=== PATIENT | female | born 1960 | race American Indian/Alaskan Native ===

== ENCOUNTER 2016-06-30 11:48 | Inpatient (IN) | payer SELFPAY ==
[2016-06-30] MEDS ORDERED: NORCO 5/325 PO ONE (14:37)
[2016-06-30] MEDS ORDERED: NACL 0.9% 1000 ML 1,000 ML IV ONE (14:37)
--- NOTE | 2016-06-30 15:00 | Emergency Department Report ---
ED Extremity Problem HPI - General Chief complaint: Extremity Injury, Lower Stated complaint: FOOT INJURY Time Seen by Provider: 06/30/16 14:34 Source: patient Mode of arrival: Wheelchair Limitations: Physical Limitation - History of Present Illness Initial comments: 56-year-old female past medical history hypertension diabetes presents with 3-5 days of left foot pain and swelling. Patient showing me her left foot has visible redness overlying the distal half of left foot. Patient states that walking is difficult and foot has become swollen. Denies any fever or chills but states that skin is very sensitive and hot and distal foot. Location: left History of Same: No Severity scale (0 -10): 6 Quality: aching Consistency: constant Improves with: immobilization Worsens with: weight bearing - Related Data Previous Rx's Medication Instructions Recorded Last Taken Type ALBUTEROL Inhaler [ProAir HFA 2 puff IH QID PRN #1 unit 03/26/16 Unknown Rx Inhaler] ALBUTEROL NEB's [Proventil 0.083% 2.5 mg IH Q4HRT PRN #30 nebu 03/26/16 Unknown Rx NEBS] Amoxicillin/K Clav Tab [Augmentin 1 tab PO Q12HR #8 tab 03/26/16 Unknown Rx 875 mg] HYDROcodone/APAP 5-325 [[place] 1 each PO Q6HR PRN #30 tablet 03/26/16 Unknown Rx 5-325 mg TAB] Lisinopril [Zestril TAB] 40 mg PO QDAY #30 tablet 03/26/16 Unknown Rx metFORMIN [Glucophage] 500 mg PO BID #60 tablet 03/26/16 Unknown Rx Albuterol Sulfate [Albuterol 0.63% 0.63 mg IH TID PRN #1 box 04/22/16 Unknown Rx NEBS] Azithromycin [Zithromax Z-SUGAR] 250 mg PO DAILY #6 tablet 04/22/16 Unknown Rx Budesonide [Pulmicort] 0.25 mg IH Q12HR #1 box 04/22/16 Unknown Rx Compressor, For Nebulizer [Ebase 1 each MC DAILY #1 each 04/22/16 Unknown Rx Controller] Ipratropium [Atrovent NEB] 0.5 mg IH Q8HRT #1 box 04/22/16 Unknown Rx Prednisone [predniSONE 10 mg 10 mg PO .TAPER #1 tab.ds.pk 04/22/16 Unknown Rx (6-Day Pack, 21 Tabs)] Allergies Allergy/AdvReac Type Severity Reaction Status Date / Time No Known Allergies Allergy Verified 06/30/16 12:46 ED Review of Systems ROS: Stated complaint: FOOT INJURY Other details as noted in HPI ED Past Medical Hx - Past Medical History Hx Hypertension: Yes Hx Congestive Heart Failure: No Hx Diabetes: Yes Hx Seizures: No Hx Asthma: Yes Hx Tuberculosis: No Hx Dementia: No Hx HIV: No Additional medical history: ANEMIA - Surgical History Hx Cholecystectomy: Yes - Social History Smoking Status: Never Smoker - Medications Home Medications: Home Medications Medication Instructions Recorded Confirmed Last Taken Type ALBUTEROL Inhaler [ProAir HFA 2 puff IH QID PRN #1 unit 03/26/16 04/21/16 Unknown Rx Inhaler] ALBUTEROL NEB's [Proventil 0.083% 2.5 mg IH Q4HRT PRN #30 nebu 03/26/16 Unknown Rx NEBS] Amoxicillin/K Clav Tab [Augmentin 1 tab PO Q12HR #8 tab 03/26/16 04/21/16 Unknown Rx 875 mg] HYDROcodone/APAP 5-325 [[place] 1 each PO Q6HR PRN #30 tablet 03/26/16 04/21/16 Unknown Rx 5-325 mg TAB] Lisinopril [Zestril TAB] 40 mg PO QDAY #30 tablet 03/26/16 04/21/16 Unknown Rx metFORMIN [Glucophage] 500 mg PO BID #60 tablet 03/26/16 04/21/16 Unknown Rx Albuterol Sulfate [Albuterol 0.63% 0.63 mg IH TID PRN #1 box 04/22/16 Unknown Rx NEBS] Azithromycin [Zithromax Z-SUGAR] 250 mg PO DAILY #6 tablet 04/22/16 Unknown Rx Budesonide [Pulmicort] 0.25 mg IH Q12HR #1 box 04/22/16 Unknown Rx Compressor, For Nebulizer [Ebase 1 each MC DAILY #1 each 04/22/16 Unknown Rx Controller] Ipratropium [Atrovent NEB] 0.5 mg IH Q8HRT #1 box 04/22/16 Unknown Rx Prednisone [predniSONE 10 mg 10 mg PO .TAPER #1 tab.ds.pk 04/22/16 Unknown Rx (6-Day Pack, 21 Tabs)] ED Physical Exam - General Limitations: Physical Limitation General appearance: alert, in no apparent distress - Head Head exam: Present: atraumatic, normocephalic - Eye Eye exam: Present: normal appearance, PERRL, EOMI - ENT ENT exam: Present: mucous membranes moist - Neck Neck exam: Present: normal inspection - Respiratory Respiratory exam: Present: normal lung sounds bilaterally. Absent: respiratory distress - Cardiovascular Cardiovascular Exam: Present: regular rate, normal rhythm. Absent: systolic murmur, diastolic murmur, rubs, gallop - GI/Abdominal GI/Abdominal exam: Present: soft, normal bowel sounds - Extremities Exam Extremities exam: Present: normal inspection - Expanded Lower Extremity Exam Left Hip exam: Present: normal inspection, full ROM Upper Leg exam: Present: normal inspection, full ROM Knee exam: Present: normal inspection, full ROM Lower Leg exam: Present: normal inspection Foot/Toe exam: Present: tenderness, swelling (redness tenderness and swelling from toes to midfoot region left foot, erythema on palpation, distal pulses intact) - Back Exam Back exam: Present: normal inspection - Neurological Exam Neurological exam: Present: alert, oriented X3, CN II-XII intact, normal gait - Psychiatric Psychiatric exam: Present: normal affect, normal mood - Skin Skin exam: Present: warm, dry, intact, normal color. Absent: rash ED Course Vital Signs 06/30/16 06/30/16 12:32 15:14 Temperature 99.9 F H Pulse Rate 82 Respiratory 18 18 Rate Blood Pressure 159/95 O2 Sat by Pulse 96 Oximetry ED Medical Decision Making - Lab Data Result diagrams: 06/30/16 15:10 06/30/16 15:10 - Medical Decision Making A/P: possible cellulitis vs gout left foot 1- Case d/w w/ Dr. Abdul , I offered pt outpt regimen of ABX to cover for cellulitis vs inpt admission for IV ABX and more aggressive coverage. As pt states she has difficult walking due to pain in her foot will admit for IV ABX. 2- pain control PRN 3- Case d/w Hospitalist Dr. Singh, saw pt in ED, will admit to medical floor 4- pt recived 1g of IV vancomycin in ED Critical care attestation.: If time is entered above; I have spent that time in minutes in the direct care of this critically ill patient, excluding procedure time. ED Disposition Clinical Impression: Cellulitis Qualifiers: Site of cellulitis: other site Qualified Code(s): L03.818 - Cellulitis of other sites Disposition: OP ADMITTED IP TO THIS HOSP Is pt being admited?: Yes Does the pt Need Aspirin: No Condition: Stable Referrals: PRIMARY CARE, [Primary Care Provider] - 3-5 Days Time of Disposition: 18:36
--- NOTE | 2016-06-30 15:07 | XRay Report ---
LEFT FOOT RADIOGRAPHS INDICATION: Left foot swelling. COMPARISON: None similar. FINDINGS: AP and lateral left foot radiographs demonstrate dorsal soft tissue swelling overlying the metatarsals. An approximately 3 mm ossific density at the fifth PIP joint medially nonspecific, though presumed degenerative and less likely avulsion. Bony demineralization with intact remainder bony articulation. Small plantar calcaneal spur. CONCLUSION: Left foot dorsal soft tissue swelling noted with nonspecific plain radiographic appearance about the fifth PIP joint, as described. Directed clinical correlation recommended. Thank you for the opportunity to participate in this patient's care.
[2016-06-30 15:36] LABS: Basophils % (Auto) 0.8 % (0.0-1.8); Eosinophils % (Auto) 1.4 % (0.0-4.3); Hemoglobin 14.1 gm/dl (10.1-14.3); Mean Corpuscular HGB Conc 34 % (30-34); Mean Corpuscular Hemoglobin 35 pg (28-32); Mean Corpuscular Volume 103 fl (79-97); Platelet Count 169 K/mm3 (140-440); Red Blood Count 4.07 M/mm3 (3.65-5.03); Red Cell Distribution Width 14.7 % (13.2-15.2); White Blood Count 7.5 K/mm3 (4.5-11.0)
[2016-06-30] MEDS ORDERED: VANCOMYCIN/NS 1 GM/250 ML 1 GM/250 ML BAG IV ONE (15:37)
[2016-06-30 15:49] LABS: Anion Gap 20 mmol/L; Blood Urea Nitrogen 5 mg/dL (7-17); Calcium 8.7 mg/dL (8.4-10.2); Carbon Dioxide 24 mmol/L (22-30); Chloride 102.1 mmol/L (98-107); Glucose 97 mg/dL (65-100); Sodium 142 mmol/L (137-145)
[2016-06-30 16:23] LABS: Erythrocyte Sedimentation Rate 29 mm/Hr (0-20)
[2016-06-30] MEDS ORDERED: TYLENOL PO PRN (18:35)
[2016-06-30] MEDS ORDERED: MILK OF MAGNESIA PO PRN (18:35)
[2016-06-30] MEDS ORDERED: ZOFRAN IV PRN (18:35)
[2016-06-30] MEDS ORDERED: DULCOLAX PR PRN (18:35)
[2016-06-30] MEDS ORDERED: D50W (25GM) IV PRN (18:35)
[2016-06-30] MEDS ORDERED: PROAIR IH PRN (18:42)
--- NOTE | 2016-06-30 18:49 | History and Physical Report ---
History of Present Illness Date of examination: 06/30/16 Date of admission: 06-30-16 Chief complaint: painful swollen foot History of present illness: She had 56-year-old female with a history of diabetes mellitus, hypertension presents with a 3 day history of painful swollen joint. Patient states the joint became so painful she cannot put carvedilol on it or cannot walk. Patient had difficulty ambulating because of painful left foot. Patient decided to come to the ER because of pain upon presentation to the ER was found to have warm erythematous swollen forefoot. Patient is called for admitted for cellulitis. Patient states pain began in the left big toe. And his progress throughout the forefoot. He denied stepping on any sharp objects. Deny walker while barefoot. She also denies neuropathy at this point. His blood sugars been fairly well controlled. at bedside. All questions and concerns answered to patient and 's satisfaction. Past History Past Medical History: COPD, diabetes, hypertension. denies: acute UT, atrial fib, arrhythmia, arthritis, CAD, cancer, DVT, ESRD, heart failure, hepatitis, HIV/AIDS, hyperthyroidism, hypothyroidism, liver disease, pulmonary embolism, renal failure, seizures, stroke, sarcoidosis Past Surgical History: appendectomy. denies: No surgical history, abd. aortic aneurysm repair, valve replacement, cholecystectomy, cataract removal, thyroidectomy, hysterectomy, hernia repair, mastectomy, total knee replacement, tonsillectomy, TURP, PTCA Social history: , lives with family Family history: diabetes Medications and Allergies Allergies Allergy/AdvReac Type Severity Reaction Status Date / Time No Known Allergies Allergy Verified 06/30/16 12:46 Home Medications Medication Instructions Recorded Confirmed Last Taken Type ALBUTEROL Inhaler [ProAir HFA 2 puff IH QID PRN #1 unit 03/26/16 04/21/16 Unknown Rx Inhaler] ALBUTEROL NEB's [Proventil 0.083% 2.5 mg IH Q4HRT PRN #30 nebu 03/26/16 Unknown Rx NEBS] Amoxicillin/K Clav Tab [Augmentin 1 tab PO Q12HR #8 tab 03/26/16 04/21/16 Unknown Rx 875 mg] HYDROcodone/APAP 5-325 [[place] 1 each PO Q6HR PRN #30 tablet 03/26/16 04/21/16 Unknown Rx 5-325 mg TAB] Lisinopril [Zestril TAB] 40 mg PO QDAY #30 tablet 03/26/16 04/21/16 Unknown Rx metFORMIN [Glucophage] 500 mg PO BID #60 tablet 03/26/16 04/21/16 Unknown Rx Albuterol Sulfate [Albuterol 0.63% 0.63 mg IH TID PRN #1 box 04/22/16 Unknown Rx NEBS] Azithromycin [Zithromax Z-SUGAR] 250 mg PO DAILY #6 tablet 04/22/16 Unknown Rx Budesonide [Pulmicort] 0.25 mg IH Q12HR #1 box 04/22/16 Unknown Rx Compressor, For Nebulizer [Ebase 1 each MC DAILY #1 each 04/22/16 Unknown Rx Controller] Ipratropium [Atrovent NEB] 0.5 mg IH Q8HRT #1 box 04/22/16 Unknown Rx Prednisone [predniSONE 10 mg 10 mg PO .TAPER #1 tab.ds.pk 04/22/16 Unknown Rx (6-Day Pack, 21 Tabs)] Active Meds: Active Medications Acetaminophen (Tylenol) 650 mg PO Q4H PRN PRN Reason: Pain MILD(1-3)/Fever >100.5/GOLD Acetaminophen/Hydrocodone Bitart ([place] 5/325) 1 each PO Q6HR PRN PRN Reason: Pain , Severe (7-10) Albuterol (Proair) 2 puff IH QID PRN PRN Reason: Shortness Of Breath Albuterol/Ipratropium (Duoneb 0.5 Mg-3 Mg/3 Ml Soln) 1 ampul IH Q6HRT ARNALDO Bisacodyl (Dulcolax) 10 mg IN QDAY PRN PRN Reason: Constipation unrelieved by MOM Dextrose (D50w (25gm)) 50 ml IV PRN PRN PRN Reason: Hypoglycemia Sodium Chloride (Nacl 0.9% 1000 Ml) 1,000 mls @ 100 mls/hr IV DIRECT ARNALDO Vancomycin HCl (Vancomycin/Ns 1 Gm/250 Ml) 250 mls @ 167 mls/hr IV ONCE ONE PRN Reason: Protocol Stop: 07/01/16 20:08 Insulin Human Regular (Novolin R) 0 units SUB-Q AC ARNALDO PRN Reason: Protocol Ipratropium [place] (Atrovent) 0.5 mg IH Q8HRT ARNALDO Lisinopril (Zestril) 40 mg PO QDAY ARNALDO Magnesium Hydroxide (Milk Of Magnesia) 30 ml PO Q4H PRN PRN Reason: Constipation Morphine Sulfate (Morphine) 2 mg IV Q4H PRN PRN Reason: Pain, Moderate (4-6) Ondansetron HCl (Zofran) 4 mg IV Q8H PRN PRN Reason: N/V unrelieved by Reglan Review of Systems Constitutional: no weight loss, no weight gain, no chills, no sweats, no fatigue , no weakness, no lethargy, no poor appetite, no daytime sleepiness Ears, nose, mouth and throat: no deferred, no ear discharge, no tinnitis, no decreased hearing, no nasal discharge, no sinus pressure, no epistaxis, no bleeding gums, no dental pain, no mouth pain, no hoarseness, no sore throat, no swelling in mouth, no headache, no pain front of neck Breasts: no deferred, no change in shape, no mass Cardiovascular: no palpitations, no rapid/irregular heart beat, no edema, no syncope, no shortness of breath, no dyspnea on exertion, no paroxysmal nocturnal dyspnea, no claudication, no phlebitis, no high blood pressure Respiratory: no cough, no cough with sputum, no excessive sputum, no hemoptysis , no shortness of breath, no dyspnea on exertion, no home oxygen Gastrointestinal: no abdominal pain, no nausea, no vomiting, no constipation, no change in bowel habits, no hematemesis, no coffee ground emesis, no melena, no hematochezia, no loss of appetite, no heartburn, no early satiety, no lactose intolerance Genitourinary Female: no menorrhagia, no dysuria, no stress incontinence, no incomplete emptying, no urge incontinence, no mixed incontinence Menstruation: no ammenorrhea, no ammenorrhea on BC Rectal: no pain, no incontinence Musculoskeletal: hot joints, arthritis, no neck stiffness, no neck pain, no shooting arm pain, no arm numbness/tingling, no low back pain, no shooting leg pain, no leg numbness/tingling, no redness of joints, no morning stiffness, no muscle weakness, no muscle cramps, no myalgias, no atrophy, no limitation of motion, no fractures Integumentary: redness, sores, wounds, no rash, no jaundice, no growths, no bullae, no lesions, no color changes Neurological: no head injury, no weakness, no numbness, no tingling, no seizures , no vertigo, no headaches, no convulsions, no change in speech, no change in mentation, no memory loss, no changes in smell/taste, no gait dysfunction, no motor disturbance, no sensory deficit, no double vision, no loss of vision, no hearing difficulties, no burning pain, no spasticity Exam - Constitutional Vitals: Temp Pulse Resp BP Pulse Ox 99.9 F H 82 18 159/95 96 06/30/16 12:32 06/30/16 12:32 06/30/16 15:14 06/30/16 12:32 06/30/16 12:32 General appearance: Present: no acute distress, well-nourished - EENT Eyes: Present: PERRL ENT: hearing intact, clear oral mucosa - Neck Neck: Present: supple, normal ROM - Respiratory Respiratory effort: normal Respiratory: bilateral: CTA - Cardiovascular Heart Sounds: Present: S1 & S2. Absent: rub, click - Extremities Extremities: pulses symmetrical, No edema Extremity abnormal: edema, erythema, other (cellulitis of forefoot. localazed on 1st met) - Abdominal General gastrointestinal: Present: soft, non-tender, non-distended, normal bowel sounds - Integumentary Integumentary: Present: clear, warm, dry - Musculoskeletal Musculoskeletal: gait normal, strength equal bilaterally - Psychiatric Psychiatric: appropriate mood/affect, intact judgment & insight - Neurologic Neurologic: CNII-XII intact, moves all extremities Results - Labs CBC & Chem 7: 06/30/16 15:10 06/30/16 15:10 Labs: Laboratory Last Values WBC 7.5 K/mm3 (4.5-11.0) 06/30/16 15:10 RBC 4.07 M/mm3 (3.65-5.03) 06/30/16 15:10 Hgb 14.1 gm/dl (10.1-14.3) 06/30/16 15:10 Hct 42.0 % (30.3-42.9) 06/30/16 15:10 MCV 103 fl (79-97) H 06/30/16 15:10 MCH 35 pg (28-32) H 06/30/16 15:10 MCHC 34 % (30-34) 06/30/16 15:10 RDW 14.7 % (13.2-15.2) 06/30/16 15:10 Plt Count 169 K/mm3 (140-440) 06/30/16 15:10 Lymph % (Auto) 18.9 % (13.4-35.0) 06/30/16 15:10 [place] % (Auto) 12.8 % (0.0-7.3) H 06/30/16 15:10 Eos % (Auto) 1.4 % (0.0-4.3) 06/30/16 15:10 Baso % (Auto) 0.8 % (0.0-1.8) 06/30/16 15:10 Lymph # 1.4 K/mm3 (1.2-5.4) 06/30/16 15:10 [place] # 1.0 K/mm3 (0.0-0.8) H 06/30/16 15:10 Eos # 0.1 K/mm3 (0.0-0.4) 06/30/16 15:10 Baso # 0.1 K/mm3 (0.0-0.1) 06/30/16 15:10 Seg Neutrophils % 66.1 % (40.0-70.0) 06/30/16 15:10 Seg Neutrophils # 4.9 K/mm3 (1.8-7.7) 06/30/16 15:10 ESR 29 mm/Hr (0-20) 06/30/16 15:10 Sodium 142 mmol/L (137-145) 06/30/16 15:10 Potassium 4.0 mmol/L (3.6-5.0) 06/30/16 15:10 Chloride 102.1 mmol/L (98-107) 06/30/16 15:10 Carbon Dioxide 24 mmol/L (22-30) 06/30/16 15:10 Anion Gap 20 mmol/L 06/30/16 15:10 BUN 5 mg/dL (7-17) L 06/30/16 15:10 Creatinine 0.4 mg/dL (0.7-1.2) L 06/30/16 15:10 Estimated GFR > 60 ml/min 06/30/16 15:10 BUN/Creatinine Ratio 12.50 % 06/30/16 15:10 Glucose 97 mg/dL (65-100) 06/30/16 15:10 Lactic Acid 2.0 mmol/L (0.7-2.0) 06/30/16 15:10 Calcium 8.7 mg/dL (8.4-10.2) 06/30/16 15:10 - Imaging and Cardiology Abdominal x-ray: other (foot x ray) Assessment and Plan Advance Directives: Yes VTE prophylaxis?: Chemical Plan of care discussed with patient/family: Yes - Patient Problems (1) HTN (hypertension) Current Visit: Yes Status: Acute Qualifiers: Hypertension type: H Plan to address problem: Patient has essential hypertension fairly well controlled with current MICHAEL inhibitor. We'll continue lisinopril. (2) Cellulitis Current Visit: Yes Status: Acute Qualifiers: Site of cellulitis: other site Site of cellulitis of extremity: S Site of cellulitis of trunk: S Laterality: L Qualified Code(s): L03.818 - Cellulitis of other sites Plan to address problem: Cellulitis of left forefoot. We'll treat patient with vancomycin for now. His already received a gram. We'll have pharmacy follow peak and troughs. May be able to change to by mouth anabiotic surly. We'll follow blood culture data. There is a chance that this may be gout. Patient has an extensive swelling and first MPJ. And then some swelling of forefoot. Will add uric acid level. (3) Asthma exacerbation Current Visit: No Status: Acute Qualifiers: Asthma severity: moderate persistent Qualified Code(s): J45.41 - Moderate persistent asthma with (acute) exacerbation Plan to address problem: We'll treat with albuterol nebulizers. Patient does not have an acute exacerbation at this particular time. (4) Diabetes 1.5, managed as type 2 Current Visit: No Status: Acute Plan to address problem: Patient's diabetes been fairly well controlled we'll place patient on concentrated carbohydrate diet sliding-scale insulin coverage.
[2016-06-30] MEDS ORDERED: PROVENTIL IH PRN (18:54)
--- NOTE | 2016-06-30 19:07 | Admit Criteria Form ---
Admission Criteria Documentation: CELLULITIS Clinical Indications for Admission to Inpatient Care (Place 'X' for any and all applicable criteria): Admission is indicated for ANY ONE of the following(1)(2)(3)(4)(5): [X]I. Limb-threatening infection []II. High-risk comorbid condition as indicated by ANY ONE of the following: []a) Uncontrolled diabetes (eg, HbA1c greater than 10% (0.1)) [ ]b) Cirrhosis [ ]c) Neutropenia [ ]d) Asplenia [ ]e) Immunosuppression [ ]f) Symptomatic heart failure [ ]III. Failure of outpatient therapy as indicated by ALL of the following: [ ]a) Progression or no improvement after adequate trial (minimum of 48 hours, with longer period for stable lower extremity infection) [ ]b) Adequate antibiotic regimen as indicated by use of ANY ONE of the following: [ ]i) First-generation cephalosporin (e.g., cephalexin) [ ]ii) Antistaphylococcal penicillin (e.g., dicloxacillin) [ ]iii) Penicillin-allergic patient regimen (clindamycin, extended-spectrum fluoroquinolone, or doxycycline) [ ]iv) Resistant organism (eg, methicillin-resistant Staphylococcus aureus) regimen (6) [ ]c) Outpatient intravenous therapy regimen is not appropriate due to ANY ONE of the following. (7)(8)(9)(10): [ ]i) It was tried and was not successful (eg, progression of infection). [ ]ii) It is not available or cannot be arranged in a clinically appropriate time frame (e.g., the next day). [ ]iii) Clinical presentation (eg, acuity of infection, rapidity of progression, confirmed or suspected bacteremia) is judged to require ALL of the following: [ ]1) Immediate initiation of intravenous therapy ( eg, cannot wait for next day) [ ]2) Intensity of patient monitoring and observation (eg, vital sign measurement, checks for infection progression) that cannot be provided at other than inpatient level of care [ ]IV. Mental status changes [ ]V. Bacteremia [ ]. Hemodynamic instability [ ]VII. Suspected necrotizing soft tissue infection (e.g., gas in tissue)(11)( 12) [ ]VIII. Orbital infection (13)(14) [ ]IX. Associated surgical procedure (e.g., abscess drainage, debridement) not amenable to outpatient, emergency department, or observation care [ ]X. Cutaneous gangrene [ ]XI. High fever (temperature greater than 39.5 degrees C (103.1 degrees F) (oral)) not responsive to outpatient, emergency department, or observation care therapy [ ]XIII. Inpatient admission required rather than observation care (Also use Cellulitis: Observation Care as appropriate) because of ANY ONE of the following : [ ]a) Periorbital or perineal infection that is severe or worsening [ ]b) Severe pain requiring acute inpatient management [ ]c) IV fluid to replace significant ongoing (e.g., for over 24 hours) losses (greater than 3L/m2 per day) [ ]d) Compartment syndrome monitoring (17) [ ]e) Strict or protective (eg, laminar flow) isolation [ ]f) Urgent debridement or skin grafting [ ]g) Bone or joint debridement [ ]h) Immediate inpatient surgery [ ]i) Other condition, treatment or monitoring requiring inpatient admission Extended stay beyond goal length of stay may be needed for (1)(18): [ ]a) Necrotizing soft tissue infection or fasciitis [ ]b) Gram-negative infection [ ]c) Methicillin-resistant Staphylococcal aureus (MRSA) infection [ ]d) Peripheral venous insufficiency with cellulitis [ ]e) Extensive edema [ ]f) Sepsis or continued Hemodynamic instability [ ]g) Continued high fever or mental status change [ ]h) Bacteremia [ ]i) Active serious comorbid conditions ( eg, heart failure, renal insufficiency) The original [employer] content created by [employer] has been revised. The portions of the content which have been revised are identified through the use of italic text or in bold, and [facility] has neither reviewed nor approved the modified material. All other unmodified content is copyright [facility] Please see references footnoted in the original [facility] edition 2016 Admission Criteria Met: Yes
[2016-06-30] MEDS: MORPHINE IV PRN ×2 (19:29→23:40)
[2016-06-30] MEDS: DUONEB 0.5 MG-3 MG/3 ML SOLN IH SCH (21:00)
[2016-06-30] MEDS: NACL 0.9% 1000 ML 1,000 ML IV SCH (23:42)
[2016-07-01] MEDS: MORPHINE IV PRN (03:56)
[2016-07-01] MEDS: ATROVENT IH SCH ×3 (04:10→22:30)
[2016-07-01] MEDS: DUONEB 0.5 MG-3 MG/3 ML SOLN IH SCH ×4 (04:38→19:55)
[2016-07-01] MEDS: ZESTRIL PO SCH (10:23)
[2016-07-01] MEDS: NORCO 5/325 PO PRN (10:24)
--- NOTE | 2016-07-01 12:45 | Progress Note ---
Assessment and Plan Assessment and plan: 1. Likely gouty flare involving the LT great toe; forefoot and ankle / cellulitis- will d/c vancomycin; trial of indomethacin;mildly elevated uric acid 2. DM 2- cont current sliding scale; monitor accucheck 3. Benign HTN- controlled; cont meds 4. DVT prophylaxis-lovenox History Interval history: c/o pain in the LT foot which started in the LT great toe Hospitalist Physical - Constitutional Vitals: Temp Pulse Resp BP Pulse Ox 98.7 F 71 20 124/65 94 07/01/16 08:00 07/01/16 10:23 07/01/16 09:05 07/01/16 10:23 07/01/16 08:00 General appearance: Present: no acute distress, well-nourished - EENT Eyes: Present: PERRL, EOM intact. Absent: scleral icterus, conjunctival injection ENT: hearing intact, clear oral mucosa, no oropharyngeal erythema, no poor dentition - Neck Neck: Present: supple. Absent: enlarged thyroid, masses or JVD - Respiratory Respiratory effort: normal Respiratory: negative: diminished, rales, rhonchi, wheezing - Cardiovascular Rhythm: regular Heart Sounds: Present: S1 & S2. Absent: gallop - Extremities Extremities: no ischemia, pulses intact, pulses symmetrical, No edema Extremity abnormal: other (lt forefoot swollen and tender including great toe ) Peripheral Pulses: within normal limits - Abdominal General gastrointestinal: soft, non-tender, non-distended, normal bowel sounds - Psychiatric Psychiatric: appropriate mood/affect, cooperative - Neurologic Neurologic: CNII-XII intact, moves all extremities Results - Labs CBC & Chem 7: 06/30/16 15:10 06/30/16 15:10 Labs: Laboratory Last Values WBC 7.5 K/mm3 (4.5-11.0) 06/30/16 15:10 RBC 4.07 M/mm3 (3.65-5.03) 06/30/16 15:10 Hgb 14.1 gm/dl (10.1-14.3) 06/30/16 15:10 Hct 42.0 % (30.3-42.9) 06/30/16 15:10 MCV 103 fl (79-97) H 06/30/16 15:10 MCH 35 pg (28-32) H 06/30/16 15:10 MCHC 34 % (30-34) 06/30/16 15:10 RDW 14.7 % (13.2-15.2) 06/30/16 15:10 Plt Count 169 K/mm3 (140-440) 06/30/16 15:10 Lymph % (Auto) 18.9 % (13.4-35.0) 06/30/16 15:10 [place] % (Auto) 12.8 % (0.0-7.3) H 06/30/16 15:10 Eos % (Auto) 1.4 % (0.0-4.3) 06/30/16 15:10 Baso % (Auto) 0.8 % (0.0-1.8) 06/30/16 15:10 Lymph # 1.4 K/mm3 (1.2-5.4) 06/30/16 15:10 [place] # 1.0 K/mm3 (0.0-0.8) H 06/30/16 15:10 Eos # 0.1 K/mm3 (0.0-0.4) 06/30/16 15:10 Baso # 0.1 K/mm3 (0.0-0.1) 06/30/16 15:10 Seg Neutrophils % 66.1 % (40.0-70.0) 06/30/16 15:10 Seg Neutrophils # 4.9 K/mm3 (1.8-7.7) 06/30/16 15:10 ESR 29 mm/Hr (0-20) 06/30/16 15:10 Sodium 142 mmol/L (137-145) 06/30/16 15:10 Potassium 4.0 mmol/L (3.6-5.0) 06/30/16 15:10 Chloride 102.1 mmol/L (98-107) 06/30/16 15:10 Carbon Dioxide 24 mmol/L (22-30) 06/30/16 15:10 Anion Gap 20 mmol/L 06/30/16 15:10 BUN 5 mg/dL (7-17) L 06/30/16 15:10 Creatinine 0.4 mg/dL (0.7-1.2) L 06/30/16 15:10 Estimated GFR > 60 ml/min 06/30/16 15:10 BUN/Creatinine Ratio 12.50 % 06/30/16 15:10 Glucose 97 mg/dL (65-100) 06/30/16 15:10 POC Glucose 102 (70-105) 07/01/16 06:35 Lactic Acid 2.0 mmol/L (0.7-2.0) 06/30/16 15:10 Uric Acid 7.8 mg/dL (3.5-7.6) H 06/30/16 15:10 Calcium 8.7 mg/dL (8.4-10.2) 06/30/16 15:10 C-Reactive Protein 1.60 mg/dL (0.00-1.30) H 06/30/16 15:10 xray LT foot- dorsal soft tissue swelling
[2016-07-01] MEDS: INDOCIN PO SCH ×2 (14:45→22:45)
[2016-07-01] MEDS: PEPCID PO SCH (14:46)
[2016-07-01] MEDS: NACL 0.9% 1000 ML 1,000 ML IV SCH (14:48)
[2016-07-01] MEDS ORDERED: VANCOMYCIN/NS 1 GM/250 ML 1 GM/250 ML BAG IV ONE (18:39)
[2016-07-02] MEDS: NACL 0.9% 1000 ML 1,000 ML IV SCH ×2 (00:21→16:44)
[2016-07-02] MEDS: DUONEB 0.5 MG-3 MG/3 ML SOLN IH SCH ×4 (02:25→20:10)
[2016-07-02] MEDS: ATROVENT IH SCH ×3 (02:30→15:00)
[2016-07-02] MEDS: INDOCIN PO SCH ×2 (09:33→22:59)
[2016-07-02] MEDS: PEPCID PO SCH (09:34)
[2016-07-02] MEDS: ZESTRIL PO SCH (09:34)
[2016-07-02] MEDS: NORCO 5/325 PO PRN ×3 (09:41→22:58)
--- NOTE | 2016-07-02 14:30 | Progress Note ---
Assessment and Plan Assessment and plan: 1. Likely gouty flare involving the LT great toe; forefoot and ankle / cellulitis- improving; cotn indomethacin;mildly elevated uric acid 2. DM 2- cont current sliding scale; monitor accucheck 3. Benign HTN- controlled; cont meds 4. DVT prophylaxis-lovenox fro d/c in the morning History Interval history: f/u possible gout; swelling and pain to LT foot Patient seen at the bedside; redness and swelling continue to improve but continues to have pain; unable to walk or put pressure on foot Hospitalist Physical - Constitutional Vitals: Temp Pulse Resp BP Pulse Ox 98.0 F 66 18 129/70 96 07/02/16 08:06 07/02/16 09:34 07/02/16 08:41 07/02/16 09:34 07/02/16 08:06 General appearance: Present: no acute distress, well-nourished - EENT Eyes: Present: PERRL, EOM intact. Absent: scleral icterus, conjunctival injection ENT: hearing intact, clear oral mucosa, no oropharyngeal erythema, no poor dentition - Neck Neck: Present: supple, normal ROM. Absent: enlarged thyroid, masses or JVD - Respiratory Respiratory effort: normal Respiratory: negative: diminished, rales, rhonchi, wheezing - Cardiovascular Rhythm: regular Heart Sounds: Present: S1 & S2. Absent: gallop - Extremities Extremities: no ischemia, pulses intact, pulses symmetrical, abnormal (swelling to lT foot; minimal redness ) Peripheral Pulses: within normal limits - Abdominal General gastrointestinal: soft, non-tender, non-distended, normal bowel sounds - Integumentary Integumentary: Present: clear - Psychiatric Psychiatric: appropriate mood/affect, intact judgment & insight, cooperative - Neurologic Neurologic: CNII-XII intact, moves all extremities Results - Labs CBC & Chem 7: 06/30/16 15:10 06/30/16 15:10 Labs: Laboratory Last Values WBC 7.5 K/mm3 (4.5-11.0) 06/30/16 15:10 RBC 4.07 M/mm3 (3.65-5.03) 06/30/16 15:10 Hgb 14.1 gm/dl (10.1-14.3) 06/30/16 15:10 Hct 42.0 % (30.3-42.9) 06/30/16 15:10 MCV 103 fl (79-97) H 06/30/16 15:10 MCH 35 pg (28-32) H 06/30/16 15:10 MCHC 34 % (30-34) 06/30/16 15:10 RDW 14.7 % (13.2-15.2) 06/30/16 15:10 Plt Count 169 K/mm3 (140-440) 06/30/16 15:10 Lymph % (Auto) 18.9 % (13.4-35.0) 06/30/16 15:10 [place] % (Auto) 12.8 % (0.0-7.3) H 06/30/16 15:10 Eos % (Auto) 1.4 % (0.0-4.3) 06/30/16 15:10 Baso % (Auto) 0.8 % (0.0-1.8) 06/30/16 15:10 Lymph # 1.4 K/mm3 (1.2-5.4) 06/30/16 15:10 [place] # 1.0 K/mm3 (0.0-0.8) H 06/30/16 15:10 Eos # 0.1 K/mm3 (0.0-0.4) 06/30/16 15:10 Baso # 0.1 K/mm3 (0.0-0.1) 06/30/16 15:10 Seg Neutrophils % 66.1 % (40.0-70.0) 06/30/16 15:10 Seg Neutrophils # 4.9 K/mm3 (1.8-7.7) 06/30/16 15:10 ESR 29 mm/Hr (0-20) 06/30/16 15:10 Sodium 142 mmol/L (137-145) 06/30/16 15:10 Potassium 4.0 mmol/L (3.6-5.0) 06/30/16 15:10 Chloride 102.1 mmol/L (98-107) 06/30/16 15:10 Carbon Dioxide 24 mmol/L (22-30) 06/30/16 15:10 Anion Gap 20 mmol/L 06/30/16 15:10 BUN 5 mg/dL (7-17) L 06/30/16 15:10 Creatinine 0.4 mg/dL (0.7-1.2) L 06/30/16 15:10 Estimated GFR > 60 ml/min 06/30/16 15:10 BUN/Creatinine Ratio 12.50 % 06/30/16 15:10 Glucose 97 mg/dL (65-100) 06/30/16 15:10 POC Glucose 114 (70-105) H 07/02/16 11:16 Lactic Acid 2.0 mmol/L (0.7-2.0) 06/30/16 15:10 Uric Acid 7.8 mg/dL (3.5-7.6) H 06/30/16 15:10 Calcium 8.7 mg/dL (8.4-10.2) 06/30/16 15:10 C-Reactive Protein 1.60 mg/dL (0.00-1.30) H 06/30/16 15:10
[2016-07-03] MEDS: ATROVENT IH SCH ×2 (00:15→08:27)
[2016-07-03] MEDS: DUONEB 0.5 MG-3 MG/3 ML SOLN IH SCH ×4 (02:15→19:55)
[2016-07-03] MEDS ORDERED: PROVENTIL IH PRN (08:32)
[2016-07-03] MEDS: MORPHINE IV PRN ×2 (08:57→19:07)
[2016-07-03] MEDS: PEPCID PO SCH (11:30)
[2016-07-03] MEDS: INDOCIN PO SCH ×2 (11:36→21:20)
[2016-07-03] MEDS: ZESTRIL PO SCH (11:37)
--- NOTE | 2016-07-03 13:28 | Consultation ---
History of Present Illness - HPI Consult date: 07/03/16 Consult reason: other (56-year-old, recently diagnosed diabetic with swelling redness and on the left foot, no history of injury. Since onset and with antibiotic therapy pain and swelling has improved.) Past History Past Medical History: COPD, diabetes, hypertension. denies: acute [place], atrial fib, arrhythmia, arthritis, CAD, cancer, DVT, ESRD, heart failure, hepatitis, HIV/AIDS, hyperthyroidism, hypothyroidism, liver disease, pulmonary embolism, renal failure, seizures, stroke, sarcoidosis Past Surgical History: appendectomy. denies: No surgical history, abd. aortic aneurysm repair, valve replacement, cholecystectomy, cataract removal, thyroidectomy, hysterectomy, hernia repair, mastectomy, total knee replacement, tonsillectomy, TURP, PTCA Social history: , lives with family Family history: diabetes Medications and Allergies Allergies Allergy/AdvReac Type Severity Reaction Status Date / Time No Known Allergies Allergy Verified 06/30/16 12:46 Home Medications Medication Instructions Recorded Confirmed Last Taken Type ALBUTEROL Inhaler [ProAir HFA 2 puff IH QID PRN #1 unit 03/26/16 07/01/16 Unknown Rx Inhaler] ALBUTEROL NEB's [Proventil 0.083% 2.5 mg IH Q4HRT PRN #30 nebu 03/26/16 Unknown Rx NEBS] Amoxicillin/K Clav Tab [Augmentin 1 tab PO Q12HR #8 tab 03/26/16 07/01/16 Unknown Rx 875 mg] HYDROcodone/APAP 5-325 [[place] 1 each PO Q6HR PRN #30 tablet 03/26/16 07/01/16 Unknown Rx 5-325 mg TAB] Lisinopril [Zestril TAB] 40 mg PO QDAY #30 tablet 03/26/16 07/01/16 Unknown Rx metFORMIN [Glucophage] 500 mg PO BID #60 tablet 03/26/16 07/01/16 Unknown Rx Albuterol Sulfate [Albuterol 0.63% 0.63 mg IH TID PRN #1 box 04/22/16 07/01/16 Unknown Rx NEBS] Azithromycin [Zithromax Z-SUGAR] 250 mg PO DAILY #6 tablet 04/22/16 07/01/16 Unknown Rx Budesonide [Pulmicort] 0.25 mg IH Q12HR #1 box 04/22/16 07/01/16 Unknown Rx Compressor, For Nebulizer [Ebase 1 each MC DAILY #1 each 04/22/16 07/01/16 Unknown Rx Controller] Ipratropium [Atrovent NEB] 0.5 mg IH Q8HRT #1 box 04/22/16 07/01/16 Unknown Rx Prednisone [predniSONE 10 mg 10 mg PO .TAPER #1 tab.ds.pk 04/22/16 07/01/16 Unknown Rx (6-Day Pack, 21 Tabs)] Indomethacin 50 mg PO Q8H PRN #21 capsule 07/03/16 Unknown Rx Active Meds: Active Medications Acetaminophen (Tylenol) 650 mg PO Q4H PRN PRN Reason: Pain MILD(1-3)/Fever >100.5/GOLD Acetaminophen/Hydrocodone Bitart ([place] 5/325) 1 each PO Q6HR PRN PRN Reason: Pain , Severe (7-10) Last Admin: 07/02/16 22:58 Dose: 1 each Albuterol (Proventil) 2.5 mg IH Q4HRT PRN PRN Reason: Shortness Of Breath Albuterol/Ipratropium (Duoneb 0.5 Mg-3 Mg/3 Ml Soln) 1 ampul IH TIDRT ARNALDO Bisacodyl (Dulcolax) 10 mg AK QDAY PRN PRN Reason: Constipation unrelieved by MOM Dextrose (D50w (25gm)) 50 ml IV PRN PRN PRN Reason: Hypoglycemia Famotidine (Pepcid) 40 mg PO QDAY [facility] Last Admin: 07/03/16 11:30 Dose: 40 mg Sodium Chloride (Nacl 0.9% 1000 Ml) 1,000 mls @ 100 mls/hr IV DIRECT ARNALDO Last Admin: 07/02/16 16:44 Dose: 100 mls/hr Indomethacin (Indocin) 50 mg PO Q12HR ARNALDO Last Admin: 07/03/16 11:36 Dose: 50 mg Insulin Human Regular (Novolin R) 0 units SUB-Q AC ARNALDO PRN Reason: Protocol Last Admin: 07/03/16 13:28 Dose: Not Given Lisinopril (Zestril) 40 mg PO QDAY [facility] Last Admin: 07/03/16 11:37 Dose: 40 mg Magnesium Hydroxide (Milk Of Magnesia) 30 ml PO Q4H PRN PRN Reason: Constipation Morphine Sulfate (Morphine) 2 mg IV Q4H PRN PRN Reason: Pain, Moderate (4-6) Last Admin: 07/03/16 08:57 Dose: 2 mg Ondansetron HCl (Zofran) 4 mg IV Q8H PRN PRN Reason: N/V unrelieved by Reglan Last Admin: 06/30/16 19:29 Dose: 4 mg Review of Systems All systems: negative Physical Examination - Ankle & Foot left Ankle appearance: other (Left foot and ankle shows mild swelling to the dorsal aspect, skin crinkling has reappeared, mild discoloration. No definite neurovascular deficit or point tenderness.) Assessment and Plan - Patient Problems (1) Cellulitis Current Visit: Yes Status: Acute Qualifiers: Site of cellulitis: extremity Site of cellulitis of extremity: S Site of cellulitis of trunk: S Laterality: left Qualified Code(s): L03.818 - Cellulitis of other sites Plan to address problem: With the symptoms are clinically improved since anybody's, elevation. No indications for surgical management. Advised continue with antibiotics and elevation, protected weightbearing. The patient may be discharged when medically stable, will follow her in of his. She will need podiatric care for long-term management of toenails, also need orthotics with a soft sole insert(diabetic neuropathy), will evaluate for this on of his followup.
--- NOTE | 2016-07-03 13:53 | Progress Note ---
Assessment and Plan Assessment and plan: 1. Likely gouty flare involving the LT great toe; forefoot and ankle / cellulitis- improving; cotn indomethacin;mildly elevated uric acid; will consult ortho for further evaluation in view of ongoing pain 2. DM 2- cont current sliding scale; monitor accucheck 3. Benign HTN- controlled; cont meds 4. DVT prophylaxis-lovenox for d/c home on indomethacin if cleared by ortho History Interval history: f/u possible gout; swelling and pain to LT foot Patient seen at the bedside; still complains of pain and being unable to bear weight and reports that pain is not improving; redness and swelling are better Hospitalist Physical - Constitutional Vitals: Temp Pulse Resp BP Pulse Ox 98.0 F 65 16 172/81 99 07/03/16 08:35 07/03/16 13:46 07/03/16 13:46 07/03/16 11:37 07/03/16 08:35 General appearance: Present: no acute distress, well-nourished - EENT Eyes: Present: PERRL, EOM intact. Absent: scleral icterus, conjunctival injection ENT: hearing intact, clear oral mucosa, no oropharyngeal erythema, no poor dentition - Neck Neck: Present: supple, normal ROM. Absent: enlarged thyroid, masses or JVD - Respiratory Respiratory effort: normal Respiratory: negative: diminished, rales, rhonchi, wheezing - Cardiovascular Rhythm: regular Heart Sounds: Present: S1 & S2. Absent: gallop - Extremities Extremities: no ischemia, pulses intact, pulses symmetrical, No edema, normal temperature Extremity abnormal: other (Lt ankle- swelling improving; now patient able to tolerate moving the toes and movement at the ankle joint which was limited before due to the pain ) Peripheral Pulses: within normal limits - Abdominal General gastrointestinal: soft, non-tender, non-distended, normal bowel sounds - Integumentary Integumentary: Present: clear - Psychiatric Psychiatric: appropriate mood/affect, cooperative - Neurologic Neurologic: CNII-XII intact Results - Labs CBC & Chem 7: 06/30/16 15:10 06/30/16 15:10 Labs: Laboratory Last Values WBC 7.5 K/mm3 (4.5-11.0) 06/30/16 15:10 RBC 4.07 M/mm3 (3.65-5.03) 06/30/16 15:10 Hgb 14.1 gm/dl (10.1-14.3) 06/30/16 15:10 Hct 42.0 % (30.3-42.9) 06/30/16 15:10 MCV 103 fl (79-97) H 06/30/16 15:10 MCH 35 pg (28-32) H 06/30/16 15:10 MCHC 34 % (30-34) 06/30/16 15:10 RDW 14.7 % (13.2-15.2) 06/30/16 15:10 Plt Count 169 K/mm3 (140-440) 06/30/16 15:10 Lymph % (Auto) 18.9 % (13.4-35.0) 06/30/16 15:10 [place] % (Auto) 12.8 % (0.0-7.3) H 06/30/16 15:10 Eos % (Auto) 1.4 % (0.0-4.3) 06/30/16 15:10 Baso % (Auto) 0.8 % (0.0-1.8) 06/30/16 15:10 Lymph # 1.4 K/mm3 (1.2-5.4) 06/30/16 15:10 [place] # 1.0 K/mm3 (0.0-0.8) H 06/30/16 15:10 Eos # 0.1 K/mm3 (0.0-0.4) 06/30/16 15:10 Baso # 0.1 K/mm3 (0.0-0.1) 06/30/16 15:10 Seg Neutrophils % 66.1 % (40.0-70.0) 06/30/16 15:10 Seg Neutrophils # 4.9 K/mm3 (1.8-7.7) 06/30/16 15:10 ESR 29 mm/Hr (0-20) 06/30/16 15:10 Sodium 142 mmol/L (137-145) 06/30/16 15:10 Potassium 4.0 mmol/L (3.6-5.0) 06/30/16 15:10 Chloride 102.1 mmol/L (98-107) 06/30/16 15:10 Carbon Dioxide 24 mmol/L (22-30) 06/30/16 15:10 Anion Gap 20 mmol/L 06/30/16 15:10 BUN 5 mg/dL (7-17) L 06/30/16 15:10 Creatinine 0.4 mg/dL (0.7-1.2) L 06/30/16 15:10 Estimated GFR > 60 ml/min 06/30/16 15:10 BUN/Creatinine Ratio 12.50 % 06/30/16 15:10 Glucose 97 mg/dL (65-100) 06/30/16 15:10 POC Glucose 85 (70-105) 07/03/16 12:09 Lactic Acid 2.0 mmol/L (0.7-2.0) 06/30/16 15:10 Uric Acid 7.8 mg/dL (3.5-7.6) H 06/30/16 15:10 Calcium 8.7 mg/dL (8.4-10.2) 06/30/16 15:10 C-Reactive Protein 1.60 mg/dL (0.00-1.30) H 06/30/16 15:10 Microbiology 06/30/16 15:15 Peripheral/Venous Blood Culture - Preliminary NO GROWTH AFTER 48 HOURS 06/30/16 15:15 Peripheral/Venous Blood Culture - Preliminary NO GROWTH AFTER 48 HOURS
[2016-07-03] MEDS: CLEOCIN 300 MG/50 mL 300 MG/50 ML BAG IV SCH (19:02)
[2016-07-03] MEDS: NACL 0.9% 1000 ML 1,000 ML IV SCH (21:25)
[2016-07-04] MEDS: CLEOCIN 300 MG/50 mL 300 MG/50 ML BAG IV SCH ×2 (02:11→05:24)
[2016-07-04 08:22] VITALS: BP 158/72
[2016-07-04] MEDS: DUONEB 0.5 MG-3 MG/3 ML SOLN IH SCH (08:27)
--- NOTE | 2016-07-04 10:19 | Discharge Summary ---
Providers - Providers Date of Admission: 06/30/16 18:35 Date of discharge: 07/04/16 Attending physician: LIBRA CRONIN 07/03/16 10:29 Consult to Physician [CONS] Routine Consulting Provider: RICK HONEYCUTT V Reason For Exam: pain and swelling LT ankle Place consult to:: dr. honeycutt Notified:: office Phone number called:: Was contact made?: Yes If yes, spoke with:: brad Time called:: 11:26 Primary care physician: [facility] Hospitalization Reason for admission: cellulitis Condition: Stable Hospital course: 56-year-old, recently diagnosed diabetic presented to the emergency department with swelling redness and on the left foot, no history of injury. Patient was diagnosed with cellulitis and treated with antibiotics. Since onset and with antibiotic therapy, pain and swelling has improved. Patient was also noted to have potentially acute gouty arthritis with slightly elevated uric acid. Patient was seen by orthopedics in consultation. Orthopedics recommended outpatient podiatry care for long-term management of toenails and orthotics with a soft sole insert. Patient is to weight-bear as tolerated and will be discharged with crutches. Dedicated discharge time 35 minutes. Disposition: DISCHARGED TO HOME OR SELFCARE - Discharge Diagnoses (1) Cellulitis Status: Acute Qualifiers: Site of cellulitis: extremity Site of cellulitis of extremity: S Site of cellulitis of trunk: S Laterality: left Qualified Code(s): L03.818 - Cellulitis of other sites (2) HTN (hypertension) Status: Acute Qualifiers: Hypertension type: H (3) Diabetes 1.5, managed as type 2 Status: Acute Comment: Patient new onset diabetes. We needed to give patient insulin because she was on such high doses of Solu-Medrol. Therefore placed on Lantus 30 units daily at bedtime this controlled blood sugars some point but remains suboptimal. Would not increase her long-acting insulin at this time secondary to the steroids will be tapered in a little over 2 weeks. She will need to follow with her primary care physician in 5-7 days. Patient has been informed that she can follow with me if she has a problem with her blood sugars as well. Patient is had diabetic education has been placed on an arm. Did not tolerate Perez well. Patient discharged in stable condition thank you Core Measure Documentation - Palliative Care Palliative Care/ Comfort Measures: Not Applicable - Core Measures Any of the following diagnoses?: none Exam - Constitutional Vitals: Temp Pulse Resp BP Pulse Ox 98.0 F 59 L 20 158/72 96 07/04/16 07:40 07/04/16 07:40 07/04/16 07:40 07/04/16 07:40 07/04/16 07:40 General appearance: Present: no acute distress, well-nourished - EENT Eyes: Present: PERRL ENT: hearing intact, clear oral mucosa - Neck Neck: Present: supple, normal ROM - Respiratory Respiratory effort: normal Respiratory: bilateral: CTA - Cardiovascular Heart Sounds: Present: S1 & S2. Absent: rub, click - Extremities Extremities: pulses symmetrical, No edema Peripheral Pulses: within normal limits - Abdominal General gastrointestinal: Present: soft, non-tender, non-distended, normal bowel sounds Female genitourinary: Present: normal - Integumentary Integumentary: Present: clear, warm, dry - Musculoskeletal Musculoskeletal: gait normal, strength equal bilaterally - Psychiatric Psychiatric: appropriate mood/affect, intact judgment & insight - Neurologic Neurologic: CNII-XII intact, moves all extremities Plan Activity: advance as tolerated Weight Bearing Status: Weight Bear as Tolerated Diet: diabetic Wound: per your surgeon's advice Special Instructions: other (work excuse) Durable Medical Equipment Needed Upon Discharge: Crutches Follow up with: PRIMARY CARE, [Primary Care Provider] - 3-5 Days RICK HONEYCUTT MD [Staff Physician] - 7 Days Prescriptions: Amoxicillin/K Clav Tab [Augmentin 875MG TAB] 1 tab PO Q12HR #8 tab HYDROcodone/APAP 5-325 [[place] 5-325 mg TAB] 1 each PO Q6HR PRN #30 tablet PRN Reason: Pain , Severe (7-10) Indomethacin 50 mg PO Q8H PRN #21 capsule PRN Reason: gout flare Indomethacin [Indocin] 50 mg PO Q12HR #20 capsule Lisinopril [Zestril TAB] 40 mg PO QDAY #30 tablet
[2016-07-04] MEDS: ZESTRIL PO SCH (10:27)
[2016-07-04] MEDS: INDOCIN PO SCH (10:28)
[2016-07-04] MEDS: PEPCID PO SCH (10:28)
== END 2016-07-04 14:00 | disposition home or self-care (01) | DRG 603 ==
LOC: ED 11:48 → 3A 18:35
PROVIDERS: ADMIT Internal Medicine; ATTEND Hospitalist
DX: L03.818 Cellulitis of other sites (principal); J45.41 Moderate persistent asthma with (acute) exacerbation; L03.116 Cellulitis of left lower limb; I10 Essential (primary) hypertension; E11.9 Type 2 diabetes mellitus without complications; Z86.2 Personal history of diseases of the blood and blood-forming organs and certain disorders involving the immune mechanism; Z90.49 Acquired absence of other specified parts of digestive tract; J44.9 Chronic obstructive pulmonary disease, unspecified; Z90.89 Acquired absence of other organs; Z83.3 Family history of diabetes mellitus; M10.00 Idiopathic gout, unspecified site
CPT/HCPCS: 36415; 80048; 82140; 82962; 84550; 85025; 85652; 86140; 87040; 94640; 96365; 96366; 96375; J2270; J2405; J3370; J7030

== ENCOUNTER 2017-03-29 16:58 | Inpatient (IN) | payer OTHER ==
[2017-03-29] MEDS ORDERED: ATROVENT IH ONE ×2 (17:26→17:29)
[2017-03-29] MEDS ORDERED: PROVENTIL IH ONE ×4 (17:26→20:34)
[2017-03-29 17:40] LABS: Basophils % (Auto) 0.6 % (0.0-1.8); Eosinophils % (Auto) 0.8 % (0.0-4.3); Hematocrit 44.1 % (30.3-42.9); Hemoglobin 15.2 gm/dl (10.1-14.3); Mean Corpuscular HGB Conc 34 % (30-34); Mean Corpuscular Hemoglobin 35 pg (28-32); Mean Corpuscular Volume 102 fl (79-97); Platelet Count 155 K/mm3 (140-440); Red Blood Count 4.34 M/mm3 (3.65-5.03); Red Cell Distribution Width 13.8 % (13.2-15.2); White Blood Count 7.6 K/mm3 (4.5-11.0)
[2017-03-29 17:51] LABS: Anion Gap 23 mmol/L; BUN/Creatinine Ratio 17; Blood Urea Nitrogen 5 mg/dL (7-17); Calcium 9.1 mg/dL (8.4-10.2); Carbon Dioxide 22 mmol/L (22-30); Chloride 101.9 mmol/L (98-107); Glucose 91 mg/dL (65-100); Potassium 4.1 mmol/L (3.6-5.0); Sodium 143 mmol/L (137-145)
[2017-03-29] MEDS ORDERED: MAGNESIUM SULFATE IV ONE (20:33)
--- NOTE | 2017-03-29 20:38 | XRay Report ---
FINAL REPORT EXAM: XR CHEST ROUTINE 2V HISTORY: Shortness of breath TECHNIQUE: Two view chest PA and lateral PRIORS: None. FINDINGS: Cardiac and mediastinal contours are unremarkable. No focal pulmonary infiltrate is identified. No pleural fluid collection seen. Pulmonary vasculature is unremarkable. IMPRESSION: Negative two-view chest
--- NOTE | 2017-03-29 20:43 | Emergency Department Report ---
ED Shortness of Breath HPI - General Chief Complaint: Adult Asthma Stated Complaint: RYAN Time Seen by Provider: 03/29/17 20:28 Source: patient Mode of arrival: Ambulatory Limitations: No Limitations - History of Present Illness Initial Comments: 56 yo female with h/oasthma here with difficulty breathing. Pt has been sob since Sunday at work where EMS as called and gave her a breathing treatment. She did not improve all the way but has continued to fell sob. She has a h/o asthma and is a non smoker. MD Complaint: shortness of breath -: Gradual, days(s) (2) Severity: severe Pain Scale: 0 - Related Data Previous Rx's Medication Instructions Recorded Last Taken Type metFORMIN [Glucophage] 500 mg PO BID #60 tablet 03/26/16 Unknown Rx Budesonide [Pulmicort Respules] 0.25 mg IH Q12HR #1 box 04/22/16 Unknown Rx Compressor, For Nebulizer [Ebase 1 each MC DAILY #1 each 04/22/16 Unknown Rx Controller] Ipratropium [Atrovent NEB] 0.5 mg IH Q8HRT #1 box 04/22/16 Unknown Rx Prednisone [predniSONE 10 mg 10 mg PO .TAPER #1 tab.ds.pk 04/22/16 Unknown Rx (6-Day Pack, 21 Tabs)] Indomethacin 50 mg PO Q8H PRN #21 capsule 07/03/16 Unknown Rx Amoxicillin/K Clav Tab [Augmentin 1 tab PO Q12HR #8 tab 07/04/16 Unknown Rx 875MG TAB] HYDROcodone/APAP 5-325 [[place] 1 each PO Q6HR PRN #30 tablet 07/04/16 Unknown Rx 5-325 mg TAB] Indomethacin [Indocin] 50 mg PO Q12HR #20 capsule 07/04/16 Unknown Rx Lisinopril [Zestril TAB] 40 mg PO QDAY #30 tablet 07/04/16 Unknown Rx Allergies Allergy/AdvReac Type Severity Reaction Status Date / Time No Known Allergies Allergy Verified 06/30/16 12:46 ED Review of Systems ROS: Stated complaint: RYAN Other details as noted in HPI Constitutional: denies: chills, fever Eyes: denies: eye pain, eye discharge, vision change ENT: denies: ear pain, throat pain Respiratory: denies: cough, shortness of breath, wheezing Cardiovascular: denies: chest pain, palpitations Endocrine: no symptoms reported Gastrointestinal: denies: abdominal pain, nausea, diarrhea Genitourinary: denies: urgency, dysuria, discharge Musculoskeletal: denies: back pain, joint swelling, arthralgia Skin: denies: rash, lesions Neurological: denies: headache, weakness, paresthesias Psychiatric: denies: anxiety, depression Hematological/Lymphatic: denies: easy bleeding, easy bruising ED Past Medical Hx - Past Medical History Previous Medical History?: Yes Hx Hypertension: Yes (2016) Hx Congestive Heart Failure: No Hx Diabetes: Yes Hx Seizures: No Hx Asthma: Yes Hx Tuberculosis: No Hx Dementia: No Hx HIV: No Additional medical history: ANEMIA - Surgical History Past Surgical History?: Yes Hx Cholecystectomy: Yes - Social History Smoking Status: Never Smoker Substance Use Type: Prescribed - Medications Home Medications: Home Medications Medication Instructions Recorded Confirmed Last Taken Type metFORMIN [Glucophage] 500 mg PO BID #60 tablet 03/26/16 07/01/16 Unknown Rx Budesonide [Pulmicort Respules] 0.25 mg IH Q12HR #1 box 04/22/16 07/01/16 Unknown Rx Compressor, For Nebulizer [Ebase 1 each MC DAILY #1 each 04/22/16 07/01/16 Unknown Rx Controller] Ipratropium [Atrovent NEB] 0.5 mg IH Q8HRT #1 box 04/22/16 07/01/16 Unknown Rx Prednisone [predniSONE 10 mg 10 mg PO .TAPER #1 tab.ds.pk 04/22/16 07/01/16 Unknown Rx (6-Day Pack, 21 Tabs)] Indomethacin 50 mg PO Q8H PRN #21 capsule 07/03/16 Unknown Rx Amoxicillin/K Clav Tab [Augmentin 1 tab PO Q12HR #8 tab 07/04/16 Unknown Rx 875MG TAB] HYDROcodone/APAP 5-325 [[place] 1 each PO Q6HR PRN #30 tablet 07/04/16 Unknown Rx 5-325 mg TAB] Indomethacin [Indocin] 50 mg PO Q12HR #20 capsule 07/04/16 Unknown Rx Lisinopril [Zestril TAB] 40 mg PO QDAY #30 tablet 07/04/16 Unknown Rx ED Physical Exam - General Limitations: No Limitations General appearance: alert, in no apparent distress - Head Head exam: Present: atraumatic, normocephalic - Eye Eye exam: Present: normal appearance - ENT ENT exam: Present: mucous membranes moist - Neck Neck exam: Present: normal inspection - Respiratory Respiratory exam: Present: normal lung sounds bilaterally, respiratory distress , wheezes, decreased breath sounds, prolonged expiratory - Cardiovascular Cardiovascular Exam: Present: regular rate, normal rhythm. Absent: systolic murmur, diastolic murmur, rubs, gallop - GI/Abdominal GI/Abdominal exam: Present: soft, normal bowel sounds - Rectal Rectal exam: Present: deferred - Extremities Exam Extremities exam: Present: normal inspection, full ROM - Back Exam Back exam: Present: normal inspection, full ROM - Neurological Exam Neurological exam: Present: alert, oriented X3, CN II-XII intact - Psychiatric Psychiatric exam: Present: normal affect, normal mood - Skin Skin exam: Present: warm, dry, intact, normal color. Absent: rash ED Course Vital Signs 03/29/17 03/29/17 03/29/17 17:01 17:04 19:54 Temperature 98.8 F Pulse Rate 117 H Pulse Rate [ Anterior Bilateral Throughout] Respiratory 30 H Rate Respiratory Rate [Anterior Bilateral Throughout] Blood Pressure 122/71 122/71 O2 Sat by Pulse 97 92 Oximetry 03/29/17 03/29/17 03/29/17 20:00 20:15 20:31 Temperature Pulse Rate Pulse Rate [ Anterior Bilateral Throughout] Respiratory Rate Respiratory Rate [Anterior Bilateral Throughout] Blood Pressure 139/70 144/78 O2 Sat by Pulse 94 89 93 Oximetry 03/29/17 03/29/17 03/29/17 20:45 21:00 21:05 Temperature Pulse Rate 91 H 101 H Pulse Rate [ Anterior Bilateral Throughout] Respiratory 18 22 24 Rate Respiratory Rate [Anterior Bilateral Throughout] Blood Pressure 155/77 154/75 O2 Sat by Pulse 92 87 93 Oximetry 03/29/17 03/29/17 21:42 22:16 Temperature Pulse Rate Pulse Rate [ 97 H 96 H Anterior Bilateral Throughout] Respiratory Rate Respiratory 25 H 25 H Rate [Anterior Bilateral Throughout] Blood Pressure O2 Sat by Pulse Oximetry - Reevaluation(s) Reevaluation #1: 03/30/17 00:14 PT HAS RECEIVED 15MG OF ALBUTEROL AND ATROVENT AND STILL SATURATING 92% ED Medical Decision Making - Lab Data Result diagrams: 03/29/17 17:22 03/29/17 17:22 - EKG Data EKG shows normal: sinus rhythm, axis, intervals - EKG Data When compared to previous EKG there are: no significant change, other (onlu lvh) Interpretation: LVH - Radiology Data Radiology results: report reviewed (cxr: negative) Critical care attestation.: If time is entered above; I have spent that time in minutes in the direct care of this critically ill patient, excluding procedure time. ED Disposition Clinical Impression: Asthma exacerbation Qualifiers: Asthma severity: severe Asthma persistence: persistent Qualified Code(s): J45.51 - Severe persistent asthma with (acute) exacerbation Is pt being admited?: Yes Does the pt Need Aspirin: No Condition: Serious Referrals: PRIMARY CARE, [Primary Care Provider] - 3-5 Days Time of Disposition: 00:16 (CASE REVIEWED WITH DR SIMS AND HE WILL ADMIT HER TO HIS SERVICE)
[2017-03-29] MEDS ORDERED: MAGNESIUM SULFATE 2GM/50ML 2 GM/50 ML BAG IV SCH (21:00)
[2017-03-30 00:19] LABS: ISTAT Base Excess 1; ISTAT DEVICE 0; ISTAT HCO3 25.2; ISTAT PCO2 35.6 (35-45); ISTAT PH 7.457 (7.35-7.45); ISTAT PO2 63 (80-105); ISTAT SO2 93; ISTAT TCO2 26
--- NOTE | 2017-03-30 00:31 | History and Physical Report ---
History of Present Illness Date of examination: 03/30/17 Chief complaint: Shortness of breath History of present illness: 56-year-old -[place] female with past medical history significant for asthma, hypertension, diabetes mellitus type 2 presented to the emergency department complaining of shortness of breath that started yesterday. Paramedics was called and was given breathing treatment and patient sent to the emergency department. In the emergency department she has episodes of desaturation. Patient claimed she had fever and cough which is productive of yellowish sputum. Patient admitted pleuritic pain when she coughs. Patient denied nausea, vomiting, palpitation. REVIEW OF SYSTEMS: GENERAL: no weight change, no fatigue, no fever HEAD: no head ache EYES: no blurry vision, no acute visual loss EARS: no hearing loss, no discharge, no earache NOSE: no stuffiness, no sneezing, no discharge MOUTH, THROAT AND NECK: no bleeding gums, no sore throat, no swollen neck CARDIAC: no palpitations, no dyspnea on exertion, no orthopnea, no PND, no edema , no chest pain RESPIRATORY: As stated in the HPI. GI: no decreased appetite, no nausea, no vomiting, no dysphagia, no diarrhea, no constipation, no abdominal pain URINARY: no change in frequency, no urgency, no polyuria, no hematuria, no incontinence MUSCULOSKELETAL: no muscle weakness, no pain, no joint stiffness NEUROLOGIC: no loss of sensation/numbness, no tingling, no tremors, no weakness/ paralysis HEMATOLOGIC: no anemia, no easy bruising SKIN: no rashes ENDOCRINE: no heat/cold intolerance, no polyuria, no polydipsia, no thyroid problems, + diabetes PSYCHIATRIC: no anxiety, no depression, no suicidal ideations Past History Past Medical History: diabetes, hypertension Past Surgical History: cholecystectomy Social history: full code. denies: smoking, alcohol abuse, prescription drug abuse, IV drug use Family history: CAD (grandmother) Medications and Allergies Allergies Allergy/AdvReac Type Severity Reaction Status Date / Time No Known Allergies Allergy Verified 06/30/16 12:46 Home Medications Medication Instructions Recorded Confirmed Last Taken Type metFORMIN [Glucophage] 500 mg PO BID #60 tablet 03/26/16 07/01/16 Unknown Rx Budesonide [Pulmicort Respules] 0.25 mg IH Q12HR #1 box 12/10/16 02/18/17 Unknown Rx Compressor, For Nebulizer [Ebase 1 each MC DAILY #1 each 04/22/16 07/01/16 Unknown Rx Controller] Ipratropium [Atrovent NEB] 0.5 mg IH Q8HRT #1 box 04/22/16 07/01/16 Unknown Rx Prednisone [predniSONE 10 mg 10 mg PO .TAPER #1 tab.ds.pk 04/22/16 07/01/16 Unknown Rx (6-Day Pack, 21 Tabs)] Indomethacin 50 mg PO Q8H PRN #21 capsule 07/03/16 Unknown Rx Amoxicillin/K Clav Tab [Augmentin 1 tab PO Q12HR #8 tab 07/04/16 Unknown Rx 875MG TAB] HYDROcodone/APAP 5-325 [[place] 1 each PO Q6HR PRN #30 tablet 07/04/16 Unknown Rx 5-325 mg TAB] Indomethacin [Indocin] 50 mg PO Q12HR #20 capsule 07/04/16 Unknown Rx Lisinopril [Zestril TAB] 40 mg PO QDAY #30 tablet 07/04/16 Unknown Rx Active Meds: Active Medications Magnesium Sulfate (Magnesium Sulfate 2gm/50ml) 2 gm in 50 mls @ 25 mls/hr IV ONCE.ED ARNALDO Exam - Physical Exam Narrative exam: Not in cardiopulmonary distress. The patient is obese. Vital signs as documented. Head exam is unremarkable. No scleral icterus . Neck is without jugular venous distension, thyromegaly, or carotid bruits. Lungs are clear to auscultation. Cardiac exam reveals regular rate and Rhythm. First and second heart sounds normal. No murmurs, rubs or gallops. Abdominal exam reveals normal bowel sounds, no masses, no organomegaly and no aortic enlargement. Extremities are nonedematous and both femoral and pedal pulses are normal. BRASS WIND INSTRUMENTS TUBE BENDER: Alert and oriented 3. No focal weakness. - Constitutional Vitals: Temp Pulse Resp BP Pulse Ox 98.8 F 96 H 25 H 154/75 93 03/29/17 17:04 03/29/17 22:16 03/29/17 22:16 03/29/17 21:00 03/29/17 21:05 Results - Labs CBC & Chem 7: 03/29/17 17:22 03/29/17 17:22 Labs: Laboratory Last Values WBC 7.6 K/mm3 (4.5-11.0) 03/29/17 17:22 RBC 4.34 M/mm3 (3.65-5.03) 03/29/17 17:22 Hgb 15.2 gm/dl (10.1-14.3) H 03/29/17 17:22 Hct 44.1 % (30.3-42.9) H 03/29/17 17:22 MCV 102 fl (79-97) H 03/29/17 17:22 MCH 35 pg (28-32) H 03/29/17 17:22 MCHC 34 % (30-34) 03/29/17 17:22 RDW 13.8 % (13.2-15.2) 03/29/17 17:22 Plt Count 155 K/mm3 (140-440) 03/29/17 17:22 Lymph % (Auto) 26.0 % (13.4-35.0) 03/29/17 17:22 [place] % (Auto) 12.8 % (0.0-7.3) H 03/29/17 17:22 Eos % (Auto) 0.8 % (0.0-4.3) 03/29/17 17:22 Baso % (Auto) 0.6 % (0.0-1.8) 03/29/17 17:22 Lymph # 2.0 K/mm3 (1.2-5.4) 03/29/17 17:22 [place] # 1.0 K/mm3 (0.0-0.8) H 03/29/17 17:22 Eos # 0.1 K/mm3 (0.0-0.4) 03/29/17 17:22 Baso # 0.0 K/mm3 (0.0-0.1) 03/29/17 17:22 Seg Neutrophils % 59.8 % (40.0-70.0) 03/29/17 17:22 Seg Neutrophils # 4.6 K/mm3 (1.8-7.7) 03/29/17 17:22 POC ABG pH 7.457 (7.35-7.45) H 03/30/17 00:16 POC ABG pCO2 35.6 (35-45) 03/30/17 00:16 POC ABG pO2 63 (80-105) L 03/30/17 00:16 POC ABG HCO3 25.2 03/30/17 00:16 POC ABG Total CO2 26 03/30/17 00:16 POC ABG O2 Sat 93 03/30/17 00:16 POC ABG Base Excess 1 03/30/17 00:16 FiO2 21 % 03/30/17 00:16 Sodium 143 mmol/L (137-145) 03/29/17 17:22 Potassium 4.1 mmol/L (3.6-5.0) 03/29/17 17:22 Chloride 101.9 mmol/L (98-107) 03/29/17 17:22 Carbon Dioxide 22 mmol/L (22-30) 03/29/17 17:22 Anion Gap 23 mmol/L 03/29/17 17:22 BUN 5 mg/dL (7-17) L 03/29/17 17:22 Creatinine 0.3 mg/dL (0.7-1.2) L 03/29/17 17:22 Estimated GFR > 60 ml/min 03/29/17 17:22 BUN/Creatinine Ratio 17 % 03/29/17 17:22 Glucose 91 mg/dL (65-100) 03/29/17 17:22 Calcium 9.1 mg/dL (8.4-10.2) 03/29/17 17:22 Troponin T < 0.010 ng/mL (0.00-0.029) 03/29/17 17:22 - Imaging and Cardiology Chest x-ray: image reviewed (no acute cardiothoracic abnormalities identified) Assessment and Plan Assessment and plan: Acute hypoxic respiratory failure Acute asthma exacerbation Hypertension Diabetes mellitus, well controlled Obesity - Solu-Medrol, IV antibiotics, breathing treatments - Continue appropriate home medications - Consulted about weight loss DVT prophylaxis -Lovenox Disposition -Admit to medical floor. Advance Directives: Yes VTE prophylaxis?: Chemical Plan of care discussed with patient/family: Yes
[2017-03-30] MEDS ORDERED: D50W (25GM) Vial IV PRN (00:35)
[2017-03-30] MEDS ORDERED: PROVENTIL IH PRN (03:56)
[2017-03-30] MEDS: DUONEB *Not for PRN Use IH SCH ×4 (07:49→19:35)
[2017-03-30] MEDS: PULMICORT IH SCH ×2 (07:49→19:35)
[2017-03-30 08:19] LABS: Basophils % (Auto) 0.3 % (0.0-1.8); Hemoglobin 15.1 gm/dl (10.1-14.3); Mean Corpuscular HGB Conc 34 % (30-34); Mean Corpuscular Hemoglobin 35 pg (28-32); Mean Corpuscular Volume 101 fl (79-97); Platelet Count 136 K/mm3 (140-440); Red Blood Count 4.36 M/mm3 (3.65-5.03); Red Cell Distribution Width 14.2 % (13.2-15.2); White Blood Count 5.8 K/mm3 (4.5-11.0)
[2017-03-30 08:40] LABS: Anion Gap 21 mmol/L; BUN/Creatinine Ratio 13; Blood Urea Nitrogen 5 mg/dL (7-17); Calcium 8.9 mg/dL (8.4-10.2); Carbon Dioxide 28 mmol/L (22-30); Chloride 100.7 mmol/L (98-107); Glucose 188 mg/dL (65-100); Potassium 4.6 mmol/L (3.6-5.0); Sodium 145 mmol/L (137-145)
[2017-03-30] MEDS: NORCO 5/325 PO PRN ×2 (09:12→20:30)
[2017-03-30] MEDS: LEVAQUIN 750MG/150ML 750 MG/150 ML BAG IV SCH (10:44)
[2017-03-30] MEDS: ZESTRIL PO SCH (10:45)
[2017-03-30] MEDS: LOVENOX SUB-Q SCH (10:45)
[2017-03-30] MEDS ORDERED: Fluarix Quad 2017-2018(36 MOS+ IM ONE (12:00)
[2017-03-30] MEDS: NOVOLOG SUB-Q SCH ×3 (12:19→21:59)
[2017-03-30] MEDS ORDERED: TYLENOL PO PRN (12:48)
--- NOTE | 2017-03-30 16:47 | Event Note ---
Date: 03/30/17 56-year-old -[place]iss female with past medical history significant for asthma, hypertension, diabetes mellitus type 2 presented to the emergency department complaining of shortness of breath that started yesterday. We will continue current management and plan as dictated in H&P.
[2017-03-30] MEDS: PROTONIX PO SCH (17:07)
[2017-03-30] MEDS ORDERED: NOVOLOG SUB-Q SCH (22:00)
[2017-03-31] MEDS: NOVOLOG SUB-Q SCH ×4 (08:40→22:28)
[2017-03-31] MEDS: PULMICORT IH SCH ×2 (08:42→19:27)
[2017-03-31] MEDS: DUONEB *Not for PRN Use IH SCH ×4 (08:42→19:27)
[2017-03-31] MEDS: PROTONIX PO SCH (09:20)
[2017-03-31] MEDS: ZESTRIL PO SCH (09:20)
[2017-03-31] MEDS: LEVAQUIN 750MG/150ML 750 MG/150 ML BAG IV SCH (09:21)
[2017-03-31] MEDS: LOVENOX SUB-Q SCH (09:21)
[2017-03-31] MEDS: NORCO 5/325 PO PRN (12:38)
--- NOTE | 2017-03-31 16:27 | Progress Note ---
Assessment and Plan Acute hypoxic respiratory failure - due to acute asthama exacerbation, cont to treat asthma Acute asthma exacerbation - Solu-Medrol, IV antibiotics, breathing treatments Hypertension - Continue appropriate home medications Diabetes mellitus, well controlled - ADA diet, SSI coverage Obesity - Consulted about weight loss DVT prophylaxis -Lovenox Subjective Date of service: 03/31/17 Interval history: Patient seen and examined. Medical records and medication list reviewed. No acute event overnight noted by the RN. Patient denies any chest pain but complains of difficulty breathing on exertion. Patient is tolerating diet. Discussed plan of care at bedside with patient. Objective - Exam Narrative Exam: GENERAL: well-developed and well-nourished -[place] female lying on bed appeared to be in no discomfort. HEENT: Normocephalic. Atraumatic. No conjunctival congestion or icterus. Patient has moist mucous membranes. NECK: Supple. Trachea midline. CHEST/LUNGS: breathing nonlabored. + wheezes, no crackles or rhonchi. HEART/CARDIOVASCULAR: Regular in rate and rhythm. S1 and S2 positive. ABDOMEN: Abdomen is soft, nontender. Patient has normal bowel sounds. SKIN: There is no rash. Warm and dry. NEURO: No focal motor deficit. Follows command. MUSCULOSKELETAL: No joint effusion or tenderness. EXTRIMITY: No edema, no cyanosis or clubbing. PSYCH: Cooperative. - Constitutional Vitals: Vital Signs - 12hr 03/31/17 03/31/17 03/31/17 07:58 08:43 08:46 Temperature 98.2 F Pulse Rate 54 L Pulse Rate [ 59 L Anterior Bilateral Throughout] Respiratory 20 Rate Respiratory 18 Rate [Anterior Bilateral Throughout] Blood Pressure 131/58 O2 Sat by Pulse 94 98 Oximetry 03/31/17 03/31/17 03/31/17 08:58 09:20 13:36 Temperature Pulse Rate 56 L Pulse Rate [ 51 L 64 Anterior Bilateral Throughout] Respiratory Rate Respiratory 18 18 Rate [Anterior Bilateral Throughout] Blood Pressure 130/78 O2 Sat by Pulse Oximetry 03/31/17 03/31/17 13:46 16:01 Temperature 98.4 F Pulse Rate 61 Pulse Rate [ 56 L Anterior Bilateral Throughout] Respiratory 22 Rate Respiratory 18 Rate [Anterior Bilateral Throughout] Blood Pressure 122/62 O2 Sat by Pulse 96 Oximetry - Labs CBC & Chem 7: 04/01/17 04:49 04/01/17 04:49 Labs: Abnormal lab results 03/30/17 03/30/17 03/31/17 Range/Units 16:55 21:54 05:26 POC Glucose 121 H 201 H 150 H (70-105) 03/31/17 Range/Units 11:49 POC Glucose 165 H (70-105)
[2017-04-01 05:11] LABS: Basophils % (Auto) 0.1 % (0.0-1.8); Hematocrit 43.7 % (30.3-42.9); Hemoglobin 14.6 gm/dl (10.1-14.3); Mean Corpuscular HGB Conc 34 % (30-34); Mean Corpuscular Hemoglobin 34 pg (28-32); Mean Corpuscular Volume 102 fl (79-97); Platelet Count 151 K/mm3 (140-440); Red Blood Count 4.28 M/mm3 (3.65-5.03); Red Cell Distribution Width 14.3 % (13.2-15.2)
[2017-04-01 05:27] LABS: Anion Gap 14 mmol/L; BUN/Creatinine Ratio 17; Blood Urea Nitrogen 10 mg/dL (7-17); Calcium 8.9 mg/dL (8.4-10.2); Carbon Dioxide 29 mmol/L (22-30); Chloride 102.2 mmol/L (98-107); Glucose 175 mg/dL (65-100); Potassium 4.3 mmol/L (3.6-5.0); Sodium 141 mmol/L (137-145)
[2017-04-01] MEDS: NOVOLOG SUB-Q SCH ×2 (08:27→12:38)
[2017-04-01] MEDS: LEVAQUIN 750MG/150ML 750 MG/150 ML BAG IV SCH (09:06)
[2017-04-01] MEDS: LOVENOX SUB-Q SCH (09:06)
[2017-04-01] MEDS: ZESTRIL PO SCH (09:06)
[2017-04-01] MEDS: PROTONIX PO SCH (09:06)
[2017-04-01] MEDS: DUONEB *Not for PRN Use IH SCH ×2 (09:37→14:50)
[2017-04-01] MEDS: PULMICORT IH SCH (09:37)
--- NOTE | 2017-04-01 11:10 | Discharge Summary ---
Providers - Providers Date of Admission: 03/30/17 00:31 Date of discharge: 04/01/17 Attending physician: MAUREEN GRIMALDO Primary care physician: OVEN ATTENDANT Hospitalization Condition: Serious Hospital course: 56-year-old -[place] female with past medical history significant for asthma, hypertension, diabetes mellitus type 2 presented to the emergency department complaining of shortness of breath for two days. Paramedics was called and was given breathing treatment and patient sent to the emergency department. In the emergency department she had episodes of desaturation. Patient claimed that she had fever and cough which was productive of yellowish sputum. Patient admitted pleuritic pain when she coughs. CXR in the ER did not show any infiltrates. She was admitted for further evaluation and management. Discharge diagnosis and management: Acute hypoxic respiratory failure - due to acute asthama exacerbation, treated for asthma and symptom resolved Acute asthma exacerbation - Managed with tapering dose of iv Solu-Medrol along with IV antibiotics and periodic breathing treatments Hypertension - Continued appropriate home medications Diabetes mellitus, well controlled - Placed on ADA diet, SSI coverage Obesity - Consulted about weight loss DVT prophylaxis -Lovenox Disposition: DC-01 TO HOME OR SELFCARE Time spent for discharge: 32 minutes Core Measure Documentation - Palliative Care Palliative Care/ Comfort Measures: Not Applicable - Core Measures Any of the following diagnoses?: none Exam - Physical Exam Narrative exam: GENERAL: well-developed and well-nourished -[place] female lying on bed appeared to be in no discomfort. HEENT: Normocephalic. Atraumatic. No conjunctival congestion or icterus. Patient has moist mucous membranes. NECK: Supple. Trachea midline. CHEST/LUNGS: breathing nonlabored. no wheezes, no crackles or rhonchi. HEART/CARDIOVASCULAR: Regular in rate and rhythm. S1 and S2 positive. ABDOMEN: Abdomen is soft, nontender. Patient has normal bowel sounds. SKIN: There is no rash. Warm and dry. NEURO: No focal motor deficit. Follows command. MUSCULOSKELETAL: No joint effusion or tenderness. EXTRIMITY: No edema, no cyanosis or clubbing. PSYCH: Cooperative. - Constitutional Vitals: Temp Pulse Resp BP Pulse Ox 98.3 F 62 22 120/80 95 04/01/17 07:56 04/01/17 09:06 04/01/17 07:56 04/01/17 09:06 04/01/17 07:56 Plan Activity: advance as tolerated Weight Bearing Status: Weight Bear as Tolerated Diet: low fat, diabetic Follow up with: PRIMARY CARE,MD [Primary Care Provider] - 3-5 Days Forms: Work/School Excuse Out Patient Prescriptions: Budesonide [Pulmicort Respules] 0.25 mg IH Q12HR #1 box HYDROcodone/APAP 5-325 [[place] 5-325 mg TAB] 1 each PO Q6HR PRN #30 tablet PRN Reason: Pain , Severe (7-10) Ipratropium [Atrovent NEB] 0.5 mg IH Q8HRT PRN #1 box PRN Reason: Shortness Of Breath Levofloxacin [Levaquin] 750 mg PO QDAY #3 tablet Lisinopril [Zestril TAB] 40 mg PO QDAY #30 tablet metFORMIN [Glucophage] 500 mg PO BID #60 tablet predniSONE [Deltasone] 50 mg PO QDAY #5 tab
[2017-04-01] MEDS: NORCO 5/325 PO PRN (12:28)
[2017-04-01 12:41] VITALS: BP 135/63
== END 2017-04-01 14:30 | disposition home or self-care (01) | DRG 189 ==
LOC: ED 16:58 → 3A 03-30 00:31
PROVIDERS: ADMIT Internal Medicine; ATTEND Internal Medicine
PROC: 3E0234Z Introduction of Serum, Toxoid and Vaccine into Muscle, Percutaneous Approach (ICD-10-PCS; principal; 2017-03-30)
PROC: 4A033R1 Measurement of Arterial Saturation, Peripheral, Percutaneous Approach (ICD-10-PCS; 2017-03-31)
DX: J96.01 Acute respiratory failure with hypoxia (principal); J45.901 Unspecified asthma with (acute) exacerbation; I10 Essential (primary) hypertension; E11.9 Type 2 diabetes mellitus without complications; E66.9 Obesity, unspecified; Z90.49 Acquired absence of other specified parts of digestive tract; Z82.49 Family history of ischemic heart disease and other diseases of the circulatory system; Z79.84 Long term (current) use of oral hypoglycemic drugs; Z79.2 Long term (current) use of antibiotics; Z79.1 Long term (current) use of non-steroidal anti-inflammatories (NSAID); Z79.899 Other long term (current) drug therapy; Z68.28 Body mass index [BMI] 28.0-28.9, adult; Z23 Encounter for immunization
CPT/HCPCS: 36415; 71020; 80048; 82803; 82962; 84484; 85025; 90686; 93005; 93010; 94640; 94760; J1650; J1815; J1956; J2920; J2930; J3475

== ENCOUNTER 2018-06-06 10:53 | Emergency (ER) | payer SELFPAY ==
[2018-06-06 11:15] VITALS: BP 100/83
--- NOTE | 2018-06-06 11:45 | Emergency Department Report ---
ED Chest Pain HPI - General Chief Complaint: Chest Pain Stated Complaint: ABD PAIN Time Seen by Provider: 06/06/18 11:44 Source: patient, family, EMS Mode of arrival: Wheelchair Limitations: No Limitations - History of Present Illness MD Complaint: chest pain -: This morning Onset: during rest Pain Location: left chest Pain Radiation: other (left midaxillary line) Severity scale (0 -10): 4 Quality: sharp Consistency: constant Improves With: nothing Worsens With: palpation, movement Context: other (unknown) re: denies: nausea, vomting, diaphoresis, dyspnea, sense of impending doom Other Symptoms: denies: cough, fever, syncope, rash, acid taste in mouth, leg swelling, palpitations, burping Treatments Prior to Arrival: none Aspirin use within the Past 7 Days: (0) No - Related Data On Oral Contraceptives: No Previous Rx's Medication Instructions Recorded Last Taken Type ALBUTEROL Inhaler(NF) [VENTOLIN 2 puff IH QID PRN #1 inha 04/26/18 Unknown Rx Inhaler(NF)] Doxycycline [Vibramycin CAP] 100 mg PO BID #20 capsule 04/26/18 Unknown Rx Loratadine [Claritin RAPDIS] 10 mg PO QDAY #10 tab.rapdis 04/26/18 Unknown Rx Prednisone [predniSONE 10 mg 10 mg PO .TAPER #1 tab.ds.pk 04/26/18 Unknown Rx (6-Day Pack, 21 Tabs)] guaiFENesin/DEXTROMETHORPHAN 1 each PO TID PRN #15 capsule 04/26/18 Unknown Rx [Robitussin Umyhg-Eeubt-Lafk Dm] Ibuprofen [Motrin] 800 mg PO Q8HR PRN #12 tablet 06/06/18 Unknown Rx Multivitamin [One Daily 1 each PO QDAY 30 Days #30 tablet 06/06/18 Unknown Rx Multivitamin] Allergies Allergy/AdvReac Type Severity Reaction Status Date / Time No Known Allergies Allergy Verified 06/06/18 11:15 Heart Score - HEART Score History: Slightly suspicious EKG: Normal Age: 45-65 (EKG as she is a diabetes) Risk factors: 1-2 risk factors Troponin: < normal limit HEART Score: 2 ED Review of Systems ROS: Stated complaint: ABD PAIN Other details as noted in HPI Constitutional: denies: chills, fever ENT: denies: throat pain, congestion Respiratory: denies: cough, shortness of breath, SOB with exertion, SOB at rest, stridor, wheezing Cardiovascular: chest pain. denies: palpitations, dyspnea on exertion, edema, syncope Musculoskeletal: denies: back pain, joint swelling, arthralgia, myalgia Skin: denies: rash Neurological: denies: headache, weakness, numbness, paresthesias, confusion, abnormal gait, vertigo ED Past Medical Hx - Past Medical History Previous Medical History?: Yes Hx Hypertension: Yes (2016) Hx Congestive Heart Failure: No Hx Diabetes: Yes Hx Seizures: No Hx Asthma: Yes Hx Tuberculosis: No Hx Dementia: No Hx HIV: No Additional medical history: ANEMIA - Surgical History Past Surgical History?: Yes Hx Cholecystectomy: Yes - Family History Family history: hypertension - Social History Smoking Status: Never Smoker Substance Use Type: None - Medications Home Medications: Home Medications Medication Instructions Recorded Confirmed Last Taken Type ALBUTEROL Inhaler(NF) [VENTOLIN 2 puff IH QID PRN #1 inha 04/26/18 Unknown Rx Inhaler(NF)] Doxycycline [Vibramycin CAP] 100 mg PO BID #20 capsule 04/26/18 Unknown Rx Loratadine [Claritin RAPDIS] 10 mg PO QDAY #10 tab.rapdis 04/26/18 Unknown Rx Prednisone [predniSONE 10 mg 10 mg PO .TAPER #1 tab.ds.pk 04/26/18 Unknown Rx (6-Day Pack, 21 Tabs)] guaiFENesin/DEXTROMETHORPHAN 1 each PO TID PRN #15 capsule 04/26/18 Unknown Rx [Robitussin Razyf-Gtpxj-Fdid Dm] Ibuprofen [Motrin] 800 mg PO Q8HR PRN #12 tablet 06/06/18 Unknown Rx Multivitamin [One Daily 1 each PO QDAY 30 Days #30 tablet 06/06/18 Unknown Rx Multivitamin] ED Physical Exam - General Limitations: No Limitations General appearance: alert, in no apparent distress - Head Head exam: Present: atraumatic, normocephalic, normal inspection - Eye Eye exam: Present: normal appearance, PERRL, EOMI Pupils: Present: normal accommodation - ENT ENT exam: Present: normal exam, normal orophraynx, mucous membranes moist, TM's normal bilaterally, normal external ear exam - Neck Neck exam: Present: normal inspection, full ROM. Absent: tenderness - Respiratory Respiratory exam: Present: normal lung sounds bilaterally, chest wall tenderness (left chest side outer quadrant left breast extending into left midaxillary line). Absent: respiratory distress, wheezes, rales, rhonchi, stridor, accessory muscle use, decreased breath sounds, prolonged expiratory, other - Cardiovascular Cardiovascular Exam: Present: regular rate, normal rhythm, normal heart sounds. Absent: systolic murmur, diastolic murmur - GI/Abdominal GI/Abdominal exam: Present: soft, normal bowel sounds. Absent: distended, tenderness, rigid, organomegaly, mass, bruit - Extremities Exam Extremities exam: Present: normal inspection, full ROM, other (No cce. + 2 p ulses in all extremities, no neurovascular compromise). Absent: tenderness, normal capillary refill, pedal edema, joint swelling, calf tenderness - Back Exam Back exam: Present: normal inspection, full ROM, other (ambulates without any difficulties). Absent: tenderness - Neurological Exam Neurological exam: Present: alert, oriented X3, normal gait - Psychiatric Psychiatric exam: Present: normal affect, normal mood - Skin Skin exam: Present: warm, dry, intact, normal color. Absent: rash ED Course Vital Signs 06/06/18 11:05 Temperature 98.7 F Pulse Rate 63 Respiratory 16 Rate Blood Pressure 100/83 O2 Sat by Pulse 99 Oximetry - Reevaluation(s) Reevaluation #1: 06/06/18 18:06 Patient stable throughout ED stay. No distress. RED score - Red Score Age > 65: (0) No Aspirin use within the Past 7 Days: (0) No 3 or more CAD Risk Factors: (0) No 2 or more Angina events in past 24 hrs: (0) No Known CAD with more than 50% Stenosis: (0) No Elevated Cardiac Markers: (0) No ST Deviation Greater than 0.5mm: (0) No RED Score: 0 ED Medical Decision Making - Lab Data Result diagrams: 06/06/18 12:15 06/06/18 12:15 Lab Results 06/06/18 06/06/18 06/06/18 Range/Units 12:15 12:15 12:15 WBC 4.8 (4.5-11.0) K/mm3 RBC 4.39 (3.65-5.03) M/mm3 Hgb 15.2 H (10.1-14.3) gm/dl Hct 44.1 H (30.3-42.9) % MCV 101 H (79-97) fl MCH 35 H (28-32) pg MCHC 35 H (30-34) % RDW 15.5 H (13.2-15.2) % Plt Count 127 L (140-440) K/mm3 Lymph % (Auto) 40.4 H (13.4-35.0) % [place] % (Auto) 11.0 H (0.0-7.3) % Eos % (Auto) 2.1 (0.0-4.3) % Baso % (Auto) 1.0 (0.0-1.8) % Lymph # 1.9 (1.2-5.4) K/mm3 [place] # 0.5 (0.0-0.8) K/mm3 Eos # 0.1 (0.0-0.4) K/mm3 Baso # 0.0 (0.0-0.1) K/mm3 Seg Neutrophils % 45.5 (40.0-70.0) % Seg Neutrophils # 2.2 (1.8-7.7) K/mm3 D-Dimer 248.45 H (0-234) ng/mlDDU Sodium 149 H (137-145) mmol/L Potassium 3.5 L (3.6-5.0) mmol/L Chloride 106.9 (98-107) mmol/L Carbon Dioxide 29 (22-30) mmol/L Anion Gap 17 mmol/L BUN 5 L (7-17) mg/dL Creatinine 0.4 L (0.7-1.2) mg/dL Estimated GFR > 60 ml/min BUN/Creatinine Ratio 13 % Glucose 78 (65-100) mg/dL Calcium 9.0 (8.4-10.2) mg/dL Total Bilirubin (0.1-1.2) mg/dL Direct Bilirubin (0-0.2) mg/dL Indirect Bilirubin mg/dL AST (5-40) units/L ALT (7-56) units/L Alkaline Phosphatase (35-129) units/L Troponin T < 0.010 (0.00-0.029) ng/mL Total Protein (6.3-8.2) g/dL Albumin (3.9-5) g/dL Albumin/Globulin Ratio % 06/06/18 Range/Units 12:15 WBC (4.5-11.0) K/mm3 RBC (3.65-5.03) M/mm3 Hgb (10.1-14.3) gm/dl Hct (30.3-42.9) % MCV (79-97) fl MCH (28-32) pg MCHC (30-34) % RDW (13.2-15.2) % Plt Count (140-440) K/mm3 Lymph % (Auto) (13.4-35.0) % [place] % (Auto) (0.0-7.3) % Eos % (Auto) (0.0-4.3) % Baso % (Auto) (0.0-1.8) % Lymph # (1.2-5.4) K/mm3 [place] # (0.0-0.8) K/mm3 Eos # (0.0-0.4) K/mm3 Baso # (0.0-0.1) K/mm3 Seg Neutrophils % (40.0-70.0) % Seg Neutrophils # (1.8-7.7) K/mm3 D-Dimer (0-234) ng/mlDDU Sodium (137-145) mmol/L Potassium (3.6-5.0) mmol/L Chloride (98-107) mmol/L Carbon Dioxide (22-30) mmol/L Anion Gap mmol/L BUN (7-17) mg/dL Creatinine (0.7-1.2) mg/dL Estimated GFR ml/min BUN/Creatinine Ratio % Glucose (65-100) mg/dL Calcium (8.4-10.2) mg/dL Total Bilirubin 1.70 H (0.1-1.2) mg/dL Direct Bilirubin 0.3 H (0-0.2) mg/dL Indirect Bilirubin 1.4 mg/dL AST 144 H (5-40) units/L ALT 47 (7-56) units/L Alkaline Phosphatase 109 (35-129) units/L Troponin T (0.00-0.029) ng/mL Total Protein 7.1 (6.3-8.2) g/dL Albumin 4.4 (3.9-5) g/dL Albumin/Globulin Ratio 1.6 % - EKG Data -: EKG Interpreted by Me (attending physician) EKG shows normal: sinus rhythm - EKG Data Interpretation: no acute changes - Radiology Data Radiology results: report reviewed CTA chest and two-view chest x-ray dictated by radiologist and report reviewed by myself. No acute findings noted. Please see report below Findings [address] [address] Cat Scan Report Signed Patient: KAMLA BOLAÑOS MR#: [id number] : 1960 Acct:[id number] Age/Sex: 58 / F ADM Date: 06/06/18 Loc: ED Attending Dr: Ordering Physician: JUANJOSE FAJARDO Date of Service: 06/06/18 Procedure(s): CT angio chest Accession Number(s): [id number] cc: JUANJOSE FAJARDO CTA CHEST: HISTORY: Chest pain, shortness of breath, elevated d-dimer. COMPARISON: none. TECHNIQUE: Helical CT in 1.25mm intervals following IV contrast. Pulmonary embolus protocol. Sagittal and coronal reformatted images. Rotational MIP images. FINDINGS: Contrast bolus is satisfactory. No pulmonary embolus is identified. Thyroid gland: Normal. Tracheobronchial tree: Normal. Esophagus: Normal. Heart: Normal. Pericardium: Normal. Mediastinum: Normal. Lung Hayes: Normal. Pleural Spaces: Normal. Musculoskeletal: Moderate multilevel degenerative disc disease is identified throughout the thoracic spine. IMPRESSION: No evidence for pulmonary embolus. Unremarkable CT chest with contrast. Thoracic spondylosis. Transcribed By: TTR Dictated By: PINEDA RASCON JR, MD Electronically Authenticated By: PINEDA RASCON JR, MD Signed Date/Time: 06/06/18 [address] [address] XRay Report Signed Patient: KAMLA BOLAÑOS MR#: [id number] : 1960 Acct:[id number] Age/Sex: 58 / F ADM Date: 06/06/18 Loc: ED Attending Dr: Ordering Physician: JUANJOSE FAJARDO Date of Service: 06/06/18 Procedure(s): XR chest 1V ap Accession Number(s): [id number] cc: JUANJOSE FAJARDO Fluoro Time In Minutes: AP CHEST: HISTORY: Short of breath, chest pain AP view of the chest demonstrates a normal mediastinal and cardiac contour with clear lungs and normal bony and soft tissue structures. IMPRESSION: Unremarkable AP chest. Transcribed By: TTR Dictated By: PINEDA RASCON JR, MD Electronically Authenticated By: PINEDA RASCON JR, MD Signed Date/Time: 06/06/181311 DD/ 11 TD/TT: 06/06/181311 - Medical Decision Making This is a 58-year-old female here report that she does have an left chest pain outer lateral left breast radiating distally. Patient has CTA chest and ALL two-view chest x-ray which shows no acute findings. CBC with findings for hemoconcentration, platelets slightly low at 127, CMP with mild decrease in potassium at 3.5, AST elevated at 144. Bilirubin and and right bilirubin elevated and d-dimer with some elevation. Troponin within normal limits. Patient says she drinks beer but not all the time and based on labs it appears that patient is a drinker but she says she does not drink a lot. I discussed with her that she should stop drinking beer taken any Tylenol products as this can cause her liver failure. I discussed the patient that she needs to follow- up with a enterprise solutions architect regarding abnormal liver enzymes and she says she will fact this still healthcare 1 week. She says she will be getting her health insurance at that time. I discuss chest x-ray and CT scan results patient along with lab results that she was understanding. Patient is stable. Vital signs s table she is afebrile and discharged home in stable condition. - Differential Diagnosis PE, PNA, ACS, atypical chest pain, pleurisy, costochondritis Critical care attestation.: If time is entered above; I have spent that time in minutes in the direct care of this critically ill patient, excluding procedure time. ED Disposition Clinical Impression: Atypical chest pain, Acute costochondritis, Abnormal liver enzymes Disposition: - TO HOME OR SELFCARE Is pt being admited?: No Does the pt Need Aspirin: No Condition: Stable Instructions: Chest Pain (ED), Costochondritis (ED), Abuse of Alcohol (ED) Additional Instructions: Please follow with enterprise solutions architect regarding abnormal liver function tests. Avoid alcohol and Tylenol Take Motrin for inflammation of the chest wall If he condition worsens, please return to the emergency room Prescriptions: Ibuprofen [Motrin] 800 mg PO Q8HR PRN #12 tablet PRN Reason: chest pain Multivitamin [One Daily Multivitamin] 1 each PO QDAY 30 Days #30 tablet Referrals: [facility] [Outside] - 06/10/18 [facility] [Provider Group] - 06/10/18 JOSELO TRIPLETT MD [Staff Physician] - 06/10/18 Forms: Work/School Release Form(ED)
[2018-06-06] MEDS ORDERED: MORPHINE IV ONE ×2 (11:54→14:20)
[2018-06-06] MEDS ORDERED: ZOFRAN IV ONE ×2 (11:54→14:20)
[2018-06-06] MEDS ORDERED: ASPIRIN PO ONE (11:55)
[2018-06-06 12:33] LABS: Eosinophils # (Auto) 0.1 K/mm3 (0.0-0.4); Eosinophils % (Auto) 2.1 % (0.0-4.3); Hematocrit 44.1 % (30.3-42.9); Hemoglobin 15.2 gm/dl (10.1-14.3); Lymphocytes # (Auto) 1.9 K/mm3 (1.2-5.4); Lymphocytes % (Auto) 40.4 % (13.4-35.0); Mean Corpuscular HGB Conc 35 % (30-34); Mean Corpuscular Volume 101 fl (79-97); Monocytes # (Auto) 0.5 K/mm3 (0.0-0.8); Platelet Count 127 K/mm3 (140-440); Red Blood Count 4.39 M/mm3 (3.65-5.03); Red Cell Distribution Width 15.5 % (13.2-15.2)
[2018-06-06 12:52] LABS: BUN/Creatinine Ratio 13; Blood Urea Nitrogen 5 mg/dL (7-17); Hemolysis Index 9
[2018-06-06 12:55] LABS: Albumin 4.4 g/dL (3.9-5); Bilirubin,Direct 0.3 mg/dL (0-0.2)
--- NOTE | 2018-06-06 13:15 | XRay Report ---
AP CHEST: HISTORY: Short of breath, chest pain AP view of the chest demonstrates a normal mediastinal and cardiac contour with clear lungs and normal bony and soft tissue structures. IMPRESSION: Unremarkable AP chest.
--- NOTE | 2018-06-06 15:10 | Cat Scan Report ---
CTA CHEST: HISTORY: Chest pain, shortness of breath, elevated d-dimer. COMPARISON: none. TECHNIQUE: Helical CT in 1.25mm intervals following IV contrast. Pulmonary embolus protocol. Sagittal and coronal reformatted images. Rotational MIP images. FINDINGS: Contrast bolus is satisfactory. No pulmonary embolus is identified. Thyroid gland: Normal. Tracheobronchial tree: Normal. Esophagus: Normal. Heart: Normal. Pericardium: Normal. Mediastinum: Normal. Lung Hayes: Normal. Pleural Spaces: Normal. Musculoskeletal: Moderate multilevel degenerative disc disease is identified throughout the thoracic spine. IMPRESSION: No evidence for pulmonary embolus. Unremarkable CT chest with contrast. Thoracic spondylosis.
[2018-06-06] MEDS ORDERED: K-DUR PO ONE ×2 (16:09→18:26)
== END 2018-06-06 18:36 | disposition home or self-care (01) ==
LOC: ED 10:53
DX: M94.0 Chondrocostal junction syndrome [Tietze] (principal); R94.5 Abnormal results of liver function studies; I10 Essential (primary) hypertension; J45.909 Unspecified asthma, uncomplicated; Z90.49 Acquired absence of other specified parts of digestive tract
CPT/HCPCS: 36415; 71045; 71275; 80048; 80076; 84484; 85025; 85379; 93005; 93010; 96374; 96375; 96376; 99285; J2270; J2405; Q9967

== ENCOUNTER 2018-08-13 18:04 | Emergency (ER) | payer OTHER ==
[2018-08-13] MEDS ORDERED: PROVENTIL IH ONE (18:47)
[2018-08-13] MEDS ORDERED: ATROVENT IH ONE (18:47)
[2018-08-13] MEDS ORDERED: MAGNESIUM SULFATE 2GM/50ML 2 GM/50 ML BAG IV ONE (18:48)
[2018-08-13 19:11] LABS: Basophils % (Auto) 0.5 % (0.0-1.8); Eosinophils % (Auto) 0.7 % (0.0-4.3); Hematocrit 43.2 % (30.3-42.9); Hemoglobin 14.9 gm/dl (10.1-14.3); Lymphocytes # (Auto) 1.2 K/mm3 (1.2-5.4); Mean Corpuscular HGB Conc 34 % (30-34); Mean Corpuscular Volume 106 fl (79-97); Monocytes # (Auto) 0.3 K/mm3 (0.0-0.8); Monocytes % (Auto) 5.5 % (0.0-7.3); Platelet Count 168 K/mm3 (140-440); Red Blood Count 4.08 M/mm3 (3.65-5.03); Red Cell Distribution Width 14.7 % (13.2-15.2)
--- NOTE | 2018-08-13 19:11 | Emergency Department Report ---
HPI - General Chief Complaint: Dyspnea/Respdistress Time Seen by Provider: 08/13/18 18:24 - HPI HPI: 58-year-old demented female presents to the emergency department with complaint of a two-day history of present worsening wheezing, shortness of breath, dry cough, that she feels is her asthma. She's been using her albuterol inhaler without relief and does not have a nebulizer at home. She does not have a primary care physician.Travel or sick contacts at home. She denies any fever, chest pain, nausea, vomiting or diaphoresis. ED Past Medical Hx - Past Medical History Previous Medical History?: Yes Hx Hypertension: Yes (2016) Hx Congestive Heart Failure: No Hx Diabetes: Yes Hx Seizures: No Hx Asthma: Yes Hx Tuberculosis: No Hx Dementia: No Hx HIV: No Additional medical history: ANEMIA - Surgical History Past Surgical History?: Yes Hx Cholecystectomy: Yes - Social History Smoking Status: Never Smoker Substance Use Type: None - Medications Home Medications: Home Medications Medication Instructions Recorded Confirmed Last Taken Type Doxycycline [Vibramycin CAP] 100 mg PO BID #20 capsule 04/26/18 Unknown Rx Loratadine [Claritin RAPDIS] 10 mg PO QDAY #10 tab.rapdis 04/26/18 Unknown Rx guaiFENesin/DEXTROMETHORPHAN 1 each PO TID PRN #15 capsule 04/26/18 Unknown Rx [Robitussin Grajt-Vmrah-Frzj Dm] Ibuprofen [Motrin] 800 mg PO Q8HR PRN #12 tablet 06/06/18 Unknown Rx Multivitamin [One Daily 1 each PO QDAY 30 Days #30 tablet 06/06/18 Unknown Rx Multivitamin] ALBUTEROL Inhaler(NF) [VENTOLIN 2 puff IH QID PRN #1 inha 08/13/18 Unknown Rx Inhaler(NF)] Prednisone [predniSONE 10 mg 10 mg PO .TAPER #1 tab.ds.pk 08/13/18 Unknown Rx (6-Day Pack, 21 Tabs)] ED Review of Systems ROS: Stated complaint: SOB Other details as noted in HPI Comment: All other systems reviewed and negative Constitutional: denies: chills, fever Eyes: denies: eye pain, vision change ENT: denies: ear pain, throat pain Respiratory: cough, shortness of breath, wheezing Cardiovascular: denies: chest pain, palpitations Gastrointestinal: denies: abdominal pain, vomiting Genitourinary: denies: dysuria, discharge Musculoskeletal: denies: back pain, arthralgia Skin: denies: rash, lesions Neurological: denies: headache, weakness Physical Exam - Physical Exam Vital Signs: Vital Signs 08/13/18 18:16 Temperature 97.9 F Pulse Rate 80 Respiratory 26 H Rate Blood Pressure 118/68 [Left] O2 Sat by Pulse 99 Oximetry Physical Exam: GENERAL: The patient is well-developed well-nourished. HEENT: Normocephalic. Atraumatic. Patient has moist mucous membranes. EYES: Extraocular motions are intact. Pupils are equal and reactive to light bilaterally. NECK: Supple. Trachea is midline. CHEST/LUNGS: Mild to moderate wheezing throughout the chest. There is some tachypnea and some mild accessory muscle use. There is respiratory distress noted. HEART/CARDIOVASCULAR: Regular. There is mild tachycardia. There is no obvious murmur. ABDOMEN: Abdomen is soft, nontender. Patient has normal bowel sounds. There is no abdominal distention. SKIN: Skin is warm and dry. NEURO: The patient is awake, alert, and oriented. The patient is cooperative. The patient has no focal neurologic deficits. The patient has normal speech. MUSCULOSKELETAL: There is no tenderness or deformity. There is no evidence of acute injury. ED Course Vital Signs 08/13/18 18:16 Temperature 97.9 F Pulse Rate 80 Respiratory 26 H Rate Blood Pressure 118/68 [Left] O2 Sat by Pulse 99 Oximetry ED Medical Decision Making - Lab Data Result diagrams: 08/13/18 18:59 08/13/18 18:59 - EKG Data -: EKG Interpreted by Me EKG shows normal: sinus rhythm, axis, intervals, QRS complexes (LVH), ST-T waves Rate: normal - EKG Data When compared to previous EKG there are: previous EKG unavailable Interpretation: LVH - Radiology Data Radiology results: image reviewed interpreted by me: Chest x-ray does not show any pneumothorax, pleural effusion, pneumonia or obvious focal consolidation. - Medical Decision Making This patient presents to the emergency department with a 2 day history of progressively worsening shortness of breath, wheezing and dry cough that she feels is an asthma exacerbation. On presentation, the patient does have some mild respiratory distress with tachypnea, bronchospasm and some accessory muscle use. However she was immediately placed on a continuous nebulized breathing treatment with Atrovent and albuterol. Upon reevaluation after the breathing treatment, the patient's breathing has greatly improved and no longer she appeared in any type of respiratory distress. Chest x-ray does not show any pneumonia, pleural effusions, focal consolidation, pneumothorax, or any other acute process. Labs have been unremarkable including a negative troponin and a negative d-dimer. The patient was given some potassium for some mild hypokalemia and magnesium for some hypomagnesemia. She says that she is feeling improved and asking for discharge home. She will be given a refill of her albuterol inhaler and a Medrol Dosepak. She has been given some referrals for primary care physicians and/or clinics in the area. She will return to the ER with any worsening of her symptoms or any acute distress. - Differential Diagnosis asthma, COPD, PE, bronchitis, CHF, pneumonia Critical Care Time: No Critical care attestation.: If time is entered above; I have spent that time in minutes in the direct care of this critically ill patient, excluding procedure time. ED Disposition Clinical Impression: Hypokalemia, Hypomagnesemia Asthma exacerbation Qualifiers: Asthma severity: unspecified severity Asthma persistence: unspecified Qualified Code(s): J45.901 - Unspecified asthma with (acute) exacerbation Disposition: TO HOME OR SELFCARE Is pt being admited?: No Condition: Stable Instructions: Asthma (ED) Additional Instructions: Please follow up with a primary care physician in the next few days. Return to the emergency Department with any worsening of your symptoms or any acute distress. Prescriptions: Prednisone [predniSONE 10 mg (6-Day Pack, 21 Tabs)] 10 mg PO .TAPER #1 tab.ds.pk ALBUTEROL Inhaler(NF) [VENTOLIN Inhaler(NF)] 2 puff IH QID PRN #1 inha PRN Reason: Shortness Of Breath Referrals: EWELINA JACOBSON MD [Staff Physician] - 2-3 Days DIANE HERNANDEZ MD [Staff Physician] - 2-3 Days [facility] [Outside] - 2-3 Days Forms: Work/School Release Form(ED) Time of Disposition: 21:25
[2018-08-13 19:26] LABS: BUN/Creatinine Ratio 23; Blood Urea Nitrogen 9 mg/dL (7-17); Calcium 8.8 mg/dL (8.4-10.2); Hemolysis Index 11
[2018-08-13] MEDS ORDERED: K-DUR PO ONE (19:29)
--- NOTE | 2018-08-13 19:29 | XRay Report ---
PROCEDURE: XR CHEST 1V AP TECHNIQUE: Chest single AP HISTORY: Dyspnea COMPARISONS: Comparison is April 24, 2019 FINDINGS: The cardiac silhouette is prominent size. No focal pulmonary infiltrate identified. No pleural fluid collection seen. Pulmonary vasculature is unremarkable. IMPRESSION: Mild cardiomegaly. This document is electronically signed by Zachariah Levine MD., August 13 2018 07:27:05 PM ET
[2018-08-13 22:11] VITALS: BP 147/72
== END 2018-08-13 22:11 | disposition home or self-care (01) ==
LOC: ED 18:04
DX: J45.901 Unspecified asthma with (acute) exacerbation (principal); E87.6 Hypokalemia; E83.42 Hypomagnesemia; I10 Essential (primary) hypertension; E11.9 Type 2 diabetes mellitus without complications; Z86.2 Personal history of diseases of the blood and blood-forming organs and certain disorders involving the immune mechanism; Z90.49 Acquired absence of other specified parts of digestive tract; Z79.899 Other long term (current) drug therapy
CPT/HCPCS: 36415; 71045; 80048; 83735; 84484; 85025; 85379; 93005; 93010; 94640; 96365; 99284; J3475

== ENCOUNTER 2018-11-01 16:02 | Inpatient (IN) | payer SELFPAY ==
[2018-11-01] MEDS ORDERED: ATROVENT IH ONE ×2 (16:45→20:52)
[2018-11-01] MEDS ORDERED: PROVENTIL IH ONE (16:45)
[2018-11-01] MEDS ORDERED: MAGNESIUM SULFATE 2GM/50ML 2 GM/50 ML BAG IV ONE (16:47)
--- NOTE | 2018-11-01 16:50 | Emergency Department Report ---
HPI - General Chief Complaint: Adult Asthma Time Seen by Provider: 11/01/18 16:45 - HPI HPI: Room 9 The patient is a 58-year-old female presenting with chief complaint of shortness of breath. Patient states this morning prior to going to work she developed shortness of breath that feels consistent with her asthma. Patient denies cough or fever. EMS was called and the patient was administered albuterol and Solu- Medrol. The patient was reportedly hypoxic to 80% on room air Location: Lungs Duration: One day Quality: Like asthma Severity: [See above] Modifying factors: [see above] Context: [see above] Mode of transportation: [not driving] ED Past Medical Hx - Past Medical History Previous Medical History?: Yes Hx Hypertension: Yes (2015) Hx Diabetes: Yes Hx Asthma: Yes Additional medical history: ANEMIA - Surgical History Past Surgical History?: Yes Hx Cholecystectomy: Yes - Family History Family history: no significant - Social History Smoking Status: Current Every Day Smoker Substance Use Type: None (denies illicit drug use), Alcohol (occasional) - Medications Home Medications: Home Medications Medication Instructions Recorded Confirmed Last Taken Type DOXYCYCLINE Hyclate [Vibramycin 100 mg PO BID #20 capsule 04/26/18 11/01/18 Unknown Rx CAP] ALPRAZolam [Xanax TAB] 0.25 mg PO BID PRN 11/01/18 11/01/18 Unknown History AtorvaSTATin [Lipitor] 20 mg PO DAILY 11/01/18 11/01/18 Unknown History Dofetilide 500 mcg PO BID 11/01/18 11/01/18 Unknown History Fluticasone/Vilanterol [Breo 1 each IH QAM 11/01/18 11/01/18 Unknown History Ellipta 200-25 Mcg INH] Lisinopril [Zestril TAB] 40 mg PO DAILY 11/01/18 11/01/18 Unknown History Mirtazapine [Remeron 15mg TAB] 15 mg PO QHS 11/01/18 11/01/18 Unknown History Potassium Chloride [K-Dur] 10 meq PO DAILY 11/01/18 11/01/18 Unknown History Promethazine Dm (Nf) [Phenergan Dm 5 ml PO Q6H PRN 11/01/18 11/01/18 Unknown History 6.25/15 mg 5 ml] Rivaroxaban [Xarelto] 20 mg PO DAILY 11/01/18 11/01/18 Unknown History Suvorexant [Belsomra] 20 mg PO QPM 11/01/18 11/01/18 Unknown History Venlafaxine HCl [Venlafaxin ER] 75 mg PO DAILY 11/01/18 11/01/18 Unknown History metFORMIN [Glucophage] 500 mg PO BID 11/01/18 11/01/18 Unknown History ED Review of Systems ROS: Stated complaint: RYAN Other details as noted in HPI Constitutional: denies: fever Eyes: denies: eye pain ENT: denies: throat pain Respiratory: shortness of breath, wheezing. denies: cough Cardiovascular: denies: chest pain Endocrine: no symptoms reported Gastrointestinal: denies: abdominal pain Genitourinary: denies: dysuria Musculoskeletal: denies: back pain Neurological: denies: headache Physical Exam - Physical Exam Vital Signs: Vital Signs 11/01/18 16:29 Temperature 97.9 F Pulse Rate 91 H Respiratory 22 Rate Blood Pressure 131/67 [Left] O2 Sat by Pulse 96 Oximetry Physical Exam: GENERAL: The patient is well-developed well-nourished female lying on stretcher not appearing to be in acute distress. [] HEENT: Normocephalic. Atraumatic. Extraocular motions are intact. Patient has moist mucous membranes. NECK: Supple. Coarse breath sounds auscultated CHEST/LUNGS: Faint wheezing. There is no respiratory distress noted. HEART/CARDIOVASCULAR: Regular. There is no tachycardia. There is no gallop rub or murmur. ABDOMEN: Abdomen is soft, nontender. Patient has normal bowel sounds. There is no abdominal distention. SKIN: There is no rash. There is no edema. There is no diaphoresis. NEURO: The patient is awake, alert, and oriented. The patient is cooperative. The patient has normal speech MUSCULOSKELETAL:There is no evidence of acute injury. ED Course Vital Signs 11/01/18 16:29 Temperature 97.9 F Pulse Rate 91 H Respiratory 22 Rate Blood Pressure 131/67 [Left] O2 Sat by Pulse 96 Oximetry ED Medical Decision Making - Lab Data Result diagrams: 11/01/18 19:38 11/01/18 19:38 Laboratory Tests 11/01/18 11/01/18 11/01/18 19:25 19:38 19:38 WBC 4.3 L RBC 3.82 Hgb 13.8 Hct 40.3 MCV 105 H MCH 36 H MCHC 34 RDW 14.1 Plt Count 103 L Lymph % (Auto) 9.9 L [place] % (Auto) 1.7 Eos % (Auto) 0.1 Baso % (Auto) 0.3 Lymph # 0.4 L [place] # 0.1 Eos # 0.0 Baso # 0.0 Seg Neutrophils % 88.0 H Seg Neutrophils # 3.8 POC ABG pH 7.317 L POC ABG pCO2 37.9 POC ABG pO2 72 L POC ABG HCO3 19.4 POC ABG Total CO2 21 POC ABG O2 Sat 93 POC ABG Base Excess -7 FiO2 21 Sodium 143 Potassium 2.5 L* Chloride 101.9 Carbon Dioxide 19 L Anion Gap 25 BUN 7 Creatinine 0.5 L Estimated GFR > 60 BUN/Creatinine Ratio 14 Glucose 195 H Calcium 8.8 NT-Pro-B Natriuret Pep 28.00 - Radiology Data Radiology results: report reviewed (chest x-ray), image reviewed (chest x-ray) interpreted by me: Chest x-ray-no focal infiltrates, no pneumothorax Findings [facility] [address] [place] [address] XRay Report Signed Patient: KAMLA BOLAÑOS MR#: [id number] : 1960 Acct:[id number] Age/Sex: 58 / F ADM Date: 11/01/18 Loc: ED Attending Dr: Ordering Physician: DIEGO DONIS Date of Service: 11/01/18 Procedure(s): XR chest 1V ap Accession Number(s): [id number] cc: DIEGO DONIS Fluoro Time In Minutes: PROCEDURE: XR CHEST 1V AP TECHNIQUE: Chest radiograph single view. HISTORY: SOB COMPARISONS: CXR 08/13/2018 . FINDINGS: Heart: Enlarged with left ventricular configuration, stable. Mediastinum/Vessels: Normal. Lungs/Pleural space: Linear atelectasis in left base medially is noted.. Bony thorax: No acute osseous abnormality. Life support devices: None. IMPRESSION: Linear atelectasis in the left base medially. Early infiltrate is not excluded This document is electronically signed by Cata Moore MD., November 01 2018 0 5:19:56 PM ET Transcribed By: [facility] Dictated By: CATA MOORE MD Electronically Authenticated By: CATA MOORE MD Signed Date/Time: 11/01/18 1721 DD/ 1642 TD/TT: 11/01/18 1651 - Differential Diagnosis acute asthma exacerbation Critical care attestation.: If time is entered above; I have spent that time in minutes in the direct care of this critically ill patient, excluding procedure time. ED Disposition Clinical Impression: Acute asthma exacerbation, SOB (shortness of breath), Hypokalemia Disposition: OP ADMIT IP TO THIS HOSP Is pt being admited?: Yes Does the pt Need Aspirin: Yes Condition: Fair Time of Disposition: 21:11 (Hospitalist notified)
--- NOTE | 2018-11-01 17:21 | XRay Report ---
PROCEDURE: XR CHEST 1V AP TECHNIQUE: Chest radiograph single view. HISTORY: SOB COMPARISONS: CXR 08/13/2018 . FINDINGS: Heart: Enlarged with left ventricular configuration, stable. Mediastinum/Vessels: Normal. Lungs/Pleural space: Linear atelectasis in left base medially is noted.. Bony thorax: No acute osseous abnormality. Life support devices: None. IMPRESSION: Linear atelectasis in the left base medially. Early infiltrate is not excluded This document is electronically signed by Cata Moore MD., November 01 2018 05:19:56 PM ET
[2018-11-01] MEDS ORDERED: XOPENEX IH ONE (20:52)
[2018-11-01 20:58] LABS: Basophils % (Auto) 0.3 % (0.0-1.8); Eosinophils % (Auto) 0.1 % (0.0-4.3); Hematocrit 40.3 % (30.3-42.9); Hemoglobin 13.8 gm/dl (10.1-14.3); Lymphocytes # (Auto) 0.4 K/mm3 (1.2-5.4); Lymphocytes % (Auto) 9.9 % (13.4-35.0); Mean Corpuscular HGB Conc 34 % (30-34); Mean Corpuscular Volume 105 fl (79-97); Monocytes # (Auto) 0.1 K/mm3 (0.0-0.8); Monocytes % (Auto) 1.7 % (0.0-7.3); Platelet Count 103 K/mm3 (140-440); Red Blood Count 3.82 M/mm3 (3.65-5.03); Red Cell Distribution Width 14.1 % (13.2-15.2)
[2018-11-01 21:05] LABS: BUN/Creatinine Ratio 14; Blood Urea Nitrogen 7 mg/dL (7-17); Calcium 8.8 mg/dL (8.4-10.2); Hemolysis Index 24
[2018-11-01] MEDS ORDERED: K-DUR PO ONE (21:10)
[2018-11-01] MEDS ORDERED: ASPIRIN PO ONE (21:12)
[2018-11-01] MEDS ORDERED: ZOFRAN IV PRN (21:15)
[2018-11-01] MEDS ORDERED: SODIUM CHLORIDE FLUSH SYRINGE 10 ML IV PRN (21:15)
[2018-11-01] MEDS ORDERED: PROVENTIL IH PRN (21:15)
[2018-11-01] MEDS ORDERED: D50W (25GM) Syringe IV PRN (21:20)
[2018-11-01] MEDS ORDERED: XANAX PO PRN (21:21)
[2018-11-01] MEDS: KCL 10MEQ/100ML 10 MEQ/100 ML BAG IV SCH ×2 (21:44→23:00)
[2018-11-01] MEDS ORDERED: DOFETILIDE 500 MCG PO SCH (22:00)
[2018-11-01] MEDS ORDERED: REMERON PO SCH (22:00)
--- NOTE | 2018-11-01 22:26 | History and Physical Report ---
<MIKALA ERAZO - Last Filed: 11/01/18 22:26> History of Present Illness Date of examination: 11/01/18 Date of admission: 11/01/2018 Chief complaint: Difficulty in breathing History of present illness: 58 year old -[place] who is an ongoing smoker female with history of asthma, hypertension, diabetes who presents to [facility] ED via EMS with complaints of difficulty in breathing. Patient states that her symptoms began earlier toda y while at work. She started experiencing chest tightness, difficulty in breathing, and wheezing. She attempted to use her rescue inhaler with no relief. EMS was called and she was transported to our facility. Patient was given albuterol 5 mg, IV steroids by EMS. Upon arrival to our facility patient has saturation of 88% on room air. Denies: Sputum production, chest pain, fever, nausea, vomiting, diarrhea, hemoptysis, headache, or recent sick contacts Past History Past Medical History: diabetes, hypertension, other Past Surgical History: cholecystectomy Social history: smoking (current feeding smoker) Family history: no significant family history Medications and Allergies Allergies Allergy/AdvReac Type Severity Reaction Status Date / Time No Known Allergies Allergy Verified 11/01/18 16:33 Home Medications Medication Instructions Recorded Confirmed Last Taken Type DOXYCYCLINE Hyclate [Vibramycin 100 mg PO BID #20 capsule 04/26/18 11/01/18 Unknown Rx CAP] ALPRAZolam [Xanax TAB] 0.25 mg PO BID PRN 11/01/18 11/01/18 Unknown History AtorvaSTATin [Lipitor] 20 mg PO DAILY 11/01/18 11/01/18 Unknown History Dofetilide 500 mcg PO BID 11/01/18 11/01/18 Unknown History Fluticasone/Vilanterol [Breo 1 each IH QAM 11/01/18 11/01/18 Unknown History Ellipta 200-25 Mcg INH] Lisinopril [Zestril TAB] 40 mg PO DAILY 11/01/18 11/01/18 Unknown History Mirtazapine [Remeron 15mg TAB] 15 mg PO QHS 11/01/18 11/01/18 Unknown History Potassium Chloride [K-Dur] 10 meq PO DAILY 11/01/18 11/01/18 Unknown History Promethazine Dm (Nf) [Phenergan Dm 5 ml PO Q6H PRN 11/01/18 11/01/18 Unknown History 6.25/15 mg 5 ml] Rivaroxaban [Xarelto] 20 mg PO DAILY 11/01/18 11/01/18 Unknown History Suvorexant [Belsomra] 20 mg PO QPM 11/01/18 11/01/18 Unknown History Venlafaxine HCl [Venlafaxin ER] 75 mg PO DAILY 11/01/18 11/01/18 Unknown History metFORMIN [Glucophage] 500 mg PO BID 11/01/18 11/01/18 Unknown History Active Meds: Active Medications Acetaminophen (Tylenol) 650 mg PO Q4H PRN PRN Reason: Pain MILD(1-3)/Fever >100.5/GOLD Albuterol (Proventil) 2.5 mg IH Q3HRT PRN PRN Reason: Shortness Of Breath Albuterol/Ipratropium (Duoneb *Not For Prn Use*) 1 ampul IH Q6HRT [facility] Alprazolam (Xanax) 0.25 mg PO BID PRN PRN Reason: Anxiety Atorvastatin Calcium (Lipitor) 20 mg PO DAILY [facility] Budesonide (Pulmicort) 0.5 mg IH Q12HRT [facility] Dextrose (D50w (25gm) Syringe) 50 ml IV PRN PRN PRN Reason: Hypoglycemia Docusate Sodium (Colace) 100 mg PO BID [facility] Enoxaparin Sodium (Lovenox) 40 mg SUB-Q QDAY [facility] Potassium Chloride (Kcl 10meq/100ml) 10 meq in 100 mls @ 100 mls/hr IV Q1H [facility] Stop: 11/02/18 01:59 Last Admin: 11/01/18 21:44 Dose: 100 mls/hr Documented by: Insulin Human Lispro (Humalog) 0 unit SUB-Q ACHS [facility]; Protocol Lisinopril (Zestril) 40 mg PO DAILY [facility] Metformin HCl (Glucophage) 500 mg PO BID [facility] Methylprednisolone Sodium Succinate (Solu-Medrol) 80 mg IV Q8HR [facility] Mirtazapine (Remeron) 15 mg PO QHS [facility] Miscellaneous Medication (Suvorexant [Belsomra]) 20 mg PO QPM [facility] Miscellaneous Medication (Dofetilide [Dofetilide]) 500 mcg PO BID [facility] Ondansetron HCl (Zofran) 4 mg IV Q8H PRN PRN Reason: Nausea And Vomiting Oxycodone/Acetaminophen (Percocet 5/325) 1 tab PO Q6H PRN PRN Reason: Pain, Moderate (4-6) Potassium Chloride (K-Dur) 10 meq PO DAILY [facility] Sodium Chloride (Sodium Chloride Flush Syringe 10 Ml) 10 ml IV BID [facility] Sodium Chloride (Sodium Chloride Flush Syringe 10 Ml) 10 ml IV PRN PRN PRN Reason: LINE FLUSH Venlafaxine HCl (Effexor Xr) 75 mg PO DAILY [facility] Review of Systems All systems: negative (reviewed an additional remarkable except as noted below) Respiratory: cough, shortness of breath, dyspnea on exertion, wheezing Exam - Physical Exam Narrative exam: Physical exam General appearance: Present: Mild distress, alert and oriented 3, -A merican female - EENT Eyes: Present: PERRL, EOM intact ENT: hearing intact, poor dentition - Neck Neck: Present: supple, normal ROM - Respiratory Respiratory effort: Non-labored Respiratory: bilateral: Scattered wheezing throughout with prolonged expiratory phase - Cardiovascular Heart rate: 94 (bpm) Rhythm: Sinus rhythm Heart Sounds: Present: S1 & S2. Absent: rub, click - Extremities Extremities: no ischemia, pulses intact, - Peripheral Assessment Peripheral Pulses: within normal limits - Abdominal General gastrointestinal: soft, non-tender, normal bowel sounds - Integumentary Integumentary: Present: warm, dry - Musculoskeletal Musculoskeletal: Able to move all extremities -Neurological Neurological: CNII-XII intact - Psychiatric Psychiatric: Anxious, cooperative - Constitutional Vitals: Temp Pulse Resp BP Pulse Ox 98.1 F 96 H 17 114/63 94 11/01/18 19:00 11/01/18 21:31 11/01/18 21:31 11/01/18 19:00 11/01/18 19:00 Results - Labs CBC & Chem 7: 11/01/18 19:38 11/01/18 19:38 Labs: Laboratory Last Values WBC 4.3 K/mm3 (4.5-11.0) L 11/01/18 19:38 RBC 3.82 M/mm3 (3.65-5.03) 11/01/18 19:38 Hgb 13.8 gm/dl (10.1-14.3) 11/01/18 19:38 Hct 40.3 % (30.3-42.9) 11/01/18 19: MCV 105 fl (79-97) H 11/01/18 19: MCH 36 pg (28-32) H 11/01/18 19:38 MCHC 34 % (30-34) 11/01/18 19:38 RDW 14.1 % (13.2-15.2) 11/01/18 19:38 Plt Count 103 K/mm3 (140-440) L 11/01/18 19:38 Lymph % (Auto) 9.9 % (13.4-35.0) L 11/01/18 19:38 [place] % (Auto) 1.7 % (0.0-7.3) 11/01/18 19: Eos % (Auto) 0.1 % (0.0-4.3) 11/01/18 19: Baso % (Auto) 0.3 % (0.0-1.8) 11/01/18 19: Lymph # 0.4 K/mm3 (1.2-5.4) L 11/01/18 19:38 [place] # 0.1 K/mm3 (0.0-0.8) 11/01/18 19: Eos # 0.0 K/mm3 (0.0-0.4) 11/01/18 19: Baso # 0.0 K/mm3 (0.0-0.1) 11/01/18 19: Seg Neutrophils % 88.0 % (40.0-70.0) H 11/01/18 19: Seg Neutrophils # 3.8 K/mm3 (1.8-7.7) 11/01/18 19:38 POC ABG pH 7.317 (7.35-7.45) L 11/01/18 19:25 POC ABG pCO2 37.9 (35-45) 11/01/18 19:25 POC ABG pO2 72 (80-105) L 11/01/18 19:25 POC ABG HCO3 19.4 (22-26 mml/L) 11/01/18 19:25 POC ABG Total CO2 21 (23-27mmol/L) 11/01/18 19:25 POC ABG O2 Sat 93 11/01/18 19:25 POC ABG Base Excess -7 ((-2) - (+3)mmol/L) 11/01/18 19:25 21 % 11/01/18 19:25 Sodium 143 mmol/L (137-145) 11/01/18 19:38 Potassium 2.5 mmol/L (3.6-5.0) L* 11/01/18 19:38 Chloride 101.9 mmol/L (98-107) 11/01/18 19:38 Carbon Dioxide 19 mmol/L (22-30) L 11/01/18 19:38 25 mmol/L 11/01/18 19:38 BUN 7 mg/dL (7-17) 11/01/18 19:38 0.5 mg/dL (0.7-1.2) L 11/01/18 19:38 Estimated GFR > 60 ml/min 11/01/18 19:38 14 % 11/01/18 19:38 Glucose 195 mg/dL (65-100) H 11/01/18 19:38 Calcium 8.8 mg/dL (8.4-10.2) 11/01/18 19:38 NT-Pro-B Natriuret Pep 28.00 pg/mL (0-900) 11/01/18 19:38 - Imaging and Cardiology Chest x-ray: report reviewed ( Linear atelectasis in the left base medially. Early infiltrate is not excluded ), image reviewed Assessment and Plan Assessment and plan: 58 year old -[place] who is an ongoing smoker female with history of asthma, hypertension, diabetes who presents to [facility] ED via EMS with complaints of difficulty in breathing. Upon arrival to our facility patient has saturation of 88% on room air. Patient was placed on supplemental oxygen. She was given nebulizer treatment and IV magnesium 2 g with some improvement. Initial ABG 7.37/37.9/72/19.4. Patient was found to be hyperkalemic with potassium of 2.5. Will admit to Medical floor with remote telemetry monitoring. Acute exacerbation of asthma Acute hypoxic respiratory failure-likely secondary to asthma exacerbation Hypokalemia Hypertension Diabetes Tobacco abuse Plan: Continue supportive care Continuous telemetry monitoring Continue supplemental oxygen, wean as tolerated Scheduled DuoNeb nebs and Pulmicort, albuterol when necessary IV Solu-Medrol 80 mg every 8 hours Monitor electrolytes, replete as needed IV Potassium ordered Monitor BP Continue home antihypertensive med: Lisinopril 40 mg daily POC BG monitoring Continue metformin 500 mg twice a day, sliding scale coverage Counseled for smoking cessation, refuses nicotine patch DVT PPX on Lovenox Advance Directives: No VTE prophylaxis?: Chemical Plan of care discussed with patient/family: Yes <EDUIN METCALF - Last Filed: 11/02/18 00:54> History of Present Illness Date of admission: 11/01/18 21:15 Medications and Allergies Active Meds: Active Medications Acetaminophen (Tylenol) 650 mg PO Q4H PRN PRN Reason: Pain MILD(1-3)/Fever >100.5/GOLD Albuterol (Proventil) 2.5 mg IH Q3HRT PRN PRN Reason: Shortness Of Breath Albuterol/Ipratropium (Duoneb *Not For Prn Use*) 1 ampul IH Q6HRT [facility] Alprazolam (Xanax) 0.25 mg PO BID PRN PRN Reason: Anxiety Atorvastatin Calcium (Lipitor) 20 mg PO DAILY [facility] Budesonide (Pulmicort) 0.5 mg IH Q12HRT [facility] Dextrose (D50w (25gm) Syringe) 50 ml IV PRN PRN PRN Reason: Hypoglycemia Docusate Sodium (Colace) 100 mg PO BID [facility] Last Admin: 11/01/18 22:43 Dose: Not Given Documented by: Enoxaparin Sodium (Lovenox) 40 mg SUB-Q QDAY [facility] Potassium Chloride (Kcl 10meq/100ml) 10 meq in 100 mls @ 100 mls/hr IV Q1H [facility] Stop: 11/02/18 01:59 Last Admin: 11/01/18 23:00 Dose: 100 mls/hr Documented by: Insulin Human Lispro (Humalog) 0 unit SUB-Q ACHS [facility]; Protocol Last Admin: 11/01/18 22:53 Dose: Not Given Documented by: Lisinopril (Zestril) 40 mg PO DAILY [facility] Metformin HCl (Glucophage) 500 mg PO BID [facility] Last Admin: 11/01/18 22:30 Dose: 500 mg Documented by: Methylprednisolone Sodium Succinate (Solu-Medrol) 80 mg IV Q8HR [facility] Last Admin: 11/01/18 22:32 Dose: 80 mg Documented by: Mirtazapine (Remeron) 15 mg PO QHS [facility] Last Admin: 11/01/18 22:39 Dose: Not Given Documented by: Miscellaneous Medication (Suvorexant [Belsomra]) 20 mg PO QPM [facility] Miscellaneous Medication (Dofetilide [Dofetilide]) 500 mcg PO BID [facility] Ondansetron HCl (Zofran) 4 mg IV Q8H PRN PRN Reason: Nausea And Vomiting Oxycodone/Acetaminophen (Percocet 5/325) 1 tab PO Q6H PRN PRN Reason: Pain, Moderate (4-6) Potassium Chloride (K-Dur) 10 meq PO DAILY [facility] Sodium Chloride (Sodium Chloride Flush Syringe 10 Ml) 10 ml IV BID [facility] Sodium Chloride (Sodium Chloride Flush Syringe 10 Ml) 10 ml IV PRN PRN PRN Reason: LINE FLUSH Venlafaxine HCl (Effexor Xr) 75 mg PO DAILY [facility] Exam - Constitutional Vitals: Temp Pulse Resp BP Pulse Ox 98 F 85 16 145/66 100 11/01/18 22:30 11/01/18 22:30 11/01/18 22:30 11/01/18 22:30 11/01/18 22:30 Results - Labs CBC & Chem 7: 11/01/18 19:38 11/01/18 19:38 Labs: Laboratory Last Values WBC 4.3 K/mm3 (4.5-11.0) L 11/01/18 19:38 RBC 3.82 M/mm3 (3.65-5.03) 11/01/18 19:38 Hgb 13.8 gm/dl (10.1-14.3) 11/01/18 19:38 Hct 40.3 % (30.3-42.9) 11/01/18 19:38 MCV 105 fl (79-97) H 11/01/18 19:38 MCH 36 pg (28-32) H 11/01/18 19:38 MCHC 34 % (30-34) 11/01/18 19:38 RDW 14.1 % (13.2-15.2) 11/01/18 19:38 Plt Count 103 K/mm3 (140-440) L 11/01/18 19:38 Lymph % (Auto) 9.9 % (13.4-35.0) L 11/01/18 19:38 [place] % (Auto) 1.7 % (0.0-7.3) 11/01/18 19:38 Eos % (Auto) 0.1 % (0.0-4.3) 11/01/18 19:38 Baso % (Auto) 0.3 % (0.0-1.8) 11/01/18 19:38 Lymph # 0.4 K/mm3 (1.2-5.4) L 11/01/18 19:38 [place] # 0.1 K/mm3 (0.0-0.8) 11/01/18 19:38 Eos # 0.0 K/mm3 (0.0-0.4) 11/01/18 19:38 Baso # 0.0 K/mm3 (0.0-0.1) 11/01/18 19:38 Seg Neutrophils % 88.0 % (40.0-70.0) H 11/01/18 19:38 Seg Neutrophils # 3.8 K/mm3 (1.8-7.7) 11/01/18 19:38 POC ABG pH 7.317 (7.35-7.45) L 11/01/18 19:25 POC ABG pCO2 37.9 (35-45) 11/01/18 19:25 POC ABG pO2 72 (80-105) L 11/01/18 19:25 POC ABG HCO3 19.4 (22-26 mml/L) 11/01/18 19:25 POC ABG Total CO2 21 (23-27mmol/L) 11/01/18 19:25 POC ABG O2 Sat 93 11/01/18 19:25 POC ABG Base Excess -7 ((-2) - (+3)mmol/L) 11/01/18 19:25 21 % 11/01/18 19:25 Sodium 143 mmol/L (137-145) 11/01/18 19:38 Potassium 2.5 mmol/L (3.6-5.0) L* 11/01/18 19:38 Chloride 101.9 mmol/L (98-107) 11/01/18 19:38 Carbon Dioxide 19 mmol/L (22-30) L 11/01/18 19:38 25 mmol/L 11/01/18 19:38 BUN 7 mg/dL (7-17) 11/01/18 19:38 0.5 mg/dL (0.7-1.2) L 11/01/18 19:38 Estimated GFR > 60 ml/min 11/01/18 19:38 14 % 11/01/18 19:38 Glucose 195 mg/dL (65-100) H 11/01/18 19:38 POC Glucose 135 (70-105) H 11/01/18 22:52 Calcium 8.8 mg/dL (8.4-10.2) 11/01/18 19:38 NT-Pro-B Natriuret Pep 28.00 pg/mL (0-900) 11/01/18 19:38 Assessment and Plan Assessment and plan: I personally discussed the patient with the ACCESS MANAGER-C. I agree with the above assessment and plan
[2018-11-01] MEDS: GLUCOPHAGE PO SCH (22:30)
[2018-11-01] MEDS: SOLU-Medrol IV SCH (22:32)
[2018-11-01] MEDS: REMERON PO SCH (22:39)
[2018-11-01] MEDS: COLACE PO SCH (22:43)
[2018-11-01] MEDS ORDERED: GLUCOPHAGE ONE (22:45)
[2018-11-01] MEDS ORDERED: SOLU-Medrol ONE (22:45)
[2018-11-01] MEDS: HumaLOG SUB-Q SCH (22:53)
[2018-11-01] MEDS ORDERED: KCL 10MEQ/100ML 10 MEQ/100 ML BAG IV ONE (23:00)
[2018-11-01] MEDS ORDERED: NACL 0.9% 1000 ML 0 ML ONE (23:46)
[2018-11-02] MEDS: KCL 10MEQ/100ML 10 MEQ/100 ML BAG IV SCH ×2 (00:56→02:36)
[2018-11-02] MEDS: SODIUM CHLORIDE FLUSH SYRINGE 10 ML IV SCH ×3 (00:56→22:12)
[2018-11-02] MEDS: PERCOCET 5/325 PO PRN ×2 (02:51→22:10)
[2018-11-02] MEDS: DUONEB *Not for PRN Use IH SCH ×4 (03:02→19:17)
[2018-11-02] MEDS: SOLU-Medrol IV SCH ×3 (05:12→22:11)
[2018-11-02] MEDS ORDERED: HumaLOG SUB-Q SCH (07:30)
[2018-11-02 08:05] LABS: BUN/Creatinine Ratio 10; Blood Urea Nitrogen 5 mg/dL (7-17); Calcium 8.6 mg/dL (8.4-10.2); Hemolysis Index 3
[2018-11-02 08:19] LABS: Basophils % (Auto) 0.1 % (0.0-1.8); Hematocrit 39.6 % (30.3-42.9); Hemoglobin 13.7 gm/dl (10.1-14.3); Lymphocytes # (Auto) 0.4 K/mm3 (1.2-5.4); Lymphocytes % (Auto) 6.2 % (13.4-35.0); Mean Corpuscular HGB Conc 35 % (30-34); Mean Corpuscular Volume 105 fl (79-97); Monocytes # (Auto) 0.3 K/mm3 (0.0-0.8); Monocytes % (Auto) 4.3 % (0.0-7.3); Platelet Count 108 K/mm3 (140-440); Red Blood Count 3.78 M/mm3 (3.65-5.03); Red Cell Distribution Width 14.4 % (13.2-15.2)
[2018-11-02] MEDS: PULMICORT IH SCH ×2 (08:20→19:17)
[2018-11-02] MEDS: HumaLOG SUB-Q SCH ×4 (09:07→22:12)
--- NOTE | 2018-11-02 09:26 | Progress Note ---
Assessment and Plan Assessment and plan: 58 year old -[place] who is an ongoing smoker with history of asthma, hypertension, diabetes who presents to [facility] ED via EMS with complaints of difficulty in breathing. Upon arrival to our facility patient has saturation of 88% on room air. Patient was placed on supplemental oxygen. She was given nebulizer treatment and IV magnesium 2 g with some improvement. Initial ABG 7.37/37.9/72/19.4. Patient was found to be hypokalemic with potassium of 2.5. Acute exacerbation of asthma Acute hypoxic respiratory failure- secondary to asthma exacerbation Hypokalemia Hypertension Diabetes Tobacco abuse Plan: Continue supportive care Continuous telemetry monitoring Continue supplemental oxygen, wean as tolerated Scheduled DuoNeb nebs and Pulmicort, albuterol when necessary IV Solu-Medrol 80 mg every 8 hours Monitor electrolytes, replete as needed Hypokalemia resolved after replacement Monitor BP Continue home antihypertensive med: Lisinopril 40 mg daily POC BG monitoring Continue metformin 500 mg twice a day, sliding scale coverage Counseled for smoking cessation, refuses nicotine patch DVT PPX on Lovenox poss dc home tomorrow History Interval history: Shortness of breath Hospitalist Physical - Physical exam Narrative exam: Gen: Not in acute distress, lying in bed,obese HEENT: Normocephalic, atraumatic Neck: supple, no JVD Heart: S1 and S2 reg, no murmurs, rubs or gallop Lungs: Bilateral rhonchi, wheezing Abd: soft, mild tender lower abdomen, normal BS Ext: No edema, no clubbing, no cyanosis, Neuro: Awake,alert, oriented x 3, moves all ext, non focal Psych:Normal mood - Constitutional Vitals: Temp Pulse Resp BP Pulse Ox 97.5 F L 77 16 130/67 97 11/02/18 00:28 11/02/18 03:20 11/02/18 03:20 11/02/18 00:28 11/02/18 01:05 Results - Labs CBC & Chem 7: 11/02/18 06:25 11/02/18 06:25 Labs: Laboratory Last Values WBC 6.8 K/mm3 (4.5-11.0) 11/02/18 06:25 RBC 3.78 M/mm3 (3.65-5.03) 11/02/18 06:25 Hgb 13.7 gm/dl (10.1-14.3) 11/02/18 06:25 Hct 39.6 % (30.3-42.9) 11/02/18 06:25 MCV 105 fl (79-97) H 11/02/18 06:25 MCH 36 pg (28-32) H 11/02/18 06:25 MCHC 35 % (30-34) H 11/02/18 06:25 RDW 14.4 % (13.2-15.2) 11/02/18 06:25 Plt Count 108 K/mm3 (140-440) L 11/02/18 06:25 Lymph % (Auto) 6.2 % (13.4-35.0) L 11/02/18 06:25 Power % (Auto) 4.3 % (0.0-7.3) 11/02/18 06:25 Eos % (Auto) 0.0 % (0.0-4.3) 11/02/18 06:25 Baso % (Auto) 0.1 % (0.0-1.8) 11/02/18 06:25 Lymph # 0.4 K/mm3 (1.2-5.4) L 11/02/18 06:25 Power # 0.3 K/mm3 (0.0-0.8) 11/02/18 06:25 Eos # 0.0 K/mm3 (0.0-0.4) 11/02/18 06:25 Baso # 0.0 K/mm3 (0.0-0.1) 11/02/18 06:25 Seg Neutrophils % [employer] 11/02/18 06:25 Seg Neutrophils # 6.1 K/mm3 (1.8-7.7) 11/02/18 06:25 POC ABG pH 7.317 (7.35-7.45) L 11/01/18 19:25 POC ABG pCO2 37.9 (35-45) 11/01/18 19:25 POC ABG pO2 72 (80-105) L 11/01/18 19:25 POC ABG HCO3 19.4 (22-26 mml/L) 11/01/18 19:25 POC ABG Total CO2 21 (23-27mmol/L) 11/01/18 19:25 POC ABG O2 Sat 93 11/01/18 19:25 POC ABG Base Excess -7 ((-2) - (+3)mmol/L) 11/01/18 19:25 21 % 11/01/18 19:25 Sodium 144 mmol/L (137-145) 11/02/18 06:25 Potassium 4.2 mmol/L (3.6-5.0) D 11/02/18 06:25 Chloride 105.5 mmol/L (98-107) 11/02/18 06:25 Carbon Dioxide 20 mmol/L (22-30) L 11/02/18 06:25 23 mmol/L 11/02/18 06:25 BUN 5 mg/dL (7-17) L 11/02/18 06:25 0.5 mg/dL (0.7-1.2) L 11/02/18 06:25 Estimated GFR > 60 ml/min 11/02/18 06:25 10 % 11/02/18 06:25 Glucose 175 mg/dL (65-100) H 11/02/18 06:25 POC Glucose 135 (70-105) H 11/01/18 22:52 5.2 % (4-6) 11/02/18 06:25 Calcium 8.6 mg/dL (8.4-10.2) 11/02/18 06:25 NT-Pro-B Natriuret Pep 28.00 pg/mL (0-900) 11/01/18 19:38 Active Medications - Current Medications Current Medications: Generic Name Dose Route Start Last Admin Trade Name Freq PRN Reason Stop Dose Admin Acetaminophen 650 mg 11/01/18 21:15 Tylenol PO Q4H PRN Pain MILD(1-3)/Fever >100.5/GOLD Albuterol 2.5 mg 11/01/18 21:15 Proventil IH Q3HRT PRN Shortness Of Breath Albuterol/Ipratropium 1 ampul 11/02/18 02:00 11/02/18 08:20 Duoneb *Not For Prn Use* IH 1 ampul Q6HRT [facility] Administration Alprazolam 0.25 mg 11/01/18 21:21 Xanax PO BID PRN Anxiety Atorvastatin Calcium 20 mg 11/02/18 10:00 Lipitor PO DAILY [facility] Budesonide 0.5 mg 11/02/18 08:00 11/02/18 08:20 Pulmicort IH 0.5 mg Q12HRT [facility] Administration Dextrose 50 ml 11/01/18 21:20 D50w (25gm) Syringe IV PRN PRN Hypoglycemia Docusate Sodium 100 mg 11/01/18 22:00 11/01/18 22:43 Colace PO Not Given BID [facility] Enoxaparin Sodium 40 mg 11/02/18 10:00 Lovenox SUB-Q QDAY [facility] Insulin Human Lispro 0 unit 11/01/18 22:00 11/02/18 09:07 Humalog SUB-Q 2 unit ACHS [facility] Administration Protocol Lisinopril 40 mg 11/02/18 10:00 Zestril PO DAILY [facility] Metformin HCl 500 mg 11/01/18 22:00 11/01/18 22:30 Glucophage PO 500 mg BID [facility] Administration Methylprednisolone Sodium Succinate 80 mg 11/01/18 22:00 11/02/18 05:12 Solu-Medrol IV 80 mg Q8HR [facility] Administration Mirtazapine 15 mg 11/01/18 22:00 11/01/18 22:39 Remeron PO Not Given QHS [facility] Miscellaneous Medication 20 mg 11/02/18 18:00 Suvorexant [Belsomra] PO QPM [facility] Miscellaneous Medication 500 mcg 11/01/18 22:00 Dofetilide [Dofetilide] PO BID [facility] Ondansetron HCl 4 mg 11/01/18 21:15 Zofran IV Q8H PRN Nausea And Vomiting Oxycodone/Acetaminophen 1 tab 11/01/18 21:15 11/02/18 02:51 Percocet 5/325 PO 1 tab Q6H PRN Administration Pain, Moderate (4-6) Potassium Chloride 10 meq 11/02/18 10:00 K-Dur PO DAILY [facility] Sodium Chloride 10 ml 11/01/18 22:00 11/02/18 00:56 Sodium Chloride Flush Syringe 10 Ml IV 10 ml BID [facility] Administration Sodium Chloride 10 ml 11/01/18 21:15 Sodium Chloride Flush Syringe 10 Ml IV PRN PRN LINE FLUSH Venlafaxine HCl 75 mg 11/02/18 10:00 Effexor Xr PO DAILY [facility]
[2018-11-02] MEDS ORDERED: VENLAFAXINE HCL 75 MG PO SCH (10:00)
[2018-11-02] MEDS: ZESTRIL PO SCH (10:15)
[2018-11-02] MEDS: GLUCOPHAGE PO SCH ×2 (10:16→22:11)
[2018-11-02] MEDS: K-DUR PO SCH (10:16)
[2018-11-02] MEDS: COLACE PO SCH ×2 (10:16→22:11)
[2018-11-02] MEDS: EFFEXOR XR PO SCH (10:17)
[2018-11-02] MEDS: LOVENOX SUB-Q SCH (10:18)
[2018-11-02] MEDS ORDERED: SUVOREXANT 20 MG PO SCH (18:00)
[2018-11-02] MEDS: REMERON PO SCH (22:11)
[2018-11-03] MEDS: DUONEB *Not for PRN Use IH SCH ×4 (01:30→19:37)
[2018-11-03] MEDS: SOLU-Medrol IV SCH ×2 (05:16→18:48)
[2018-11-03] MEDS: PULMICORT IH SCH ×2 (08:28→19:37)
[2018-11-03] MEDS: HumaLOG SUB-Q SCH ×4 (09:03→22:27)
[2018-11-03] MEDS: COLACE PO SCH ×2 (10:31→22:27)
[2018-11-03] MEDS: PROTONIX PO SCH (10:32)
[2018-11-03] MEDS: ZESTRIL PO SCH (10:32)
[2018-11-03] MEDS: GLUCOPHAGE PO SCH ×2 (10:32→22:27)
[2018-11-03] MEDS: K-DUR PO SCH (10:32)
[2018-11-03] MEDS: TYLENOL PO PRN (10:33)
[2018-11-03] MEDS: LOVENOX SUB-Q SCH (10:34)
[2018-11-03] MEDS: SODIUM CHLORIDE FLUSH SYRINGE 10 ML IV SCH ×2 (10:38→22:28)
--- NOTE | 2018-11-03 11:53 | Progress Note ---
Assessment and Plan Assessment and plan: Acute exacerbation of asthma Acute hypoxic respiratory failure- secondary to asthma exacerbation Hypokalemia Hypertension Diabetes Tobacco abuse Coughed up small amount of blood - monitor Epigastric pain- start Protonix Plan: Continue supportive care Continuous telemetry monitoring Continue supplemental oxygen, wean as tolerated Scheduled DuoNeb nebs and Pulmicort, albuterol when necessary Decrease dose of solumedrol to 40 mg every 12 hours add Protonix for epigastric pain Monitor electrolytes, replete as needed Hypokalemia resolved after replacement Monitor BP Continue home antihypertensive med: Lisinopril 40 mg daily POC BG monitoring Continue metformin 500 mg twice a day, sliding scale coverage Counseled for smoking cessation, refuses nicotine patch DVT PPX on Lovenox Hopefully dc home in 1-2 days History Interval history: Shortness of breath improved coughed small amount blood feels weak today epigastric pain Hospitalist Physical - Physical exam Narrative exam: Gen: Not in acute distress, lying in bed,obese HEENT: Normocephalic, atraumatic Neck: supple, no JVD Heart: S1 and S2 reg, no murmurs, rubs or gallop Lungs: Bilateral rhonchi, wheezing Abd: soft, non tender, normal bowel sounds Ext: No edema, no clubbing, no cyanosis, Neuro: Awake,alert, oriented x 3, moves all ext, non focal Psych:Normal mood - Constitutional Vitals: Temp Pulse Resp BP Pulse Ox 98.5 F 89 18 142/58 97 11/03/18 06:08 11/03/18 08:41 11/03/18 08:41 11/03/18 10:32 11/03/18 06:08 Results - Labs CBC & Chem 7: 11/02/18 06:25 11/02/18 06:25 Labs: Laboratory Last Values WBC 6.8 K/mm3 (4.5-11.0) 11/02/18 06:25 RBC 3.78 M/mm3 (3.65-5.03) 11/02/18 06:25 Hgb 13.7 gm/dl (10.1-14.3) 11/02/18 06:25 Hct 39.6 % (30.3-42.9) 11/02/18 06:25 MCV 105 fl (79-97) H 11/02/18 06:25 MCH 36 pg (28-32) H 11/02/18 06:25 MCHC 35 % (30-34) H 11/02/18 06:25 RDW 14.4 % (13.2-15.2) 11/02/18 06:25 Plt Count 108 K/mm3 (140-440) L 11/02/18 06:25 Lymph % (Auto) 6.2 % (13.4-35.0) L 11/02/18 06:25 [place] % (Auto) 4.3 % (0.0-7.3) 11/02/18 06:25 Eos % (Auto) 0.0 % (0.0-4.3) 11/02/18 06:25 Baso % (Auto) 0.1 % (0.0-1.8) 11/02/18 06:25 Lymph # 0.4 K/mm3 (1.2-5.4) L 11/02/18 06:25 [place] # 0.3 K/mm3 (0.0-0.8) 11/02/18 06:25 Eos # 0.0 K/mm3 (0.0-0.4) 11/02/18 06:25 Baso # 0.0 K/mm3 (0.0-0.1) 11/02/18 06:25 Seg Neutrophils % Second Floor Operator 11/02/18 06:25 Seg Neutrophils # 6.1 K/mm3 (1.8-7.7) 11/02/18 06:25 POC ABG pH 7.317 (7.35-7.45) L 11/01/18 19:25 POC ABG pCO2 37.9 (35-45) 11/01/18 19:25 POC ABG pO2 72 (80-105) L 11/01/18 19:25 POC ABG HCO3 19.4 (22-26 mml/L) 11/01/18 19:25 POC ABG Total CO2 21 (23-27mmol/L) 11/01/18 19:25 POC ABG O2 Sat 93 11/01/18 19:25 POC ABG Base Excess -7 ((-2) - (+3)mmol/L) 11/01/18 19:25 21 % 11/01/18 19:25 Sodium 144 mmol/L (137-145) 11/02/18 06:25 Potassium 4.2 mmol/L (3.6-5.0) D 11/02/18 06:25 Chloride 105.5 mmol/L (98-107) 11/02/18 06:25 Carbon Dioxide 20 mmol/L (22-30) L 11/02/18 06:25 23 mmol/L 11/02/18 06:25 BUN 5 mg/dL (7-17) L 11/02/18 06:25 0.5 mg/dL (0.7-1.2) L 11/02/18 06:25 Estimated GFR > 60 ml/min 11/02/18 06:25 10 % 11/02/18 06:25 Glucose 175 mg/dL (65-100) H 11/02/18 06:25 POC Glucose 204 (70-105) H 11/03/18 11:37 5.2 % (4-6) 11/02/18 06:25 Calcium 8.6 mg/dL (8.4-10.2) 11/02/18 06:25 NT-Pro-B Natriuret Pep 28.00 pg/mL (0-900) 11/01/18 19:38 Active Medications - Current Medications Current Medications: Generic Name Dose Route Start Last Admin Trade Name Freq PRN Reason Stop Dose Admin Acetaminophen 650 mg 11/01/18 21:15 11/03/18 10:33 Tylenol PO 650 mg Q4H PRN Administration Pain MILD(1-3)/Fever >100.5/GOLD Albuterol 2.5 mg 11/01/18 21:15 Proventil IH Q3HRT PRN Shortness Of Breath Albuterol/Ipratropium 1 ampul 11/02/18 02:00 11/03/18 08:28 Duoneb *Not For Prn Use* IH 1 ampul Q6HRT [facility] Administration Alprazolam 0.25 mg 11/01/18 21:21 Xanax PO BID PRN Anxiety Atorvastatin Calcium 20 mg 11/02/18 10:00 11/03/18 10:32 Lipitor PO 20 mg DAILY [facility] Administration Budesonide 0.5 mg 11/02/18 08:00 11/03/18 08:28 Pulmicort IH 0.5 mg Q12HRT [facility] Administration Dextrose 50 ml 11/01/18 21:20 D50w (25gm) Syringe IV PRN PRN Hypoglycemia Docusate Sodium 100 mg 11/01/18 22:00 11/03/18 10:31 Colace PO 100 mg BID [facility] Administration Enoxaparin Sodium 40 mg 11/02/18 10:00 11/03/18 10:34 Lovenox SUB-Q 40 mg QDAY [facility] Administration Insulin Human Lispro 0 unit 11/01/18 22:00 11/03/18 09:03 Humalog SUB-Q 2 unit ACHS [facility] Administration Protocol Lisinopril 40 mg 11/02/18 10:00 11/03/18 10:32 Zestril PO 40 mg DAILY [facility] Administration Metformin HCl 500 mg 11/01/18 22:00 11/03/18 10:32 Glucophage PO 500 mg BID [facility] Administration Methylprednisolone Sodium Succinate 40 mg 11/03/18 18:00 Solu-Medrol IV Q12H [facility] Mirtazapine 15 mg 11/01/18 22:00 11/02/18 22:11 Remeron PO 15 mg QHS [facility] Administration Miscellaneous Medication 20 mg 11/02/18 18:00 Suvorexant [Belsomra] PO QPM [facility] Miscellaneous Medication 500 mcg 11/01/18 22:00 Dofetilide [Dofetilide] PO BID [facility] Ondansetron HCl 4 mg 11/01/18 21:15 Zofran IV Q8H PRN Nausea And Vomiting Oxycodone/Acetaminophen 1 tab 11/01/18 21:15 11/02/18 22:10 Percocet 5/325 PO 1 tab Q6H PRN Administration Pain, Moderate (4-6) Pantoprazole Sodium 40 mg 11/03/18 11:00 11/03/18 10:32 Protonix PO 40 mg QDAY [facility] Administration Potassium Chloride 10 meq 11/02/18 10:00 11/03/18 10:32 K-Dur PO 10 meq DAILY [facility] Administration Sodium Chloride 10 ml 11/01/18 22:00 11/03/18 10:38 Sodium Chloride Flush Syringe 10 Ml IV 10 ml BID [facility] Administration Sodium Chloride 10 ml 11/01/18 21:15 Sodium Chloride Flush Syringe 10 Ml IV PRN PRN LINE FLUSH Venlafaxine HCl 75 mg 11/02/18 10:00 11/02/18 10:17 Effexor Xr PO Not Given DAILY [facility]
[2018-11-03] MEDS: EFFEXOR XR PO SCH (19:50)
[2018-11-03] MEDS: REMERON PO SCH (22:27)
[2018-11-04] MEDS: DUONEB *Not for PRN Use IH SCH ×4 (02:25→21:02)
[2018-11-04] MEDS: PERCOCET 5/325 PO PRN ×2 (03:08→16:49)
[2018-11-04] MEDS: SOLU-Medrol IV SCH ×2 (05:21→19:32)
[2018-11-04 07:23] LABS: Hematocrit 39.3 % (30.3-42.9); Hemoglobin 13.6 gm/dl (10.1-14.3); Mean Corpuscular HGB Conc 35 % (30-34); Mean Corpuscular Volume 106 fl (79-97); Platelet Count 113 K/mm3 (140-440); Red Blood Count 3.72 M/mm3 (3.65-5.03); Red Cell Distribution Width 14.5 % (13.2-15.2)
[2018-11-04 07:50] LABS: BUN/Creatinine Ratio 18; Blood Urea Nitrogen 11 mg/dL (7-17); Hemolysis Index 11
[2018-11-04] MEDS: PULMICORT IH SCH ×2 (08:16→21:02)
[2018-11-04] MEDS: HumaLOG SUB-Q SCH ×4 (09:44→21:43)
[2018-11-04] MEDS: GLUCOPHAGE PO SCH ×2 (10:59→21:43)
[2018-11-04] MEDS: COLACE PO SCH ×2 (11:00→21:43)
[2018-11-04] MEDS: EFFEXOR XR PO SCH (11:00)
[2018-11-04] MEDS: K-DUR PO SCH (11:00)
[2018-11-04] MEDS: LOVENOX SUB-Q SCH (11:02)
[2018-11-04] MEDS: PROTONIX PO SCH (11:03)
[2018-11-04] MEDS: ZESTRIL PO SCH (11:04)
[2018-11-04] MEDS: SODIUM CHLORIDE FLUSH SYRINGE 10 ML IV SCH ×2 (11:05→21:47)
[2018-11-04] MEDS: TYLENOL PO PRN (12:44)
--- NOTE | 2018-11-04 13:39 | Progress Note ---
Assessment and Plan - Patient Problems (1) Ventral hernia Current Visit: Yes Status: Acute Plan to address problem: Patient now with painful ventral hernia. At present states she wants it evaluated. We'll have surgical evaluation consult. (2) Asthma exacerbation Current Visit: Yes Status: Acute Plan to address problem: Asthma exacerbation is improved somewhat. We'll continue prednisone continue empiric get ABT coverage and aggressive nebulizer treatment. (3) Anxiety Current Visit: No Status: Chronic (4) HTN (hypertension) Current Visit: No Status: Acute Qualifiers: Hypertension type: essential hypertension Qualified Code(s): I10 - Essential (primary) hypertension Plan to address problem: At present well controlled with lisinopril 20 mg. Titrate accordingly. (5) Tobacco use disorder, continuous Current Visit: Yes Status: Acute Plan to address problem: Long discussion about smoking cessation including secondhand smoke. Likely etiology of this exacerbation. (6) Gastroesophageal reflux disease Current Visit: Yes Status: Acute Plan to address problem: Initiate proton pump inhibitor. (7) Diabetes 1.5, managed as type 2 Current Visit: No Status: Acute Plan to address problem: Restart metformin Accu-Cheks to be stable at this particular time. Need to follow with sliding scale insulin especially with increased Solu-Medrol. T itrate accordingly. Patient has sliding-scale insulin coverage. History Interval history: Patient today complains of abdominal pain in the mid aspect gastrectomy. Especially with cough. No fever or chills. Patient states shortness of breath is somewhat improved. Hospital course complicated by upper abdominal pain. Hospitalist Physical - Constitutional Vitals: Temp Pulse Resp BP Pulse Ox 98.4 F 66 18 151/60 94 11/04/18 12:17 11/04/18 12:17 11/04/18 12:17 11/04/18 12:17 11/04/18 12:17 General appearance: Present: mild distress - EENT Eyes: Present: PERRL, EOM intact ENT: hearing intact, clear oral mucosa, dentition normal, no hearing decreased, no oropharyngeal erythema, no poor dentition, no thrush, no ulcerations, no edentulous - Neck Neck: Present: supple, normal ROM. Absent: enlarged thyroid, masses or JVD - Respiratory Respiratory: bilateral: diminished, wheezing, negative: other (few rhonchi.) - Cardiovascular Rhythm: regular Heart Sounds: Present: S1 & S2 - Extremities Extremities: no ischemia, pulses intact, pulses symmetrical, No edema, normal temperature, normal color Peripheral Pulses: within normal limits - Abdominal General gastrointestinal: soft, tender, non-distended, normal bowel sounds, hy poactive bowel sounds, other (a avila what appears to be hernia along the line of the linea alba. Exacerbated by coughing. Ventral hernia.), no distended, no rigid - Integumentary Integumentary: Present: clear, warm, dry - Psychiatric Psychiatric: appropriate mood/affect, intact judgment & insight, memory intact - Neurologic Neurologic: CNII-XII intact, focal deficits, moves all extremities Results - Labs CBC & Chem 7: 11/04/18 06:08 11/04/18 06:08 Labs: Laboratory Last Values WBC 7.7 K/mm3 (4.5-11.0) 11/04/18 06:08 RBC 3.72 M/mm3 (3.65-5.03) 11/04/18 06:08 Hgb 13.6 gm/dl (10.1-14.3) 11/04/18 06:08 Hct 39.3 % (30.3-42.9) 11/04/18 06:08 MCV 106 fl (79-97) H 11/04/18 06:08 MCH 37 pg (28-32) H 11/04/18 06:08 MCHC 35 % (30-34) H 11/04/18 06:08 RDW 14.5 % (13.2-15.2) 11/04/18 06:08 Plt Count 113 K/mm3 (140-440) L 11/04/18 06:08 Lymph % (Auto) 6.2 % (13.4-35.0) L 11/02/18 06:25 [place] % (Auto) 4.3 % (0.0-7.3) 11/02/18 06:25 Eos % (Auto) 0.0 % (0.0-4.3) 11/02/18 06:25 Baso % (Auto) 0.1 % (0.0-1.8) 11/02/18 06:25 Lymph # 0.4 K/mm3 (1.2-5.4) L 11/02/18 06:25 [place] # 0.3 K/mm3 (0.0-0.8) 11/02/18 06:25 Eos # 0.0 K/mm3 (0.0-0.4) 11/02/18 06:25 Baso # 0.0 K/mm3 (0.0-0.1) 11/02/18 06:25 Seg Neutrophils % [employer] 11/02/18 06:25 Seg Neutrophils # 6.1 K/mm3 (1.8-7.7) 11/02/18 06:25 POC ABG pH 7.317 (7.35-7.45) L 11/01/18 19:25 POC ABG pCO2 37.9 (35-45) 11/01/18 19:25 POC ABG pO2 72 (80-105) L 11/01/18 19:25 POC ABG HCO3 19.4 (22-26 mml/L) 11/01/18 19:25 POC ABG Total CO2 21 (23-27mmol/L) 11/01/18 19:25 POC ABG O2 Sat 93 11/01/18 19:25 POC ABG Base Excess -7 ((-2) - (+3)mmol/L) 11/01/18 19:25 21 % 11/01/18 19:25 Sodium 146 mmol/L (137-145) H 11/04/18 06:08 Potassium 3.8 mmol/L (3.6-5.0) 11/04/18 06:08 Chloride 106.0 mmol/L (98-107) 11/04/18 06:08 Carbon Dioxide 24 mmol/L (22-30) 11/04/18 06:08 20 mmol/L 11/04/18 06:08 BUN 11 mg/dL (7-17) 11/04/18 06:08 0.6 mg/dL (0.7-1.2) L 11/04/18 06:08 Estimated GFR > 60 ml/min 11/04/18 06:08 18 % 11/04/18 06:08 Glucose 175 mg/dL (65-100) H 11/04/18 06:08 POC Glucose 205 (70-105) H 11/04/18 11:14 5.2 % (4-6) 11/02/18 06:25 Calcium 9.0 mg/dL (8.4-10.2) 11/04/18 06:08 NT-Pro-B Natriuret Pep 28.00 pg/mL (0-900) 11/01/18 19:38 Active Medications - Current Medications Current Medications: Generic Name Dose Route Start Last Admin Trade Name Freq PRN Reason Stop Dose Admin Acetaminophen 650 mg 11/01/18 21:15 11/04/18 12:44 Tylenol PO 650 mg Q4H PRN Administration Pain MILD(1-3)/Fever >100.5/GOLD Albuterol 2.5 mg 11/01/18 21:15 Proventil IH Q3HRT PRN Shortness Of Breath Albuterol/Ipratropium 1 ampul 11/02/18 02:00 11/04/18 08:16 Duoneb *Not For Prn Use* IH 1 ampul Q6HRT [facility] Administration Alprazolam 0.25 mg 11/01/18 21:21 Xanax PO BID PRN Anxiety Atorvastatin Calcium 20 mg 11/02/18 10:00 11/04/18 11:03 Lipitor PO 20 mg DAILY [facility] Administration Budesonide 0.5 mg 11/02/18 08:00 11/04/18 08:16 Pulmicort IH 0.5 mg Q12HRT [facility] Administration Dextrose 50 ml 11/01/18 21:20 D50w (25gm) Syringe IV PRN PRN Hypoglycemia Docusate Sodium 100 mg 11/01/18 22:00 11/04/18 11:00 Colace PO 100 mg BID [facility] Administration Enoxaparin Sodium 40 mg 11/02/18 10:00 11/04/18 11:02 Lovenox SUB-Q 40 mg QDAY [facility] Administration Insulin Human Lispro 0 unit 11/01/18 22:00 11/04/18 12:45 Humalog SUB-Q 3 unit ACHS [facility] Administration Protocol Lisinopril 40 mg 11/02/18 10:00 11/04/18 11:04 Zestril PO 40 mg DAILY [facility] Administration Metformin HCl 500 mg 11/01/18 22:00 11/04/18 10:59 Glucophage PO 500 mg BID [facility] Administration Methylprednisolone Sodium Succinate 40 mg 11/03/18 18:00 11/04/18 05:21 Solu-Medrol IV 40 mg Q12H [facility] Administration Mirtazapine 15 mg 11/01/18 22:00 11/03/18 22:27 Remeron PO 15 mg QHS [facility] Administration Miscellaneous Medication 20 mg 11/02/18 18:00 Suvorexant [Belsomra] PO QPM [facility] Miscellaneous Medication 500 mcg 11/01/18 22:00 Dofetilide [Dofetilide] PO BID [facility] Ondansetron HCl 4 mg 11/01/18 21:15 Zofran IV Q8H PRN Nausea And Vomiting Oxycodone/Acetaminophen 1 tab 11/01/18 21:15 11/04/18 03:08 Percocet 5/325 PO 1 tab Q6H PRN Administration Pain, Moderate (4-6) Pantoprazole Sodium 40 mg 11/03/18 11:00 11/04/18 11:03 Protonix PO 40 mg QDAY [facility] Administration Potassium Chloride 10 meq 11/02/18 10:00 11/04/18 11:00 K-Dur PO 10 meq DAILY [facility] Administration Sodium Chloride 10 ml 11/01/18 22:00 11/04/18 11:05 Sodium Chloride Flush Syringe 10 Ml IV 10 ml BID [facility] Administration Sodium Chloride 10 ml 11/01/18 21:15 Sodium Chloride Flush Syringe 10 Ml IV PRN PRN LINE FLUSH Venlafaxine HCl 75 mg 11/02/18 10:00 11/04/18 11:00 Effexor Xr PO 75 mg DAILY [facility] Administration
[2018-11-04] MEDS: REMERON PO SCH (21:43)
[2018-11-05] MEDS: SOLU-Medrol IV SCH ×2 (05:54→19:09)
[2018-11-05] MEDS: HumaLOG SUB-Q SCH ×4 (08:48→22:53)
[2018-11-05] MEDS: DUONEB *Not for PRN Use IH SCH ×3 (09:49→20:59)
[2018-11-05] MEDS: PULMICORT IH SCH ×2 (09:49→20:59)
--- NOTE | 2018-11-05 11:35 | Progress Note ---
Assessment and Plan Assessment and plan: Ventral hernia/abdominal pain. Await surgery consultation. Acute exacerbation of asthma. Continue supplemental oxygen, wean as tolerated Scheduled DuoNeb nebs and Pulmicort, albuterol when necessary Acute hypoxic respiratory failure- secondary to asthma exacerbation. Continue systemic steroids. Hypokalemia. Replete as needed. Hypertension. Continue antihypertensive medications. Diabetes mellitus type 2. Continue Accu-Cheks and sliding scale insulin. Continue metformin 500 mg twice a day Tobacco abuse. Smoking cessation counseling History Interval history: No new issues overnight. Hospitalist Physical - Constitutional Vitals: Temp Pulse Resp BP Pulse Ox 98.6 F 55 L 18 165/70 99 11/05/18 05:36 11/05/18 09:50 11/05/18 09:50 11/05/18 05:36 11/05/18 09:52 General appearance: Present: mild distress - EENT Eyes: Present: PERRL, EOM intact ENT: hearing intact, clear oral mucosa, dentition normal - Neck Neck: Present: supple, normal ROM - Respiratory Respiratory effort: normal Respiratory: bilateral: CTA - Cardiovascular Rhythm: regular Heart Sounds: Present: S1 & S2. Absent: gallop, rub - Extremities Extremities: no ischemia, No edema, Full ROM - Abdominal General gastrointestinal: soft, non-tender, non-distended, normal bowel sounds - Integumentary Integumentary: Present: clear, warm, dry - Neurologic Neurologic: CNII-XII intact, moves all extremities Results - Labs CBC & Chem 7: 11/04/18 06:08 11/04/18 06:08 Labs: Laboratory Last Values WBC 7.7 K/mm3 (4.5-11.0) 11/04/18 06:08 RBC 3.72 M/mm3 (3.65-5.03) 11/04/18 06:08 Hgb 13.6 gm/dl (10.1-14.3) 11/04/18 06:08 Hct 39.3 % (30.3-42.9) 11/04/18 06:08 MCV 106 fl (79-97) H 11/04/18 06:08 MCH 37 pg (28-32) H 11/04/18 06:08 MCHC 35 % (30-34) H 11/04/18 06:08 RDW 14.5 % (13.2-15.2) 11/04/18 06:08 Plt Count 113 K/mm3 (140-440) L 11/04/18 06:08 Lymph % (Auto) 6.2 % (13.4-35.0) L 11/02/18 06:25 Edmunds % (Auto) 4.3 % (0.0-7.3) 11/02/18 06:25 Eos % (Auto) 0.0 % (0.0-4.3) 11/02/18 06:25 Baso % (Auto) 0.1 % (0.0-1.8) 11/02/18 06:25 Lymph # 0.4 K/mm3 (1.2-5.4) L 11/02/18 06:25 Edmunds # 0.3 K/mm3 (0.0-0.8) 11/02/18 06:25 Eos # 0.0 K/mm3 (0.0-0.4) 11/02/18 06:25 Baso # 0.0 K/mm3 (0.0-0.1) 11/02/18 06:25 Seg Neutrophils % Desk Operator 11/02/18 06:25 Seg Neutrophils # 6.1 K/mm3 (1.8-7.7) 11/02/18 06:25 POC ABG pH 7.317 (7.35-7.45) L 11/01/18 19:25 POC ABG pCO2 37.9 (35-45) 11/01/18 19:25 POC ABG pO2 72 (80-105) L 11/01/18 19:25 POC ABG HCO3 19.4 (22-26 mml/L) 11/01/18 19:25 POC ABG Total CO2 21 (23-27mmol/L) 11/01/18 19:25 POC ABG O2 Sat 93 11/01/18 19:25 POC ABG Base Excess -7 ((-2) - (+3)mmol/L) 11/01/18 19:25 21 % 11/01/18 19:25 Sodium 146 mmol/L (137-145) H 11/04/18 06:08 Potassium 3.8 mmol/L (3.6-5.0) 11/04/18 06:08 Chloride 106.0 mmol/L (98-107) 11/04/18 06:08 Carbon Dioxide 24 mmol/L (22-30) 11/04/18 06:08 20 mmol/L 11/04/18 06:08 BUN 11 mg/dL (7-17) 11/04/18 06:08 0.6 mg/dL (0.7-1.2) L 11/04/18 06:08 Estimated GFR > 60 ml/min 11/04/18 06:08 18 % 11/04/18 06:08 Glucose 175 mg/dL (65-100) H 11/04/18 06:08 POC Glucose 85 (70-105) 11/05/18 08:04 5.2 % (4-6) 11/02/18 06:25 Calcium 9.0 mg/dL (8.4-10.2) 11/04/18 06:08 NT-Pro-B Natriuret Pep 28.00 pg/mL (0-900) 11/01/18 19:38 Active Medications - Current Medications Current Medications: Generic Name Dose Route Start Last Admin Trade Name Freq PRN Reason Stop Dose Admin Acetaminophen 650 mg 11/01/18 21:15 11/04/18 12:44 Tylenol PO 650 mg Q4H PRN Administration Pain MILD(1-3)/Fever >100.5/GOLD Albuterol 2.5 mg 11/01/18 21:15 Proventil IH Q3HRT PRN Shortness Of Breath Albuterol/Ipratropium 1 ampul 11/04/18 20:00 11/05/18 09:49 Duoneb *Not For Prn Use* IH 1 ampul TIDRT ARNALDO Administration Alprazolam 0.25 mg 11/01/18 21:21 Xanax PO BID PRN Anxiety Atorvastatin Calcium 20 mg 11/02/18 10:00 11/04/18 11:03 Lipitor PO 20 mg DAILY ARNALDO Administration Budesonide 0.5 mg 11/02/18 08:00 11/05/18 09:49 Pulmicort IH 0.5 mg Q12HRT ARNALDO Administration Dextrose 50 ml 11/01/18 21:20 D50w (25gm) Syringe IV PRN PRN Hypoglycemia Docusate Sodium 100 mg 11/01/18 22:00 11/04/18 21:43 Colace PO 100 mg BID ARNALDO Administration Enoxaparin Sodium 40 mg 11/02/18 10:00 11/04/18 11:02 Lovenox SUB-Q 40 mg QDAY ARNALDO Administration Insulin Human Lispro 0 unit 11/01/18 22:00 11/05/18 08:48 Humalog SUB-Q Not Given ACHS [facility] Protocol Lisinopril 40 mg 11/02/18 10:00 11/04/18 11:04 Zestril PO 40 mg DAILY ARNALDO Administration Metformin HCl 500 mg 11/01/18 22:00 11/04/18 21:43 Glucophage PO 500 mg BID ARNALDO Administration Methylprednisolone Sodium Succinate 40 mg 11/03/18 18:00 11/05/18 05:54 Solu-Medrol IV 40 mg Q12H ARNALDO Administration Mirtazapine 15 mg 11/01/18 22:00 11/04/18 21:43 Remeron PO 15 mg QHS ARNALDO Administration Miscellaneous Medication 20 mg 11/02/18 18:00 Suvorexant [Belsomra] PO QPM ARNALDO Miscellaneous Medication 500 mcg 11/01/18 22:00 Dofetilide [Dofetilide] PO BID ARNALDO Ondansetron HCl 4 mg 11/01/18 21:15 Zofran IV Q8H PRN Nausea And Vomiting Oxycodone/Acetaminophen 1 tab 11/01/18 21:15 11/04/18 16:49 Percocet 5/325 PO 1 tab Q6H PRN Administration Pain, Moderate (4-6) Pantoprazole Sodium 40 mg 11/03/18 11:00 11/04/18 11:03 Protonix PO 40 mg QDAY ARNALDO Administration Potassium Chloride 10 meq 11/02/18 10:00 11/04/18 11:00 K-Dur PO 10 meq DAILY ARNALDO Administration Sodium Chloride 10 ml 11/01/18 22:00 11/04/18 21:47 Sodium Chloride Flush Syringe 10 Ml IV 10 ml BID ARNALDO Administration Sodium Chloride 10 ml 11/01/18 21:15 Sodium Chloride Flush Syringe 10 Ml IV PRN PRN LINE FLUSH Venlafaxine HCl 75 mg 11/02/18 10:00 11/04/18 11:00 Effexor Xr PO 75 mg DAILY ARNALDO Administration
[2018-11-05] MEDS: GLUCOPHAGE PO SCH ×2 (11:37→22:53)
[2018-11-05] MEDS: LOVENOX SUB-Q SCH (11:37)
[2018-11-05] MEDS: COLACE PO SCH ×2 (11:37→22:53)
[2018-11-05] MEDS: K-DUR PO SCH (11:38)
[2018-11-05] MEDS: PROTONIX PO SCH (11:39)
[2018-11-05] MEDS: EFFEXOR XR PO SCH (11:39)
[2018-11-05] MEDS: SODIUM CHLORIDE FLUSH SYRINGE 10 ML IV SCH ×2 (11:50→22:53)
[2018-11-05] MEDS: ZESTRIL PO SCH (11:50)
--- NOTE | 2018-11-05 13:45 | Consultation ---
History of Present Illness Consult date: 11/05/18 Reason for consult: abdominal pain Chief complaint: abdominal pain - History of present illness History of present illness: 58 yo F with hx of asthma presented to ER for asthma exacerbation. She does not have a PCP and comes to the ER for this problem frequently. She has been c/o upper abdominal pain and states she has had this pain for the last one year. The pain is intermittent, sharp, and associated with a bulge in the epigastric region. She feels the bulge has gotten bigger since she first noticed it. She does not remember any event that may have caused this to happen. She has intermittent nausea. No f/c, cp, sob. She has never noticed the bulge get hard and stay out. It goes away when she lays flat. She is having BMs and is tolerating a diet. Past History Past Medical History: diabetes, hypertension, other Past Surgical History: cholecystectomy Social history: smoking (current feeding smoker) Family history: no significant family history Medications and Allergies Allergies Allergy/AdvReac Type Severity Reaction Status Date / Time No Known Allergies Allergy Verified 11/01/18 16:33 Home Medications Medication Instructions Recorded Confirmed Last Taken Type DOXYCYCLINE Hyclate [Vibramycin 100 mg PO BID #20 capsule 04/26/18 11/01/18 Unknown Rx CAP] ALPRAZolam [Xanax TAB] 0.25 mg PO BID PRN 11/01/18 11/01/18 Unknown History AtorvaSTATin [Lipitor] 20 mg PO DAILY 11/01/18 11/01/18 Unknown History Dofetilide 500 mcg PO BID 11/01/18 11/01/18 Unknown History Fluticasone/Vilanterol [Breo 1 each IH QAM 11/01/18 11/01/18 Unknown History Ellipta 200-25 Mcg INH] Lisinopril [Zestril TAB] 40 mg PO DAILY 11/01/18 11/01/18 Unknown History Mirtazapine [Remeron 15mg TAB] 15 mg PO QHS 11/01/18 11/01/18 Unknown History Potassium Chloride [K-Dur] 10 meq PO DAILY 11/01/18 11/01/18 Unknown History Promethazine Dm (Nf) [Phenergan Dm 5 ml PO Q6H PRN 11/01/18 11/01/18 Unknown History 6.25/15 mg 5 ml] Rivaroxaban [Xarelto] 20 mg PO DAILY 11/01/18 11/01/18 Unknown History Suvorexant [Belsomra] 20 mg PO QPM 11/01/18 11/01/18 Unknown History Venlafaxine HCl [Venlafaxin ER] 75 mg PO DAILY 11/01/18 11/01/18 Unknown History metFORMIN [Glucophage] 500 mg PO BID 11/01/18 11/01/18 Unknown History Active Meds: Active Medications Acetaminophen (Tylenol) 650 mg PO Q4H PRN PRN Reason: Pain MILD(1-3)/Fever >100.5/GOLD Last Admin: 11/04/18 12:44 Dose: 650 mg Documented by: Albuterol (Proventil) 2.5 mg IH Q3HRT PRN PRN Reason: Shortness Of Breath Albuterol/Ipratropium (Duoneb *Not For Prn Use*) 1 ampul IH TIDRT [facility] Last Admin: 11/05/18 09:49 Dose: 1 ampul Documented by: Alprazolam (Xanax) 0.25 mg PO BID PRN PRN Reason: Anxiety Atorvastatin Calcium (Lipitor) 20 mg PO DAILY [facility] Last Admin: 11/05/18 11:38 Dose: 20 mg Documented by: Budesonide (Pulmicort) 0.5 mg IH Q12HRT [facility] Last Admin: 11/05/18 09:49 Dose: 0.5 mg Documented by: Dextrose (D50w (25gm) Syringe) 50 ml IV PRN PRN PRN Reason: Hypoglycemia Docusate Sodium (Colace) 100 mg PO BID [facility] Last Admin: 11/05/18 11:37 Dose: 100 mg Documented by: Enoxaparin Sodium (Lovenox) 40 mg SUB-Q QDAY [facility] Last Admin: 11/05/18 11:37 Dose: 40 mg Documented by: Insulin Human Lispro (Humalog) 0 unit SUB-Q [facility]; Protocol Last Admin: 11/05/18 12:31 Dose: Not Given Documented by: Lisinopril (Zestril) 40 mg PO DAILY [facility] Last Admin: 11/05/18 11:50 Dose: 40 mg Documented by: Metformin HCl (Glucophage) 500 mg PO BID [facility] Last Admin: 11/05/18 11:37 Dose: 500 mg Documented by: Methylprednisolone Sodium Succinate (Solu-Medrol) 40 mg IV Q12H [facility] Last Admin: 11/05/18 05:54 Dose: 40 mg Documented by: Mirtazapine (Remeron) 15 mg PO QHS [facility] Last Admin: 11/04/18 21:43 Dose: 15 mg Documented by: Miscellaneous Medication (Suvorexant [Belsomra]) 20 mg PO QPM [facility] Miscellaneous Medication (Dofetilide [Dofetilide]) 500 mcg PO BID [facility] Ondansetron HCl (Zofran) 4 mg IV Q8H PRN PRN Reason: Nausea And Vomiting Oxycodone/Acetaminophen (Percocet 5/325) 1 tab PO Q6H PRN PRN Reason: Pain, Moderate (4-6) Last Admin: 11/04/18 16:49 Dose: 1 tab Documented by: Pantoprazole Sodium (Protonix) 40 mg PO QDAY [facility] Last Admin: 11/05/18 11:39 Dose: 40 mg Documented by: Potassium Chloride (K-Dur) 10 meq PO DAILY [facility] Last Admin: 11/05/18 11:38 Dose: 10 meq Documented by: Sodium Chloride (Sodium Chloride Flush Syringe 10 Ml) 10 ml IV BID [facility] Last Admin: 11/05/18 11:50 Dose: 10 ml Documented by: Sodium Chloride (Sodium Chloride Flush Syringe 10 Ml) 10 ml IV PRN PRN PRN Reason: LINE FLUSH Venlafaxine HCl (Effexor Xr) 75 mg PO DAILY [facility] Last Admin: 11/05/18 11:39 Dose: 75 mg Documented by: Review of Systems All systems: negative (10 pt ROS performed and negative except for that listed iN HPI) Exam Vital Signs Temp Pulse Resp BP Pulse Ox 97.9 F 91 H 22 131/67 96 11/01/18 16:29 11/01/18 16:29 11/01/18 16:29 11/01/18 16:29 11/01/18 16:29 Narrative exam: Gen: AAOx3. NAD ENT: no scleral icterus or conjunctival pallor CV: s1, S2+ Resp: even and unlabored Abd: soft, ND, mild epigastric TTP . There is a small hernia at a prior incision site in the epigastric area which is easily reducible, no skin changes. Well healed surgical scars Ext; no c/c/e Results - Labs 11/04/18 06:08 11/04/18 06:08 Abnormal lab results 11/04/18 Range/Units 16:33 POC Glucose 195 H (70-105) Assessment and Plan 58 yo F with incisional hernia, reducible Plan: 1. Hernia is reducible. Will obtain CT A/P to get better look at anatomy 2. Explained to the patient that hernia surgery will be elective and that she may follow up in surgery clinic as outpatient once her primary medical issue is stabilized. 3. Spoke with case management to start financial counseling process as patient is self pay D/W Dr. Wong. Thank you, please call with questions.
--- NOTE | 2018-11-05 17:49 | Cat Scan Report ---
PROCEDURE: CT ABDOMEN PELVIS W CON TECHNIQUE: Computerized axial tomography of the abdomen and pelvis was performed after the administr ation of IV iodinated nonionic contrast. CT DOSE LENGTH PRODUCT: 3018 mGycm HISTORY: epigastric pain, hernia COMPARISONS: 09/30/2015 . FINDINGS: Visualized lower thorax: Mild right lung base atelectasis. Liver: Seen on the arterial phase images, there is a dilated vascular structure at the hepatic dome w ith demonstrates connection with the portal veins. This lesion is not fully imaged, however based on the prior exam, there is also connection to hepatic veins. Vascular structure is mildly increased in caliber compared to the prior study. 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 Spleen: Normal size and attenuation. Gallbladder and biliary system: Normal. Pancreas: Normal. Adrenals: Normal. Kidneys: 2.8 cm left renal cyst. GI tract: No appendiceal inflammation. There is diffuse wall thickening of the descending colon and sigmoid colon, which can be seen with a nonspecific colitis. No bowel obstruction. There is persisten t luminal narrowing of the transverse colon over a length of 6 cm, without masslike wall thickening n oted, which could be related to focal colitis or possibly peristalsis Lymph nodes and mesentery: Normal. Vasculature: Normal.. Bladder: Normal. Reproductive organs: Probable uterine fibroids. Peritoneum: No free fluid. Musculoskeletal structures: Minimal degenerative disc changes of the thoracolumbar spine. Other: Fat-containing anterior abdominal wall hernia, superior to the umbilicus. Hernia neck measure s 2 cm transverse. IMPRESSION: Mild diffuse wall thickening and mucosal enhancement of the left colon and sigmoid colon, which can b e related to nonspecific colitis. There is also luminal narrowing and wall thickening of the transver se colon over a length of 6 cm, which could be related to colitis. Recommend follow-up after treatmen t to exclude underlying neoplastic process. There is a dilated vascular structure at the hepatic dome, which is mildly increased in caliber rossy red to the prior study. This is compatible with an intrahepatic portosystemic shunt/vascular malforma tion. Stable appearing fat-containing anterior abdominal wall hernia, superior to the level of the umbilicu s Probable uterine fibroids This document is electronically signed by Ana Maria Crum MD., November 05 2018 05:47:05 PM ET
[2018-11-05] MEDS: REMERON PO SCH (22:53)
[2018-11-06] MEDS: SOLU-Medrol IV SCH (07:01)
[2018-11-06] MEDS: HumaLOG SUB-Q SCH ×2 (07:30→12:40)
[2018-11-06] MEDS: PULMICORT IH SCH (07:50)
[2018-11-06] MEDS: DUONEB *Not for PRN Use IH SCH ×2 (07:50→13:31)
--- NOTE | 2018-11-06 09:01 | Discharge Summary ---
Providers - Providers Date of Admission: 11/01/18 21:15 Date of discharge: 11/06/18 Attending physician: LIBRA CRONIN 11/04/18 13:43 Consult to Physician [CONS] Routine Comment: Consulting Provider: LIGIA FAITH Physician Instructions: Reason For Exam: carrie Primary care physician: [facility], Hospitalization Reason for admission: resp failure, asthma exac Condition: Fair Hospital course: 58 year old -[place] who is an ongoing smoker female with history of asthma, hypertension, diabetes who presented to [facility] via EMS with complaints of difficulty in breathing. The patient was admitted with diagnosis of acute hypoxic respiratory failure secondary to asthma exacerbation. Upon arrival to our facility patient had saturation of 88% on room air. The patient was treated with supplemental oxygen, systemic steroids (IV) and bronchodilators/nebulizer treatments. Patient's respiratory status improved significantly back to her baseline. Other complications on hospital stay included complaints of abdominal pain. She has been c/o upper abdominal pain and states she has had this pain for the last one year. The pain is intermittent, sharp, and associated with a bulge in the epigastric region. Surgery was consult and recommended CT of abdomen and pelvis. CT revealed mild diffuse wall thickening and mucosal enhancement of the left colon and sigmoid colon which could be related to nonspecific colitis. There is also luminal narrowing and wall thickening of the transverse colon over a length of 6 cm which could be related to colitis. Recommended follow-up after treatment to exclude underlying neoplastic process. The abdominal wall hernia containing some fat with a stable appearance. Patient will be discharged home with antibiotics and is to follow with repeat CT scan as an outpatient with surgery. Dedicated discharge time 32 minutes. Disposition: DC-01 TO HOME OR SELFCARE Time spent for discharge: 32 - Discharge Diagnoses (1) Acute respiratory failure with hypoxia Status: Acute (2) Colitis Status: Acute (3) Asthma exacerbation Status: Acute Comment: Patient with acute exact asthma exacerbation. Trigger unknown at this particular time. Hospital course was complicated by a prolonged therapy course will patient did not respond very well to bronchodilators. She eventually responded to steroids we will keep on a long steroid taper including 60 mg of prednisone for 3 days 40 mg of prednisone for 3 days 20 mg of prednisone for 3 days and 10 mg of prednisone for 5 days. Patient is received a nebulizer machine and will receive nebulizes to give when necessary. Along with Symbicort 160/40. Patient to follow-up with Dr. Tip Crum in less than 7 days. Follow-up primary care physician several at a clinic in 7-10 days. (4) Gastroesophageal reflux disease Status: Acute (5) Hypokalemia Status: Acute (6) SOB (shortness of breath) Status: Acute (7) Diabetes 1.5, managed as type 2 Status: Acute Comment: Patient new onset diabetes. We needed to give patient insulin because she was on such high doses of Solu-Medrol. Therefore placed on Lantus 30 units daily at bedtime this controlled blood sugars some point but remains suboptimal. Would not increase her long-acting insulin at this time secondary to the steroids will be tapered in a little over 2 weeks. She will need to follow with her primary care physician in 5-7 days. Patient has been informed that she can follow with me if she has a problem with her blood sugars as well. Patient is had diabetic education has been placed on an arm. Did not tolerate Perez well. Patient discharged in stable condition thank you (8) HTN (hypertension) Status: Acute Qualifiers: Hypertension type: essential hypertension Qualified Code(s): I10 - Essential (primary) hypertension Core Measure Documentation - Palliative Care Palliative Care/ Comfort Measures: Not Applicable - Core Measures Any of the following diagnoses?: none Exam - Constitutional Vitals: Temp Pulse Resp BP Pulse Ox 98.2 F 69 19 159/65 96 11/06/18 05:25 11/06/18 07:50 11/06/18 07:50 11/06/18 05:25 11/06/18 08:48 General appearance: Present: no acute distress, well-nourished - EENT Eyes: Present: PERRL ENT: hearing intact, clear oral mucosa - Neck Neck: Present: supple, normal ROM - Respiratory Respiratory effort: normal Respiratory: bilateral: CTA - Cardiovascular Heart Sounds: Present: S1 & S2. Absent: rub, click - Extremities Extremities: pulses symmetrical, No edema Peripheral Pulses: within normal limits - Abdominal General gastrointestinal: Present: soft, non-tender, non-distended, normal bowel sounds Female genitourinary: Present: normal - Integumentary Integumentary: Present: clear, warm, dry - Musculoskeletal Musculoskeletal: gait normal, strength equal bilaterally - Psychiatric Psychiatric: appropriate mood/affect, intact judgment & insight - Neurologic Neurologic: CNII-XII intact, moves all extremities Plan Activity: advance as tolerated Weight Bearing Status: Weight Bear as Tolerated Diet: diabetic Follow up with: LIGIA FAITH DO [Staff Physician] - 14 Days CHILLICOTHE KELSY MEHTA MD [Primary Care Provider] - 3-5 Days Prescriptions: Suvorexant [Belsomra] 20 mg PO QPM #30 tablet Fluticasone/Vilanterol [Breo Ellipta 200-25 Mcg INH] 1 each IH QAM 30 Days [facility] Dofetilide 500 mcg PO BID #30 capsule metroNIDAZOLE [Flagyl] 500 mg PO Q8HR #42 tablet metFORMIN [Glucophage] 500 mg PO BID #60 tablet Potassium Chloride [K-Dur] 10 meq PO DAILY #15 tablet levoFLOXacin [Levaquin TAB] 500 mg PO QDAY #14 tablet AtorvaSTATin [Lipitor] 20 mg PO DAILY #30 tablet oxyCODONE /ACETAMINOPHEN [Percocet 5/325 mg] 1 tab PO Q6H PRN #8 tablet PRN Reason: Pain, Moderate (4-6) Pantoprazole [Protonix TAB] 40 mg PO QDAY #30 tablet Mirtazapine [Remeron 15mg TAB] 15 mg PO QHS #30 tablet Venlafaxine HCl [Venlafaxin ER] 75 mg PO DAILY #10 tab.er.24 ALPRAZolam [Xanax TAB] 0.25 mg PO BID PRN #30 tablet PRN Reason: Anxiety Rivaroxaban [Xarelto] 20 mg PO DAILY #30 tablet Lisinopril [Zestril TAB] 40 mg PO DAILY #30 tablet
[2018-11-06 12:25] VITALS: BP 158/82
[2018-11-06] MEDS: ZESTRIL PO SCH (12:33)
[2018-11-06] MEDS: LOVENOX SUB-Q SCH (12:34)
[2018-11-06] MEDS: COLACE PO SCH (12:35)
[2018-11-06] MEDS: PROTONIX PO SCH (12:35)
[2018-11-06] MEDS: GLUCOPHAGE PO SCH (12:36)
[2018-11-06] MEDS: SODIUM CHLORIDE FLUSH SYRINGE 10 ML IV SCH (12:36)
[2018-11-06] MEDS: EFFEXOR XR PO SCH (12:37)
[2018-11-06] MEDS: K-DUR PO SCH (12:41)
== END 2018-11-06 14:31 | disposition home or self-care (01) | DRG 189 ==
LOC: ED 16:02 → 3A 21:15
PROVIDERS: ADMIT Internal Medicine; ATTEND Hospitalist
PROC: 4A033R1 Measurement of Arterial Saturation, Peripheral, Percutaneous Approach (ICD-10-PCS; principal; 2018-11-01)
DX: J96.01 Acute respiratory failure with hypoxia (principal); J45.901 Unspecified asthma with (acute) exacerbation; I10 Essential (primary) hypertension; E11.9 Type 2 diabetes mellitus without complications; E87.5 Hyperkalemia; F41.9 Anxiety disorder, unspecified; K43.2 Incisional hernia without obstruction or gangrene; E87.6 Hypokalemia; K21.9 Gastro-esophageal reflux disease without esophagitis; Z79.4 Long term (current) use of insulin; Z90.49 Acquired absence of other specified parts of digestive tract
CPT/HCPCS: 36415; 71045; 74177; 80048; 82803; 82962; 83036; 83880; 85025; 85027; 87116; 94640; 94760; 96365; 96375; G0378; A9270-GY; J1650; J1815; J2920; J2930; J3475; J3480; J7030; Q9967

== ENCOUNTER 2018-12-29 22:52 | Inpatient (IN) | payer OTHER ==
--- NOTE | 2018-12-29 23:07 | Emergency Department Report ---
ED Shortness of Breath HPI - General Chief Complaint: Dyspnea/Respdistress Stated Complaint: DIFFICULTY IN BREATHING Time Seen by Provider: 12/29/18 23:06 Source: patient, EMS Mode of arrival: Stretcher Limitations: No Limitations - History of Present Illness Initial Comments: Patient is a 58-year-old female that presents emergency room with difficulty breathing and shortness of breath. Patient states she has asthma. Patient was given albuterol neb treatment, Solu-Medrol and magnesium by EMS. Patient states she improved minimally. Patient states she is not compliant with her inhalers. Patient states she has a history of bronchitis. Patient states her symptoms started 1 hour ago MD Complaint: shortness of breath, cough, "asthma attack" -: Sudden Consistency: constant Improves With: oxygen, rest, bronchodilators, upright position Worsens With: lying flat, exertion, coughing, inspiration Known History Of: asthma Context: medication noncompliance Associated Symptoms: cough Treatments Prior to Arrival: oxygen, bronchodilator, other - Related Data Home Medications Medication Instructions Recorded Confirmed Last Taken Promethazine Dm (Nf) [Phenergan DM 5 ml PO Q6H PRN 11/01/18 11/01/18 Unknown 6.25-15 mg/5 ml] Previous Rx's Medication Instructions Recorded Last Taken Type ALPRAZolam [Xanax TAB] 0.25 mg PO BID PRN #30 tablet 11/06/18 Unknown Rx AtorvaSTATin [Lipitor] 20 mg PO DAILY #30 tablet 11/06/18 Unknown Rx Dofetilide 500 mcg PO BID #30 capsule 11/06/18 Unknown Rx Enoxaparin [Lovenox] 40 mg SUB-Q QDAY syringe 11/06/18 Unknown Rx Fluticasone/Vilanterol [Breo 1 each IH QAM 30 Days blst.w.dev 11/06/18 Unknown Rx Ellipta 200-25 Mcg INH] Ipratropium/Albuterol Sulfate 1 ampul IH TIDRT ampul.neb 11/06/18 Unknown Rx [DUONEB *Not for PRN Use*] Lisinopril [Zestril TAB] 40 mg PO DAILY #30 tablet 11/06/18 Unknown Rx Lispro Insulin [HumaLOG] 0 unit SUB-Q ACHS units 11/06/18 Unknown Rx Mirtazapine [Remeron 15mg TAB] 15 mg PO QHS tablet 11/06/18 Unknown Rx Mirtazapine [Remeron 15mg TAB] 15 mg PO QHS #30 tablet 11/06/18 Unknown Rx Pantoprazole [Protonix TAB] 40 mg PO QDAY #30 tablet 11/06/18 Unknown Rx Potassium Chloride [K-Dur] 10 meq PO DAILY #15 tablet 11/06/18 Unknown Rx Rivaroxaban [Xarelto] 20 mg PO DAILY #30 tablet 11/06/18 Unknown Rx Suvorexant [Belsomra] 20 mg PO QPM #30 tablet 11/06/18 Unknown Rx Venlafaxine HCl [Venlafaxin ER] 75 mg PO DAILY #10 tab.er.24 11/06/18 Unknown Rx levoFLOXacin [Levaquin TAB] 500 mg PO QDAY #14 tablet 11/06/18 Unknown Rx metFORMIN [Glucophage] 500 mg PO BID #60 tablet 11/06/18 Unknown Rx methylPREDNISolone [Medrol 4MG 4 mg PO QAM #1 tab.ds.pk 11/06/18 Unknown Rx DOSEPAK (21 tabs)] metroNIDAZOLE [Flagyl] 500 mg PO Q8HR #42 tablet 11/06/18 Unknown Rx oxyCODONE /ACETAMINOPHEN [Percocet 1 tab PO Q6H PRN #8 tablet 11/06/18 Unknown Rx 5/325 mg] Allergies Allergy/AdvReac Type Severity Reaction Status Date / Time No Known Allergies Allergy Verified 11/01/18 16:33 ED Review of Systems ROS: Stated complaint: DIFFICULTY IN BREATHING Other details as noted in HPI Constitutional: denies: chills, fever Eyes: denies: eye pain, eye discharge, vision change ENT: denies: ear pain, throat pain Respiratory: cough, shortness of breath, SOB with exertion, SOB at rest, wheezing Cardiovascular: denies: chest pain, palpitations Endocrine: no symptoms reported Gastrointestinal: denies: abdominal pain, nausea, diarrhea Genitourinary: denies: urgency, dysuria, discharge Musculoskeletal: denies: back pain, joint swelling, arthralgia Skin: denies: rash, lesions Neurological: denies: headache, weakness, paresthesias Psychiatric: denies: anxiety, depression Hematological/Lymphatic: denies: easy bleeding, easy bruising ED Past Medical Hx - Past Medical History Previous Medical History?: Yes Hx Hypertension: Yes Hx Congestive Heart Failure: No Hx Diabetes: Yes Hx Seizures: No Hx Asthma: Yes Hx COPD: No Hx Tuberculosis: No Hx Dementia: No Hx HIV: No Additional medical history: ANEMIA - Surgical History Past Surgical History?: Yes Hx Cholecystectomy: Yes - Family History Family history: no significant - Social History Smoking Status: Never Smoker Substance Use Type: None - Medications Home Medications: Home Medications Medication Instructions Recorded Confirmed Last Taken Type Promethazine Dm (Nf) [Phenergan DM 5 ml PO Q6H PRN 11/01/18 11/01/18 Unknown History 6.25-15 mg/5 ml] ALPRAZolam [Xanax TAB] 0.25 mg PO BID PRN #30 tablet 11/06/18 Unknown Rx AtorvaSTATin [Lipitor] 20 mg PO DAILY #30 tablet 11/06/18 Unknown Rx Dofetilide 500 mcg PO BID #30 capsule 11/06/18 Unknown Rx Enoxaparin [Lovenox] 40 mg SUB-Q QDAY syringe 11/06/18 Unknown Rx Fluticasone/Vilanterol [Breo 1 each IH QAM 30 Days blst.w.dev 11/06/18 Unknown Rx Ellipta 200-25 Mcg INH] Ipratropium/Albuterol Sulfate 1 ampul IH TIDRT ampul.neb 11/06/18 Unknown Rx [DUONEB *Not for PRN Use*] Lisinopril [Zestril TAB] 40 mg PO DAILY #30 tablet 11/06/18 Unknown Rx Lispro Insulin [HumaLOG] 0 unit SUB-Q ACHS units 11/06/18 Unknown Rx Mirtazapine [Remeron 15mg TAB] 15 mg PO QHS tablet 11/06/18 Unknown Rx Mirtazapine [Remeron 15mg TAB] 15 mg PO QHS #30 tablet 11/06/18 Unknown Rx Pantoprazole [Protonix TAB] 40 mg PO QDAY #30 tablet 11/06/18 Unknown Rx Potassium Chloride [K-Dur] 10 meq PO DAILY #15 tablet 11/06/18 Unknown Rx Rivaroxaban [Xarelto] 20 mg PO DAILY #30 tablet 11/06/18 Unknown Rx Suvorexant [Belsomra] 20 mg PO QPM #30 tablet 11/06/18 Unknown Rx Venlafaxine HCl [Venlafaxin ER] 75 mg PO DAILY #10 tab.er.24 11/06/18 Unknown Rx levoFLOXacin [Levaquin TAB] 500 mg PO QDAY #14 tablet 11/06/18 Unknown Rx metFORMIN [Glucophage] 500 mg PO BID #60 tablet 11/06/18 Unknown Rx methylPREDNISolone [Medrol 4MG 4 mg PO QAM #1 tab.ds.pk 11/06/18 Unknown Rx DOSEPAK (21 tabs)] metroNIDAZOLE [Flagyl] 500 mg PO Q8HR #42 tablet 11/06/18 Unknown Rx oxyCODONE /ACETAMINOPHEN [Percocet 1 tab PO Q6H PRN #8 tablet 11/06/18 Unknown Rx 5/325 mg] ED Physical Exam - General Limitations: No Limitations General appearance: alert, in distress - Head Head exam: Present: atraumatic, normocephalic - Eye Eye exam: Present: normal appearance - ENT ENT exam: Present: mucous membranes moist - Neck Neck exam: Present: normal inspection - Respiratory Respiratory exam: Present: respiratory distress, wheezes, accessory muscle use, decreased breath sounds - Cardiovascular Cardiovascular Exam: Present: regular rate, normal rhythm. Absent: systolic murmur, diastolic murmur, rubs, gallop - GI/Abdominal GI/Abdominal exam: Present: soft, normal bowel sounds - Extremities Exam Extremities exam: Present: normal inspection - Back Exam Back exam: Present: normal inspection - Neurological Exam Neurological exam: Present: alert, oriented X3 - Psychiatric Psychiatric exam: Present: normal affect, normal mood - Skin Skin exam: Present: warm, dry, intact, normal color. Absent: rash ED Course Vital Signs 12/29/18 12/29/18 12/29/18 22:56 23:00 23:04 Temperature 98.4 F Pulse Rate 84 99 H 98 H Pulse Rate [ Anterior] Respiratory 18 25 H 22 Rate Respiratory Rate [Anterior] Blood Pressure 138/76 O2 Sat by Pulse 96 90 Oximetry 12/29/18 12/29/18 12/29/18 23:15 23:30 23:35 Temperature Pulse Rate 87 76 Pulse Rate [ 84 Anterior] Respiratory 18 21 Rate Respiratory 18 Rate [Anterior] Blood Pressure 138/76 O2 Sat by Pulse 98 98 Oximetry 12/29/18 12/30/18 12/30/18 23:45 00:01 00:15 Temperature Pulse Rate 81 97 H 82 Pulse Rate [ Anterior] Respiratory 20 27 H 20 Rate Respiratory Rate [Anterior] Blood Pressure 138/76 123/62 138/76 O2 Sat by Pulse 97 96 98 Oximetry 12/30/18 12/30/18 12/30/18 00:31 00:45 00:59 Temperature Pulse Rate 85 99 H 85 Pulse Rate [ Anterior] Respiratory 20 20 15 Rate Respiratory Rate [Anterior] Blood Pressure 138/76 123/62 O2 Sat by Pulse 97 98 99 Oximetry 12/30/18 01:00 Temperature Pulse Rate 89 Pulse Rate [ Anterior] Respiratory 13 Rate Respiratory Rate [Anterior] Blood Pressure 131/56 O2 Sat by Pulse 96 Oximetry - Reevaluation(s) Reevaluation #1: Patient will be given a DuoNeb treatment. 12/29/18 23:18 Reevaluation #2: Patient still having wheezing and increased work of breathing or retractions. Patient will be placed on BiPAP. 12/30/18 00:09 Reevaluation #3: Patient improving on BiPAP. Patient's wheezing had resolved. Patient's work of breathing is improved. I discussed all results with patient. Discussed plan of care with patient. Patient will be admitted to the hospitalist service. Patient agrees with plan of care 12/30/18 00:58 - Consultations Consultation #1: Hospitalist consultation for admission. Hospitalist to admit patient. 12/30/18 00:52 ED Medical Decision Making - Lab Data Result diagrams: 12/29/18 23:33 12/29/18 23:33 - Radiology Data Radiology results: report reviewed, image reviewed CHEST 1 VIEW 11:19 PM INDICATION / CLINICAL INFORMATION: Dyspnea. Shortness of breath with audible wheezing. History of bronchitis. COMPARISON: 11/01/2018. FINDINGS: SUPPORT DEVICES: None. HEART / MEDIASTINUM: There is mild cardiomegaly with a left ventricular configuration. Pulmonary vasculature is normal. LUNGS / PLEURA: No significant pulmonary or pleural abnormality. Mild bibasilar subsegmental atelectasis has cleared since the prior exam. No pneumothorax. ADDITIONAL FINDINGS: No significant additional findings. IMPRESSION: No acute abnormality. - Medical Decision Making Patient is a 58-year-old female that presents emergency room with complaints of asthma exacerbation and asthma attack. Patient is noncompliant with inhalers. Patient given multiple medications prior to arrival by EMS, patient was given Solu-Medrol, magnesium and albuterol. Patient given DuoNeb and patient continued to have increased work of breathing and wheezing. Patient was then placed on BiPAP and symptoms improved. Patient will be admitted to the hospita list service. Patient's findings consistent with status asthmaticus and asthma exacerbation. Patient's labs unremarkable. Patient's chest x-ray negative. - Differential Diagnosis stATUS asthmaticus. Asthma attack. COPD exacerbation. Critical Care Time: Yes Critical care attestation.: If time is entered above; I have spent that time in minutes in the direct care of this critically ill patient, excluding procedure time. Critical Care Time: 35 minutes ED Disposition Clinical Impression: Difficulty breathing, SOB (shortness of breath), Hypokalemia, Respiratory distress Asthma exacerbation Qualifiers: Asthma severity: severe Asthma persistence: persistent Qualified Code(s): J45.51 - Severe persistent asthma with (acute) exacerbation Status asthmaticus Qualifiers: Asthma severity: severe Asthma persistence: persistent Qualified Code(s): J 45.52 - Severe persistent asthma with status asthmaticus Disposition: OP ADMIT IP TO THIS HOSP Is pt being admited?: Yes Does the pt Need Aspirin: No Condition: Critical Referrals: KELSY MALDONADO MD [Primary Care Provider] - 3-5 Days Time of Disposition: 00:52
[2018-12-29] MEDS ORDERED: PROVENTIL IH ONE ×3 (23:11→23:18)
[2018-12-29] MEDS ORDERED: ATROVENT IH ONE ×2 (23:17→23:19)
[2018-12-29] MEDS ORDERED: MAXIPIME/NS 1 GM/100 ML 1 GM/100 ML BAG IV ONE (23:18)
--- NOTE | 2018-12-29 23:42 | XRay Report ---
CHEST 1 VIEW 11:19 PM INDICATION / CLINICAL INFORMATION: Dyspnea. Shortness of breath with audible wheezing. History of bronchitis. COMPARISON: 11/01/2018. FINDINGS: SUPPORT DEVICES: None. HEART / MEDIASTINUM: There is mild cardiomegaly with a left ventricular configuration. Pulmonary vasc ulature is normal. LUNGS / PLEURA: No significant pulmonary or pleural abnormality. Mild bibasilar subsegmental atelecta sis has cleared since the prior exam. No pneumothorax. ADDITIONAL FINDINGS: No significant additional findings. IMPRESSION: No acute abnormality. Signer Name: Álvaro Tai MD Signed: 12/29/2018 11:37 PM Workstation Name: [id number]
[2018-12-29 23:53] LABS: Basophils % (Auto) 0.7 % (0.0-1.8); Eosinophils % (Auto) 0.8 % (0.0-4.3); Hematocrit 42.9 % (30.3-42.9); Hemoglobin 14.9 gm/dl (10.1-14.3); Lymphocytes # (Auto) 2.4 K/mm3 (1.2-5.4); Lymphocytes % (Auto) 39.7 % (13.4-35.0); Mean Corpuscular HGB Conc 35 % (30-34); Mean Corpuscular Volume 103 fl (79-97); Monocytes # (Auto) 0.3 K/mm3 (0.0-0.8); Monocytes % (Auto) 5.6 % (0.0-7.3); Platelet Count 135 K/mm3 (140-440); Red Blood Count 4.18 M/mm3 (3.65-5.03); Red Cell Distribution Width 15.1 % (13.2-15.2)
[2018-12-30 00:16] LABS: Alanine Aminotransferase 25 units/L (7-56); Albumin 4.1 g/dL (3.9-5); BUN/Creatinine Ratio 23; Blood Urea Nitrogen 9 mg/dL (7-17); Calcium 9.4 mg/dL (8.4-10.2); Hemolysis Index 40
[2018-12-30] MEDS ORDERED: ZOFRAN IV PRN (01:57)
[2018-12-30] MEDS ORDERED: SODIUM CHLORIDE FLUSH SYRINGE 10 ML IV PRN (01:57)
[2018-12-30] MEDS ORDERED: TYLENOL PO PRN (01:57)
[2018-12-30] MEDS ORDERED: PERCOCET 5/325 PO PRN ×2 (01:57→19:22)
[2018-12-30] MEDS ORDERED: MORPHINE IV PRN (02:09)
[2018-12-30] MEDS ORDERED: K-DUR PO SCH (03:00)
--- NOTE | 2018-12-30 03:00 | History and Physical Report ---
History of Present Illness Date of examination: 12/30/18 Chief complaint: Shortness of breath History of present illness: Patient is a 58-year-old -[place] female with history of asthma and DM2 who presented to the ED on account of 1 day history of worsening shortness of breath. He has associated dry cough and lightheadedness. She denies chest pain, fever, chills, leg swelling, orthopnea or PND. No headaches, nausea, vomiting, syncope or loss of consciousness. In the ED, patient was placed on BiPAP. Of note, patient continues to chew tobacco daily and her sometimes smokes cigarettes in the house. Past History Past Medical History: diabetes, hypertension, other (asthma) Past Surgical History: cholecystectomy Social history: other (patient has been chewing tobacco for 15 years. She admits to occasional alcohol use but denies illicit drug use) Family history: other (father had asthma and grandmom had hypertension) Medications and Allergies Allergies Allergy/AdvReac Type Severity Reaction Status Date / Time No Known Allergies Allergy Verified 11/01/18 16:33 Home Medications Medication Instructions Recorded Confirmed Last Taken Type Promethazine Dm (Nf) [Phenergan DM 5 ml PO Q6H PRN 11/01/18 11/01/18 Unknown History 6.25-15 mg/5 ml] ALPRAZolam [Xanax TAB] 0.25 mg PO BID PRN #30 tablet 11/06/18 Unknown Rx AtorvaSTATin [Lipitor] 20 mg PO DAILY #30 tablet 11/06/18 Unknown Rx Dofetilide 500 mcg PO BID #30 capsule 11/06/18 Unknown Rx Enoxaparin [Lovenox] 40 mg SUB-Q QDAY syringe 11/06/18 Unknown Rx Fluticasone/Vilanterol [Breo 1 each IH QAM 30 Days blst.w.dev 11/06/18 Unknown Rx Ellipta 200-25 Mcg INH] Ipratropium/Albuterol Sulfate 1 ampul IH TIDRT ampul.neb 11/06/18 Unknown Rx [DUONEB *Not for PRN Use*] Lisinopril [Zestril TAB] 40 mg PO DAILY #30 tablet 11/06/18 Unknown Rx Lispro Insulin [HumaLOG] 0 unit SUB-Q ACHS units 11/06/18 Unknown Rx Mirtazapine [Remeron 15mg TAB] 15 mg PO QHS tablet 11/06/18 Unknown Rx Mirtazapine [Remeron 15mg TAB] 15 mg PO QHS #30 tablet 11/06/18 Unknown Rx Pantoprazole [Protonix TAB] 40 mg PO QDAY #30 tablet 11/06/18 Unknown Rx Potassium Chloride [K-Dur] 10 meq PO DAILY #15 tablet 11/06/18 Unknown Rx Rivaroxaban [Xarelto] 20 mg PO DAILY #30 tablet 11/06/18 Unknown Rx Suvorexant [Belsomra] 20 mg PO QPM #30 tablet 11/06/18 Unknown Rx Venlafaxine HCl [Venlafaxin ER] 75 mg PO DAILY #10 tab.er.24 11/06/18 Unknown Rx levoFLOXacin [Levaquin TAB] 500 mg PO QDAY #14 tablet 11/06/18 Unknown Rx metFORMIN [Glucophage] 500 mg PO BID #60 tablet 11/06/18 Unknown Rx methylPREDNISolone [Medrol 4MG 4 mg PO QAM #1 tab.ds.pk 11/06/18 Unknown Rx DOSEPAK (21 tabs)] metroNIDAZOLE [Flagyl] 500 mg PO Q8HR #42 tablet 11/06/18 Unknown Rx oxyCODONE /ACETAMINOPHEN [Percocet 1 tab PO Q6H PRN #8 tablet 11/06/18 Unknown Rx 5/325 mg] Active Meds: Active Medications Acetaminophen (Tylenol) 650 mg PO Q4H PRN PRN Reason: Pain MILD(1-3)/Fever >100.5/GOLD Albuterol/Ipratropium (Duoneb *Not For Prn Use*) 1 ampul IH Q4HRT [facility] Famotidine (Pepcid) 20 mg PO BID [facility] Methylprednisolone Sodium Succinate (Solu-Medrol) 60 mg IV Q8H [facility] Morphine Sulfate (Morphine) 2 mg IV Q4H PRN PRN Reason: Pain , Severe (7-10) Ondansetron HCl (Zofran) 4 mg IV Q8H PRN PRN Reason: Nausea And Vomiting Oxycodone/Acetaminophen (Percocet 5/325) 1 tab PO Q6H PRN PRN Reason: Pain, Moderate (4-6) Potassium Chloride (K-Dur) 40 meq PO BID [facility] Stop: 12/30/18 10:01 Sodium Chloride (Sodium Chloride Flush Syringe 10 Ml) 10 ml IV BID ARNALDO Sodium Chloride (Sodium Chloride Flush Syringe 10 Ml) 10 ml IV PRN PRN PRN Reason: LINE FLUSH Review of Systems All systems: negative (all other systems reviewed with the patient and are negative unless otherwise stated) Exam - Constitutional Vitals: Temp Pulse Resp BP Pulse Ox 98.4 F 88 18 129/61 97 12/29/18 23:04 12/30/18 02:31 12/30/18 02:31 12/30/18 02:31 12/30/18 02:31 General appearance: Present: no acute distress, well-nourished, other (on BiPAP) - EENT Eyes: Present: PERRL, EOM intact ENT: hearing intact, clear oral mucosa - Neck Neck: Present: supple, normal ROM - Respiratory Respiratory effort: normal Respiratory: bilateral: CTA, diminished - Cardiovascular Rhythm: regular Heart Sounds: Present: S1 & S2. Absent: rub, click - Extremities Extremities: pulses symmetrical, No edema Peripheral Pulses: within normal limits - Abdominal General gastrointestinal: Present: soft, non-tender, non-distended, normal bowel sounds Female genitourinary: Present: deferred - Integumentary Integumentary: Present: clear, warm, dry - Musculoskeletal Musculoskeletal: gait normal, strength equal bilaterally - Psychiatric Psychiatric: appropriate mood/affect, intact judgment & insight - Neurologic Neurologic: CNII-XII intact, moves all extremities Results - Labs CBC & Chem 7: 12/29/18 23:33 12/29/18 23:33 Labs: Laboratory Last Values WBC 6.0 K/mm3 (4.5-11.0) 12/29/18 23:33 RBC 4.18 M/mm3 (3.65-5.03) 12/29/18 23:33 Hgb 14.9 gm/dl (10.1-14.3) H 12/29/18 23:33 Hct 42.9 % (30.3-42.9) 12/29/18 23:33 MCV 103 fl (79-97) H 12/29/18 23:33 MCH 36 pg (28-32) H 12/29/18 23:33 MCHC 35 % (30-34) H 12/29/18 23:33 RDW 15.1 % (13.2-15.2) 12/29/18 23:33 Plt Count 135 K/mm3 (140-440) L 12/29/18 23:33 Lymph % (Auto) 39.7 % (13.4-35.0) H 12/29/18 23:33 [place] % (Auto) 5.6 % (0.0-7.3) 12/29/18 23:33 Eos % (Auto) 0.8 % (0.0-4.3) 12/29/18 23:33 Baso % (Auto) 0.7 % (0.0-1.8) 12/29/18 23:33 Lymph # 2.4 K/mm3 (1.2-5.4) 12/29/18 23:33 [place] # 0.3 K/mm3 (0.0-0.8) 12/29/18 23:33 Eos # 0.0 K/mm3 (0.0-0.4) 12/29/18 23:33 Baso # 0.0 K/mm3 (0.0-0.1) 12/29/18 23:33 Seg Neutrophils % 53.2 % (40.0-70.0) 12/29/18 23:33 Seg Neutrophils # 3.2 K/mm3 (1.8-7.7) 12/29/18 23:33 Sodium 145 mmol/L (137-145) 12/29/18 23:33 Potassium 3.3 mmol/L (3.6-5.0) L 12/29/18 23:33 Chloride 103.4 mmol/L (98-107) 12/29/18 23:33 Carbon Dioxide 23 mmol/L (22-30) 12/29/18 23:33 22 mmol/L 12/29/18 23:33 BUN 9 mg/dL (7-17) 12/29/18 23:33 0.4 mg/dL (0.7-1.2) L 12/29/18 23:33 Estimated GFR > 60 ml/min 12/29/18 23:33 23 % 12/29/18 23:33 Glucose 94 mg/dL (65-100) 12/29/18 23:33 Calcium 9.4 mg/dL (8.4-10.2) 12/29/18 23:33 0.90 mg/dL (0.1-1.2) 12/29/18 23:33 AST 57 units/L (5-40) H 12/29/18 23:33 ALT 25 units/L (7-56) 12/29/18 23:33 90 units/L (35-129) 12/29/18 23:33 7.6 g/dL (6.3-8.2) 12/29/18 23:33 4.1 g/dL (3.9-5) 12/29/18 23:33 1.2 % 12/29/18 23:33 - Imaging and Cardiology Chest x-ray: report reviewed Assessment and Plan Assessment and plan: Acute severe persistent asthma exacerbation -Probably secondary to acute bronchitis -On IV steroids, mucinex and duonebs Acute respiratory failure with hypoxia -Continue BiPAP Hypokalemia -We'll replete and monitor K level -Will check mg level SIRS due to noninfectious cause -We'll monitor Hypertension -Stable DM2 -Stable, on SSI Chronic thrombocytopenia -Stable Tobacco abuse -Patient counseled on cessation DVT prophylaxis with SCDs and GI prophylaxis with famotidine Disposition: Patient will be admitted in inpatient status with plan for discharge when medically stable Time spent: 38 minutes
[2018-12-30] MEDS ORDERED: D50W (25GM) Syringe IV PRN (03:24)
[2018-12-30] MEDS ORDERED: APRESOLINE IV PRN (03:25)
[2018-12-30] MEDS: DUONEB *Not for PRN Use IH SCH ×3 (07:53→19:27)
[2018-12-30] MEDS: HumaLOG SUB-Q SCH ×4 (08:00→21:49)
[2018-12-30] MEDS: MUCINEX ER PO SCH ×2 (09:18→21:50)
[2018-12-30] MEDS: PEPCID PO SCH ×2 (09:18→21:51)
[2018-12-30] MEDS: SODIUM CHLORIDE FLUSH SYRINGE 10 ML IV SCH ×2 (10:12→21:52)
[2018-12-30] MEDS: SOLU-Medrol IV SCH ×2 (10:12→18:37)
--- NOTE | 2018-12-30 11:33 | Event Note ---
Date: 12/30/18 Patient with asthma exacerbation. I have seen and examined her. Continue current management.
[2018-12-30] MEDS ORDERED: XANAX PO PRN (19:22)
[2018-12-30] MEDS ORDERED: PROTONIX PO SCH (20:00)
[2018-12-30] MEDS ORDERED: ZESTRIL PO SCH (20:00)
[2018-12-30] MEDS ORDERED: XARELTO PO SCH (20:00)
[2018-12-30] MEDS ORDERED: REMERON PO SCH (22:00)
[2018-12-30] MEDS ORDERED: DOFETILIDE 500 MCG PO SCH (22:00)
[2018-12-30] MEDS ORDERED: LANTUS SUB-Q SCH (22:00)
[2018-12-30] MEDS ORDERED: GLUCOPHAGE PO SCH (22:00)
[2018-12-31] MEDS: DUONEB *Not for PRN Use IH SCH ×2 (03:28→08:52)
[2018-12-31] MEDS: SOLU-Medrol IV SCH (03:30)
[2018-12-31 05:52] LABS: BUN/Creatinine Ratio 14; Blood Urea Nitrogen 7 mg/dL (7-17); Calcium 9.5 mg/dL (8.4-10.2); Hemolysis Index 6
[2018-12-31 07:41] VITALS: BP 140/49
[2018-12-31] MEDS ORDERED: VENLAFAXINE HCL 75 MG PO SCH (10:00)
[2018-12-31] MEDS ORDERED: EFFEXOR PO SCH (10:00)
[2018-12-31] MEDS ORDERED: EFFEXOR XR PO SCH (10:00)
--- NOTE | 2018-12-31 12:55 | Discharge Summary ---
Providers - Providers Date of Admission: 12/30/18 01:57 Date of discharge: 12/31/18 Attending physician: LIBRA CRONIN Primary care physician: [facility], [facility] Hospitalization Reason for admission: asthma exac Condition: Critical Hospital course: Patient is a 58-year-old -[place] female with history of asthma and DM2 who presented to the ED on account of 1 day history of worsening shortness of breath. She had associated dry cough and lightheadedness. She denied chest pain, fever, chills, leg swelling, orthopnea or PND. No headaches, nausea, vomiting, syncope or loss of consciousness. In the ED, patient was placed on BiPAP. Of note, patient continues to chew tobacco daily and her sometimes smokes cigarettes in the house. The patient was admitted with acute asthma exacerbation and treated with systemic steroids, bronchodilators/nebulizer treatments and BiPAP/O2 as needed. The patient progressed fairly well but was not ready for discharge. Nurse informing patient left AMA because she wanted to go to her daughter's graduation. I was not able to speak to the patient. The nurse explained to patient the contents of the AMA for she was signing. Patient verbalized understanding. Discharge time 32 minutes. Disposition: [id number]-07 LEFT AGAINST MED ADVICE Core Measure Documentation - Palliative Care Palliative Care/ Comfort Measures: Not Applicable - Core Measures Any of the following diagnoses?: none Exam - Constitutional Vitals: Temp Pulse Resp BP Pulse Ox 97.9 F 54 L 16 140/49 97 12/31/18 07:39 12/31/18 07:39 12/31/18 08:00 12/31/18 07:39 12/31/18 08:52 Plan Follow up with: KELSY MALDONADO MD [Primary Care Provider] - 3-5 Days Forms: AMA Form
[2018-12-31] MEDS ORDERED: SUVOREXANT 20 MG PO SCH (18:00)
== END 2018-12-31 09:33 | disposition left against medical advice (07) | DRG 189 ==
LOC: ED 22:52 → 4A 12-30 01:57
PROVIDERS: ADMIT Internal Medicine; ATTEND Hospitalist
PROC: 5A09357 Assistance with Respiratory Ventilation, Less than 24 Consecutive Hours, Continuous Positive Airway Pressure (ICD-10-PCS; principal; 2018-12-30)
DX: J96.01 Acute respiratory failure with hypoxia (principal); J45.52 Severe persistent asthma with status asthmaticus; R65.10 Systemic inflammatory response syndrome (SIRS) of non-infectious origin without acute organ dysfunction; D69.6 Thrombocytopenia, unspecified; E87.6 Hypokalemia; F17.290 Nicotine dependence, other tobacco product, uncomplicated; E11.9 Type 2 diabetes mellitus without complications; Z53.21 Procedure and treatment not carried out due to patient leaving prior to being seen by health care provider; Z79.01 Long term (current) use of anticoagulants; Z79.4 Long term (current) use of insulin; Z90.49 Acquired absence of other specified parts of digestive tract; Z82.49 Family history of ischemic heart disease and other diseases of the circulatory system; Z82.5 Family history of asthma and other chronic lower respiratory diseases
CPT/HCPCS: 36415; 71045; 80048; 80053; 82962; 83735; 85025; 94640; 94644; 94760; G0378; A9270-GY; J0692; J1815; J2930; J3246

== ENCOUNTER 2019-06-30 18:03 | Inpatient (IN) | payer OTHER ==
[2019-06-30] MEDS ORDERED: SODIUM CHLORIDE 0.9% 1000 ML 1,000 ML IV ONE ×2 (20:34→22:43)
[2019-06-30] MEDS ORDERED: MORPHINE 2 MG/1 ML INJ IV ONE (20:35)
[2019-06-30] MEDS ORDERED: DICYCLOMINE 20 MG/2 ML INJ IM ONE (20:35)
[2019-06-30] MEDS ORDERED: FAMOTIDINE 20 MG/2 ML INJ IV ONE (20:35)
[2019-06-30] MEDS ORDERED: ONDANSETRON 4 MG/2 ML INJ IV ONE (20:35)
[2019-06-30 21:42] LABS: Hematocrit 33.5 % (30.3-42.9); Hemoglobin 11.5 gm/dl (10.1-14.3); Mean Corpuscular HGB Conc 34 % (30-34); Mean Corpuscular Volume 108 fl (79-97); Red Blood Count 3.09 M/mm3 (3.65-5.03); Red Cell Distribution Width 18.3 % (13.2-15.2)
[2019-06-30 22:08] LABS: Albumin 2.2 g/dL (3.9-5); Calcium 6.9 mg/dL (8.4-10.2)
[2019-06-30 22:14] LABS: Bilirubin,Direct 4.3 mg/dL (0-0.2)
--- NOTE | 2019-06-30 22:43 | Emergency Department Report ---
<KIM GATICA - Last Filed: 06/30/19 22:38> ED Abdominal Pain HPI - General Chief Complaint: Abdominal Pain Stated Complaint: ABDOMINAL PAIN Time Seen by Provider: 06/30/19 20:29 Source: EMS Mode of arrival: Ambulatory Limitations: No Limitations - History of Present Illness Initial Comments: Patient is a 59-year-old F Bahamian female with past medical history of hypertension diabetes and a large central ventral hernia who is complaining of pain for the last 5 days. Patient states she is nausea vomiting diarrhea. She states she has had fevers. Patient states she has had pain off and on for the last year at the area of her hernia. In October 2018 patient was admitted for colitis started on antibiotics. Patient denies current cough cold congestion. Severity scale (0 -10): 8 - Related Data Home Medications Medication Instructions Recorded Confirmed Last Taken No Known Home Medications [No 07/01/19 07/01/19 Unknown Reported Home Medications] Allergies Allergy/AdvReac Type Severity Reaction Status Date / Time No Known Allergies Allergy Verified 11/01/18 16:33 ED Review of Systems Comment: All other systems reviewed and negative ED Past Medical Hx - Past Medical History Hx Hypertension: Yes Hx Congestive Heart Failure: No Hx Diabetes: Yes Hx Seizures: No Hx Asthma: Yes Hx COPD: No Hx Tuberculosis: No Hx Dementia: No Hx HIV: No Additional medical history: ANEMIA - Surgical History Hx Cholecystectomy: Yes - Social History Smoking Status: Never Smoker Substance Use Type: None - Medications Home Medications: Home Medications Medication Instructions Recorded Confirmed Last Taken Type No Known Home Medications [No 07/01/19 07/01/19 Unknown History Reported Home Medications] ED Physical Exam - General Limitations: No Limitations General appearance: alert, in no apparent distress - Head Head exam: Present: atraumatic, normocephalic - Eye Eye exam: Present: normal appearance - ENT ENT exam: Present: mucous membranes moist - Neck Neck exam: Present: normal inspection - Respiratory Respiratory exam: Present: normal lung sounds bilaterally. Absent: respiratory distress, wheezes, rales, rhonchi - Cardiovascular Cardiovascular Exam: Present: regular rate, normal rhythm, normal heart sounds. Absent: systolic murmur, diastolic murmur, rubs, gallop - GI/Abdominal GI/Abdominal exam: Present: soft, distended (moderate sized ventral hernia with min tendferness), tenderness, normal bowel sounds. Absent: guarding, rebound, rigid - Extremities Exam Extremities exam: Present: normal inspection - Back Exam Back exam: Present: normal inspection - Neurological Exam Neurological exam: Present: alert, oriented X3 - Psychiatric Psychiatric exam: Present: normal affect, normal mood - Skin Skin exam: Present: warm, dry, intact, normal color. Absent: rash ED Course - Reevaluation(s) Reevaluation #1: 06/30/19 22:41 Patient is a 59-year-old F Bahamian female who presented with nausea vomiting diarrhea. Patient is laboratory studies show the patient is in acute renal failure. In reviewing the patient's laboratory studies from the past patient does not have a history of renal failure nor does she have a history of hyperbilirubinemia. Speaking with the patient the patient states she is still making urine but she has been unable to keep anything down once her abdominal pain started 5 days ago. ED Medical Decision Making - Lab Data Result diagrams: 06/30/19 21:12 06/30/19 21:12 Labs 06/30/19 06/30/19 21:12 21:12 WBC 13.6 H RBC 3.09 L Hgb 11.5 Hct 33.5 MCV 108 H MCH 37 H MCHC 34 RDW 18.3 H Sodium 135 L Potassium 4.2 Chloride 91.8 L Carbon Dioxide 20 L Anion Gap 27 BUN 77 H Creatinine 5.5 H Estimated GFR 10 BUN/Creatinine Ratio 14 Glucose 50 L Calcium 6.9 L Total Bilirubin 5.20 H Direct Bilirubin 4.3 H Indirect Bilirubin 0.9 AST 234 H ALT 49 Alkaline Phosphatase 135 H Total Protein 6.2 L Albumin 2.2 L Albumin/Globulin Ratio 0.6 Lipase 41 ED Disposition Clinical Impression: Dehydration, Acute renal failure, Elevated liver enzymes, Pyelonephritis, Hyperbilirubinemia, Ventral hernia Disposition: OP ADMIT IP TO THIS HOSP Condition: Stable Instructions: Abdominal Pain (ED) <KARIE MOORE - Last Filed: 07/01/19 00:08> ED Review of Systems ROS: Stated complaint: ABDOMINAL PAIN Other details as noted in HPI ED Course Vital Signs 06/30/19 06/30/19 20:23 23:34 Temperature 99 F Pulse Rate 90 84 Respiratory 14 14 Rate Blood Pressure 102/48 103/39 [Left] O2 Sat by Pulse 95 96 Oximetry ED Medical Decision Making - Lab Data Result diagrams: 06/30/19 21:12 06/30/19 21:12 Critical care attestation.: If time is entered above; I have spent that time in minutes in the direct care of this critically ill patient, excluding procedure time. ED Disposition Is pt being admited?: Yes
--- NOTE | 2019-06-30 23:06 | Cat Scan Report ---
CT scan of the abdomen and pelvis without contrast INDICATION: abd pain with NVD. TECHNIQUE: All CT scans at this location are performed using the following dose modulation technique: Automated exposure control. Helical slices were obtained through the abdomen and pelvis. No contrast is adminis tered. COMPARISON: CT scan dated 11/05/2018 FINDINGS: Abdomen: There is bibasilar atelectasis. The heart is mildly enlarged. There is fatty infiltration of the liver. 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 This is better evaluated on the prior contrast enhanced CT but does not appear significantly changed on today's exam. There is a fat-containing ventral hernia which was present previously as well. Spleen, pancreas, adre nal glands, and kidneys are unchanged in appearance. There is a cyst in the right kidney which is sta ble. The kidneys appear somewhat enlarged compared to the prior study there is no hydronephrosis. There is stranding along the pararenal fascia bilaterally is not present previously this is more prom inent on the right left the cause is not determined by this exam. There is some stranding adjacent to the ovarian veins bilaterally. Pelvis: The appendix is unremarkable. Phleboliths. There are several fibroids in the uterus. On review of bone windows, no acute osseous abnormalities are seen. IMPRESSION: 1. The kidneys appear somewhat enlarged and there is perinephric stranding. The this is a nonspecific finding but raises the possibility of acute kidney injury. The possibility of bilateral pyelonephrit is is considered in the differential but they are certainly nothing specific on this exam. Clinical c orrelation is necessary. Vascular confirmation in the liver is unchanged. There are uterine fibroids. There is a ventral hernia containing fat which appears unchanged. Signer Name: Puneet Ramires MD Signed: 06/30/2019 11:02 PM Workstation Name: [id number]
[2019-06-30] MEDS ORDERED: DEXTROSE 50% IN WATER (25GM) 50 ML VIAL IV ONE (23:14)
[2019-06-30 23:38] LABS: Band Neutrophils # (Manual) 0.3 K/mm3; Basophils % (Manual) 0 % (0.0-1.8); Total Cells Counted 100
[2019-06-30 23:39] LABS: Anisocytosis Few; Stomatocytes Rare; Target Cells Rare
[2019-06-30 23:40] LABS: Platelet Estimate Consistent w Auto
[2019-06-30 23:41] LABS: Platelet Count 49 K/mm3 (140-440)
[2019-06-30] MEDS ORDERED: CEFEPIME/NS 2 GM/100 ML 2 GM/100 ML BAG IV ONE (23:56)
[2019-07-01 00:33] LABS: Bacteria,Urine 4+ /HPF (Negative); Mucus,Urine 3+ /HPF
[2019-07-01 00:37] LABS: WBC,Urine > 182.0 /HPF (0.0-6.0)
[2019-07-01 00:45] LABS: Bilirubin,Urine Small (Negative); Color,Urine Yellow (Yellow)
[2019-07-01 00:46] LABS: Blood,Urine Small (Negative); Ictotest,Urine Positive (Negative)
[2019-07-01] MEDS ORDERED: MAGNESIUM HYDROXIDE (MOM) ORAL LIQD UDC PO PRN (01:05)
[2019-07-01] MEDS ORDERED: MORPHINE 2 MG/1 ML INJ IV PRN (01:05)
[2019-07-01] MEDS ORDERED: SODIUM CHLORIDE 0.9% 1000 ML 1,000 ML IV SCH (01:15)
--- NOTE | 2019-07-01 01:27 | History and Physical Report ---
History of Present Illness Date of examination: 07/01/19 Date of admission: 07/01/2019 Chief complaint: Nausea/Vomiting/Diarrhea Abdominal Pain History of present illness: 59-year-old -Pakistani female with known history of hypertension, diabetes mellitus, history of ventral hernia presenting to the emergency room today complaining of abdominal pain. Abdominal pain has been on and off for the past few days. Pain has been generally more around the ventral hernia site. She denies any fever, no chills, no chest pain or shortness of breath. She had a history of colitis sometime in 2019 and was placed on antibiotics. She denies any dysuria or hematuria, she denies any bloody stool. Patient indicates that she has not been able to tolerate oral intake over the past few days. Work-up in the emergency room reveals patient's to be in acute renal failure. She denies any kidney problems however she indicates that she has had kidney stones in the past. CT scan of the abdomen also suggests possible pyelonephritis. Past History Past Medical History: hypertension, other (Asthma) Past Surgical History: cholecystectomy Social history: alcohol abuse Family history: no significant family history Medications and Allergies Allergies Allergy/AdvReac Type Severity Reaction Status Date / Time No Known Allergies Allergy Verified 11/01/18 16:33 Home Medications Medication Instructions Recorded Confirmed Last Taken Type No Known Home Medications [No 07/01/19 07/01/19 Unknown History Reported Home Medications] Active Meds: Active Medications Acetaminophen (Tylenol) 650 mg PO Q4H PRN PRN Reason: Pain MILD(1-3)/Fever >100.5/GOLD Sodium Chloride (Nacl 0.9% 1000 Ml) 1,000 mls @ 125 mls/hr IV DIRECT ARNALDO Ceftriaxone Sodium (Rocephin/Ns 1 Gm/50 Ml) 1 gm in 50 mls @ 100 mls/hr IV Q24HR ARNALDO; Protocol Magnesium Hydroxide (Milk Of Magnesia) 30 ml PO Q4H PRN PRN Reason: Constipation Morphine Sulfate (Morphine) 2 mg IV Q4H PRN PRN Reason: Pain, Moderate (4-6) Ondansetron HCl (Zofran) 4 mg IV Q8H PRN PRN Reason: Nausea And Vomiting Sodium Chloride (Sodium Chloride Flush Syringe 10 Ml) 10 ml IV BID ARNALDO Sodium Chloride (Sodium Chloride Flush Syringe 10 Ml) 10 ml IV PRN PRN PRN Reason: LINE FLUSH Review of Systems Constitutional: no fever, no chills Cardiovascular: no chest pain, no palpitations Respiratory: cough, no shortness of breath Gastrointestinal: nausea, vomiting, diarrhea Genitourinary Female: no dysuria, no hematuria Musculoskeletal: no neck pain, no low back pain Integumentary: no rash, no pruritis Neurological: no headaches, no change in mentation Exam - Constitutional Vitals: Temp Pulse Resp BP Pulse Ox 99 F 84 14 103/39 96 06/30/19 20:23 06/30/19 23:34 06/30/19 23:34 06/30/19 23:34 06/30/19 23:34 General appearance: Present: no acute distress, well-nourished - EENT Eyes: Present: PERRL, EOM intact, scleral icterus (mild) ENT: hearing intact, clear oral mucosa, dentition normal - Neck Neck: Present: supple, normal ROM - Respiratory Respiratory effort: normal Respiratory: bilateral: CTA - Cardiovascular Rhythm: regular Heart Sounds: Present: S1 & S2 - Extremities Extremities: no ischemia, No edema, Full ROM Peripheral Pulses: within normal limits - Abdominal General gastrointestinal: Present: soft, tender (Mildly tender with reducible ventral hernia.), distended, normal bowel sounds - Integumentary Integumentary: Present: clear, warm, dry - Musculoskeletal Musculoskeletal: strength equal bilaterally - Psychiatric Psychiatric: appropriate mood/affect, intact judgment & insight, cooperative - Neurologic Neurologic: CNII-XII intact, moves all extremities Results - Labs CBC & Chem 7: 06/30/19 21:12 06/30/19 21:12 Labs: Abnormal lab results 06/30/19 06/30/19 06/30/19 Range/Units 21:12 21:12 Unknown WBC 13.6 H (4.5-11.0) K/mm3 RBC 3.09 L (3.65-5.03) M/mm3 MCV 108 H (79-97) fl MCH 37 H (28-32) pg RDW 18.3 H (13.2-15.2) % Plt Count 49 L (140-440) K/mm3 Seg Neuts % (Manual) 85.0 H (40.0-70.0) % Lymphocytes % (Manual) 2.0 L (13.4-35.0) % Monocytes % (Manual) 9.0 H (0.0-7.3) % Seg Neutrophils # Man 11.6 H (1.8-7.7) K/mm3 Lymphocytes # (Manual) 0.3 L (1.2-5.4) K/mm3 Monocytes # (Manual) 1.2 H (0.0-0.8) K/mm3 Sodium 135 L (137-145) mmol/L Chloride 91.8 L (98-107) mmol/L Carbon Dioxide 20 L (22-30) mmol/L BUN 77 H (7-17) mg/dL Creatinine 5.5 H (0.7-1.2) mg/dL Glucose 50 L (65-100) mg/dL Calcium 6.9 L (8.4-10.2) mg/dL Total Bilirubin 5.20 H (0.1-1.2) mg/dL Direct Bilirubin 4.3 H (0-0.2) mg/dL AST 234 H (5-40) units/L Alkaline Phosphatase 135 H (35-129) units/L Total Protein 6.2 L (6.3-8.2) g/dL Albumin 2.2 L (3.9-5) g/dL Urine Blood Small A (Negative) Urine WBC (Auto) > 182.0 H (0.0-6.0) /HPF Assessment and Plan - Patient Problems (1) Pyelonephritis Current Visit: No Status: Acute Plan to address problem: Patient placed on empiric IV antibiotics and also on IV fluid. We await urine culture results. (2) Acute renal failure Current Visit: No Status: Acute Plan to address problem: Possibly secondary to the dehydration from the intractable nausea and vomiting and diarrhea. We continue on IV fluid and monitor BUN and creatinine. Will also place a consult to nephrology for evaluation and further recommendation. (3) Elevated liver enzymes Current Visit: No Status: Acute Plan to address problem: We will monitor liver enzymes and place a consult to gastroenterology for further recommendation. (4) Hyperbilirubinemia Current Visit: No Status: Acute Plan to address problem: We will monitor bilirubin levels. Will await further recommendation from gastroenterology. (5) Ventral hernia Current Visit: No Status: Acute Plan to address problem: Hernia is reducible. Will place on analgesic medication as needed for pain. Will consider placing a consult to surgery if needed (6) Hypoglycemia Current Visit: Yes Status: Acute Plan to address problem: Probably secondary to poor oral intake from the nausea and vomiting. Will monitor blood closely. Will place on D5 NS. (7) DVT prophylaxis Current Visit: No Status: Acute Plan to address problem: Patient placed on subcutaneous heparin. (8) Full code status Current Visit: No Status: Acute
[2019-07-01] MEDS: ACETAMINOPHEN 325 MG TAB PO PRN ×2 (04:54→22:26)
[2019-07-01] MEDS ORDERED: D5W/0.9% NACL 1,000 ML IV ONE (05:05)
[2019-07-01] MEDS ORDERED: DEXTROSE 50% IN WATER (25GM) 50 ML SYRINGE IV ONE (05:05)
[2019-07-01] MEDS ORDERED: D5W/0.9% NACL 1,000 ML IV SCH (05:15)
[2019-07-01] MEDS ORDERED: DEXTROSE 50% IN WATER (25GM) 50 ML SYRINGE IV PRN (05:31)
[2019-07-01] MEDS: ONDANSETRON 4 MG/2 ML INJ IV PRN (09:39)
[2019-07-01] MEDS ORDERED: cefTRIAXone/NS 1 GM/50 ML 1 GM/50 ML BAG IV SCH (10:00)
[2019-07-01 10:56] LABS: Calcium 6.4 mg/dL (8.4-10.2)
--- NOTE | 2019-07-01 12:00 | Gastroenterology Consultation ---
History of Present Illness - Reason for Consult Consult date: 07/01/19 elevated LFTs Requesting physician: THONG NOWAK - History of Present Illness Patient is a 59 y/o female with PMH of HTN, DM and ventral hernia who presented to ED with c/o abdominal pain. Upon admission, she was found to have acute renal failure and pyelonephritis suggested on CT scan. Currently receiving antibiotics with nephrology consult pending. GI has been been consulted for elevated LFTs. This morning patient was resting in bed w/o acute distress. Reports continued lower abdominal pain. Denies wt loss, jaundice, signs of bleeding or constipation. No current N/V or diarrhea. Has no hx or Fhx of liver disease. Drinks on average 2 beers daily. No IV drug use or new medications. Tolerating diet. Past History Past Medical History: other (see HPI) Past Surgical History: cholecystectomy Social history: other (alcohol) Family history: no significant family history Medications and Allergies Allergies Allergy/AdvReac Type Severity Reaction Status Date / Time No Known Allergies Allergy Verified 11/01/18 16:33 Home Medications Medication Instructions Recorded Confirmed Last Taken Type No Known Home Medications [No 07/01/19 07/01/19 Unknown History Reported Home Medications] Active Meds: Active Medications Acetaminophen (Tylenol) 650 mg PO Q4H PRN PRN Reason: Pain MILD(1-3)/Fever >100.5/GOLD Last Admin: 07/01/19 04:54 Dose: 650 mg Documented by: Dextrose (D50w (25gm) Syringe) 50 ml IV Q30MIN PRN; Protocol PRN Reason: Hypoglycemia Sodium Chloride (Nacl 0.9% 1000 Ml) 1,000 mls @ 125 mls/hr IV DIRECT ARNALDO Last Admin: 07/01/19 05:17 Dose: 100 mls/hr Documented by: Ceftriaxone Sodium (Rocephin/Ns 1 Gm/50 Ml) 1 gm in 50 mls @ 100 mls/hr IV Q24HR ARNALDO; Protocol Last Admin: 07/01/19 09:38 Dose: 100 mls/hr Documented by: Dextrose/Sodium Chloride (D5ns) 1,000 mls @ 100 mls/hr IV DIRECT ARNALDO Magnesium Hydroxide (Milk Of Magnesia) 30 ml PO Q4H PRN PRN Reason: Constipation Morphine Sulfate (Morphine) 2 mg IV Q4H PRN PRN Reason: Pain, Moderate (4-6) Last Admin: 07/01/19 10:33 Dose: 2 mg Documented by: Ondansetron HCl (Zofran) 4 mg IV Q8H PRN PRN Reason: Nausea And Vomiting Last Admin: 07/01/19 09:39 Dose: 4 mg Documented by: Sodium Chloride (Sodium Chloride Flush Syringe 10 Ml) 10 ml IV BID ARNALDO Last Admin: 07/01/19 09:39 Dose: 10 ml Documented by: Sodium Chloride (Sodium Chloride Flush Syringe 10 Ml) 10 ml IV PRN PRN PRN Reason: LINE FLUSH medications reviewed/updated as required Review of Systems - Review of Systems All systems: negative Gastrointestinal: abdominal pain, no nausea, no vomiting, no hematemesis, no melena, no hematochezia Exam - Constitutional Vital Signs: Temp Pulse Resp BP Pulse Ox 99.0 F 101 H 20 97/46 92 07/01/19 06:16 07/01/19 06:16 07/01/19 06:16 07/01/19 06:16 07/01/19 08:21 General appearance: no acute distress - EENT Eyes: PERRL, EOM intact ENT: hearing intact - Respiratory Respiratory effort: normal Respiratory: bilateral: diminished - Cardiovascular Rhythm: other (tachycardia) - Gastrointestinal General gastrointestinal: Present: soft, tender, non-distended, normal bowel sounds - Integumentary Integumentary: Present: warm, dry - Neurologic Neurological: alert and oriented x3 - Labs CBC & Chem 7: 06/30/19 21:12 07/01/19 09:58 Lab Results: Laboratory Results - last 24 hr 06/30/19 06/30/19 06/30/19 21:12 21:12 23:13 WBC 13.6 H RBC 3.09 L Hgb 11.5 Hct 33.5 MCV 108 H MCH 37 H MCHC 34 RDW 18.3 H Plt Count 49 L Add Manual Diff Complete Total Counted 100 Seg Neuts % (Manual) 85.0 H Band Neutrophils % 2.0 Lymphocytes % (Manual) 2.0 L Reactive Lymphs % (Man) 0 Monocytes % (Manual) 9.0 H Eosinophils % (Manual) 2.0 Basophils % (Manual) 0 Metamyelocytes % 0 Myelocytes % 0 Promyelocytes % 0 Blast Cells % 0 Nucleated RBC % Not Reportable Seg Neutrophils # Man 11.6 H Band Neutrophils # 0.3 Lymphocytes # (Manual) 0.3 L Abs React Lymphs (Man) 0.0 Monocytes # (Manual) 1.2 H Eosinophils # (Manual) 0.3 Basophils # (Manual) 0.0 Metamyelocytes # 0.0 Myelocytes # 0.0 Promyelocytes # 0.0 Blast Cells # 0.0 WBC Morphology Not Reportable Hypersegmented Neuts Not Reportable Hyposegmented Neuts Not Reportable Hypogranular Neuts Not Reportable Smudge Cells Not Reportable Toxic Granulation Not Reportable Toxic Vacuolation Not Reportable Dohle Bodies Not Reportable Pelger-Huet Anomaly Not Reportable Lizette Rods Not Reportable Platelet Estimate Consistent w auto Clumped Platelets Not Reportable Plt Clumps, EDTA Not Reportable Large Platelets Not Reportable Giant Platelets Not Reportable Platelet Satelliting Not Reportable Plt Morphology Comment Not Reportable RBC Morphology Not Reportable Dimorphic RBCs Not Reportable Polychromasia Not Reportable Hypochromasia Not Reportable Poikilocytosis Not Reportable Anisocytosis Few Microcytosis Rare Macrocytosis Not Reportable Spherocytes Not Reportable Pappenheimer Bodies Not Reportable Sickle Cells Not Reportable Target Cells Rare Tear Drop Cells Not Reportable Ovalocytes Not Reportable Stomatocytes Rare Helmet Cells Not Reportable [place] Bodies Not Reportable [place] Rings Not Reportable [place] Cells Not Reportable Bite Cells Not Reportable Crenated Cell Not Reportable Elliptocytes Not Reportable Acanthocytes (Spur) Not Reportable Rouleaux Not Reportable Hemoglobin C Crystals Not Reportable Schistocytes Not Reportable Malaria parasites Not Reportable [place] Bodies Not Reportable Hem Pathologist Commnt No Sodium 135 L Potassium 4.2 Chloride 91.8 L Carbon Dioxide 20 L Anion Gap 27 BUN 77 H Creatinine 5.5 H Estimated GFR 10 BUN/Creatinine Ratio 14 Glucose 50 L POC Glucose 47 L Calcium 6.9 L Total Bilirubin 5.20 H Direct Bilirubin 4.3 H Indirect Bilirubin 0.9 AST 234 H ALT 49 Alkaline Phosphatase 135 H Total Protein 6.2 L Albumin 2.2 L Albumin/Globulin Ratio 0.6 Lipase 41 Urine Color Urine Turbidity Urine pH Ur Specific [place] Urine Protein Urine Glucose (UA) Urine Ketones Urine Blood Urine Nitrite Ur Reducing Substances Urine Bilirubin Urine Ictotest Urine Urobilinogen Ur Leukocyte Esterase Urine WBC (Auto) Urine RBC (Auto) U Epithel Cells (Auto) Urine Bacteria (Auto) Urine WBC Clumps Urine Mucus 06/30/19 07/01/19 07/01/19 Unknown 05:11 08:09 WBC RBC Hgb Hct MCV MCH MCHC RDW Plt Count Add Manual Diff Total Counted Seg Neuts % (Manual) Band Neutrophils % Lymphocytes % (Manual) Reactive Lymphs % (Man) Monocytes % (Manual) Eosinophils % (Manual) Basophils % (Manual) Metamyelocytes % Myelocytes % Promyelocytes % Blast Cells % Nucleated RBC % Seg Neutrophils # Man Band Neutrophils # Lymphocytes # (Manual) Abs React Lymphs (Man) Monocytes # (Manual) Eosinophils # (Manual) Basophils # (Manual) Metamyelocytes # Myelocytes # Promyelocytes # Blast Cells # WBC Morphology Hypersegmented Neuts Hyposegmented Neuts Hypogranular Neuts Smudge Cells Toxic Granulation Toxic Vacuolation Dohle Bodies Pelger-Huet Anomaly Lizette Rods Platelet Estimate Clumped Platelets Plt Clumps, EDTA Large Platelets Giant Platelets Platelet Satelliting Plt Morphology Comment RBC Morphology Dimorphic RBCs Polychromasia Hypochromasia Poikilocytosis Anisocytosis Microcytosis Macrocytosis Spherocytes Pappenheimer Bodies Sickle Cells Target Cells Tear Drop Cells Ovalocytes Stomatocytes Helmet Cells [place] Bodies [place] Rings [place] Cells Bite Cells Crenated Cell Elliptocytes Acanthocytes (Spur) Rouleaux Hemoglobin C Crystals Schistocytes Malaria parasites [place] Bodies Hem Pathologist Commnt Sodium Potassium Chloride Carbon Dioxide Anion Gap BUN Creatinine Estimated GFR BUN/Creatinine Ratio Glucose POC Glucose 45 L 103 Calcium Total Bilirubin Direct Bilirubin Indirect Bilirubin AST ALT Alkaline Phosphatase Total Protein Albumin Albumin/Globulin Ratio Lipase Urine Color Yellow Urine Turbidity Clear Urine pH 5.0 Ur Specific [place] 1.010 Urine Protein 100 mg/dl Urine Glucose (UA) Negative Urine Ketones Negative Urine Blood Small A Urine Nitrite Negative Ur Reducing Substances Not Reportable Urine Bilirubin Small Urine Ictotest Positive Urine Urobilinogen 2.0 Ur Leukocyte Esterase Small Urine WBC (Auto) > 182.0 H Urine RBC (Auto) 57.0 U Epithel Cells (Auto) 5.0 Urine Bacteria (Auto) 4+ Urine WBC Clumps 2+ Urine Mucus 3+ 07/01/19 09:58 WBC RBC Hgb Hct MCV MCH MCHC RDW Plt Count Add Manual Diff Total Counted Seg Neuts % (Manual) Band Neutrophils % Lymphocytes % (Manual) Reactive Lymphs % (Man) Monocytes % (Manual) Eosinophils % (Manual) Basophils % (Manual) Metamyelocytes % Myelocytes % Promyelocytes % Blast Cells % Nucleated RBC % Seg Neutrophils # Man Band Neutrophils # Lymphocytes # (Manual) Abs React Lymphs (Man) Monocytes # (Manual) Eosinophils # (Manual) Basophils # (Manual) Metamyelocytes # Myelocytes # Promyelocytes # Blast Cells # WBC Morphology Hypersegmented Neuts Hyposegmented Neuts Hypogranular Neuts Smudge Cells Toxic Granulation Toxic Vacuolation Dohle Bodies Pelger-Huet Anomaly Lizette Rods Platelet Estimate Clumped Platelets Plt Clumps, EDTA Large Platelets Giant Platelets Platelet Satelliting Plt Morphology Comment RBC Morphology Dimorphic RBCs Polychromasia Hypochromasia Poikilocytosis Anisocytosis Microcytosis Macrocytosis Spherocytes Pappenheimer Bodies Sickle Cells Target Cells Tear Drop Cells Ovalocytes Stomatocytes Helmet Cells [place] Bodies [place] Rings [place] Cells Bite Cells Crenated Cell Elliptocytes Acanthocytes (Spur) Rouleaux Hemoglobin C Crystals Schistocytes Malaria parasites [place] Bodies Hem Pathologist Commnt Sodium 135 L Potassium 3.1 L D Chloride 93.6 L Carbon Dioxide 18 L Anion Gap 27 BUN 87 H Creatinine 5.3 H Estimated GFR 10 BUN/Creatinine Ratio 16 Glucose 92 POC Glucose Calcium 6.4 L Total Bilirubin Direct Bilirubin Indirect Bilirubin AST ALT Alkaline Phosphatase Total Protein Albumin Albumin/Globulin Ratio Lipase Urine Color Urine Turbidity Urine pH Ur Specific [place] Urine Protein Urine Glucose (UA) Urine Ketones Urine Blood Urine Nitrite Ur Reducing Substances Urine Bilirubin Urine Ictotest Urine Urobilinogen Ur Leukocyte Esterase Urine WBC (Auto) Urine RBC (Auto) U Epithel Cells (Auto) Urine Bacteria (Auto) Urine WBC Clumps Urine Mucus Assessment and Plan 1.elevated LFTs -temp 99 -WBC 13.6 -Plt 49, H/H WNL -lipase WNL -LFTs- T.[place] 5.20, AST 234, ALT 49, alk phos 135 -abd CT showed fatty infiltration in liver and dilated vascular structure in the dome of the liver, 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
--- NOTE | 2019-07-01 13:05 | XRay Report ---
CHEST 1 VIEW INDICATION: nita. COMPARISON: 12/29/2018 FINDINGS: SUPPORT DEVICES: None. HEART / MEDIASTINUM: No significant abnormality. LUNGS / PLEURA: Diffuse interstitial pulmonary process is present with small bilateral pleural effusi ons ADDITIONAL FINDINGS: IMPRESSION: 1. Mild diffuse interstitial pulmonary edema is a concern Signer Name: Isra Valero MD Signed: 07/01/2019 1:01 PM Workstation Name: [id number]
[2019-07-01] MEDS: SODIUM BICARBONATE 150 MEQ in DEXTROSE 5% IN WATER 1,000 ML IV SCH (15:41)
--- NOTE | 2019-07-01 16:24 | Event Note ---
Date: 07/01/19 Patient seen and examined admitted with SHARIFA, pylonephritis and sepsis cont current mx and plan as dictated in the HPI
[2019-07-01 16:51] LABS: Bacteria,Urine 1+ /HPF (Negative); Bilirubin,Urine NEG (Negative); Blood,Urine LG (Negative); Color,Urine Amber (Yellow); Mucus,Urine 1+ /HPF
--- NOTE | 2019-07-01 16:55 | Consultation ---
History of Present Illness - Reason for Consult acute renal failure - History of Present Illness 59 year old with medical history signficant for HTN , DM type II admitted with complaints of nausea and vomitting and diarrheoa for several days. She reports decreased urine output. She denies any orthopnea or PND. Denies any lower extremity swelling. She has been taking ibuprofen daily for several days.She has taken goody powder for several years as well. She denies any headaches, bleeding from any orifice. Denies any prior history of CKD. Past History Past Medical History: other (see HPI) Past Surgical History: cholecystectomy Social history: other (alcohol) Family history: no significant family history Medications and Allergies Allergies Allergy/AdvReac Type Severity Reaction Status Date / Time No Known Allergies Allergy Verified 11/01/18 16:33 Home Medications Medication Instructions Recorded Confirmed Last Taken Type No Known Home Medications [No 07/01/19 07/01/19 Unknown History Reported Home Medications] Active Meds: Active Medications Acetaminophen (Tylenol) 650 mg PO Q4H PRN PRN Reason: Pain MILD(1-3)/Fever >100.5/GOLD Last Admin: 07/01/19 04:54 Dose: 650 mg Documented by: Dextrose (D50w (25gm) Syringe) 50 ml IV Q30MIN PRN; Protocol PRN Reason: Hypoglycemia Ceftriaxone Sodium (Rocephin/Ns 1 Gm/50 Ml) 1 gm in 50 mls @ 100 mls/hr IV Q 24HR ARNALDO; Protocol Last Admin: 07/01/19 09:38 Dose: 100 mls/hr Documented by: Sodium Bicarbonate 150 meq/ (Dextrose) 1,150 mls @ 75 mls/hr IV DIRECT ARNALDO Last Admin: 07/01/19 15:41 Dose: 75 mls/hr Documented by: Magnesium Hydroxide (Milk Of Magnesia) 30 ml PO Q4H PRN PRN Reason: Constipation Morphine Sulfate (Morphine) 2 mg IV Q4H PRN PRN Reason: Pain, Moderate (4-6) Last Admin: 07/01/19 10:33 Dose: 2 mg Documented by: Ondansetron HCl (Zofran) 4 mg IV Q8H PRN PRN Reason: Nausea And Vomiting Last Admin: 07/01/19 09:39 Dose: 4 mg Documented by: Sodium Chloride (Sodium Chloride Flush Syringe 10 Ml) 10 ml IV BID ARNALDO Last Admin: 07/01/19 09:39 Dose: 10 ml Documented by: Sodium Chloride (Sodium Chloride Flush Syringe 10 Ml) 10 ml IV PRN PRN PRN Reason: LINE FLUSH Review of Systems Constitutional: no weight loss, no weight gain, no fever Ears, nose, mouth and throat: no deferred, no ear pain, no ear discharge Breasts: no deferred Cardiovascular: no chest pain, no orthopnea, no shortness of breath Respiratory: no cough, no cough with sputum Gastrointestinal: nausea, vomiting, diarrhea, no abdominal pain Musculoskeletal: no neck stiffness, no neck pain Integumentary: no rash, no pruritis Psychiatric: no anxiety, no memory loss Endocrine: no cold intolerance, no heat intolerance Exam - Vital Signs Vital signs: Vital Signs Temp Pulse Resp BP Pulse Ox 99 F 90 14 102/48 95 06/30/19 20:23 06/30/19 20:23 06/30/19 20:23 06/30/19 20:23 06/30/19 20:23 - General Appearance General appearance: well-developed, well-nourished Neck: Present: neck supple Respiratory: Decreased Breath Sounds Heart: regular, S1S2 Gastrointestinal: Present: normal, normoactive bowel sounds Integumentary: no rash Neurologic: alert and oriented x3, CN 3-12 intact Psychiatric: mood/affect appropriate Results - Lab Results 06/30/19 21:12 07/01/19 09:58 Most recent lab results Calcium 6.4 mg/dL (8.4-10.2) L 07/01/19 09:58 - Image Kidney/bladder ultrasound: other (CT with concern for perinephric stranding , no hydronephrosis. ) Assessment and Plan - Patient Problems (1) Acute renal failure Current Visit: No Status: Acute Plan to address problem: Acute renal failure : - baseline creatinine : 0.5 current creatinine : 5.3 - Received IVF - has signficant NSAID use -urinalysis with pyuria and hematuria - obtain serologies - has 2% eosinophilia - obtain urine eosiinophils - continue cautious IVF - Place nathan. (2) Metabolic acidosis Current Visit: Yes Status: Acute Plan to address problem: Metabolic acidosis 2/2 SHARIFA and diarrhoea continue bicarb drip (3) Diabetes 1.5, managed as type 2 Current Visit: No Status: Acute Plan to address problem: DM type II : continue current medications . Monitor finger stick. (4) HTN (hypertension) Current Visit: No Status: Acute Qualifiers: Hypertension type: essential hypertension Qualified Code(s): I10 - Essential (primary) hypertension Plan to address problem: HTN: controlled Continue current medications. (5) Pyelonephritis Current Visit: No Status: Acute Plan to address problem: Pyelonephritis -continue empiric antibiotics.
[2019-07-01] MEDS: cefTRIAXone/NS 1 GM/50 ML 1 GM/50 ML BAG IV SCH (22:26)
[2019-07-02] MEDS: SODIUM BICARBONATE 150 MEQ in DEXTROSE 5% IN WATER 1,000 ML IV SCH ×2 (05:00→19:46)
[2019-07-02 06:00] LABS: Hematocrit 31.5 % (30.3-42.9); Mean Corpuscular HGB Conc 35 % (30-34); Mean Corpuscular Volume 106 fl (79-97); Red Blood Count 2.98 M/mm3 (3.65-5.03); Red Cell Distribution Width 17.7 % (13.2-15.2)
[2019-07-02 06:03] LABS: Platelet Count 74 K/mm3 (140-440)
[2019-07-02 06:08] LABS: INR 1.47 (0.87-1.13)
[2019-07-02 06:09] LABS: Partial Thromboplastin Time 38.1 Sec. (24.2-36.6)
[2019-07-02 06:23] LABS: Hepatitis B Surface Antigen Non-Reactive (Negative); Hepatitis C Virus Antibody Non-Reactive (NonReactive)
[2019-07-02 06:24] LABS: Albumin 2.2 g/dL (3.9-5); Bilirubin,Direct 5.8 mg/dL (0-0.2); Calcium 6.4 mg/dL (8.4-10.2)
[2019-07-02 06:55] LABS: Basophils % (Manual) 0 % (0.0-1.8); Eosinophils % (Manual) 0 % (0.0-4.3); Total Cells Counted 100
[2019-07-02 06:56] LABS: Stomatocytes Few; Target Cells 1+
[2019-07-02 06:57] LABS: Platelet Estimate Consistent w Auto
[2019-07-02] MEDS: cefTRIAXone/NS 1 GM/50 ML 1 GM/50 ML BAG IV SCH ×2 (10:30→21:06)
[2019-07-02] MEDS: ONDANSETRON 4 MG/2 ML INJ IV PRN (10:44)
--- NOTE | 2019-07-02 10:46 | Ultrasound Report ---
ULTRASOUND ABDOMEN, COMPLETE INDICATION: elevated LFTs. COMPARISON: CT of the abdomen dated 11/05/2018 and 06/30/2019 FINDINGS: Pancreas: Obscured by overlying bowel gas Abdominal Aorta: Normal. IVC: Normal. Liver: Diffuse increased echogenicity is within the liver consistent with fatty infiltration Gallbladder: Previous cholecystectomy Bile ducts: Normal. Common Bile Duct measures 1.06 mm. Right Kidney: Normal. Left Kidney: Slightly complex 3.4 cm left renal cyst Spleen: Normal. Free fluid: None. Additional Findings: None. IMPRESSION: 1. Diffuse hepatic steatosis 2. Previous cholecystectomy 3. Stable left renal cyst 4. Prominent common bile duct, probably normal post cholecystectomy state Signer Name: Isra Valero MD Signed: 07/02/2019 10:42 AM Workstation Name: [id number]
--- NOTE | 2019-07-02 11:12 | Gastroenterology Progress Note ---
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 Objective - Constitutional Vitals: Temp Pulse Resp BP Pulse Ox 97.9 F 85 20 102/53 92 07/02/19 04:28 07/02/19 04:28 07/02/19 04:28 07/02/19 04:28 07/02/19 04:28 General appearance: no acute distress - Respiratory Respiratory effort: normal - Cardiovascular Rhythm: regular - Gastrointestinal General gastrointestinal: Present: soft, tender (slight), non-distended, normal bowel sounds - Neurologic Neurological: alert and oriented x3 - Labs CBC & Chem 7: 07/02/19 05:10 07/02/19 05:10 Labs: Laboratory Results - last 24 hr 07/01/19 07/01/19 07/01/19 17:52 22:31 Unknown WBC RBC Hgb Hct MCV MCH MCHC RDW Plt Count Add Manual Diff Total Counted Seg Neutrophils % Seg Neuts % (Manual) Band Neutrophils % Lymphocytes % (Manual) Reactive Lymphs % (Man) Monocytes % (Manual) Eosinophils % (Manual) Basophils % (Manual) Metamyelocytes % Myelocytes % Promyelocytes % Blast Cells % Nucleated RBC % Seg Neutrophils # Man Band Neutrophils # Lymphocytes # (Manual) Abs React Lymphs (Man) Monocytes # (Manual) Eosinophils # (Manual) Basophils # (Manual) Metamyelocytes # Myelocytes # Promyelocytes # Blast Cells # WBC Morphology Hypersegmented Neuts Hyposegmented Neuts Hypogranular Neuts Smudge Cells Toxic Granulation Toxic Vacuolation Dohle Bodies Pelger-Huet Anomaly Lizette Rods Platelet Estimate Clumped Platelets Plt Clumps, EDTA Large Platelets Giant Platelets Platelet Satelliting Plt Morphology Comment RBC Morphology Dimorphic RBCs Polychromasia Hypochromasia Poikilocytosis Anisocytosis Microcytosis Macrocytosis Spherocytes Pappenheimer Bodies Sickle Cells Target Cells Tear Drop Cells Ovalocytes Stomatocytes Helmet Cells [place] Bodies [place] Rings Irina Cells Bite Cells Crenated Cell Elliptocytes Acanthocytes (Spur) Rouleaux Hemoglobin C Crystals Schistocytes Malaria parasites [place] Bodies Hem Pathologist Commnt PT INR APTT Sodium Potassium Chloride Carbon Dioxide Anion Gap BUN Creatinine Estimated GFR BUN/Creatinine Ratio Glucose POC Glucose 135 H 129 H Calcium Total Bilirubin Direct Bilirubin Indirect Bilirubin AST ALT Alkaline Phosphatase NT-Pro-B Natriuret Pep Total Protein Albumin Albumin/Globulin Ratio Urine Color [place] Urine Turbidity Cloudy Urine pH 5.0 Ur Specific [place] 1.014 Urine Protein 30 mg/dl Urine Glucose (UA) Neg Urine Ketones Neg Urine Blood Lg Urine Nitrite Neg Urine Bilirubin Neg Urine Urobilinogen 2.0 Ur Leukocyte Esterase Lg Urine WBC (Auto) 180.0 H Urine RBC (Auto) 29.0 U Epithel Cells (Auto) 14.0 H Urine Bacteria (Auto) 1+ Urine Mucus 1+ Acetaminophen Hepatitis A IgM Ab Hep Bs Antigen Hep B Core IgM Ab Hepatitis C Antibody 07/02/19 07/02/19 07/02/19 05:10 05:10 05:10 WBC 16.8 H RBC 2.98 L Hgb 11.0 Hct 31.5 MCV 106 H MCH 37 H MCHC 35 H RDW 17.7 H Plt Count 74 L Add Manual Diff Complete Total Counted 100 Seg Neutrophils % Inset Cutter Seg Neuts % (Manual) 94.0 H Band Neutrophils % 0 Lymphocytes % (Manual) 5.0 L Reactive Lymphs % (Man) 0 Monocytes % (Manual) 1.0 Eosinophils % (Manual) 0 Basophils % (Manual) 0 Metamyelocytes % 0 Myelocytes % 0 Promyelocytes % 0 Blast Cells % 0 Nucleated RBC % Not Reportable Seg Neutrophils # Man 15.8 H Band Neutrophils # 0.0 Lymphocytes # (Manual) 0.8 L Abs React Lymphs (Man) 0.0 Monocytes # (Manual) 0.2 Eosinophils # (Manual) 0.0 Basophils # (Manual) 0.0 Metamyelocytes # 0.0 Myelocytes # 0.0 Promyelocytes # 0.0 Blast Cells # 0.0 WBC Morphology Not Reportable Hypersegmented Neuts Not Reportable Hyposegmented Neuts Not Reportable Hypogranular Neuts Not Reportable Smudge Cells Not Reportable Toxic Granulation Not Reportable Toxic Vacuolation Not Reportable Dohle Bodies Not Reportable Pelger-Huet Anomaly Not Reportable Lizette Rods Not Reportable Platelet Estimate Consistent w auto Clumped Platelets Not Reportable Plt Clumps, EDTA Not Reportable Large Platelets Not Reportable Giant Platelets Not Reportable Platelet Satelliting Not Reportable Plt Morphology Comment Not Reportable RBC Morphology Not Reportable Dimorphic RBCs Not Reportable Polychromasia Not Reportable Hypochromasia Not Reportable Poikilocytosis Not Reportable Anisocytosis Not Reportable Microcytosis Not Reportable Macrocytosis Not Reportable Spherocytes Not Reportable Pappenheimer Bodies Not Reportable Sickle Cells Not Reportable Target Cells 1+ Tear Drop Cells Not Reportable Ovalocytes Not Reportable Stomatocytes Few Helmet Cells Not Reportable [place] Bodies Not Reportable [place] Rings Not Reportable Irina Cells Not Reportable Bite Cells Not Reportable Crenated Cell Not Reportable Elliptocytes Not Reportable Acanthocytes (Spur) Not Reportable Rouleaux Not Reportable Hemoglobin C Crystals Not Reportable Schistocytes Not Reportable Malaria parasites Not Reportable [place] Bodies Not Reportable Hem Pathologist Commnt No PT 18.1 H INR 1.47 H APTT 38.1 H Sodium 138 Potassium 3.0 L Chloride 93.4 L Carbon Dioxide 21 L Anion Gap 27 BUN 88 H Creatinine 4.7 H Estimated GFR 11 BUN/Creatinine Ratio 19 Glucose 110 H POC Glucose Calcium 6.4 L Total Bilirubin 6.40 H Direct Bilirubin 5.8 H Indirect Bilirubin 0.6 AST 269 H ALT 55 Alkaline Phosphatase 192 H NT-Pro-B Natriuret Pep 86210 H Total Protein 6.2 L Albumin 2.2 L Albumin/Globulin Ratio 0.6 Urine Color Urine Turbidity Urine pH Ur Specific [place] Urine Protein Urine Glucose (UA) Urine Ketones Urine Blood Urine Nitrite Urine Bilirubin Urine Urobilinogen Ur Leukocyte Esterase Urine WBC (Auto) Urine RBC (Auto) U Epithel Cells (Auto) Urine Bacteria (Auto) Urine Mucus Acetaminophen Hepatitis A IgM Ab Hep Bs Antigen Hep B Core IgM Ab Hepatitis C Antibody 07/02/19 07/02/19 07/02/19 05:10 05:10 05:40 WBC RBC Hgb Hct MCV MCH MCHC RDW Plt Count Add Manual Diff Total Counted Seg Neutrophils % Seg Neuts % (Manual) Band Neutrophils % Lymphocytes % (Manual) Reactive Lymphs % (Man) Monocytes % (Manual) Eosinophils % (Manual) Basophils % (Manual) Metamyelocytes % Myelocytes % Promyelocytes % Blast Cells % Nucleated RBC % Seg Neutrophils # Man Band Neutrophils # Lymphocytes # (Manual) Abs React Lymphs (Man) Monocytes # (Manual) Eosinophils # (Manual) Basophils # (Manual) Metamyelocytes # Myelocytes # Promyelocytes # Blast Cells # WBC Morphology Hypersegmented Neuts Hyposegmented Neuts Hypogranular Neuts Smudge Cells Toxic Granulation Toxic Vacuolation Dohle Bodies Pelger-Huet Anomaly Lizette Rods Platelet Estimate Clumped Platelets Plt Clumps, EDTA Large Platelets Giant Platelets Platelet Satelliting Plt Morphology Comment RBC Morphology Dimorphic RBCs Polychromasia Hypochromasia Poikilocytosis Anisocytosis Microcytosis Macrocytosis Spherocytes Pappenheimer Bodies Sickle Cells Target Cells Tear Drop Cells Ovalocytes Stomatocytes Helmet Cells [place] Bodies [place] Rings [place] Cells Bite Cells Crenated Cell Elliptocytes Acanthocytes (Spur) Rouleaux Hemoglobin C Crystals Schistocytes Malaria parasites [place] Bodies Hem Pathologist Commnt PT INR APTT Sodium Potassium Chloride Carbon Dioxide Anion Gap BUN Creatinine Estimated GFR BUN/Creatinine Ratio Glucose POC Glucose 122 H Calcium Total Bilirubin Direct Bilirubin Indirect Bilirubin AST ALT Alkaline Phosphatase NT-Pro-B Natriuret Pep Total Protein Albumin Albumin/Globulin Ratio Urine Color Urine Turbidity Urine pH Ur Specific [place] Urine Protein Urine Glucose (UA) Urine Ketones Urine Blood Urine Nitrite Urine Bilirubin Urine Urobilinogen Ur Leukocyte Esterase Urine WBC (Auto) Urine RBC (Auto) U Epithel Cells (Auto) Urine Bacteria (Auto) Urine Mucus Acetaminophen < 5.0 L Hepatitis A IgM Ab Non-reactive Hep Bs Antigen Non-reactive Hep B Core IgM Ab Non-reactive Hepatitis C Antibody Non-reactive 07/02/19 10:45 WBC RBC Hgb Hct MCV MCH MCHC RDW Plt Count Add Manual Diff Total Counted Seg Neutrophils % Seg Neuts % (Manual) Band Neutrophils % Lymphocytes % (Manual) Reactive Lymphs % (Man) Monocytes % (Manual) Eosinophils % (Manual) Basophils % (Manual) Metamyelocytes % Myelocytes % Promyelocytes % Blast Cells % Nucleated RBC % Seg Neutrophils # Man Band Neutrophils # Lymphocytes # (Manual) Abs React Lymphs (Man) Monocytes # (Manual) Eosinophils # (Manual) Basophils # (Manual) Metamyelocytes # Myelocytes # Promyelocytes # Blast Cells # WBC Morphology Hypersegmented Neuts Hyposegmented Neuts Hypogranular Neuts Smudge Cells Toxic Granulation Toxic Vacuolation Dohle Bodies Pelger-Huet Anomaly Lizette Rods Platelet Estimate Clumped Platelets Plt Clumps, EDTA Large Platelets Giant Platelets Platelet Satelliting Plt Morphology Comment RBC Morphology Dimorphic RBCs Polychromasia Hypochromasia Poikilocytosis Anisocytosis Microcytosis Macrocytosis Spherocytes Pappenheimer Bodies Sickle Cells Target Cells Tear Drop Cells Ovalocytes Stomatocytes Helmet Cells [place] Bodies [place] Rings Irina Cells Bite Cells Crenated Cell Elliptocytes Acanthocytes (Spur) Rouleaux Hemoglobin C Crystals Schistocytes Malaria parasites [place] Bodies Hem Pathologist Commnt PT INR APTT Sodium Potassium Chloride Carbon Dioxide Anion Gap BUN Creatinine Estimated GFR BUN/Creatinine Ratio Glucose POC Glucose 84 Calcium Total Bilirubin Direct Bilirubin Indirect Bilirubin AST ALT Alkaline Phosphatase NT-Pro-B Natriuret Pep Total Protein Albumin Albumin/Globulin Ratio Urine Color Urine Turbidity Urine pH Ur Specific [place] Urine Protein Urine Glucose (UA) Urine Ketones Urine Blood Urine Nitrite Urine Bilirubin Urine Urobilinogen Ur Leukocyte Esterase Urine WBC (Auto) Urine RBC (Auto) U Epithel Cells (Auto) Urine Bacteria (Auto) Urine Mucus Acetaminophen Hepatitis A IgM Ab Hep Bs Antigen Hep B Core IgM Ab Hepatitis C Antibody
[2019-07-02 11:39] LABS: Calcium 6.3 mg/dL (8.4-10.2)
--- NOTE | 2019-07-02 12:19 | Progress Note ---
Assessment and Plan - Patient Problems (1) Acute renal failure Current Visit: No Status: Inactive Plan to address problem: Acute renal failure : - baseline creatinine : 0.5 peak creatinine : 5.5 current creatinine : 4.7 - Received IVF - has signficant NSAID use -urinalysis with pyuria and hematuria - obtain serologies - has 2% eosinophilia - obtain urine eosiinophils - volume status appears tenous -reviewed Echo which shows preserved EF but diastolic Dysfunction. - Will give a dose of Lasix 40mg IV x 1 (2) Metabolic acidosis Current Visit: Yes Status: Acute Plan to address problem: Metabolic acidosis 2/2 SHARIFA and diarrhoea continue bicarb drip (3) Diabetes 1.5, managed as type 2 Current Visit: No Status: Acute Plan to address problem: DM type II : continue current medications . Monitor finger stick. (4) HTN (hypertension) Current Visit: No Status: Acute Qualifiers: Hypertension type: essential hypertension Qualified Code(s): I10 - Essential (primary) hypertension Plan to address problem: HTN: controlled Continue current medications. (5) Pyelonephritis Current Visit: No Status: Inactive Plan to address problem: Pyelonephritis -continue empiric antibiotics. Subjective Principal diagnosis: elevated LFTs Interval history: 59 year old with medical history signficant for HTN , DM type II admitted with complaints of nausea and vomitting and diarrheoa for several days. She reports decreased urine output. She denies any orthopnea or PND. Denies any lower extremity swelling. She has been taking ibuprofen daily for several days.She has taken goody powder for several years as well. She denies any headaches, bleeding from any orifice. Denies any prior history of CKD. Patient seen today c/o shortness of breath . has no lower extremity swelling. Objective - Vital Signs Vital signs: Vital Signs - 12hr 07/02/19 04:28 Temperature 97.9 F Pulse Rate 85 Respiratory 20 Rate Blood Pressure 102/53 O2 Sat by Pulse 92 Oximetry - General Appearance General appearance: well-developed, well-nourished EENT: ATNC, PERRL Neck: no JVD Respiratory: Present: Clear to Ascultation Cardiology: regular, S1S2 Gastrointestinal: tenderness, distended, other (large ventral hernia) Integumentary: no rash Neurologic: alert and oriented x3, CN 3-12 intact Psychiatric: mood/affect appropriate - Lab 07/02/19 05:10 07/02/19 11:05 Most recent lab results Calcium 6.3 mg/dL (8.4-10.2) L 07/02/19 11:05 - Imaging Chest x-ray: image reviewed (reviewed CXR with some patchy interstitial markings ) Medications & Allergies - Medications Allergies/Adverse Reactions: Allergies No Known Allergies Allergy (Verified 11/01/18 16:33) Home Medications: Home Medications Medication Instructions Recorded Confirmed Last Taken Type No Known Home Medications [No 07/01/19 07/01/19 Unknown History Reported Home Medications] Active Medications: Generic Name Dose Route Start Last Admin Trade Name Freq PRN Reason Stop Dose Admin Acetaminophen 650 mg 07/01/19 01:05 07/01/19 22:26 Tylenol PO 650 mg Q4H PRN Administration Pain MILD(1-3)/Fever >100.5/GOLD Dextrose 50 ml 07/01/19 05:31 D50w (25gm) Syringe IV Q30MIN PRN Hypoglycemia Protocol Sodium Bicarbonate 150 meq/ 1,150 mls @ 75 mls/hr 07/01/19 14:00 07/02/19 05:00 Dextrose IV 75 mls/hr DIRECT ARNALDO Administration Ceftriaxone Sodium 1 gm in 50 mls @ 100 mls/hr 07/01/19 22:00 07/02/19 10:30 Rocephin/Ns 1 Gm/50 Ml IV 100 mls/hr Q12HR ARNALDO Administration Protocol Phytonadione 10 mg/ Sodium 51 mls @ 100 mls/hr 07/02/19 12:30 Chloride IV 07/02/19 13:00 ONCE ONE Magnesium Hydroxide 30 ml 07/01/19 01:05 07/02/19 11:53 Milk Of Magnesia PO 30 ml Q4H PRN Administration Constipation Morphine Sulfate 2 mg 07/01/19 01:05 07/01/19 10:33 Morphine IV 2 mg Q4H PRN Administration Pain, Moderate (4-6) Ondansetron HCl 4 mg 07/01/19 01:05 07/02/19 10:44 Zofran IV 4 mg Q8H PRN Administration Nausea And Vomiting Sodium Chloride 10 ml 07/01/19 10:00 07/02/19 10:31 Sodium Chloride Flush Syringe 10 Ml IV 10 ml BID ARNALDO Administration Sodium Chloride 10 ml 07/01/19 01:05 Sodium Chloride Flush Syringe 10 Ml IV PRN PRN LINE FLUSH
[2019-07-02] MEDS ORDERED: PHYTONADIONE(ADULT ONLY) 10 MG in SODIUM CHLORIDE 0.9% 50 ML IV ONE (12:30)
[2019-07-02] MEDS ORDERED: POTASSIUM CHLORIDE ER 20 MEQ TAB PO ONE ×2 (13:00→15:00)
[2019-07-02] MEDS ORDERED: FUROSEMIDE 40 MG/4 ML INJ IV ONE (13:00)
[2019-07-02] MEDS: BENZONATATE 100 MG CAP PO SCH ×2 (13:45→21:07)
--- NOTE | 2019-07-02 13:54 | Progress Note ---
Assessment and Plan / Pyelonephritis with sepsis and bacterimia Patient placed on empiric IV antibiotics and also on IV fluid. Urine culture and blood culture growing gram-negative rods /Acute renal failure continue to vasomotor nephropathy Possibly secondary to the dehydration from the sepsis, intractable nausea and vomiting and diarrhea. continue on IV fluid and monitor BUN and creatinine. Consulted nephrology for evaluation and further recommendation. / Elevated liver enzymes with Hyperbilirubinemia monitor liver enzymes and consulted to gastroenterology for further recommendation. /Ventral hernia Hernia is reducible. Continue on analgesic medication as needed for pain. Will consider placing a consult to surgery if needed / Hypoglycemia Probably secondary to poor oral intake from the nausea and vomiting. Will monitor blood closely. cont on D5 NS. /Diabetes mellitus type 2 -Continue consistent carb diet and SSI coverage / DVT prophylaxis Patient placed on subcutaneous heparin. Patient is full code Family updated at the bedside Discussed plan of care with the RN Noted consultants recommendation Brief History: 59-year-old -[place] female with known history of hypertension, diabetes mellitus, history of ventral hernia presenting to the emergency room with complaining of abdominal pain. She had a history of colitis sometime in 2019 and was placed on antibiotics. Work-up in the emergency room reveals patient's to be in acute renal failure with Cr of 5.5. CT scan of the abdomen also suggests possible b/l pyelonephritis. Hospitalist Physical exam: GENERAL: well-developed and well-nourished lying on bed appeared to be in no discomfort. HEENT: Normocephalic. Atraumatic. No conjunctival congestion or icterus. Patient has moist mucous membranes. NECK: Supple. Trachea midline. CHEST/LUNGS: Clear to auscultated bilaterally, breathing nonlabored. No wheezes crackles or rhonchi. HEART/CARDIOVASCULAR: Regular in rate and rhythm. S1 and S2 positive. ABDOMEN: Abdomen is soft, nontender. Patient has normal bowel sounds. SKIN: There is no rash. Warm and dry. NEURO: No focal motor deficit. Follows command. MUSCULOSKELETAL: No joint effusion or tenderness. EXTRIMITY: No edema, no cyanosis or clubbing. PSYCH: Cooperative. Subjective Date of service: 07/02/19 Principal diagnosis: elevated LFTs Interval history: Patient seen and examined. Medical records and medication list reviewed. No acute event overnight noted by the RN. Patient denies any chest pain or difficulty breathing. Patient continue to complain of bilateral flank pain and nausea Discussed plan of care at bedside with patient. Objective - Constitutional Vitals: Vital Signs - 12hr 07/02/19 07/02/19 04:28 12:00 Temperature 97.9 F 100.4 F H Pulse Rate 85 95 H Respiratory 20 22 Rate Blood Pressure 102/53 Blood Pressure 105/59 [Left] O2 Sat by Pulse 92 94 Oximetry - Labs CBC & Chem 7: 07/02/19 05:10 07/04/19 09:46 Labs: Abnormal lab results 07/01/19 07/01/19 07/01/19 Range/Units 17:52 22:31 Unknown WBC (4.5-11.0) K/mm3 RBC (3.65-5.03) M/mm3 MCV (79-97) fl MCH (28-32) pg MCHC (30-34) % RDW (13.2-15.2) % Plt Count (140-440) K/mm3 Seg Neuts % (Manual) (40.0-70.0) % Lymphocytes % (Manual) (13.4-35.0) % Seg Neutrophils # Man (1.8-7.7) K/mm3 Lymphocytes # (Manual) (1.2-5.4) K/mm3 PT (12.2-14.9) Sec. INR (0.87-1.13) APTT (24.2-36.6) Sec. Potassium (3.6-5.0) mmol/L Chloride (98-107) mmol/L Carbon Dioxide (22-30) mmol/L BUN (7-17) mg/dL Creatinine (0.7-1.2) mg/dL Glucose (65-100) mg/dL POC Glucose 135 H 129 H (70-105) Calcium (8.4-10.2) mg/dL Total Bilirubin (0.1-1.2) mg/dL Direct Bilirubin (0-0.2) mg/dL AST (5-40) units/L Alkaline Phosphatase (35-129) units/L NT-Pro-B Natriuret Pep (0-900) pg/mL Total Protein (6.3-8.2) g/dL Albumin (3.9-5) g/dL Urine WBC (Auto) 180.0 H (0.0-6.0) /HPF U Epithel Cells (Auto) 14.0 H (0-13.0) /HPF Acetaminophen (10.0-30.0) ug/mL 07/02/19 07/02/19 07/02/19 Range/Units 05:10 05:10 05:10 WBC 16.8 H (4.5-11.0) K/mm3 RBC 2.98 L (3.65-5.03) M/mm3 MCV 106 H (79-97) fl MCH 37 H (28-32) pg MCHC 35 H (30-34) % RDW 17.7 H (13.2-15.2) % Plt Count 74 L (140-440) K/mm3 Seg Neuts % (Manual) 94.0 H (40.0-70.0) % Lymphocytes % (Manual) 5.0 L (13.4-35.0) % Seg Neutrophils # Man 15.8 H (1.8-7.7) K/mm3 Lymphocytes # (Manual) 0.8 L (1.2-5.4) K/mm3 PT 18.1 H (12.2-14.9) Sec. INR 1.47 H (0.87-1.13) APTT 38.1 H (24.2-36.6) Sec. Potassium 3.0 L (3.6-5.0) mmol/L Chloride 93.4 L (98-107) mmol/L Carbon Dioxide 21 L (22-30) mmol/L BUN 88 H (7-17) mg/dL Creatinine 4.7 H (0.7-1.2) mg/dL Glucose 110 H (65-100) mg/dL POC Glucose (70-105) Calcium 6.4 L (8.4-10.2) mg/dL Total Bilirubin 6.40 H (0.1-1.2) mg/dL Direct Bilirubin 5.8 H (0-0.2) mg/dL AST 269 H (5-40) units/L Alkaline Phosphatase 192 H (35-129) units/L NT-Pro-B Natriuret Pep 58437 H (0-900) pg/mL Total Protein 6.2 L (6.3-8.2) g/dL Albumin 2.2 L (3.9-5) g/dL Urine WBC (Auto) (0.0-6.0) /HPF U Epithel Cells (Auto) (0-13.0) /HPF Acetaminophen (10.0-30.0) ug/mL 07/02/19 07/02/19 07/02/19 Range/Units 05:10 05:40 11:05 WBC (4.5-11.0) K/mm3 RBC (3.65-5.03) M/mm3 MCV (79-97) fl MCH (28-32) pg MCHC (30-34) % RDW (13.2-15.2) % Plt Count (140-440) K/mm3 Seg Neuts % (Manual) (40.0-70.0) % Lymphocytes % (Manual) (13.4-35.0) % Seg Neutrophils # Man (1.8-7.7) K/mm3 Lymphocytes # (Manual) (1.2-5.4) K/mm3 PT (12.2-14.9) Sec. INR (0.87-1.13) APTT (24.2-36.6) Sec. Potassium 2.8 L* (3.6-5.0) mmol/L Chloride 92.7 L (98-107) mmol/L Carbon Dioxide 21 L (22-30) mmol/L BUN 89 H (7-17) mg/dL Creatinine 4.6 H (0.7-1.2) mg/dL Glucose 101 H (65-100) mg/dL POC Glucose 122 H (70-105) Calcium 6.3 L (8.4-10.2) mg/dL Total Bilirubin (0.1-1.2) mg/dL Direct Bilirubin (0-0.2) mg/dL AST (5-40) units/L Alkaline Phosphatase (35-129) units/L NT-Pro-B Natriuret Pep (0-900) pg/mL Total Protein (6.3-8.2) g/dL Albumin (3.9-5) g/dL Urine WBC (Auto) (0.0-6.0) /HPF U Epithel Cells (Auto) (0-13.0) /HPF Acetaminophen < 5.0 L (10.0-30.0) ug/mL
--- NOTE | 2019-07-02 14:31 | XRay Report ---
CHEST 1 VIEW INDICATION: nita. COMPARISON: 07/01/2019 FINDINGS: Support devices: None. Heart: Within normal limits. Lungs/Pleura: No acute air space or interstitial disease. Additional findings: None. IMPRESSION: No acute findings. Signer Name: Abebe Murrieta Jr, MD Signed: 07/02/2019 2:26 PM Workstation Name: [id number]
[2019-07-03] MEDS: BENZONATATE 100 MG CAP PO SCH ×3 (06:15→22:34)
[2019-07-03 09:07] LABS: Calcium 6.2 mg/dL (8.4-10.2)
[2019-07-03 09:09] LABS: Albumin 1.9 g/dL (3.9-5); Bilirubin,Direct 5.2 mg/dL (0-0.2)
[2019-07-03 09:17] LABS: INR 1.46 (0.87-1.13)
[2019-07-03] MEDS: cefTRIAXone/NS 1 GM/50 ML 1 GM/50 ML BAG IV SCH (09:25)
--- NOTE | 2019-07-03 10:28 | Gastroenterology Progress Note ---
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 Objective - Constitutional Vitals: Temp Pulse Resp BP Pulse Ox 98.8 F 85 20 103/42 93 07/03/19 06:39 07/03/19 06:39 07/03/19 06:39 07/03/19 06:39 07/03/19 08:24 General appearance: no acute distress - Respiratory Respiratory effort: normal Respiratory: bilateral: diminished - Cardiovascular Rhythm: regular - Gastrointestinal General gastrointestinal: Present: soft, non-tender, non-distended, normal bowel sounds - Integumentary Integumentary: Present: warm - Neurologic Neurological: alert and oriented x3 - Labs CBC & Chem 7: 07/02/19 05:10 07/03/19 07:51 Labs: Laboratory Results - last 24 hr 07/02/19 07/02/19 07/02/19 10:45 11:05 15:50 PT INR Sodium 137 Potassium 2.8 L* Chloride 92.7 L Carbon Dioxide 21 L Anion Gap 26 BUN 89 H Creatinine 4.6 H Estimated GFR 12 BUN/Creatinine Ratio 19 Glucose 101 H POC Glucose 84 Calcium 6.3 L Magnesium 1.70 Ferritin Total Bilirubin Direct Bilirubin Indirect Bilirubin AST ALT Alkaline Phosphatase Total Protein Albumin Albumin/Globulin Ratio Urine Eosinophils 07/02/19 07/02/19 07/03/19 16:30 Unknown 00:34 PT INR Sodium Potassium Chloride Carbon Dioxide Anion Gap BUN Creatinine Estimated GFR BUN/Creatinine Ratio Glucose POC Glucose 129 H 116 H Calcium Magnesium Ferritin Total Bilirubin Direct Bilirubin Indirect Bilirubin AST ALT Alkaline Phosphatase Total Protein Albumin Albumin/Globulin Ratio Urine Eosinophils None seen 07/03/19 07/03/19 07/03/19 06:47 07:51 07:51 PT 18.0 H INR 1.46 H Sodium 139 Potassium 3.1 L Chloride 91.9 L Carbon Dioxide 29 D Anion Gap 21 BUN 81 H Creatinine 3.4 H Estimated GFR 17 BUN/Creatinine Ratio 24 Glucose 128 H POC Glucose 118 H Calcium 6.2 L Magnesium Ferritin Total Bilirubin Direct Bilirubin Indirect Bilirubin AST ALT Alkaline Phosphatase Total Protein Albumin Albumin/Globulin Ratio Urine Eosinophils 07/03/19 07/03/19 07:51 07:51 PT INR Sodium Potassium Chloride Carbon Dioxide Anion Gap BUN Creatinine Estimated GFR BUN/Creatinine Ratio Glucose POC Glucose Calcium Magnesium Ferritin 1081.0 H Total Bilirubin 5.60 H Direct Bilirubin 5.2 H Indirect Bilirubin 0.4 AST 211 H ALT 46 Alkaline Phosphatase 205 H Total Protein 5.8 L Albumin 1.9 L Albumin/Globulin Ratio 0.5 Urine Eosinophils
--- NOTE | 2019-07-03 12:56 | Progress Note ---
Assessment and Plan / Pyelonephritis with sepsis and bacterimia Patient placed on empiric IV antibiotics and also on IV fluid. Urine culture and blood culture growing E. coli - consult ID /Acute renal failure continue to vasomotor nephropathy Possibly secondary to the dehydration from the sepsis, intractable nausea and vomiting and diarrhea. continue on IV fluid and monitor BUN and creatinine. Consulted nephrology for evaluation and further recommendation. Cr trending down / Elevated liver enzymes with Hyperbilirubinemia - consulted to gastroenterology for further recommendation. 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 Continue on analgesic medication as needed for pain. Will consider placing a consult to surgery if needed / Hypoglycemia Probably secondary to poor oral intake from the nausea and vomiting. Will monitor blood closely. cont on D5 NS. /Diabetes mellitus type 2 -Continue consistent carb diet and SSI coverage /Alcohol abuse, counseled for cessation, watch for withdrawal / DVT prophylaxis Patient placed on subcutaneous heparin. Patient is full code Family updated at the bedside Discussed plan of care with the RN Noted consultants recommendation Brief History: 59-year-old -[place]ian female with known history of hypertension, diabetes mellitus, history of ventral hernia presenting to the emergency room with complaining of abdominal pain. She had a history of colitis sometime in 2019 and was placed on antibiotics. Work-up in the emergency room reveals patient's to be in acute renal failure with Cr of 5.5. CT scan of the abdomen also suggests possible b/l pyelone phritis. Hospitalist Physical exam: GENERAL: well-developed and well-nourished lying on bed appeared to be in no discomfort. HEENT: Normocephalic. Atraumatic. No conjunctival congestion or icterus. Patient has moist mucous membranes. NECK: Supple. Trachea midline. CHEST/LUNGS: Clear to auscultated bilaterally, breathing nonlabored. No wheezes crackles or rhonchi. HEART/CARDIOVASCULAR: Regular in rate and rhythm. S1 and S2 positive. ABDOMEN: Abdomen is soft, nontender. Patient has normal bowel sounds. + CVA tenderness, + ventral hernia SKIN: There is no rash. Warm and dry. NEURO: No focal motor deficit. Follows command. MUSCULOSKELETAL: No joint effusion or tenderness. EXTRIMITY: No edema, no cyanosis or clubbing. PSYCH: Cooperative. Subjective Date of service: 07/03/19 Principal diagnosis: elevated LFTs Interval history: Patient seen and examined. Medical records and medication list reviewed. No acute event overnight noted by the RN. Patient denies any chest pain or difficulty breathing. Patient continue to complain of bilateral flank pain and nausea Discussed plan of care at bedside with patient. Objective - Constitutional Vitals: Vital Signs - 12hr 07/03/19 07/03/19 07/03/19 06:39 08:24 11:48 Temperature 98.8 F 98.3 F Pulse Rate 85 76 Respiratory 20 20 Rate Blood Pressure 103/42 91/41 O2 Sat by Pulse 96 93 96 Oximetry 07/03/19 11:50 Temperature Pulse Rate 79 Respiratory Rate Blood Pressure 102/48 O2 Sat by Pulse 95 Oximetry - Labs CBC & Chem 7: 07/02/19 05:10 07/04/19 09:46 Labs: Abnormal lab results 07/02/19 07/03/19 07/03/19 Range/Units 16:30 00:34 06:47 PT (12.2-14.9) Sec. INR (0.87-1.13) Potassium (3.6-5.0) mmol/L Chloride (98-107) mmol/L BUN (7-17) mg/dL Creatinine (0.7-1.2) mg/dL Glucose (65-100) mg/dL POC Glucose 129 H 116 H 118 H (70-105) Calcium (8.4-10.2) mg/dL Ferritin (13.0-400.0) ng/mL Total Bilirubin (0.1-1.2) mg/dL Direct Bilirubin (0-0.2) mg/dL AST (5-40) units/L Alkaline Phosphatase (35-129) units/L Total Protein (6.3-8.2) g/dL Albumin (3.9-5) g/dL 07/03/19 07/03/19 07/03/19 Range/Units 07:51 07:51 07:51 PT 18.0 H (12.2-14.9) Sec. INR 1.46 H (0.87-1.13) Potassium 3.1 L (3.6-5.0) mmol/L Chloride 91.9 L (98-107) mmol/L BUN 81 H (7-17) mg/dL Creatinine 3.4 H (0.7-1.2) mg/dL Glucose 128 H (65-100) mg/dL POC Glucose (70-105) Calcium 6.2 L (8.4-10.2) mg/dL Ferritin (13.0-400.0) ng/mL Total Bilirubin 5.60 H (0.1-1.2) mg/dL Direct Bilirubin 5.2 H (0-0.2) mg/dL AST 211 H (5-40) units/L Alkaline Phosphatase 205 H (35-129) units/L Total Protein 5.8 L (6.3-8.2) g/dL Albumin 1.9 L (3.9-5) g/dL 20 07/03/19 Range/Units 07:51 11:37 PT (12.2-14.9) Sec. INR (0.87-1.13) Potassium (3.6-5.0) mmol/L Chloride (98-107) mmol/L BUN (7-17) mg/dL Creatinine (0.7-1.2) mg/dL Glucose (65-100) mg/dL POC Glucose 109 H (70-105) Calcium (8.4-10.2) mg/dL Ferritin 1081.0 H (13.0-400.0) ng/mL Total Bilirubin (0.1-1.2) mg/dL Direct Bilirubin (0-0.2) mg/dL AST (5-40) units/L Alkaline Phosphatase (35-129) units/L Total Protein (6.3-8.2) g/dL Albumin (3.9-5) g/dL
--- NOTE | 2019-07-03 14:41 | Progress Note ---
Assessment and Plan - Patient Problems (1) Acute renal failure Current Visit: No Status: Inactive Plan to address problem: Acute renal failure : - baseline creatinine : 0.5 peak creatinine : 5.5 current creatinine : 3.4mg/dl - cautious IVF - has signficant NSAID use -urinalysis with pyuria and hematuria - obtain serologies - has 2% eosinophilia - obtain urine eosiinophils - volume status appears tenous -reviewed Echo which shows preserved EF but diastolic Dysfunction. (2) Metabolic acidosis Current Visit: Yes Status: Acute Plan to address problem: Metabolic acidosis :RESOLVED 2/2 SHARIFA and diarrhoea (3) Diabetes 1.5, managed as type 2 Current Visit: No Status: Acute Plan to address problem: DM type II : continue current medications . Monitor finger stick. (4) HTN (hypertension) Current Visit: No Status: Acute Qualifiers: Hypertension type: essential hypertension Qualified Code(s): I10 - Essential (primary) hypertension Plan to address problem: HTN: controlled Continue current medications. Subjective Principal diagnosis: elevated LFTs Interval history: 59 year old with medical history signficant for HTN , DM type II admitted with complaints of nausea and vomitting and diarrheoa for several days. She reports decreased urine output. She denies any orthopnea or PND. Denies any lower extremity swelling. She has been taking ibuprofen daily for several days.She has taken goody powder for several years as well. She denies any headaches, bleeding from any orifice. Denies any prior history of CKD. Patient seen today breathing is improved has no lower extremity swelling. Objective - Vital Signs Vital signs: Vital Signs - 12hr 07/03/19 07/03/19 07/03/19 06:39 08:24 11:48 Temperature 98.8 F 98.3 F Pulse Rate 85 76 Respiratory 20 20 Rate Blood Pressure 103/42 91/41 O2 Sat by Pulse 96 93 96 Oximetry 07/03/19 11:50 Temperature Pulse Rate 79 Respiratory Rate Blood Pressure 102/48 O2 Sat by Pulse 95 Oximetry - General Appearance General appearance: well-developed, well-nourished EENT: ATNC, PERRL Neck: no JVD Respiratory: Present: Clear to Ascultation Cardiology: regular, S1S2 Gastrointestinal: normal, normoactive bowel sounds Integumentary: no rash Neurologic: alert and oriented x3, CN 3-12 intact Musculoskeletal: deferred Psychiatric: mood/affect appropriate - Lab 07/02/19 05:10 07/03/19 07:51 Most recent lab results Calcium 6.2 mg/dL (8.4-10.2) L 07/03/19 07:51 Magnesium 1.70 mg/dL (1.7-2.3) 07/02/19 15:50 - Imaging Chest x-ray: image reviewed Medications & Allergies - Medications Allergies/Adverse Reactions: Allergies No Known Allergies Allergy (Verified 11/01/18 16:33) Home Medications: Home Medications Medication Instructions Recorded Confirmed Last Taken Type No Known Home Medications [No 07/01/19 07/01/19 Unknown History Reported Home Medications] Active Medications: Generic Name Dose Route Start Last Admin Trade Name Freq PRN Reason Stop Dose Admin Acetaminophen 650 mg 07/01/19 01:05 07/01/19 22:26 Tylenol PO 650 mg Q4H PRN Administration Pain MILD(1-3)/Fever >100.5/GOLD Benzonatate 100 mg 07/02/19 14:00 07/03/19 13:15 Tessalon Perles PO 100 mg Q8HR ARNALDO Administration Dextrose 50 ml 07/01/19 05:31 D50w (25gm) Syringe IV Q30MIN PRN Hypoglycemia Protocol Sodium Bicarbonate 150 meq/ 1,150 mls @ 75 mls/hr 07/01/19 14:00 07/02/19 19:46 Dextrose IV 75 mls/hr DIRECT ARNALDO Administration Ceftriaxone Sodium 1 gm in 50 mls @ 100 mls/hr 07/01/19 22:00 07/03/19 09:25 Rocephin/Ns 1 Gm/50 Ml IV 100 mls/hr Q12HR ARNALDO Administration Protocol Magnesium Hydroxide 30 ml 07/01/19 01:05 07/02/19 11:53 Milk Of Magnesia PO 30 ml Q4H PRN Administration Constipation Morphine Sulfate 2 mg 07/01/19 01:05 07/01/19 10:33 Morphine IV 2 mg Q4H PRN Administration Pain, Moderate (4-6) Ondansetron HCl 4 mg 07/01/19 01:05 07/02/19 10:44 Zofran IV 4 mg Q8H PRN Administration Nausea And Vomiting Sodium Chloride 10 ml 07/01/19 10:00 07/03/19 13:16 Sodium Chloride Flush Syringe 10 Ml IV 10 ml BID ARNALDO Administration Sodium Chloride 10 ml 07/01/19 01:05 Sodium Chloride Flush Syringe 10 Ml IV PRN PRN LINE FLUSH
[2019-07-03] MEDS: SODIUM CHLORIDE 0.9% 1000 ML 1,000 ML IV SCH (16:12)
--- NOTE | 2019-07-03 21:49 | Consultation ---
History of Present Illness - Reason for Consult Consult date: 07/03/19 - History of Present Illness 59 yo F PMHx HTN, DM2, central hernia admitted with abdominal pain. She notes the pain approximately 3-4 days prior to admission, and was worse around the site of her known hernia. She otherwise denied any fevers, sweats, chills. She reports a history of colitis in 2019 for which she required antibiotics. She is largely silent during the interview and her provides most of the answers , though when she does answer it is accurate and appropriate. She also had poor PO intake for the several days preceding her admission. Febrile to 102.7 with a white count of 17. Currently receiving ceftriaxone. Blood and urine cultures with fletcher-sensitive E coli. Imaging personally reviewed: CXR: NAD Bold if positive; otherwise negative GENERAL: fever, chills, weight loss, fatigue, night sweats EYES: blurry vision, eye pain HENT: headache, hearing loss, sore throat, dysphagia, sinus pain CARDIO: chest pain, palpitations, orthopnea PULM: shortness of breath, wheezing, cough, sputum, hemoptysis GI: nausea, vomiting, diarrhea, abdominal pain, blood in stool : urinary frequency, urgency, dysuria, urethral discharge MSK: joint pain, back pain, swelling SKIN: rash, redness HEME: easy bruising, bleeding Past History Past Medical History: other (see HPI) Past Surgical History: cholecystectomy Social history: other (alcohol) Family history: no significant family history Medications and Allergies Allergies Allergy/AdvReac Type Severity Reaction Status Date / Time No Known Allergies Allergy Verified 11/01/18 16:33 Home Medications Medication Instructions Recorded Confirmed Last Taken Type No Known Home Medications [No 07/01/19 07/01/19 Unknown History Reported Home Medications] Active Meds: Active Medications Acetaminophen (Tylenol) 650 mg PO Q4H PRN PRN Reason: Pain MILD(1-3)/Fever >100.5/GOLD Last Admin: 07/01/19 22:26 Dose: 650 mg Documented by: Benzonatate (Tessalon Perles) 100 mg PO Q8HR ARNALDO Last Admin: 07/03/19 13:15 Dose: 100 mg Documented by: Dextrose (D50w (25gm) Syringe) 50 ml IV Q30MIN PRN; Protocol PRN Reason: Hypoglycemia Ceftriaxone Sodium (Rocephin/Ns 1 Gm/50 Ml) 1 gm in 50 mls @ 100 mls/hr IV Q12HR ARNALDO; Protocol Last Admin: 07/03/19 09:25 Dose: 100 mls/hr Documented by: Sodium Chloride (Nacl 0.9% 1000 Ml) 1,000 mls @ 75 mls/hr IV DIRECT ARNALDO Last Admin: 07/03/19 16:12 Dose: 75 mls/hr Documented by: Magnesium Hydroxide (Milk Of Magnesia) 30 ml PO Q4H PRN PRN Reason: Constipation Last Admin: 07/02/19 11:53 Dose: 30 ml Documented by: Morphine Sulfate (Morphine) 2 mg IV Q4H PRN PRN Reason: Pain, Moderate (4-6) Last Admin: 07/01/19 10:33 Dose: 2 mg Documented by: Ondansetron HCl (Zofran) 4 mg IV Q8H PRN PRN Reason: Nausea And Vomiting Last Admin: 07/02/19 10:44 Dose: 4 mg Documented by: Sodium Chloride (Sodium Chloride Flush Syringe 10 Ml) 10 ml IV BID ARNALDO Last Admin: 07/03/19 13:16 Dose: 10 ml Documented by: Sodium Chloride (Sodium Chloride Flush Syringe 10 Ml) 10 ml IV PRN PRN PRN Reason: LINE FLUSH Physical Examination - Physical Exam Narrative exam: General Normal appearance, well developed, no acute distress Eyes - PERRLA, EOM intact ENT - Moist mucous membranes, no lymphadenopathy Neck - No noticeable or palpable swelling, redness or rash around throat or on face Lymph Nodes - No lymphadenopathy Cardiovascular - RRR no m/r/g, no JVD, no carotid bruits Lungs - Clear to auscultation, no use of accessory muscles, no crackles or wheezes. Skin - No rashes, skin warm and dry, no erythematous areas Abdomen - Normal bowel sounds, abdomen soft and nontender. Ventral hernia Extremities - No edema, cyanosis or clubbing Musculoskeletal - 5/5 strength, normal range of motion, no swollen or erythematous joints. Neurological Alert and oriented x 3, CN 2-12 grossly intact. - Constitutional Vitals: Vital Signs Temp Pulse Resp BP Pulse Ox 98.5 F 78 18 115/61 97 07/03/19 17:24 07/03/19 17:24 07/03/19 17:24 07/03/19 17:24 07/03/19 17:24 Temperature -Last 24 Hours Temperature 98.5 F Temperature 98.3 F Temperature 98.8 F Temperature 98.5 F Results - Labs CBC & Chem 7: 07/02/19 05:10 07/03/19 07:51 Labs: Abnormal lab results 07/03/19 07/03/19 07/03/19 Range/Units 00:34 06:47 07:51 PT (12.2-14.9) Sec. INR (0.87-1.13) Potassium 3.1 L (3.6-5.0) mmol/L Chloride 91.9 L (98-107) mmol/L BUN 81 H (7-17) mg/dL Creatinine 3.4 H (0.7-1.2) mg/dL Glucose 128 H (65-100) mg/dL POC Glucose 116 H 118 H (70-105) Calcium 6.2 L (8.4-10.2) mg/dL Ferritin (13.0-400.0) ng/mL Total Bilirubin (0.1-1.2) mg/dL Direct Bilirubin (0-0.2) mg/dL AST (5-40) units/L Alkaline Phosphatase (35-129) units/L Total Protein (6.3-8.2) g/dL Albumin (3.9-5) g/dL 07/03/19 07/03/19 07/03/19 Range/Units 07:51 07:51 07:51 PT 18.0 H (12.2-14.9) Sec. INR 1.46 H (0.87-1.13) Potassium (3.6-5.0) mmol/L Chloride (98-107) mmol/L BUN (7-17) mg/dL Creatinine (0.7-1.2) mg/dL Glucose (65-100) mg/dL POC Glucose (70-105) Calcium (8.4-10.2) mg/dL Ferritin 1081.0 H (13.0-400.0) ng/mL Total Bilirubin 5.60 H (0.1-1.2) mg/dL Direct Bilirubin 5.2 H (0-0.2) mg/dL AST 211 H (5-40) units/L Alkaline Phosphatase 205 H (35-129) units/L Total Protein 5.8 L (6.3-8.2) g/dL Albumin 1.9 L (3.9-5) g/dL 07/03/19 07/03/19 Range/Units 11:37 16:39 PT (12.2-14.9) Sec. INR (0.87-1.13) Potassium (3.6-5.0) mmol/L Chloride (98-107) mmol/L BUN (7-17) mg/dL Creatinine (0.7-1.2) mg/dL Glucose (65-100) mg/dL POC Glucose 109 H 134 H (70-105) Calcium (8.4-10.2) mg/dL Ferritin (13.0-400.0) ng/mL Total Bilirubin (0.1-1.2) mg/dL Direct Bilirubin (0-0.2) mg/dL AST (5-40) units/L Alkaline Phosphatase (35-129) units/L Total Protein (6.3-8.2) g/dL Albumin (3.9-5) g/dL Assessment and Plan Cultures Blood culture 07/01/2019 Fletcher-S E coli Urine culture 07/01/2019 GNR Assessment: 59 yo F PMHx DM2, ventral hernia admitted with acute sepsis secondary to E coli UTI and bacteremia 1. Acute sepsis: present with leukocytosis and fever, secondary to E coli UTI and bacteremia 2. E coli bacteremia: continue ceftriaxone while in house, but can de-escalate to levofloxacin on discharge 3. GNR UTI - presumably E coli as with blood cultures 4. DM2 - tight glycemic control 5. SHARIFA: renally dose antibiotics, may need dose adjustment as renal function improves. Recs: - adjusted ceftriaxone from 1g q12h to 2g q24h. q12h is typically for meningitis and Enterococcus endocarditis. - Needs 2 weeks of therapy, stop date is 07/15/2019. Will discharge on levofloxacin but dose depends on amount of renal recovery on discharge. Thank you for the consult, we will continue to follow. [facility] ([facility] M: [phone] O: [phone] F: [phone]
[2019-07-04] MEDS: BENZONATATE 100 MG CAP PO SCH ×3 (06:11→21:44)
[2019-07-04] MEDS: cefTRIAXone/NS 2 GM/100 ML 2 GM/100 ML BAG IV SCH (09:11)
[2019-07-04] MEDS: SODIUM CHLORIDE 0.9% 1000 ML 1,000 ML IV SCH (09:13)
[2019-07-04 10:47] LABS: Calcium 6.4 mg/dL (8.4-10.2)
--- NOTE | 2019-07-04 11:05 | Progress Note ---
Subjective Principal diagnosis: elevated LFTs Interval history: Patient was seen today for follow-up of multiple renal related issues patient appears to be encephalopathic, family at bedside Interdisciplinary notes that also reviewed Events of 24 hours vitals labs intake output medications were reviewed Past medical history: Reviewed Family history: Reviewed Social history: Reviewed Allergies: Reviewed Physical examination: Vitals: Reviewed HEENT: No pallor or icterus oral mucosa moist Neck: Supple no JVD no thyromegaly Chest: Bilateral clear to auscultation anteriorly Heart: Regular rate and rhythm S1-S2 heard no S3-S4 Abdomen: Soft nontender no voluntary guarding rigidity rebound Extremity: Dry skin less than 1+ peripheral edema Dermatology: No petechial rashes Labs and x-rays: Reviewed from today Assessment and plan Acute kidney injury, baseline creatinine is currently around 0.5, patient is recovering from renal failure, creatinine is currently improving 2.2 Has urinary tract infection with gram-negative lesvia E. coli bacteremia follow-up cultures currently negative for last 48 hours, admitted with acute sepsis being followed by infectious disease transfer tech Hypokalemia please replace and follow current potassium is 3.0, please also monitor the magnesium level Hypocalcemia patient will require calcium supplementation albumin was 1.9 would like to check ionized calcium Urinalysis shows evidence of 180 white blood cells 29 red blood cells hepatitis profile has been negative Metabolic acidosis improving to monitor and follow Multiple risk factors for underlying chronic kidney disease Abdominal ultrasonogram shows that patient's right kidney appears to be normal left kidney has a complex cyst History of significant nonsteroidal medication use discussed about diet and lifestyle changes that patient needs to make Patient has had some eosinophilia 2% We'll continue to follow and make recommendation for renal standpoint Objective - Vital Signs Vital signs: Vital Signs - 12hr 07/04/19 04:32 Temperature 98.9 F Pulse Rate 74 Respiratory 20 Rate Blood Pressure 125/68 O2 Sat by Pulse 97 Oximetry - Lab 07/02/19 05:10 07/04/19 09:46 Most recent lab results Calcium 6.4 mg/dL (8.4-10.2) L 07/04/19 09:46 Magnesium 1.70 mg/dL (1.7-2.3) 07/02/19 15:50 Medications & Allergies - Medications Allergies/Adverse Reactions: Allergies No Known Allergies Allergy (Verified 11/01/18 16:33) Home Medications: Home Medications Medication Instructions Recorded Confirmed Last Taken Type No Known Home Medications [No 07/01/19 07/01/19 Unknown History Reported Home Medications] Active Medications: Generic Name Dose Route Start Last Admin Trade Name Susan PRN Reason Stop Dose Admin Acetaminophen 650 mg 07/01/19 01:05 07/01/19 22:26 Tylenol PO 650 mg Q4H PRN Administration Pain MILD(1-3)/Fever >100.5/GOLD Benzonatate 100 mg 07/02/19 14:00 07/04/19 06:11 Tessalon Perles PO 100 mg Q8HR ARNALDO Administration Dextrose 50 ml 07/01/19 05:31 D50w (25gm) Syringe IV Q30MIN PRN Hypoglycemia Protocol Sodium Chloride 1,000 mls @ 75 mls/hr 07/03/19 15:00 07/04/19 09:13 Nacl 0.9% 1000 Ml IV 75 mls/hr DIRECT ARNALDO Administration Ceftriaxone Sodium 2 gm in 100 mls @ 200 mls/hr 07/04/19 10:00 07/04/19 09:11 Rocephin/Ns 2 Gm/100 Ml IV 200 mls/hr Q24HR ARNALDO Administration Protocol Magnesium Hydroxide 30 ml 07/01/19 01:05 07/02/19 11:53 Milk Of Magnesia PO 30 ml Q4H PRN Administration Constipation Morphine Sulfate 2 mg 07/01/19 01:05 07/01/19 10:33 Morphine IV 2 mg Q4H PRN Administration Pain, Moderate (4-6) Ondansetron HCl 4 mg 07/01/19 01:05 07/02/19 10:44 Zofran IV 4 mg Q8H PRN Administration Nausea And Vomiting Potassium Chloride 40 meq 07/04/19 12:00 K-Dur PO 07/04/19 12:01 ONCE ONE Sodium Chloride 10 ml 07/01/19 10:00 07/04/19 09:13 Sodium Chloride Flush Syringe 10 Ml IV 10 ml BID ARNALDO Administration Sodium Chloride 10 ml 07/01/19 01:05 Sodium Chloride Flush Syringe 10 Ml IV PRN PRN LINE FLUSH
--- NOTE | 2019-07-04 11:47 | Gastroenterology Progress Note ---
Assessment and Plan 1.elevated LFTs -afebrile -WBC 16.8 trending up -Plt 74, H/H WNL -INR 1.46- no change s/p vit K yesterday -lipase WNL -LFTs- T.tavia 5.60, AST 211, ALT 46, alk phos 205 -acetaminophen level and acute hepatitis panel negative -autoimmune serologies pending -abd CT showed fatty infiltration in liver and dilated vascular structure in the dome of the liver, likely vascular malformation intrahepatic portocystemic shunt (unchanged from prior imaging) -abd U/S-hepatic steatosis and prominent CBD 2/2 prior cholecystectomy -etiology- likely 2/2 sepsis (+/- alcohol) vs other -no plan for liver bx at this time -suspect w/ improved primary process LFT's will also improve -avoid hepatotoxic agents -alcohol cessation -continue to trend labs (repeat labs for today pending) and and supportive care -further recommendations to follow 2.acute renal failure 3.phylonephritis with sepsis/bacteremia 4.ventral hernia Subjective Date of service: 07/04/19 Principal diagnosis: elevated LFTs Interval history: No acute distress or new GI complaints. Objective - Constitutional Vitals: Temp Pulse Resp BP Pulse Ox 98.9 F 74 20 125/68 97 07/04/19 04:32 07/04/19 04:32 07/04/19 04:32 07/04/19 04:32 07/04/19 04:32 General appearance: no acute distress - Respiratory Respiratory effort: normal - Cardiovascular Rhythm: regular - Gastrointestinal General gastrointestinal: Present: soft, non-distended, normal bowel sounds - Integumentary Integumentary: Present: warm - Neurologic Neurological: alert and oriented x3 - Labs CBC & Chem 7: 07/02/19 05:10 07/04/19 09:46 Labs: Laboratory Results - last 24 hr 07/03/19 07/04/19 07/04/19 16:39 00:30 06:33 Sodium Potassium Chloride Carbon Dioxide Anion Gap BUN Creatinine Estimated GFR BUN/Creatinine Ratio Glucose POC Glucose 134 H 105 102 Calcium 07/04/19 09:46 Sodium 140 Potassium 3.0 L Chloride 93.9 L Carbon Dioxide 28 Anion Gap 21 BUN 61 H Creatinine 2.2 H Estimated GFR 27 BUN/Creatinine Ratio 28 Glucose 147 H POC Glucose Calcium 6.4 L
[2019-07-04] MEDS ORDERED: POTASSIUM CHLORIDE ER 20 MEQ TAB PO ONE (12:00)
--- NOTE | 2019-07-04 15:11 | Progress Note ---
Assessment and Plan / Pyelonephritis with sepsis and bacterimia Patient placed on empiric IV antibiotics and also on IV fluid. Urine culture and blood culture growing E. coli - consulted ID /Acute renal failure continue to vasomotor nephropathy Possibly secondary to the dehydration from the sepsis, intractable nausea and vomiting and diarrhea. continue on IV fluid and monitor BUN and creatinine. Consulted nephrology for evaluation and further recommendation. Cr trending down / Elevated liver enzymes with Hyperbilirubinemia - consulted to gastroenterology for further recommendation. 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 Continue on analgesic medication as needed for pain. Will consider placing a consult to surgery if needed / Hypoglycemia Probably secondary to poor oral intake from the nausea and vomiting. Will monitor blood closely. cont on D5 NS. /Diabetes mellitus type 2 -Continue consistent carb diet and SSI coverage /Alcohol abuse, counseled for cessation, watch for withdrawal / DVT prophylaxis Patient placed on subcutaneous heparin. Patient is full code Family updated at the bedside Discussed plan of care with the RN Noted consultants recommendation d/c home when Cr, LFT stable and afebrile Brief History: 59-year-old -[place] female with known history of hypertension, diabetes mellitus, history of ventral hernia presenting to the emergency room with complaining of abdominal pain. She had a history of colitis sometime in 2019 and was placed on antibiotics. Work-up in the emergency room reveals patient's to be in acute renal failure with Cr of 5.5. CT scan of the abdomen also suggests possible b/l pyelonephritis. Hospitalist Physical exam: GENERAL: well-developed and well-nourished lying on bed appeared to be in no discomfort. HEENT: Normocephalic. Atraumatic. No conjunctival congestion or icterus. Patient has moist mucous membranes. NECK: Supple. Trachea midline. CHEST/LUNGS: Clear to auscultated bilaterally, breathing nonlabored. No wheezes crackles or rhonchi. HEART/CARDIOVASCULAR: Regular in rate and rhythm. S1 and S2 positive. ABDOMEN: Abdomen is soft, nontender. Patient has normal bowel sounds. + CVA tenderness, + ventral hernia SKIN: There is no rash. Warm and dry. NEURO: No focal motor deficit. Follows command. MUSCULOSKELETAL: No joint effusion or tenderness. EXTRIMITY: No edema, no cyanosis or clubbing. PSYCH: Cooperative. Subjective Date of service: 07/04/19 Principal diagnosis: elevated LFTs Interval history: Patient seen and examined. Medical records and medication list reviewed. No acute event overnight noted by the RN. Patient denies any chest pain or difficulty breathing. patient running fever this morning 101.2 Discussed plan of care at bedside with patient. Objective - Constitutional Vitals: Vital Signs - 12hr 07/04/19 07/04/19 07/04/19 04:32 10:00 12:01 Temperature 98.9 F 99.7 F H Pulse Rate 74 70 Respiratory 20 18 Rate Blood Pressure 125/68 118/52 O2 Sat by Pulse 97 96 94 Oximetry - Labs CBC & Chem 7: 07/05/19 04:19 07/06/19 08:26 Labs: Abnormal lab results 07/03/19 07/04/19 07/04/19 Range/Units 16:39 09:46 11:48 Potassium 3.0 L (3.6-5.0) mmol/L Chloride 93.9 L (98-107) mmol/L BUN 61 H (7-17) mg/dL Creatinine 2.2 H (0.7-1.2) mg/dL Glucose 147 H (65-100) mg/dL POC Glucose 134 H 124 H (70-105) Calcium 6.4 L (8.4-10.2) mg/dL
[2019-07-04 16:03] LABS: Albumin 1.9 g/dL (3.9-5); Bilirubin,Direct 3.7 mg/dL (0-0.2)
[2019-07-04 16:15] LABS: INR 1.38 (0.87-1.13)
--- NOTE | 2019-07-04 16:22 | Progress Note ---
Assessment and Plan Cultures Blood culture 07/01/2019 Fitch-S E coli Urine culture 07/01/2019 GNR Assessment: 59 yo F PMHx DM2, ventral hernia admitted with acute sepsis secondary to E coli UTI and bacteremia 1. Acute sepsis: present with leukocytosis and fever, secondary to E coli UTI and bacteremia 2. E coli bacteremia: continue ceftriaxone while in house, but can de-escalate to levofloxacin on discharge 3. GNR UTI - presumably E coli as with blood cultures 4. DM2 - tight glycemic control 5. SHARIFA: renally dose antibiotics, may need dose adjustment as renal function improves. 6. Transaminitis Recs: -Continue ceftriaxone 2 g every 24 hours - Needs 2 weeks of therapy, stop date is 07/15/2019. Will discharge on levofloxacin but dose depends on amount of renal recovery on discharge. Thank you for the consult, we will continue to follow. [facility] M: [phone] O: [phone] F: [phone] Subjective Date of service: 07/04/19 Principal diagnosis: elevated LFTs Interval history: Febrile overnight to 100.7 degrees. No new complaints, however patient minimally participative in interview Objective - Exam Narrative Exam: General Normal appearance, well developed, no acute distress Eyes - PERRLA, EOM intact ENT - Moist mucous membranes, no lymphadenopathy Cardiovascular - RRR no m/r/g, no JVD, no carotid bruits Lungs - Clear to auscultation, no use of accessory muscles, no crackles or wheezes. Skin - No rashes, skin warm and dry, no erythematous areas Abdomen - Normal bowel sounds, abdomen soft and nontender. Ventral hernia Extremities - No edema, cyanosis or clubbing Musculoskeletal - 5/5 strength, normal range of motion, no swollen or erythematous joints. Neurological Alert and oriented x 3, CN 2-12 grossly intact. - Constitutional Vitals: Vital Signs Temp Pulse Resp BP Pulse Ox 99.7 F H 70 18 118/52 94 07/04/19 12:01 07/04/19 12:01 07/04/19 12:01 07/04/19 12:01 07/04/19 12:01 Temperature -Last 24 Hours Temperature 99.7 F Temperature 98.9 F Temperature 100.7 F Temperature 98.5 F - Labs CBC & Chem 7: 07/02/19 05:10 07/04/19 09:46 Labs: Abnormal lab results 07/03/19 07/04/19 07/04/19 Range/Units 16:39 09:46 11:48 PT (12.2-14.9) Sec. INR (0.87-1.13) Potassium 3.0 L (3.6-5.0) mmol/L Chloride 93.9 L (98-107) mmol/L BUN 61 H (7-17) mg/dL Creatinine 2.2 H (0.7-1.2) mg/dL Glucose 147 H (65-100) mg/dL POC Glucose 134 H 124 H (70-105) Calcium 6.4 L (8.4-10.2) mg/dL Total Bilirubin (0.1-1.2) mg/dL Direct Bilirubin (0-0.2) mg/dL AST (5-40) units/L Alkaline Phosphatase (35-129) units/L Total Protein (6.3-8.2) g/dL Albumin (3.9-5) g/dL 07/04/19 07/04/19 Range/Units 15:28 15:28 PT 17.2 H (12.2-14.9) Sec. INR 1.38 H (0.87-1.13) Potassium (3.6-5.0) mmol/L Chloride (98-107) mmol/L BUN (7-17) mg/dL Creatinine (0.7-1.2) mg/dL Glucose (65-100) mg/dL POC Glucose (70-105) Calcium (8.4-10.2) mg/dL Total Bilirubin 4.40 H (0.1-1.2) mg/dL Direct Bilirubin 3.7 H (0-0.2) mg/dL AST 171 H (5-40) units/L Alkaline Phosphatase 244 H (35-129) units/L Total Protein 5.8 L (6.3-8.2) g/dL Albumin 1.9 L (3.9-5) g/dL
[2019-07-04] MEDS: FOLIC ACID 1 MG TAB PO SCH (16:54)
[2019-07-04] MEDS: THIAMINE 100 MG TAB PO SCH (16:54)
[2019-07-04] MEDS: ACETAMINOPHEN 325 MG TAB PO PRN (21:44)
[2019-07-04] MEDS: HEPARIN 5,000 UNIT/1 ML VIAL SUB-Q SCH (21:51)
[2019-07-05] MEDS: SODIUM CHLORIDE 0.9% 1000 ML 1,000 ML IV SCH (01:25)
[2019-07-05 05:13] LABS: Hematocrit 30.4 % (30.3-42.9); Hemoglobin 10.5 gm/dl (10.1-14.3); Mean Corpuscular HGB Conc 34 % (30-34); Mean Corpuscular Volume 106 fl (79-97); Platelet Count 131 K/mm3 (140-440); Red Blood Count 2.87 M/mm3 (3.65-5.03); Red Cell Distribution Width 17.2 % (13.2-15.2)
[2019-07-05] MEDS: BENZONATATE 100 MG CAP PO SCH ×3 (06:21→22:45)
[2019-07-05] MEDS: ACETAMINOPHEN 325 MG TAB PO PRN ×2 (06:21→17:05)
[2019-07-05 06:24] LABS: Basophils % (Manual) 0 % (0.0-1.8); Eosinophils % (Manual) 0 % (0.0-4.3); Target Cells 1+; Total Cells Counted 100
[2019-07-05 06:25] LABS: Poikilocytosis Few
[2019-07-05 06:26] LABS: Platelet Estimate Cons
--- NOTE | 2019-07-05 09:18 | Progress Note ---
Subjective Principal diagnosis: elevated LFTs Interval history: Patient was seen today for follow-up of multiple renal related issues patient appears to be encephalopathic, but better Interdisciplinary notes that also reviewed Events of 24 hours vitals labs intake output medications were reviewed Past medical history: Reviewed Family history: Reviewed Social history: Reviewed Allergies: Reviewed Physical examination: Vitals: Reviewed HEENT: No pallor or icterus oral mucosa moist Neck: Supple no JVD no thyromegaly Chest: Bilateral clear to auscultation anteriorly Heart: Regular rate and rhythm S1-S2 heard no S3-S4 Abdomen: Soft nontender no voluntary guarding rigidity rebound Extremity: Dry skin less than 1+ peripheral edema Dermatology: No petechial rashes Labs and x-rays: Reviewed from today Assessment and plan Acute kidney injury: Renal function continues to improve current creatinine is 1.5 which was 5.3 on July 01, 2019 Hypokalemia: Would recommend replacing her potassium to keep her around 4.0 Metabolic acidosis currently has improved Liver disease: Elevated bilirubin currently around 3.9 which was 6.4 ALT is currently 47 but AST has been 194 which was 269 a few days ago, albumin has a d eclining trend currently 1.9 which was 2.2 earlier From a renal standpoint patient is doing better, however her overall prognosis appears to be guarded possibly poor Abdominal ultrasonogram shows that patient's right kidney appears to be normal left kidney has a complex cyst, please arrange for urology to see History of significant nonsteroidal medication use discussed about diet and lifestyle changes that patient needs to make Patient has had some eosinophilia 2% We'll continue to follow and make recommendation for renal standpoint Objective - Vital Signs Vital signs: Vital Signs - 12hr 07/04/19 07/04/19 07/05/19 21:20 21:36 01:45 Temperature 101.5 F H 98.9 F Pulse Rate 73 Respiratory 24 Rate Blood Pressure 96/51 O2 Sat by Pulse 99 97 Oximetry 07/05/19 07/05/19 05:32 07:48 Temperature 101.2 F H Pulse Rate Respiratory 20 Rate Blood Pressure 139/61 O2 Sat by Pulse 96 Oximetry - Lab 07/05/19 04:19 07/05/19 09:00 Most recent lab results Calcium 6.4 mg/dL (8.4-10.2) L 07/04/19 09:46 Magnesium 1.70 mg/dL (1.7-2.3) 07/04/19 12:03 Medications & Allergies - Medications Allergies/Adverse Reactions: Allergies No Known Allergies Allergy (Verified 11/01/18 16:33) Home Medications: Home Medications Medication Instructions Recorded Confirmed Last Taken Type No Known Home Medications [No 07/01/19 07/01/19 Unknown History Reported Home Medications] Active Medications: Generic Name Dose Route Start Last Admin Trade Name Freq PRN Reason Stop Dose Admin Acetaminophen 650 mg 07/01/19 01:05 07/05/19 06:21 Tylenol PO 650 mg Q4H PRN Administration Pain MILD(1-3)/Fever >100.5/GOLD Benzonatate 100 mg 07/02/19 14:00 07/05/19 06:21 Tessalon Perles PO 100 mg Q8HR ARNALDO Administration Dextrose 50 ml 07/01/19 05:31 D50w (25gm) Syringe IV Q30MIN PRN Hypoglycemia Protocol Folic Acid 1 mg 07/04/19 16:00 07/04/19 16:54 Folvite PO 1 mg QDAY ARNALDO Administration Heparin Sodium (Porcine) 5,000 unit 07/04/19 22:00 07/04/19 21:51 Heparin SUB-Q 5,000 unit Q12HR ARNALDO Administration Sodium Chloride 1,000 mls @ 75 mls/hr 07/03/19 15:00 07/05/19 01:25 Nacl 0.9% 1000 Ml IV 75 mls/hr DIRECT ARNALDO Administration Ceftriaxone Sodium 2 gm in 100 mls @ 200 mls/hr 07/04/19 10:00 07/04/19 09:11 Rocephin/Ns 2 Gm/100 Ml IV 07/15/19 10:29 200 mls/hr Q24HR ARNALDO Administration Protocol Magnesium Hydroxide 30 ml 07/01/19 01:05 07/02/19 11:53 Milk Of Magnesia PO 30 ml Q4H PRN Administration Constipation Morphine Sulfate 2 mg 07/01/19 01:05 07/01/19 10:33 Morphine IV 2 mg Q4H PRN Administration Pain, Moderate (4-6) Ondansetron HCl 4 mg 07/01/19 01:05 07/02/19 10:44 Zofran IV 4 mg Q8H PRN Administration Nausea And Vomiting Sodium Chloride 10 ml 07/01/19 10:00 07/04/19 21:44 Sodium Chloride Flush Syringe 10 Ml IV 10 ml BID ARNALDO Administration Sodium Chloride 10 ml 07/01/19 01:05 Sodium Chloride Flush Syringe 10 Ml IV PRN PRN LINE FLUSH Thiamine HCl 100 mg 07/04/19 16:00 07/04/19 16:54 Vitamin B-1 PO 100 mg QDAY ARNALDO Administration
[2019-07-05 09:52] LABS: Calcium 6.8 mg/dL (8.4-10.2)
[2019-07-05] MEDS: THIAMINE 100 MG TAB PO SCH (10:05)
[2019-07-05] MEDS: cefTRIAXone/NS 2 GM/100 ML 2 GM/100 ML BAG IV SCH (10:06)
[2019-07-05] MEDS: HEPARIN 5,000 UNIT/1 ML VIAL SUB-Q SCH ×2 (10:08→22:45)
[2019-07-05] MEDS: FOLIC ACID 1 MG TAB PO SCH (10:08)
[2019-07-05 10:15] LABS: Albumin 1.9 g/dL (3.9-5)
--- NOTE | 2019-07-05 12:17 | Gastroenterology Progress Note ---
Assessment and Plan 1. Liver: pt presented w/ sepsis now with bacteria and noted increase LFT's - suspect due to sepsis w/ etoh vs other - LFT's slowly improving - infection management per primary team/ID - continue to follow LFT's, would expect to improve as overall condition improves - Dr. Vincent on this wk, will follow intermittently, call if needed Subjective Date of service: 07/05/19 Principal diagnosis: elevated LFTs Interval history: - no changes overnight per staff Objective - Constitutional Vitals: Temp Pulse Resp BP Pulse Ox 98.2 F 73 20 139/61 96 07/05/19 07:45 07/04/19 21:20 07/05/19 05:32 07/05/19 05:32 07/05/19 07:48 General appearance: no acute distress - EENT Eyes: PERRL - Respiratory Respiratory: bilateral: rhonchi - Cardiovascular Rhythm: regular Heart Sounds: Present: S1 & S2 - Gastrointestinal General gastrointestinal: Present: soft, non-tender, non-distended - Labs CBC & Chem 7: 07/05/19 04:19 07/05/19 09:00 Labs: Laboratory Results - last 24 hr 07/01/19 07/01/19 07/04/19 19:14 19:14 12:03 WBC RBC Hgb Hct MCV MCH MCHC RDW Plt Count Add Manual Diff Total Counted Seg Neuts % (Manual) Band Neutrophils % Lymphocytes % (Manual) Reactive Lymphs % (Man) Monocytes % (Manual) Eosinophils % (Manual) Basophils % (Manual) Metamyelocytes % Myelocytes % Promyelocytes % Blast Cells % Nucleated RBC % Seg Neutrophils # Man Band Neutrophils # Lymphocytes # (Manual) Abs React Lymphs (Man) Monocytes # (Manual) Eosinophils # (Manual) Basophils # (Manual) Metamyelocytes # Myelocytes # Promyelocytes # Blast Cells # WBC Morphology Hypersegmented Neuts Hyposegmented Neuts Hypogranular Neuts Smudge Cells Toxic Granulation Toxic Vacuolation Dohle Bodies Pelger-Huet Anomaly Lizette Rods Platelet Estimate Clumped Platelets Plt Clumps, EDTA Large Platelets Giant Platelets Platelet Satelliting Plt Morphology Comment RBC Morphology Dimorphic RBCs Polychromasia Hypochromasia Poikilocytosis Anisocytosis Microcytosis Macrocytosis Spherocytes Pappenheimer Bodies Sickle Cells Target Cells Tear Drop Cells Ovalocytes Helmet Cells [place] Bodies Continental Rings [place] Cells Bite Cells Crenated Cell Elliptocytes Acanthocytes (Spur) Rouleaux Hemoglobin C Crystals Schistocytes Malaria parasites [place] Bodies Hem Pathologist Commnt PT INR Sodium Potassium Chloride Carbon Dioxide Anion Gap BUN Creatinine Estimated GFR BUN/Creatinine Ratio Glucose POC Glucose Calcium Phosphorus Magnesium 1.70 Total Bilirubin Direct Bilirubin Indirect Bilirubin AST ALT Alkaline Phosphatase Total Protein Albumin Albumin/Globulin Ratio Complement C3 103 Complement C4 32 07/04/19 07/04/19 07/04/19 15:28 15:28 16:35 WBC RBC Hgb Hct MCV MCH MCHC RDW Plt Count Add Manual Diff Total Counted Seg Neuts % (Manual) Band Neutrophils % Lymphocytes % (Manual) Reactive Lymphs % (Man) Monocytes % (Manual) Eosinophils % (Manual) Basophils % (Manual) Metamyelocytes % Myelocytes % Promyelocytes % Blast Cells % Nucleated RBC % Seg Neutrophils # Man Band Neutrophils # Lymphocytes # (Manual) Abs React Lymphs (Man) Monocytes # (Manual) Eosinophils # (Manual) Basophils # (Manual) Metamyelocytes # Myelocytes # Promyelocytes # Blast Cells # WBC Morphology Hypersegmented Neuts Hyposegmented Neuts Hypogranular Neuts Smudge Cells Toxic Granulation Toxic Vacuolation Dohle Bodies Pelger-Huet Anomaly Lizette Rods Platelet Estimate Clumped Platelets Plt Clumps, EDTA Large Platelets Giant Platelets Platelet Satelliting Plt Morphology Comment RBC Morphology Dimorphic RBCs Polychromasia Hypochromasia Poikilocytosis Anisocytosis Microcytosis Macrocytosis Spherocytes Pappenheimer Bodies Sickle Cells Target Cells Tear Drop Cells Ovalocytes Helmet Cells [place] Bodies Continental Rings Irina Cells Bite Cells Crenated Cell Elliptocytes Acanthocytes (Spur) Rouleaux Hemoglobin C Crystals Schistocytes Malaria parasites [place] Bodies Hem Pathologist Commnt PT 17.2 H INR 1.38 H Sodium Potassium Chloride Carbon Dioxide Anion Gap BUN Creatinine Estimated GFR BUN/Creatinine Ratio Glucose POC Glucose 100 Calcium Phosphorus Magnesium Total Bilirubin 4.40 H Direct Bilirubin 3.7 H Indirect Bilirubin 0.7 AST 171 H ALT 42 Alkaline Phosphatase 244 H Total Protein 5.8 L Albumin 1.9 L Albumin/Globulin Ratio 0.5 Complement C3 Complement C4 07/04/19 07/05/19 07/05/19 23:45 04:19 05:43 WBC 13.5 H RBC 2.87 L Hgb 10.5 Hct 30.4 MCV 106 H MCH 36 H MCHC 34 RDW 17.2 H Plt Count 131 L Add Manual Diff Complete Total Counted 100 Seg Neuts % (Manual) 88.0 H Band Neutrophils % 0 Lymphocytes % (Manual) 5.0 L Reactive Lymphs % (Man) 0 Monocytes % (Manual) 7.0 Eosinophils % (Manual) 0 Basophils % (Manual) 0 Metamyelocytes % 0 Myelocytes % 0 Promyelocytes % 0 Blast Cells % 0 Nucleated RBC % Not Reportable Seg Neutrophils # Man 11.9 H Band Neutrophils # 0.0 Lymphocytes # (Manual) 0.7 L Abs React Lymphs (Man) 0.0 Monocytes # (Manual) 0.9 H Eosinophils # (Manual) 0.0 Basophils # (Manual) 0.0 Metamyelocytes # 0.0 Myelocytes # 0.0 Promyelocytes # 0.0 Blast Cells # 0.0 WBC Morphology Not Reportable Hypersegmented Neuts Not Reportable Hyposegmented Neuts Not Reportable Hypogranular Neuts Not Reportable Smudge Cells Not Reportable Toxic Granulation Not Reportable Toxic Vacuolation Not Reportable Dohle Bodies Not Reportable Pelger-Huet Anomaly Not Reportable Lizette Rods Not Reportable Platelet Estimate Cons Clumped Platelets Not Reportable Plt Clumps, EDTA Not Reportable Large Platelets Not Reportable Giant Platelets Not Reportable Platelet Satelliting Not Reportable Plt Morphology Comment Not Reportable RBC Morphology Not Reportable Dimorphic RBCs Not Reportable Polychromasia Not Reportable Hypochromasia Not Reportable Poikilocytosis Few Anisocytosis Not Reportable Microcytosis Rare Macrocytosis Not Reportable Spherocytes Not Reportable Pappenheimer Bodies Not Reportable Sickle Cells Not Reportable Target Cells 1+ Tear Drop Cells Not Reportable Ovalocytes Not Reportable Helmet Cells Not Reportable [place] Bodies Not Reportable Continental Rings Not Reportable [place] Cells Not Reportable Bite Cells Not Reportable Crenated Cell Not Reportable Elliptocytes Not Reportable Acanthocytes (Spur) Not Reportable Rouleaux Not Reportable Hemoglobin C Crystals Not Reportable Schistocytes Not Reportable Malaria parasites Not Reportable [place] Bodies Not Reportable Hem Pathologist Commnt No PT INR Sodium Potassium Chloride Carbon Dioxide Anion Gap BUN Creatinine Estimated GFR BUN/Creatinine Ratio Glucose POC Glucose 80 160 H Calcium Phosphorus Magnesium Total Bilirubin Direct Bilirubin Indirect Bilirubin AST ALT Alkaline Phosphatase Total Protein Albumin Albumin/Globulin Ratio Complement C3 Complement C4 07/05/19 07/05/19 07/05/19 09:00 09:00 09:00 WBC RBC Hgb Hct MCV MCH MCHC RDW Plt Count Add Manual Diff Total Counted Seg Neuts % (Manual) Band Neutrophils % Lymphocytes % (Manual) Reactive Lymphs % (Man) Monocytes % (Manual) Eosinophils % (Manual) Basophils % (Manual) Metamyelocytes % Myelocytes % Promyelocytes % Blast Cells % Nucleated RBC % Seg Neutrophils # Man Band Neutrophils # Lymphocytes # (Manual) Abs React Lymphs (Man) Monocytes # (Manual) Eosinophils # (Manual) Basophils # (Manual) Metamyelocytes # Myelocytes # Promyelocytes # Blast Cells # WBC Morphology Hypersegmented Neuts Hyposegmented Neuts Hypogranular Neuts Smudge Cells Toxic Granulation Toxic Vacuolation Dohle Bodies Pelger-Huet Anomaly Lizette Rods Platelet Estimate Clumped Platelets Plt Clumps, EDTA Large Platelets Giant Platelets Platelet Satelliting Plt Morphology Comment RBC Morphology Dimorphic RBCs Polychromasia Hypochromasia Poikilocytosis Anisocytosis Microcytosis Macrocytosis Spherocytes Pappenheimer Bodies Sickle Cells Target Cells Tear Drop Cells Ovalocytes Helmet Cells [place] Bodies Continental Rings Irina Cells Bite Cells Crenated Cell Elliptocytes Acanthocytes (Spur) Rouleaux Hemoglobin C Crystals Schistocytes Malaria parasites [place] Bodies Hem Pathologist Commnt PT INR Sodium 142 Potassium 3.4 L Chloride 100.8 Carbon Dioxide 26 Anion Gap 19 BUN 42 H Creatinine 1.5 H Estimated GFR 43 BUN/Creatinine Ratio 28 Glucose 104 H POC Glucose Calcium 6.8 L Phosphorus 2.20 L Magnesium 1.60 L Total Bilirubin 3.90 H Direct Bilirubin 3.0 H Indirect Bilirubin 0.9 AST 194 H ALT 47 Alkaline Phosphatase 262 H Total Protein 5.9 L Albumin 1.9 L Albumin/Globulin Ratio 0.5 Complement C3 Complement C4 07/05/19 12:00 WBC RBC Hgb Hct MCV MCH MCHC RDW Plt Count Add Manual Diff Total Counted Seg Neuts % (Manual) Band Neutrophils % Lymphocytes % (Manual) Reactive Lymphs % (Man) Monocytes % (Manual) Eosinophils % (Manual) Basophils % (Manual) Metamyelocytes % Myelocytes % Promyelocytes % Blast Cells % Nucleated RBC % Seg Neutrophils # Man Band Neutrophils # Lymphocytes # (Manual) Abs React Lymphs (Man) Monocytes # (Manual) Eosinophils # (Manual) Basophils # (Manual) Metamyelocytes # Myelocytes # Promyelocytes # Blast Cells # WBC Morphology Hypersegmented Neuts Hyposegmented Neuts Hypogranular Neuts Smudge Cells Toxic Granulation Toxic Vacuolation Dohle Bodies Pelger-Huet Anomaly Lizette Rods Platelet Estimate Clumped Platelets Plt Clumps, EDTA Large Platelets Giant Platelets Platelet Satelliting Plt Morphology Comment RBC Morphology Dimorphic RBCs Polychromasia Hypochromasia Poikilocytosis Anisocytosis Microcytosis Macrocytosis Spherocytes Pappenheimer Bodies Sickle Cells Target Cells Tear Drop Cells Ovalocytes Helmet Cells [place] Bodies Continental Rings [place] Cells Bite Cells Crenated Cell Elliptocytes Acanthocytes (Spur) Rouleaux Hemoglobin C Crystals Schistocytes Malaria parasites [place] Bodies Hem Pathologist Commnt PT INR Sodium Potassium Chloride Carbon Dioxide Anion Gap BUN Creatinine Estimated GFR BUN/Creatinine Ratio Glucose POC Glucose 87 Calcium Phosphorus Magnesium Total Bilirubin Direct Bilirubin Indirect Bilirubin AST ALT Alkaline Phosphatase Total Protein Albumin Albumin/Globulin Ratio Complement C3 Complement C4
--- NOTE | 2019-07-05 13:25 | Progress Note ---
Assessment and Plan / Pyelonephritis with sepsis and bacteremia - POA Patient placed on empiric IV antibiotics and also on IV fluid. Urine culture and blood culture growing E. coli - consulted ID -Continue ceftriaxone 2 g every 24 hours - Needs 2 weeks of therapy, stop date is 07/15/2019. Will discharge on levofloxacin but dose depends on amount of renal recovery on discharge. /Acute renal failure continue to vasomotor nephropathy Possibly secondary to the dehydration from the sepsis, intractable nausea and vomiting and diarrhea. continue on IV fluid and monitor BUN and creatinine. Consulted nephrology for evaluation and further recommendation. Cr trending down / hypokalemia with hypomagnesemia - cont to replete / Elevated liver enzymes with Hyperbilirubinemia - consulted to gastroenterology for further recommendation. 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 Continue on analgesic medication as needed for pain. Will consider placing a consult to surgery if needed / Hypoglycemia Probably secondary to poor oral intake from the nausea and vomiting. Will monitor blood closely. cont on D5 NS. /Diabetes mellitus type 2 -Continue consistent carb diet and SSI coverage /Alcohol abuse, counseled for cessation, watch for withdrawal / DVT prophylaxis Patient placed on subcutaneous heparin. Patient is full code Family updated at the bedside Discussed plan of care with the RN Noted consultants recommendation d/c home when Cr, LFT stable and afebrile Brief History: 59-year-old -[place] female with known history of hypertension, diabetes mellitus, history of ventral hernia presenting to the emergency room with complaining of abdominal pain. She had a history of colitis sometime in 2019 and was placed on antibiotics. Work-up in the emergency room reveals patient's to be in acute renal failure with Cr of 5.5. CT scan of the abdomen also suggests possible b/l pyelonephritis. Hospitalist Physical exam: GENERAL: well-developed and well-nourished lying on bed appeared to be in no discomfort. HEENT: Normocephalic. Atraumatic. No conjunctival congestion or icterus. Patient has moist mucous membranes. NECK: Supple. Trachea midline. CHEST/LUNGS: Clear to auscultated bilaterally, breathing nonlabored. No wheezes crackles or rhonchi. HEART/CARDIOVASCULAR: Regular in rate and rhythm. S1 and S2 positive. ABDOMEN: Abdomen is soft, nontender. Patient has normal bowel sounds. + CVA tenderness, + ventral hernia SKIN: There is no rash. Warm and dry. NEURO: No focal motor deficit. Follows command. MUSCULOSKELETAL: No joint effusion or tenderness. EXTRIMITY: No edema, no cyanosis or clubbing. PSYCH: Cooperative. Subjective Date of service: 07/05/19 Principal diagnosis: elevated LFTs Interval history: Patient seen and examined. Medical records and medication list reviewed. No acute event overnight noted by the RN. Patient denies any chest pain or difficulty breathing. patient cont to spiking fever Discussed plan of care at bedside with patient. Objective - Constitutional Vitals: Vital Signs - 12hr 07/05/19 07/05/19 07/05/19 01:45 05:32 07:45 Temperature 98.9 F 101.2 F H 98.2 F Pulse Rate Respiratory 20 Rate Blood Pressure 139/61 O2 Sat by Pulse Oximetry 07/05/19 07/05/19 07:48 12:51 Temperature 99.1 F Pulse Rate 65 Respiratory 15 Rate Blood Pressure 129/56 O2 Sat by Pulse 96 99 Oximetry - Labs CBC & Chem 7: 07/05/19 04:19 07/06/19 08:26 Labs: Abnormal lab results 07/04/19 07/04/19 07/05/19 Range/Units 15:28 15:28 04:19 WBC 13.5 H (4.5-11.0) K/mm3 RBC 2.87 L (3.65-5.03) M/mm3 MCV 106 H (79-97) fl MCH 36 H (28-32) pg RDW 17.2 H (13.2-15.2) % Plt Count 131 L (140-440) K/mm3 Seg Neuts % (Manual) 88.0 H (40.0-70.0) % Lymphocytes % (Manual) 5.0 L (13.4-35.0) % Seg Neutrophils # Man 11.9 H (1.8-7.7) K/mm3 Lymphocytes # (Manual) 0.7 L (1.2-5.4) K/mm3 Monocytes # (Manual) 0.9 H (0.0-0.8) K/mm3 PT 17.2 H (12.2-14.9) Sec. INR 1.38 H (0.87-1.13) Potassium (3.6-5.0) mmol/L BUN (7-17) mg/dL Creatinine (0.7-1.2) mg/dL Glucose (65-100) mg/dL POC Glucose (70-105) Calcium (8.4-10.2) mg/dL Phosphorus (2.5-4.5) mg/dL Magnesium (1.7-2.3) mg/dL Total Bilirubin 4.40 H (0.1-1.2) mg/dL Direct Bilirubin 3.7 H (0-0.2) mg/dL AST 171 H (5-40) units/L Alkaline Phosphatase 244 H (35-129) units/L Total Protein 5.8 L (6.3-8.2) g/dL Albumin 1.9 L (3.9-5) g/dL 07/05/19 07/05/19 07/05/19 Range/Units 05:43 09:00 09:00 WBC (4.5-11.0) K/mm3 RBC (3.65-5.03) M/mm3 MCV (79-97) fl MCH (28-32) pg RDW (13.2-15.2) % Plt Count (140-440) K/mm3 Seg Neuts % (Manual) (40.0-70.0) % Lymphocytes % (Manual) (13.4-35.0) % Seg Neutrophils # Man (1.8-7.7) K/mm3 Lymphocytes # (Manual) (1.2-5.4) K/mm3 Monocytes # (Manual) (0.0-0.8) K/mm3 PT (12.2-14.9) Sec. INR (0.87-1.13) Potassium 3.4 L (3.6-5.0) mmol/L BUN 42 H (7-17) mg/dL Creatinine 1.5 H (0.7-1.2) mg/dL Glucose 104 H (65-100) mg/dL POC Glucose 160 H (70-105) Calcium 6.8 L (8.4-10.2) mg/dL Phosphorus 2.20 L (2.5-4.5) mg/dL Magnesium 1.60 L (1.7-2.3) mg/dL Total Bilirubin (0.1-1.2) mg/dL Direct Bilirubin (0-0.2) mg/dL AST (5-40) units/L Alkaline Phosphatase (35-129) units/L Total Protein (6.3-8.2) g/dL Albumin (3.9-5) g/dL 07/05/19 Range/Units 09:00 WBC (4.5-11.0) K/mm3 RBC (3.65-5.03) M/mm3 MCV (79-97) fl MCH (28-32) pg RDW (13.2-15.2) % Plt Count (140-440) K/mm3 Seg Neuts % (Manual) (40.0-70.0) % Lymphocytes % (Manual) (13.4-35.0) % Seg Neutrophils # Man (1.8-7.7) K/mm3 Lymphocytes # (Manual) (1.2-5.4) K/mm3 Monocytes # (Manual) (0.0-0.8) K/mm3 PT (12.2-14.9) Sec. INR (0.87-1.13) Potassium (3.6-5.0) mmol/L BUN (7-17) mg/dL Creatinine (0.7-1.2) mg/dL Glucose (65-100) mg/dL POC Glucose (70-105) Calcium (8.4-10.2) mg/dL Phosphorus (2.5-4.5) mg/dL Magnesium (1.7-2.3) mg/dL Total Bilirubin 3.90 H (0.1-1.2) mg/dL Direct Bilirubin 3.0 H (0-0.2) mg/dL AST 194 H (5-40) units/L Alkaline Phosphatase 262 H (35-129) units/L Total Protein 5.9 L (6.3-8.2) g/dL Albumin 1.9 L (3.9-5) g/dL
--- NOTE | 2019-07-05 18:04 | Progress Note ---
Assessment and Plan Cultures Blood culture 07/01/2019 [facility]-S E coli Urine culture 07/01/2019 GNR Assessment: 59 yo F PMHx DM2, ventral hernia admitted with acute sepsis secondary to E coli UTI and bacteremia 1. Acute sepsis: present with leukocytosis and fever, secondary to E coli UTI and bacteremia 2. E coli bacteremia: continue ceftriaxone while in house, but can de-escalate to levofloxacin on discharge 3. GNR UTI - presumably E coli as with blood cultures 4. DM2 - tight glycemic control 5. SHARIFA: renally dose antibiotics, may need dose adjustment as renal function improves. 6. Transaminitis Recs: -Continue ceftriaxone 2 g every 24 hours - Needs 2 weeks of therapy, stop date is 07/15/2019. Will discharge on levofloxacin but dose depends on amount of renal recovery on discharge. - Follow up urine culture for ID and HANNA. While most likely the same as her blood cultures, if different could explain persistent fevers. Has been >4 days now. Thank you for the consult, we will continue to follow. Dr. Rowland taking over Sunday. [facility] M: [phone] O: [phone] F: [phone] Subjective Date of service: 07/05/19 Principal diagnosis: elevated LFTs Interval history: Persistently febrile. No new complaints, but again reticent to talk. Objective - Exam Narrative Exam: General Normal appearance, well developed, no acute distress ENT - Moist mucous membranes, no lymphadenopathy Cardiovascular - RRR no m/r/g, no JVD, no carotid bruits Lungs - Clear to auscultation, no use of accessory muscles, no crackles or wheezes. Skin - No rashes, skin warm and dry, no erythematous areas Abdomen - Normal bowel sounds, abdomen soft and nontender. Ventral hernia Extremities - No edema, cyanosis or clubbing Musculoskeletal - 5/5 strength, normal range of motion, no swollen or erythematous joints. Neurological Alert and oriented x 3, CN 2-12 grossly intact. - Constitutional Vitals: Vital Signs Temp Pulse Resp BP Pulse Ox 100.8 F H 68 22 130/62 99 07/05/19 16:39 07/05/19 16:39 07/05/19 16:39 07/05/19 16:39 07/05/19 16:39 Temperature -Last 24 Hours Temperature 100.8 F Temperature 99.1 F Temperature 98.2 F Temperature 101.2 F Temperature 98.9 F Temperature 101.5 F - Labs CBC & Chem 7: 07/05/19 04:19 07/05/19 09:00 Labs: Abnormal lab results 07/05/19 07/05/19 07/05/19 Range/Units 04:19 05:43 09:00 WBC 13.5 H (4.5-11.0) K/mm3 RBC 2.87 L (3.65-5.03) M/mm3 MCV 106 H (79-97) fl MCH 36 H (28-32) pg RDW 17.2 H (13.2-15.2) % Plt Count 131 L (140-440) K/mm3 Seg Neuts % (Manual) 88.0 H (40.0-70.0) % Lymphocytes % (Manual) 5.0 L (13.4-35.0) % Seg Neutrophils # Man 11.9 H (1.8-7.7) K/mm3 Lymphocytes # (Manual) 0.7 L (1.2-5.4) K/mm3 Monocytes # (Manual) 0.9 H (0.0-0.8) K/mm3 Potassium 3.4 L (3.6-5.0) mmol/L BUN 42 H (7-17) mg/dL Creatinine 1.5 H (0.7-1.2) mg/dL Glucose 104 H (65-100) mg/dL POC Glucose 160 H (70-105) Calcium 6.8 L (8.4-10.2) mg/dL Phosphorus (2.5-4.5) mg/dL Magnesium (1.7-2.3) mg/dL Total Bilirubin (0.1-1.2) mg/dL Direct Bilirubin (0-0.2) mg/dL AST (5-40) units/L Alkaline Phosphatase (35-129) units/L Total Protein (6.3-8.2) g/dL Albumin (3.9-5) g/dL 07/05/19 07/05/19 Range/Units 09:00 09:00 WBC (4.5-11.0) K/mm3 RBC (3.65-5.03) M/mm3 MCV (79-97) fl MCH (28-32) pg RDW (13.2-15.2) % Plt Count (140-440) K/mm3 Seg Neuts % (Manual) (40.0-70.0) % Lymphocytes % (Manual) (13.4-35.0) % Seg Neutrophils # Man (1.8-7.7) K/mm3 Lymphocytes # (Manual) (1.2-5.4) K/mm3 Monocytes # (Manual) (0.0-0.8) K/mm3 Potassium (3.6-5.0) mmol/L BUN (7-17) mg/dL Creatinine (0.7-1.2) mg/dL Glucose (65-100) mg/dL POC Glucose (70-105) Calcium (8.4-10.2) mg/dL Phosphorus 2.20 L (2.5-4.5) mg/dL Magnesium 1.60 L (1.7-2.3) mg/dL Total Bilirubin 3.90 H (0.1-1.2) mg/dL Direct Bilirubin 3.0 H (0-0.2) mg/dL AST 194 H (5-40) units/L Alkaline Phosphatase 262 H (35-129) units/L Total Protein 5.9 L (6.3-8.2) g/dL Albumin 1.9 L (3.9-5) g/dL
--- NOTE | 2019-07-05 21:41 | XRay Report ---
CHEST 2 VIEWS INDICATION: Persistent cough. COMPARISON: 07/02/2019 FINDINGS: Support devices: None. Heart: Within normal limits. Lungs: Interstitial is prominent. Small bilateral pleural effusions are present. Pleura: No significant pleural effusion. No pneumothorax. Additional findings: None. IMPRESSION: 1. Diffuse interstitial pulmonary process, pulmonary edema is a concern Signer Name: Isra Valero MD Signed: 07/05/2019 9:37 PM Workstation Name: [id number]
[2019-07-06] MEDS: SODIUM CHLORIDE 0.9% 1000 ML 1,000 ML IV SCH (02:16)
[2019-07-06] MEDS: ACETAMINOPHEN 325 MG TAB PO PRN (02:46)
[2019-07-06] MEDS: BENZONATATE 100 MG CAP PO SCH ×2 (05:45→13:27)
[2019-07-06 09:38] LABS: Calcium 7.3 mg/dL (8.4-10.2)
[2019-07-06] MEDS: THIAMINE 100 MG TAB PO SCH (10:27)
[2019-07-06] MEDS: HEPARIN 5,000 UNIT/1 ML VIAL SUB-Q SCH (10:27)
[2019-07-06] MEDS: cefTRIAXone/NS 2 GM/100 ML 2 GM/100 ML BAG IV SCH (10:27)
[2019-07-06] MEDS: FOLIC ACID 1 MG TAB PO SCH (10:27)
[2019-07-06] MEDS ORDERED: MAGNESIUM OXIDE 400 MG TAB PO SCH (11:00)
[2019-07-06] MEDS ORDERED: POTASSIUM CHLORIDE ER 20 MEQ TAB PO SCH ×2 (11:00→12:59)
[2019-07-06] MEDS: POTASSIUM CHLORIDE 10 MEQ 10 MEQ/100 ML BAG IV SCH ×2 (11:19→12:00)
[2019-07-06] MEDS ORDERED: MAGNESIUM SULFATE 3 GM in SODIUM CHLORIDE 0.9% 100 ML IV ONE (12:00)
--- NOTE | 2019-07-06 12:28 | Progress Note ---
Subjective Principal diagnosis: elevated LFTs Interval history: Patient was seen today for follow-up of multiple renal related issues she is feeling better Encephalopathy cleared up Interdisciplinary notes that also reviewed Events of 24 hours vitals labs intake output medications were reviewed Past medical history: Reviewed Family history: Reviewed Social history: Reviewed Allergies: Reviewed Physical examination: Vitals: Reviewed HEENT: No pallor or icterus oral mucosa moist Neck: Supple no JVD no thyromegaly Chest: Bilateral clear to auscultation anteriorly Heart: Regular rate and rhythm S1-S2 heard no S3-S4 Abdomen: Soft nontender no voluntary guarding rigidity rebound Extremity: Dry skin less than 1+ peripheral edema Dermatology: No petechial rashes Labs and x-rays: Reviewed from today Assessment and plan Renal failure: Improving renal function, creatinine has normalized now 1.2 Mild hypokalemia: Consider replacement Hypomagnesemia needs replacement and follow-up Overall patient is doing much better from renal standpoint Was admitted with sepsis, E. coli bacteremia with positive blood culture Has multiple risk factors for underlying chronic kidney disease Metabolic acidosis improved Left kidney has a complex cyst please arrange for a urology evaluation Patient has been advised to make an appointment in the office upon discharge History of significant nonsteroidal medication use discussed about diet and lifestyle changes that patient needs to make We'll continue to follow and make recommendation for renal standpoint Objective - Vital Signs Vital signs: Vital Signs - 12hr 07/06/19 07/06/19 07/06/19 01:16 05:44 08:51 Temperature 100.6 F H 98.7 F Pulse Rate 74 67 63 Respiratory 18 18 18 Rate Blood Pressure 129/46 131/63 125/46 O2 Sat by Pulse 97 99 98 Oximetry 07/06/19 07/06/19 08:53 09:43 Temperature Pulse Rate Respiratory Rate Blood Pressure O2 Sat by Pulse 98 98 Oximetry - Lab 07/05/19 04:19 07/06/19 08:26 Most recent lab results Calcium 7.3 mg/dL (8.4-10.2) L 07/06/19 08:26 Phosphorus 2.20 mg/dL (2.5-4.5) L 07/05/19 09:00 Magnesium 1.30 mg/dL (1.7-2.3) L 07/06/19 08:26 Medications & Allergies - Medications Allergies/Adverse Reactions: Allergies No Known Allergies Allergy (Verified 11/01/18 16:33) Home Medications: Home Medications Medication Instructions Recorded Confirmed Last Taken Type No Known Home Medications [No 07/01/19 07/01/19 Unknown History Reported Home Medications] Active Medications: Generic Name Dose Route Start Last Admin Trade Name Freq PRN Reason Stop Dose Admin Acetaminophen 650 mg 07/01/19 01:05 07/06/19 02:46 Tylenol PO 650 mg Q4H PRN Administration Pain MILD(1-3)/Fever >100.5/GOLD Benzonatate 100 mg 07/02/19 14:00 07/06/19 05:45 Tessalon Perles PO 100 mg Q8HR ARNALDO Administration Dextrose 50 ml 07/01/19 05:31 D50w (25gm) Syringe IV Q30MIN PRN Hypoglycemia Protocol Folic Acid 1 mg 07/04/19 16:00 07/06/19 10:27 Folvite PO 1 mg QDAY ARNALDO Administration Heparin Sodium (Porcine) 5,000 unit 07/04/19 22:00 07/06/19 10:27 Heparin SUB-Q 5,000 unit Q12HR ARNALDO Administration Sodium Chloride 1,000 mls @ 75 mls/hr 07/03/19 15:00 07/06/19 02:16 Nacl 0.9% 1000 Ml IV 75 mls/hr DIRECT ARNALDO Administration Ceftriaxone Sodium 2 gm in 100 mls @ 200 mls/hr 07/04/19 10:00 07/06/19 10:27 Rocephin/Ns 2 Gm/100 Ml IV 07/15/19 10:29 200 mls/hr Q24HR ARNALDO Administration Protocol Potassium Chloride 10 meq in 100 mls @ 100 mls/hr 07/06/19 12:00 07/06/19 11:19 Kcl 10meq/100ml IV 07/06/19 14:59 100 mls/hr Q1H ARNALDO Administration Magnesium Sulfate 3 gm/ Sodium 106 mls @ 35.333 mls/hr 07/06/19 12:00 Chloride IV 07/06/19 14:59 ONCE ONE Magnesium Hydroxide 30 ml 07/01/19 01:05 07/02/19 11:53 Milk Of Magnesia PO 30 ml Q4H PRN Administration Constipation Magnesium Oxide 400 mg 07/06/19 11:00 07/06/19 11:19 Mag-Ox PO 400 mg QDAY ARNALDO Administration Morphine Sulfate 2 mg 07/01/19 01:05 07/01/19 10:33 Morphine IV 2 mg Q4H PRN Administration Pain, Moderate (4-6) Ondansetron HCl 4 mg 07/01/19 01:05 07/02/19 10:44 Zofran IV 4 mg Q8H PRN Administration Nausea And Vomiting Potassium Chloride 20 meq 07/06/19 11:00 07/06/19 11:19 K-Dur PO 20 meq QDAY ARNALDO Administration Sodium Chloride 10 ml 07/01/19 10:00 07/06/19 10:27 Sodium Chloride Flush Syringe 10 Ml IV 10 ml BID ARNALDO Administration Sodium Chloride 10 ml 07/01/19 01:05 Sodium Chloride Flush Syringe 10 Ml IV PRN PRN LINE FLUSH Thiamine HCl 100 mg 07/04/19 16:00 07/06/19 10:27 Vitamin B-1 PO 100 mg QDAY ARNALDO Administration
--- NOTE | 2019-07-06 12:33 | Gastroenterology Progress Note ---
Assessment and Plan . Liver: pt presented w/ sepsis now with bacteria and noted increase LFT's - suspect due to sepsis w/ etoh vs other - LFT's slowly improving overall based upon trend, from GI standpoint patient may be discharged with close outpatient follow-up Regarding abdominal wall hernia, easily reducible but patient reports is causing her symptoms. Therefore she may be referred to see surgery as an outpatient for evaluation of repair - Patient Problems (1) Elevated LFTs Current Visit: Yes Status: Acute (2) Ventral hernia Current Visit: No Status: Acute Subjective Date of service: 07/06/19 Principal diagnosis: elevated LFTs Interval history: Patient's chief complaint is her chronic cough as well as her abdominal hernia which is causing her discomfort Objective - Constitutional Vitals: Temp Pulse Resp BP Pulse Ox 98.7 F 63 18 125/46 98 07/06/19 05:44 07/06/19 08:51 07/06/19 08:51 07/06/19 08:51 07/06/19 09:43 General appearance: no acute distress - Respiratory Respiratory effort: other (Intermittent cough) - Cardiovascular Rhythm: regular - Gastrointestinal General gastrointestinal: Present: other (Positive bowel sounds, soft, large mid abdominal hernia superior to the umbilicus) - Labs CBC & Chem 7: 07/05/19 04:19 07/06/19 08:26 Labs: Laboratory Results - last 24 hr 07/05/19 07/05/19 07/06/19 16:55 22:21 05:53 Sodium Potassium Chloride Carbon Dioxide Anion Gap BUN Creatinine Estimated GFR BUN/Creatinine Ratio Glucose POC Glucose 92 92 77 Calcium Magnesium 07/06/19 07/06/19 08:26 08:26 Sodium 142 Potassium 3.2 L Chloride 103.0 Carbon Dioxide 26 Anion Gap 16 BUN 28 H Creatinine 1.2 Estimated GFR 55 BUN/Creatinine Ratio 23 Glucose 84 POC Glucose Calcium 7.3 L Magnesium 1.30 L
[2019-07-06] MEDS ORDERED: FUROSEMIDE 40 MG/4 ML INJ IV SCH (13:10)
--- NOTE | 2019-07-06 13:13 | Progress Note ---
Assessment and Plan / Pyelonephritis with sepsis and bacteremia - POA Patient placed on empiric IV antibiotics and also on IV fluid. Urine culture and blood culture growing E. coli - consulted ID -Continue ceftriaxone 2 g every 24 hours - Needs 2 weeks of therapy, stop date is 07/15/2019. Will discharge on levofloxacin but dose depends on amount of renal recovery on discharge. /Acute renal failure continue to vasomotor nephropathy Possibly secondary to the dehydration from the sepsis, intractable nausea and vomiting and diarrhea. s/p IV fluid and monitored BUN and creatinine. Consulted nephrology for evaluation and further recommendation. Cr trended down / hypokalemia with hypomagnesemia - cont to replete / Elevated liver enzymes with Hyperbilirubinemia - consulted to gastroenterology for further recommendation. -acetaminophen level and acute hepatitis panel negative -autoimmune serologies pending -abd CT showed fatty infiltration in liver and dilated vascular structure in the dome of the liver, likely vascular malformation intrahepatic portocystemic shunt (unchanged from prior imaging) -abd U/S-hepatic steatosis and prominent CBD 2/2 prior cholecystectomy -etiology- likely 2/2 sepsis (+/- alcohol) vs other -continue to trend labs (repeat labs for today pending) and and supportive care -further recommendations to follow /Mild CHFrEF, compensated 2d echo showed Ef of 45% outpt f/u, counselled to stop EtOH /Ventral hernia Hernia is reducible. Continue on analgesic medication as needed for pain. Will consider placing a consult to surgery if needed / Hypoglycemia Probably secondary to poor oral intake from the nausea and vomiting. Will monitor blood closely. cont on D5 NS. /Diabetes mellitus type 2 -Continue consistent carb diet and SSI coverage /Alcohol abuse, counseled for cessation, watch for withdrawal / DVT prophylaxis Patient placed on subcutaneous heparin. Patient is full code Family updated at the bedside Discussed plan of care with the RN Noted consultants recommendation d/c home when Cr, LFT stable and afebrile Brief History: 59-year-old -[place] female with known history of hypertension, diabetes mellitus, history of ventral hernia presenting to the emergency room with complaining of abdominal pain. She had a history of colitis sometime in 2019 and was placed on antibiotics. Work-up in the emergency room reveals patient's to be in acute renal failure with Cr of 5.5. CT scan of the abdomen also suggests possible b/l pyelonephritis. Hospitalist Physical exam: GENERAL: well-developed and well-nourished lying on bed appeared to be in no discomfort. HEENT: Normocephalic. Atraumatic. No conjunctival congestion or icterus. Pat ient has moist mucous membranes. NECK: Supple. Trachea midline. CHEST/LUNGS: Clear to auscultated bilaterally, breathing nonlabored. No wheezes crackles or rhonchi. HEART/CARDIOVASCULAR: Regular in rate and rhythm. S1 and S2 positive. ABDOMEN: Abdomen is soft, nontender. Patient has normal bowel sounds. + CVA tenderness, + ventral hernia SKIN: There is no rash. Warm and dry. NEURO: No focal motor deficit. Follows command. MUSCULOSKELETAL: No joint effusion or tenderness. EXTRIMITY: No edema, no cyanosis or clubbing. PSYCH: Cooperative. Subjective Date of service: 07/06/19 Principal diagnosis: elevated LFTs Interval history: Patient seen and examined. Medical records and medication list reviewed. No acute event overnight noted by the RN. Patient denies any chest pain or difficulty breathing. patient cont to spiking fever Discussed plan of care at bedside with patient. Objective - Constitutional Vitals: Vital Signs - 12hr 07/06/19 07/06/19 07/06/19 01:16 05:44 08:51 Temperature 100.6 F H 98.7 F Pulse Rate 74 67 63 Respiratory 18 18 18 Rate Blood Pressure 129/46 131/63 125/46 O2 Sat by Pulse 97 99 98 Oximetry 07/06/19 07/06/19 07/06/19 08:53 09:43 12:23 Temperature 99.6 F Pulse Rate 68 Respiratory 20 Rate Blood Pressure 127/62 O2 Sat by Pulse 98 98 99 Oximetry - Labs CBC & Chem 7: 07/05/19 04:19 07/06/19 08:26 Labs: Abnormal lab results 07/06/19 07/06/19 Range/Units 08:26 08:26 Potassium 3.2 L (3.6-5.0) mmol/L BUN 28 H (7-17) mg/dL Calcium 7.3 L (8.4-10.2) mg/dL Magnesium 1.30 L (1.7-2.3) mg/dL
--- NOTE | 2019-07-06 15:46 | Discharge Summary ---
Providers - Providers Date of Admission: 07/01/19 04:57 Date of discharge: 07/06/19 Attending physician: MAUREEN GRIMALDO 07/01/19 01:05 Consult to Physician [CONS] Routine Comment: Consulting Provider: DONA LYNCH Physician Instructions: Reason For Exam: Acute Renal Failure 07/01/19 01:17 Consult to Physician [CONS] Routine Comment: Consulting Provider: ASIA BERGER Physician Instructions: Reason For Exam: Elevated liver enzymes 07/01/19 05:31 Consult to Dietitian/Nutrition [CONS] Routine Physician Instructions: Reason For Exam: Reason for Consult: Diet education 07/03/19 12:55 Consult to Physician [CONS] Routine Comment: Consulting Provider: JOSE CHARLES Physician Instructions: Reason For Exam: bacteremia 07/04/19 15:08 Physical Therapy Evaluation and Treat [CONS] Routine Comment: Reason For Exam: placement Primary care physician: PIT OPERATOR Hospitalization Condition: Stable Pertinent studies: Abdomen/pelvis CT Abdomen/pelvis US CXR Hospital course: Discharge diagnosis: / Pyelonephritis with sepsis and bacteremia - POA Patient placed on empiric IV antibiotics and also on IV fluid. Urine culture and blood culture growing E. coli - consulted ID -placed on ceftriaxone 2 g every 24 hours - Needs 2 weeks of therapy, stop date is 07/15/2019. Will discharge on levofloxacin but dose depends on amount of renal recovery on discharge. /Acute renal failure continue to vasomotor nephropathy Possibly secondary to the dehydration from the sepsis, intractable nausea and vomiting and diarrhea. s/p IV fluid and monitored BUN and creatinine. Consulted nephrology for evaluation and further recommendation. Cr trended down / hypokalemia with hypomagnesemia - repleted, need to repeat CMP in one week / Elevated liver enzymes with Hyperbilirubinemia - consulted to gastroenterology for further recommendation. -acetaminophen level and acute hepatitis panel negative -autoimmune serologies ordered -abd CT showed fatty infiltration in liver and dilated vascular structure in the dome of the liver, likely vascular malformation intrahepatic portocystemic shunt (unchanged from prior imaging) -abd U/S-hepatic steatosis and prominent CBD 2/2 prior cholecystectomy -etiology- likely 2/2 sepsis (+/- alcohol) vs other -continue to trend labs (repeat labs for today pending) and and supportive care -need outpt f/u /Mild CHFrEF, compensated 2d echo showed Ef of 45% outpt f/u, counselled to stop EtOH /Ventral hernia Hernia is reducible. Continue on analgesic medication as needed for pain. Will consider placing a consult to surgery if needed / Hypoglycemia Probably secondary to poor oral intake from the nausea and vomiting. s/p D5 NS. /Diabetes mellitus type 2 -Continue consistent carb diet and SSI coverage /Alcohol abuse, counseled for cessation, watch for withdrawal / DVT prophylaxis Patient placed on subcutaneous heparin. Patient is full code Family updated at the bedside Discussed plan of care with the RN Noted consultants recommendation d/c home Hospitalist Physical exam: GENERAL: well-developed and well-nourished lying on bed appeared to be in no discomfort. HEENT: Normocephalic. Atraumatic. No conjunctival congestion or icterus. Patient has moist mucous membranes. NECK: Supple. Trachea midline. CHEST/LUNGS: Clear to auscultated bilaterally, breathing nonlabored. No wheezes crackles or rhonchi. HEART/CARDIOVASCULAR: Regular in rate and rhythm. S1 and S2 positive. ABDOMEN: Abdomen is soft, nontender. Patient has normal bowel sounds. + CVA tenderness, + ventral hernia SKIN: There is no rash. Warm and dry. NEURO: No focal motor deficit. Follows command. MUSCULOSKELETAL: No joint effusion or tenderness. EXTRIMITY: No edema, no cyanosis or clubbing. PSYCH: Cooperative. Disposition: DC-30 STILL A PATIENT Time spent for discharge: 34 minutes Core Measure Documentation - Palliative Care Palliative Care/ Comfort Measures: Not Applicable - Core Measures Any of the following diagnoses?: none Exam - Constitutional Vitals: Temp Pulse Resp BP Pulse Ox 99.6 F 68 20 127/62 99 07/06/19 12:23 07/06/19 12:23 07/06/19 12:23 07/06/19 12:23 07/06/19 12:23 Plan Activity: advance as tolerated Weight Bearing Status: Weight Bear as Tolerated Diet: low fat, low salt, diabetic Special Instructions: restrict fluid intake to (1.5L daily), record daily weights, record daily BP diary, record blood sugar diary Follow up with: PRIMARY CARE, [Primary Care Provider] - 7 Days Prescriptions: Folic Acid [Folvite] 1 mg PO QDAY #30 tablet Potassium Chloride [K-Dur] 20 meq PO QDAY #5 tablet levoFLOXacin [Levaquin] 750 mg PO QDAY #10 tablet Magnesium Oxide [Mag-Ox] 400 mg PO QDAY #5 tablet Thiamine [Vitamin B-1] 100 mg PO QDAY #30 tablet
[2019-07-06 16:04] LABS: Albumin 2.3 g/dL (3.9-5)
[2019-07-06 16:27] VITALS: BP 117/53
[2019-07-06 21:39] LABS: ANA Screen, IFA Negative (Negative)
== END 2019-07-06 18:55 | disposition home or self-care (01) | DRG 871 ==
LOC: ED 18:03 → 3A 07-01 04:57
PROVIDERS: ADMIT Internal Medicine Geriatric Medicine; ATTEND Internal Medicine
DX: A41.51 Sepsis due to Escherichia coli [E. coli] (principal); N17.0 Acute kidney failure with tubular necrosis; N10 Acute pyelonephritis; E87.2 Acidosis; I50.22 Chronic systolic (congestive) heart failure; K43.9 Ventral hernia without obstruction or gangrene; E80.6 Other disorders of bilirubin metabolism; R74.0 Nonspecific elevation of levels of transaminase and lactic acid dehydrogenase [LDH]; I10 Essential (primary) hypertension; E11.9 Type 2 diabetes mellitus without complications; F10.10 Alcohol abuse, uncomplicated; Y90.9 Presence of alcohol in blood, level not specified; E11.649 Type 2 diabetes mellitus with hypoglycemia without coma; E87.6 Hypokalemia; E83.51 Hypocalcemia; E83.42 Hypomagnesemia; Z90.49 Acquired absence of other specified parts of digestive tract
CPT/HCPCS: 36415; 71045; 71046; 74176; 76700; 80048; 80074; 80076; 80320; 81001; 82330; 82728; 82962; 83516; 83520; 83690; 83735; 83880; 84100; 84132; 85007; 85025; 85610; 85730; 86021; 86038; 86160; 86334; 87040; 87076; 87086; 87116; 87186; 89050; 93306; 94760; 96374; G0378; G0480; J0500; J0692; J0696; J1644; J1940; J2270; J2405; J3430; J3475; J3480; J7030; J7042; J7070

== ENCOUNTER 2021-11-20 19:04 | Emergency (ER) | payer SELFPAY ==
--- NOTE | 2021-11-20 21:29 | Emergency Department Report ---
ED Back Pain/Injury HPI - General Chief Complaint: Back Pain/Injury Stated Complaint: BACK PAIN Time Seen by Provider: 11/20/21 21:14 Source: EMS Limitations: No Limitations - History of Present Illness Initial Comments: 61-year-old -Luxembour[place] female with known history of hypertension, diabetes mellitus, alcohol abuse, ventral hernia, and uterine cancer presents to the [facility] complaining of severe lower back pain since last night. Pain is 10/10 intensity, constant, across her back and worse with palpation and movement. Patient taking Motrin 800 mg without relief. Patient has pain radiating down her thighs and lower abdomen. He denies nausea, vomiting, hematuria, dysuria or urinary incontinence. She denies recent trauma or's previous history of back pain. Patient had a hysterectomy secondary to uterine cancer in May and recently finished her last round of chemotherapy. She is managed at [facility] and [facility]. - Related Data Previous Rx's Medication Instructions Recorded Last Taken Type Folic Acid [Folvite] 1 mg PO QDAY #30 tablet 07/06/19 Unknown Rx Magnesium Oxide [Mag-Ox] 400 mg PO QDAY #5 tablet 07/06/19 Unknown Rx Potassium Chloride [K-Dur] 20 meq PO QDAY #5 tablet 07/06/19 Unknown Rx Thiamine [Vitamin B-1] 100 mg PO QDAY #30 tablet 07/06/19 Unknown Rx levoFLOXacin [Levaquin] 750 mg PO QDAY #10 tablet 07/06/19 Unknown Rx Ibuprofen [Motrin] 800 mg PO Q8HR PRN #20 tablet 11/21/21 Unknown Rx Oxycodone HCl/Acetaminophen 1 each PO Q6HR PRN #20 tab 11/21/21 Unknown Rx [Percocet 7.5/325 mg] Allergies Allergy/AdvReac Type Severity Reaction Status Date / Time No Known Allergies Allergy Verified 11/01/18 16:33 ED Review of Systems ROS: Stated complaint: BACK PAIN Other details as noted in HPI Comment: All other systems reviewed and negative ED Past Medical Hx - Past Medical History Previous Medical History?: Yes Hx Hypertension: Yes Hx Congestive Heart Failure: No Hx Diabetes: Yes Hx Seizures: No Hx Asthma: Yes Hx COPD: No Hx Tuberculosis: No Hx Dementia: No Hx HIV: No Additional medical history: ANEMIA - Surgical History Past Surgical History?: Yes Hx Cholecystectomy: Yes - Social History Smoking Status: Never Smoker - Medications Home Medications: Home Medications Medication Instructions Recorded Confirmed Last Taken Type Folic Acid [Folvite] 1 mg PO QDAY #30 tablet 07/06/19 Unknown Rx Magnesium Oxide [Mag-Ox] 400 mg PO QDAY #5 tablet 07/06/19 Unknown Rx Potassium Chloride [K-Dur] 20 meq PO QDAY #5 tablet 07/06/19 Unknown Rx Thiamine [Vitamin B-1] 100 mg PO QDAY #30 tablet 07/06/19 Unknown Rx levoFLOXacin [Levaquin] 750 mg PO QDAY #10 tablet 07/06/19 Unknown Rx Ibuprofen [Motrin] 800 mg PO Q8HR PRN #20 tablet 11/21/21 Unknown Rx Oxycodone HCl/Acetaminophen 1 each PO Q6HR PRN #20 tab 11/21/21 Unknown Rx [Percocet 7.5/325 mg] ED Physical Exam - General Limitations: No Limitations - Other Other exam information: General: Distressed secondary to pain Head: Atraumatic Eyes: normal appearance ENT: Moist mucous membranes Neck: Normal appearance, no midline tenderness Chest: Clear to auscultation bilaterally CV: Regular rate and rhythm Abdomen: Soft, normal bowel sounds, ventral abdominal hernia reducible, mild lower abdominal tenderness Back: Normal inspection, tenderness across mid lower back including left and right paraspinal muscle Extremity: Normal inspection, full range of motion Neuro: Alert O x 3, no facial asymmetry, speech clear, no gross motor sensory deficit Psych: Appropriate behavior Skin: No rash ED Course Vital Signs 11/20/21 19:11 Temperature 97.2 F L Pulse Rate 82 Respiratory 17 Rate Blood Pressure 132/84 [Left] O2 Sat by Pulse 98 Oximetry ED Medical Decision Making - Lab Data Result diagrams: 11/20/21 21:55 11/20/21 21:55 Lab Results 11/20/21 11/20/21 11/20/21 Range/Units 21:55 21:55 21:55 WBC 5.0 (4.5-11.0) K/mm3 RBC 3.10 L (3.65-5.03) M/mm3 Hgb 10.8 (10.1-14.3) gm/dl Hct 32.8 (30.3-42.9) % MCV 106 H (79-97) fl MCH 35 H (28-32) pg MCHC 33 (30-34) % RDW 18.2 H (13.2-15.2) % Plt Count 129 L (140-440) K/mm3 Sodium 136 L (137-145) mmol/L Potassium 3.7 (3.6-5.0) mmol/L Chloride 95.7 L (98-107) mmol/L Carbon Dioxide 25 (22-30) mmol/L Anion Gap 19 mmol/L BUN 19 H (7-17) mg/dL Creatinine 0.6 (0.6-1.2) mg/dL Estimated GFR > 60 ml/min BUN/Creatinine Ratio 32 % Glucose 102 H (65-100) mg/dL Calcium 9.4 (8.4-10.2) mg/dL Magnesium 1.80 (1.7-2.3) mg/dL Total Bilirubin 0.60 (0.1-1.2) mg/dL AST 39 (5-40) units/L ALT 34 (7-56) units/L Alkaline Phosphatase 100 (35-129) units/L Total Protein 7.1 (6.3-8.2) g/dL Albumin 4.2 (3.9-5) g/dL Albumin/Globulin Ratio 1.4 % Urine Color (Yellow) Urine Turbidity (Clear) Urine pH (5.0-7.0) Ur Specific [place] (1.003-1.030) Urine Protein (Negative) mg/dL Urine Glucose (UA) (Negative) mg/dL Urine Ketones (Negative) mg/dL Urine Blood (Negative) Urine Nitrite (Negative) Urine Bilirubin (Negative) Urine Urobilinogen (<2.0) mg/dL Ur Leukocyte Esterase (Negative) Urine WBC (Auto) (0.0-6.0) /HPF Urine RBC (Auto) (0.0-6.0) /HPF U Epithel Cells (Auto) (0-13.0) /HPF Urine Bacteria (Auto) (Negative) /HPF Plasma/Serum Alcohol < 0.01 (0-0.07) % 11/20/21 Range/Units 22:28 WBC (4.5-11.0) K/mm3 RBC (3.65-5.03) M/mm3 Hgb (10.1-14.3) gm/dl Hct (30.3-42.9) % MCV (79-97) fl MCH (28-32) pg MCHC (30-34) % RDW (13.2-15.2) % Plt Count (140-440) K/mm3 Sodium (137-145) mmol/L Potassium (3.6-5.0) mmol/L Chloride (98-107) mmol/L Carbon Dioxide (22-30) mmol/L Anion Gap mmol/L BUN (7-17) mg/dL Creatinine (0.6-1.2) mg/dL Estimated GFR ml/min BUN/Creatinine Ratio % Glucose (65-100) mg/dL Calcium (8.4-10.2) mg/dL Magnesium (1.7-2.3) mg/dL Total Bilirubin (0.1-1.2) mg/dL AST (5-40) units/L ALT (7-56) units/L Alkaline Phosphatase (35-129) units/L Total Protein (6.3-8.2) g/dL Albumin (3.9-5) g/dL Albumin/Globulin Ratio % Urine Color Yellow (Yellow) Urine Turbidity Clear (Clear) Urine pH 5.0 (5.0-7.0) Ur Specific [place] 1.016 (1.003-1.030) Urine Protein <15 mg/dl (Negative) mg/dL Urine Glucose (UA) Neg (Negative) mg/dL Urine Ketones Neg (Negative) mg/dL Urine Blood Sm (Negative) Urine Nitrite Neg (Negative) Urine Bilirubin Neg (Negative) Urine Urobilinogen < 2.0 (<2.0) mg/dL Ur Leukocyte Esterase Neg (Negative) Urine WBC (Auto) 5.0 (0.0-6.0) /HPF Urine RBC (Auto) 1.0 (0.0-6.0) /HPF U Epithel Cells (Auto) 2.0 (0-13.0) /HPF Urine Bacteria (Auto) 1+ (Negative) /HPF Plasma/Serum Alcohol (0-0.07) % - Radiology Data Radiology results: report reviewed CT ABDOMEN AND PELVIS WITH CONTRAST INDICATION / CLINICAL INFORMATION: severe lumbar pain, lower abd pain, hx uterine ca. TECHNIQUE: Axial CT images were obtained through the abdomen and pelvis after Omnipaque 300, 100 cc IV contrast. [address] scans at this location are performed using CT dose reduction for ALARA by means of automated exposure control. COMPARISON: CT abdomen and pelvis 11/05/2018. FINDINGS: LOWER CHEST: No significant abnormality. LIVER: Intrahepatic portosystemic shunt again noted at the hepatic dome. GALLBLADDER: Surgically absent. BILE DUCTS: No significant abnormality. PANCREAS: No significant abnormality. SPLEEN: No significant abnormality. ADRENALS: No significant abnormality. RIGHT KIDNEY / URETER: No significant abnormality. LEFT KIDNEY / URETER: No significant abnormality. STOMACH / SMALL BOWEL: No significant abnormality. COLON: No significant abnormality. APPENDIX: Nonvisualized. PERITONEUM: No free fluid. No free air. No fluid collection. LYMPH NODES: No significant adenopathy. VASCULAR STRUCTURES: No significant abnormality. URINARY BLADDER: No significant abnormality. REPRODUCTIVE ORGANS: Uterus surgically absent. ADDITIONAL FINDINGS: Large fat-containing ventral hernia remains in the midline above the umbilicus. SKELETAL SYSTEM: No significant abnormality. IMPRESSION: Negative for obstruction or localized inflammation. - Medical Decision Making 61-year-old female with history of uterine cancer and recently completed chemotherapy presents to the hospital nontraumatic lower back pain. She was treated with narcotic medication and NSAIDs in the ED with some improvement in pain. Lab work, urine, and CT abdomen pelvis including visualization of the adin mbar spine do not reveal any acute abnormality. Chronic ventral hernia containing fat noted. Patient required multiple doses of medication before pain relief. 1 dose of steroids also provided due to radicular pain. Patient does not have urinary incontinence or complaints of perineal numbness Critical Care Time: No Critical care attestation.: If time is entered above; I have spent that time in minutes in the direct care of this critically ill patient, excluding procedure time. ED Disposition Clinical Impression: Lower back pain, Radiculopathy Disposition: 01 HOME / SELF CARE / HOMELESS Is pt being admited?: No Does the pt Need Aspirin: No Condition: Stable Instructions: Lumbosacral Radiculopathy, Acute Back Pain, Adult Additional Instructions: Take the medication as prescribed. Follow-up with your doctor or doctor/clinic provided. Return if symptoms worsen as indicated by your discharge instructions. Prescriptions: Ibuprofen [Motrin] 800 mg PO Q8HR PRN #20 tablet PRN Reason: Pain , Severe (7-10) Oxycodone HCl/Acetaminophen [Percocet 7.5/325 mg] 1 each PO Q6HR PRN #20 tab PRN Reason: Pain , Severe (7-10) Referrals: PASTOR BRADFORD II, MD [Staff Physician] - 2-3 Days (Neurosurgeon) Time of Disposition: 03:15
[2021-11-20] MEDS: KETOROLAC 30 MG/1 ML INJ IV ONE (21:37)
[2021-11-20] MEDS: fentaNYL 100 MCG/2 ML INJ IV ONE (21:37)
[2021-11-20] MEDS: ONDANSETRON 4 MG/2 ML INJ IV ONE (21:37)
[2021-11-20 22:32] LABS: Hematocrit 32.8 % (30.3-42.9); Hemoglobin 10.8 gm/dl (10.1-14.3); Mean Corpuscular HGB Conc 33 % (30-34); Mean Corpuscular Volume 106 fl (79-97); Platelet Count 129 K/mm3 (140-440); Red Cell Distribution Width 18.2 % (13.2-15.2)
[2021-11-20 22:33] LABS: Alanine Aminotransferase 34 units/L (7-56); Albumin 4.2 g/dL (3.9-5); Blood Urea Nitrogen 19 mg/dL (7-17); Calcium 9.4 mg/dL (8.4-10.2); Hemolysis Index 3
[2021-11-20 22:35] LABS: BUN/Creatinine Ratio 32
[2021-11-20 22:47] LABS: Bilirubin,Urine NEG (Negative); Blood,Urine SM (Negative); Color,Urine Yellow (Yellow); Protein,Urine <15 mg/dL mg/dL (Negative); Urobilinogen,Urine < 2.0 mg/dL (<2.0)
[2021-11-20 23:06] LABS: Bacteria,Urine 1+ /HPF (Negative)
[2021-11-20] MEDS: HYDROmorphone 1 MG/1 ML INJ IV ONE (23:18)
--- NOTE | 2021-11-20 23:59 | Cat Scan Report ---
CT ABDOMEN AND PELVIS WITH CONTRAST INDICATION / CLINICAL INFORMATION: severe lumbar pain, lower abd pain, hx uterine ca. TECHNIQUE: Axial CT images were obtained through the abdomen and pelvis after Omnipaque 300, 100 cc I V contrast. All CT scans at this location are performed using CT dose reduction for ALARA by means o f automated exposure control. COMPARISON: CT abdomen and pelvis 11/05/2018. FINDINGS: LOWER CHEST: No significant abnormality. LIVER: Intrahepatic portosystemic shunt again noted at the hepatic dome. GALLBLADDER: Surgically absent. BILE DUCTS: No significant abnormality. PANCREAS: No significant abnormality. SPLEEN: No significant abnormality. ADRENALS: No significant abnormality. RIGHT KIDNEY / URETER: No significant abnormality. LEFT KIDNEY / URETER: No significant abnormality. STOMACH / SMALL BOWEL: No significant abnormality. COLON: No significant abnormality. APPENDIX: Nonvisualized. PERITONEUM: No free fluid. No free air. No fluid collection. LYMPH NODES: No significant adenopathy. VASCULAR STRUCTURES: No significant abnormality. URINARY BLADDER: No significant abnormality. REPRODUCTIVE ORGANS: Uterus surgically absent. ADDITIONAL FINDINGS: Large fat-containing ventral hernia remains in the midline above the umbilicus. SKELETAL SYSTEM: No significant abnormality. IMPRESSION: Negative for obstruction or localized inflammation. Signer Name: Juan Diego Pereira MD Signed: 11/20/2021 11:54 PM Workstation Name: [id number]
[2021-11-21] MEDS: HYDROmorphone 1 MG/1 ML INJ IV ONE (00:52)
[2021-11-21] MEDS: dexAMETHasone 20 MG/5 ML VIAL IV ONE (00:52)
[2021-11-21 02:11] LABS: Anisocytosis 1+; Band Neutrophils # (Manual) 0.1 K/mm3; Basophils % (Manual) 0 % (0.0-1.8); Eosinophils % (Manual) 0 % (0.0-4.3); Platelet Estimate Consistent w Auto; Total Cells Counted 100
[2021-11-21 04:45] VITALS: BP 163/89
== END 2021-11-21 04:45 | disposition home or self-care (01) ==
LOC: ED 19:04
DX: M54.50 Low back pain, unspecified (principal); M54.10 Radiculopathy, site unspecified; I10 Essential (primary) hypertension; J45.909 Unspecified asthma, uncomplicated; Z90.49 Acquired absence of other specified parts of digestive tract; Z79.899 Other long term (current) drug therapy
CPT/HCPCS: 36415; 74177; 80053; 81001; 83735; 85007; 85025; 96374; 96375; 96376; 99284; J1100; J1170; J1885; J2405; J3010; Q9967; 80320; G0480